=== PATIENT | male | born 1960 | race Caucasian/White ===

== ENCOUNTER 2016-07-20 11:32 | Inpatient (IN) | payer OTHER ==
[~2016-07-20] VITALS: Ht 160 cm; Wt 82.1 kg
[2016-07-20 11:42] VITALS: BP 136/101
[2016-07-20] MEDS ORDERED: ATENOLOL50 M1 PO (11:46)
[2016-07-20] MEDS ORDERED: GLUCOPHAGE500 MG PO (11:46)
[2016-07-20] MEDS ORDERED: TOPCARE OMEPRAZ20 MG PO (11:46)
[2016-07-20] MEDS ORDERED: [UNRECOGNIZED DRUG - REMARK] (11:46)
[2016-07-20] MEDS ORDERED: NORCO 325 MG-51 TAB PO (11:46)
--- NOTE | 2016-07-20 11:52 | NUR ---
pt to bed 6
--- NOTE | 2016-07-20 11:53 | NUR ---
56/M BIB SELF C/O MIDDLE LOWER ABD PAIN X 1 WEEK WITH BLOATING, LAST BM 0600 TODAY, HX HTN DM AND HIV. PT DENIES N/V/D; SKIN IS PINK/WARM/DRY; AAOX4 WITH EVEN AND STEADY GAIT; LUNGS CLEAR BL; HR EVEN AND REGULAR; PT DENIES ANY FEVER, CP, SOB, OR COUGH AT THIS TIME; PATIENT STATES PAIN OF 10/10 AT THIS TIME; VSS; PATIENT POSITIONED FOR COMFORT; HOB ELEVATED; BEDRAILS UP X2; BED DOWN. ER MD MADE AWARE OF PT STATUS.
[2016-07-20] MEDS ORDERED: FAMOTIDINE 20 MG/2 ML VIAL IVP ONE (12:05)
[2016-07-20] MEDS ORDERED: NACL 0.9% 1,000 ML IV SCH (12:05)
[2016-07-20] MEDS ORDERED: ONDANSETRON 4 MG/2 ML VIAL IVP ONE (12:05)
[2016-07-20] MEDS ORDERED: MORPHINE SULFATE 4 MG/ML SYR IVP ONE (12:10)
[2016-07-20] MEDS ORDERED: NACL 0.9% 1,000 ML IV ONE (12:30)
--- NOTE | 2016-07-20 13:51 | NUR ---
PT C/O RASH AT CHEST 3 SPOT;NO ITCHING OR DIFFICULT TO BREATH NOTED AT THIS TIME; ER MD DR MUSTAFA NOTIFIED.
[2016-07-20] MEDS ORDERED: methylPREDNISolone SS 125 MG in WATER STERILE 2 ML IV ONE (14:00)
[2016-07-20] MEDS ORDERED: diphenhydrAMINE 50 MG/ML VIAL IVP ONE (14:00)
[2016-07-20] MEDS ORDERED: ONDANSETRON 4 MG/2 ML VIAL IVP PRN (14:50)
[2016-07-20] MEDS ORDERED: MORPHINE SULFATE 2 MG/ML SYR IVP PRN (14:50)
[2016-07-20] MEDS ORDERED: ACETAMINOPHEN 325 MG TAB PO PRN (14:50)
[2016-07-20] MEDS ORDERED: LORazepam 2 MG/ML VIAL IVP PRN (14:50)
--- NOTE | 2016-07-20 15:25 | NUR ---
CALLED TO REPORT PT [id number] ,RN WILL CALL BACK IN 5 MINS
--- NOTE | 2016-07-20 15:33 | NUR ---
CALLED TO REPORT PT, RN OCTAVIO WILL CALL BACK
--- NOTE | 2016-07-20 15:35 | NUR ---
Dr. Arvizu evaluating patient at bedside.
--- NOTE | 2016-07-20 15:51 | NUR ---
Patient will be admitted to care of DR RAMESH. Admited to MS. Will go to [id number]. Belongings list completed. Report to JEY CUNNINGHAM.
[2016-07-20 16:05] VITALS: BP 112/76
--- NOTE | 2016-07-20 16:05 | NUR ---
PT ADMITTED FROM ER, AWAKE, ALERT AND ORIENTED. AMBULATORY, BREATHING EVEN AND UNLABORED BILATERALLY, NO SIGNS OF ACUTE DISTRESS, SKIN DRY AND INTACT, ABDOMEN SOFT WITH PAIN 5/10 MEDICATED IN ER, BOWEL AND BLADDER CONTINENCE, NO EPISODES OF NAUSEA OR VOMITING, ORIENTED TO HOSPITAL ENVIRONMENT, BED IN LOW POSITION WITH BILATERAL SIDE RAILS UP, CALL LIGHT IN REACH.
[2016-07-20] MEDS: BLOOD GLUCOSE MONITORING 1 DEV DEV FS SCH ×2 (16:24→21:36)
[2016-07-20] MEDS: NACL 0.9% 1,000 ML IV SCH (16:24)
[2016-07-20] MEDS: INSULIN LISPRO SLIDING SCALE 100 UNITS/ML VIAL SUBQ PRN (16:25)
--- NOTE | 2016-07-20 17:00 | NUR ---
SEEN BY DR RAMESH AND SHAVON NEW ADMIT ORDERS RECEIVED, NOTED AND CARRIED OUT.
[2016-07-20] MEDS ORDERED: PNEUMOCOCCAL VACCINE 23 MCG/0.5 ML VIAL IMVAC SCH (17:25)
--- NOTE | 2016-07-20 18:55 | NUR ---
PT. ALERT AND ORIENTED X4, IN NO APPARENT DISTRESS, TRANSFER CARE TO MUSIC THERAPIST NURSE.
--- NOTE | 2016-07-20 19:30 | NUR ---
RECEIVED REPORT FROM DAY RN AT BEDSIDE, PATIENT RESTING IN BED WITH FAMILY AT BEDSIDE, AAOX4 ON ROOM AIR, NO SOB OR SIGN OF DISTRESS. IV TO LAC PATENT AND INTACT WITH IVF INFUSING WELL, SKIN INTACT, DENIES PAIN AT THIS TIME, DISCUSSED PLAN OF CARE WITH PATIENT, PT VERBALIZED UNDERSTANDING, CALL LIGHT WITHIN REACH. WILL CONTINUE TO MONITOR.
[2016-07-20] MEDS: HYDROcodone/APAP 5/325 MG 1 TAB TAB PO PRN (20:10)
--- NOTE | 2016-07-20 21:04 | NUR ---
BS CHECK 419, ABOVE SLIDING SCALE PARAMETERS, CALLED DR SWIFT BOOKSTORE MANAGER FOR DR RAMESH, RECEIVED ORDERS TO CONTINUE PATIENT'S HOME MEDICATION OF METFORMIN 500 MG PO BID TO START TONIGHT. STATED NO EXTRA INSULIN COVERAGE NEEDED AT THIS TIME, WILL FOLLOW UP WITH ORDERS.
[2016-07-20] MEDS: metFORMIN 500 MG TAB PO SCH (22:18)
[2016-07-20] MEDS ORDERED: metFORMIN 500 MG TAB ONE (22:19)
[2016-07-21] VITALS: BP 96/55
--- NOTE | 2016-07-21 00:20 | NUR ---
PATIENT RESTING IN BED, NO SOB OR SIGN OF DISTRESS, VITAL SIGNS STABLE, CALL LIGHT WITHIN REACH. WILL CONTINUE TO MONITOR.
[2016-07-21] MEDS: NACL 0.9% 1,000 ML IV SCH ×4 (01:27→20:49)
--- NOTE | 2016-07-21 03:15 | NUR ---
PATIENT SLEEPING COMFORTABLE, NO SOB OR SIGN OF DISTRESS, CALL LIGHT WITHIN REACH. WILL CONTINUE TO MONITOR.
[2016-07-21] MEDS: HYDROcodone/APAP 5/325 MG 1 TAB TAB PO PRN ×2 (05:59→16:29)
--- NOTE | 2016-07-21 06:00 | NUR ---
PATIENT AWAKE RESTING IN BED, NO SOB OR SIGN OF DISTRESS AT THIS TIME,CALL LIGHT WITHIN REACH. WILL CONTINUE TO MONITOR.
[2016-07-21] MEDS: BLOOD GLUCOSE MONITORING 1 DEV DEV FS SCH ×4 (06:17→21:49)
[2016-07-21] MEDS: INSULIN LISPRO SLIDING SCALE 100 UNITS/ML VIAL SUBQ PRN ×4 (06:18→21:52)
--- NOTE | 2016-07-21 07:43 | NUR ---
ENDORSED PATIENT TO DAY RN AT BEDSIDE, PATIENT IN STABLE CONDITION
[2016-07-21 08:00] VITALS: BP 106/64
--- NOTE | 2016-07-21 08:00 | NUR ---
PATIENT ALERT AND ORIENTED X4, BREATHING EVEN AND UNLABORED BILATERALLY, NO SIGNS OF ACUTE DISTRESS, ABDOMEN SOFT AND ROUND, BOWEL AND BLADDER CONTINENCE, AMBULATES AND ABLE TO PERFORM ADL'S INDEPENDENTLY, SKIN DRY AND INTACT, NO COMPLAINT OF ABDOMINAL PAIN AT THIS TIME, BED IN LOW POSITION WITH BILATERAL HALF SIDE RAILS UP, CALL LIGHT WITHIN REACH.
[2016-07-21] MEDS: ENOXAPARIN 40 MG/0.4 ML SYR SUBQ SCH (08:37)
[2016-07-21] MEDS: metFORMIN 500 MG TAB PO SCH ×2 (08:37→16:10)
--- NOTE | 2016-07-21 09:44 | NUR ---
SPOKE WITH DR. RAMESH, RECEIVED ORDER FOR GI CONSULT WITH Gwendolyn LOZOYA. NOTED AND CARRIED OUT.
--- NOTE | 2016-07-21 10:28 | NUR ---
PAGED Gwendolyn SIDDIQI. TO FOLLOW UP ON GI CONSULT, WILL WAIT FOR RESPONSE.
[2016-07-21 16:00] VITALS: BP 112/80
[2016-07-21] MEDS ORDERED: BACTRIM DS 8001 TAB PO (16:11)
[2016-07-21] MEDS ORDERED: GENVOYA TABLET1 EACH PO (16:11)
[2016-07-21] MEDS ORDERED: PATIENTS OWN TABLET PO SCH (16:20)
--- NOTE | 2016-07-21 16:20 | NUR ---
DR ARMEN Snow MADE AWARE OF CONSULT. VERBALIZED WILL SEE PT. TOMORROW
--- NOTE | 2016-07-21 19:18 | NUR ---
PT. ALERT AND ORIENTED X4, AWAKE AND IN NO APPARENT ACUTE DISTRESS. BREATHING EVEN AND UNLABORED BILATERALLY. RESTING COMFORTABLY. COMPLAINT OF HEADACHE BUT WANTS TO WAIT FOR PAIN MEDICATION. BED IN LOW POSITION, HALF SIDE RAILS UP BILATERALLY, CALL LIGHT WITHIN REACH.
--- NOTE | 2016-07-21 19:18 | NUR ---
PATIENT IS CURRENTLY AWAKE ALERT ORIENTED SPEAKS BURMESE AND KOSOVAN,ABLE TO AMBULATE WELL,IVF INFUSING WELL IV SITE PATENT NO INFILTRATION NOTED.FAMILY CAME TO VISIT THE PATIENT.CALL LIGHT WITHIN REACH WILL CONTINUE TO MONITOR.
--- NOTE | 2016-07-21 19:20 | NUR ---
PATIENT COMPLAINS OF SLIGHT MILD PAIN I OFFERED PAIN MEDICATION BUT PATIENT DOESN'T WANT ANY NORCO OF PAIN MEDICATION.PT STATES,"I THINK THE NORCO IS MAKING DIZZY AND GAVE ME A HEADACHE."PATIENT STATES,"I HAVEN'T REALLY SLEPT EITHER I THINK I NEEDS TO REST." LIGHTS DIMMED AND PATIENT ENCOURAGED TO TRY TO GET SOME SLEEP FOR NOW.
[2016-07-21 20:00] VITALS: BP 116/72
--- NOTE | 2016-07-21 20:00 | NUR ---
Patient's Plan of Care was discussed and reviewed with HEALTH CARE LEGAL ASSISTANT: ROLF
--- NOTE | 2016-07-21 20:40 | NUR ---
PATIENT COMPLAINS OF FEELING NAUSEATED JEY BIGGS INFORMED SHE WILL MEDICATE THE PATIENT WITH ZOFRAN.WILL CONTINUE TO MONITOR.
--- NOTE | 2016-07-21 22:15 | NUR ---
PATIENT WATCHING TV PT STATES,"THE FEELING OF NAUSEA HAS GONE AWAY." NEEDS MET.CALL LIGHT WITHIN REACH.
[2016-07-22] VITALS: BP 125/77
--- NOTE | 2016-07-22 00:55 | NUR ---
PATIENT IS CURRENTLY AWAKE TALKING ON THE PHONE.NEEDS MET.CALL LIGHT WITHIN REACH.
--- NOTE | 2016-07-22 02:15 | NUR ---
PT RESTING IN BED AMBULATES TO THE BATHROOM AND BACK TO BED.IVF INFUSING WELL IV SITE PATENT NO INFILTRATION NOTED.CALL LIGHT WITHIN REACH.
[2016-07-22] MEDS: NACL 0.9% 1,000 ML IV SCH ×2 (04:22→16:54)
--- NOTE | 2016-07-22 04:22 | NUR ---
PATIENT IS CURRENTLY RESTING IN BED DENIES PAIN AND DISCOMFORT.NEEDS MET WILL CONTINUE TO MONITOR. CALL LIGHT WITHIN REACH.
[2016-07-22] MEDS: BLOOD GLUCOSE MONITORING 1 DEV DEV FS SCH ×4 (06:41→21:35)
[2016-07-22] MEDS: INSULIN LISPRO SLIDING SCALE 100 UNITS/ML VIAL SUBQ PRN ×3 (06:42→21:36)
--- NOTE | 2016-07-22 07:34 | NUR ---
PATIENT STABLE REPORT ENDORSED AT BEDSIDE TO JEY GEORGE SHE WILL RESUME CARE OF THE PATIENT,PT STABLE RESTING IN BED.JEY GEORGE WILL RESUME CARE OF THE PATIENT.
--- NOTE | 2016-07-22 07:35 | NUR ---
RECEIVED PT ASLEEP BUT EASILY AROUSABLE, AAOX4 WITH NO S/S OF RESPIRATORY DISTRESS OR DISCOMFORT. WITH IV ACCESS AT LEFT AC 20G INFUSING FLUIDS WELL. SKIN IS INTACT. DISCUSSED PLAN OF CARE, PT VERBALIZED UNDERSTANDING. CALL LIGHT WITHIN REACH, WILL CONTINUE TO MONITOR.
[2016-07-22 08:00] VITALS: BP 111/72
--- NOTE | 2016-07-22 08:09 | NUR ---
PATIENT HAS BEEN SCREENED AND CATEGORIZED MODERATE NUTRITION RISK. PATIENT WILL BE SEEN WITHIN 3-5 DAYS OF ADMISSION. 07/23/16-07/25/[address]
[2016-07-22] MEDS: PATIENTS OWN TABLET PO SCH (08:21)
[2016-07-22] MEDS: metFORMIN 500 MG TAB PO SCH ×2 (08:21→16:53)
[2016-07-22] MEDS: ENOXAPARIN 40 MG/0.4 ML SYR SUBQ SCH (08:24)
--- NOTE | 2016-07-22 08:25 | NUR ---
DUE MEDS GIVEN, PT TOLERATED WELL. ALL NEEDS MET AT THIS TIME, WILL CONTINUE TO MONITOR.
[2016-07-22] MEDS ORDERED: [UNRECOGNIZED DRUG - OTHER] PO SCH (09:00)
[2016-07-22] MEDS ORDERED: SULFAMETH/TRIMETH DS 800/160MG 1 TAB PO SCH (09:00)
--- NOTE | 2016-07-22 10:59 | NUR ---
PT AWAKE LYING ON BED WATCHING TV, ALL NEEDS MET AT THIS TIME. WILL CONTINUE TO MONITOR.
--- NOTE | 2016-07-22 11:25 | NUR ---
DR AYERS AT BEDSIDE. WILL CARRY OUT NEW ORDERS
[2016-07-22] MEDS ORDERED: MAGNESIUM CITRATE 300 ML BTL PO SCH (12:00)
[2016-07-22] MEDS: METOCLOPRAMIDE 10 MG/2 ML INJ VIAL IVP SCH ×2 (12:01→16:56)
[2016-07-22] MEDS: SENNA 8.6 MG TAB PO SCH ×3 (12:01→21:00)
[2016-07-22] MEDS: LACTULOSE 20 GM/30 ML UDC PO SCH ×3 (12:03→21:00)
--- NOTE | 2016-07-22 13:17 | NUR ---
PT AMBULATING AROUND THE HALLWAYS, TOLERATING WELL. NO COMPLAINTS OF PAIN AT THIS TIME. WITH RELATIVE AT BEDSIDE. CALL LIGHT WITHIN REACH, WILL CONTINUE TO MONITOR.
--- NOTE | 2016-07-22 13:30 | NUR ---
PT REFUSED IV FLUIDS, STATED THAT HE NEEDS TO GO TO THE RESTROOM FROM TIME TO TIME DUE TO THE LAXATIVES HE HAS BEEN TAKING. ADVISED PT TO DRINK PLENTY OF WATER. PT VERBALIZED UNDERSTANDING.
--- NOTE | 2016-07-22 14:52 | NUR ---
CM NOTE INITIAL REVIEW FAXED TO [facility] / FAX# [phone], ATTN: September [phone]
[2016-07-22 16:00] VITALS: BP 108/71
--- NOTE | 2016-07-22 16:45 | NUR ---
PT STILL REFUSED IV FLUIDS, STATED THAT HE HAS BEEN DRINKING WATER AND THAT HE DOES NOT WANT TO HAVE AN "ACCIDENT" BECAUSE HE HAS BEEN TAKING LAXATIVES BOWEL PREP FOR COLONOSCOPY TOMORROW. DISCUSSED BENEFITS OF IVF, PT STILL REFUSED. ENCOURAGED TO DRINK PLENTY OF FLUIDS. PT VERBALIZED UNDERSTANDING
--- NOTE | 2016-07-22 18:22 | NUR ---
IVF RECONNECTED, INFORMED PT TO PRESS CALL LIGHT IF HE WANTS TO GO TO RESTROOM. PT VERBALIZED UNDERSTANDING
--- NOTE | 2016-07-22 18:50 | NUR ---
FLEET ENEMA DONE, PT TOLERATED WELL. WILL CONTINUE TO MONITOR.
[2016-07-22] MEDS ORDERED: BOWEL EVACUANT DRINK 4,000 ML PDS PO SCH (19:00)
--- NOTE | 2016-07-22 19:30 | NUR ---
Patient's Plan of Care was discussed and reviewed with REFUSE AND RECYCLING WORKER: RUBA Potter
--- NOTE | 2016-07-22 19:34 | NUR ---
ENDORSED PT TO DANDY YEH IN STABLE CONDITION FOR CONTINUITY OF CARE
--- NOTE | 2016-07-22 19:35 | NUR ---
RECD. RESTING IN BED, AWAKE, A/OX4. RESPIRATION EVEN AND UNLABORED. IV OF NS AT 100 ML/HR INFUSING, LEFT AC G 20. GOLYTELY AT THE BEDSIDE. AMBULATORY TO THE BR. PLAN OF CARE FOR THE SHIFT DISCUSSED. VERBALIZED UNDERSTANDING. STATED THAT HIS BM IS ALREADY CLEAR, INSTRUCTED TO CALL NURSE TO VERIFY IF IT IS ALREADY CLEAR. AGREED. DENIES PAIN 0/10.
[2016-07-22 20:00] VITALS: BP 118/72
--- NOTE | 2016-07-22 21:35 | NUR ---
REFUSED TO TAKE CEPHULAC AND SENOKOT, STATED HE ALREADY DRINK IN THE AFTERNOON, EXPLAINED THAT IT WILL HELP CLEANSED IN PREPARATION FOR COLONOSCOPY, BUT STILL REFUSED.
--- NOTE | 2016-07-22 23:00 | NUR ---
REMINDED NPO PAST MIDNIGHT, VERBALIZED UNDERSTANDING.
--- NOTE | 2016-07-23 | NUR ---
CALLED NURSE TO CHECK HIS BM. NOTED BM ALREADY CLEAR.
[2016-07-23] MEDS: NACL 0.9% 1,000 ML IV SCH ×2 (02:49→12:49)
--- NOTE | 2016-07-23 04:00 | NUR ---
SLEEPING COMFORTABLY IN BED.
[2016-07-23] MEDS: BLOOD GLUCOSE MONITORING 1 DEV DEV FS SCH ×4 (06:47→21:00)
--- NOTE | 2016-07-23 07:20 | NUR ---
CONDITION REMAIN STABLE. ENDORSED TO JEY GEORGE FOR CONTINUITY OF CARE.
--- NOTE | 2016-07-23 07:21 | NUR ---
RECEIVED PT ASLEEP BUT EASILY AROUSABLE, AAOX4, NO S/S OF RESPIRATORY DISTRESS OR DISCOMFORT. WITH IV ACCESS ON LEFT AC 2OG INFUSING FLUIDS WELL. SKIN IS INTACT. DISCUSSED PLAN OF CARE AND PROCEDURE FOR THIS MORNING, PT VERBALIZED UNDERSTANDING. CALL LIGHT WITHIN REACH, WILL CONTINUE TO MONITOR.
[2016-07-23 08:00] VITALS: BP 95/51
[2016-07-23] MEDS: metFORMIN 500 MG TAB PO SCH ×2 (08:00→16:40)
[2016-07-23] MEDS: LACTULOSE 20 GM/30 ML UDC PO SCH (08:22)
[2016-07-23] MEDS: PATIENTS OWN TABLET PO SCH (08:23)
[2016-07-23] MEDS: ENOXAPARIN 40 MG/0.4 ML SYR SUBQ SCH (08:23)
[2016-07-23] MEDS: SENNA 8.6 MG TAB PO SCH (08:23)
[2016-07-23] MEDS: METOCLOPRAMIDE 10 MG/2 ML INJ VIAL IVP SCH (08:37)
--- NOTE | 2016-07-23 08:39 | NUR ---
PO MEDS AND LOVENOX HELD DUE TO COLONOSCOPY
--- NOTE | 2016-07-23 10:14 | NUR ---
PT AMBULATING AROUND THE HALLWAYS, NO COMPLAINTS AT THIS TIME. ABLE TO SHOWER.
--- NOTE | 2016-07-23 11:30 | NUR ---
DR RAMESH AT BEDSIDE
--- NOTE | 2016-07-23 11:57 | NUR ---
HELD INSULIN COVERAGE DUE TO PT IS ON NPO.
[2016-07-23] MEDS ORDERED: fentaNYL 0.05 MG/ML VIAL ONE ×2 (12:16)
[2016-07-23] MEDS ORDERED: diphenhydrAMINE 50 MG/ML VIAL ONE (12:18)
[2016-07-23] MEDS ORDERED: MIDAZOLAM 2 MG/2 ML VIAL ONE ×2 (12:18)
--- NOTE | 2016-07-23 12:30 | NUR ---
PT LEFT UNIT TO OR IN STABLE CONDITION
--- NOTE | 2016-07-23 13:03 | NUR ---
PT BACK TO UNIT FROM OR IN STABLE CONDITION
[2016-07-23] MEDS ORDERED: GLUCAGON 1 MG VIAL ONE (13:32)
[2016-07-23] MEDS ORDERED: fentaNYL 0.05 MG/ML VIAL IVP ONE (13:55)
[2016-07-23] MEDS ORDERED: MIDAZOLAM 2 MG/2 ML VIAL IVP ONE (13:55)
[2016-07-23] MEDS ORDERED: GLUCAGON 1 MG VIAL IVP ONE (13:55)
[2016-07-23] MEDS ORDERED: LEVOFLOXACIN 500 MG/D5W PREMIX 100 ML IV SCH (15:00)
--- NOTE | 2016-07-23 15:26 | NUR ---
FAXED CONCURRENT REVIEW TO [facility] [phone] PHONE SEPTEMBER [phone]
--- NOTE | 2016-07-23 15:28 | NUR ---
PT AWAKE WITH RELATIVES AT BEDSIDE, ALL NEEDS MET AT THIS TIME. WILL CONTINUE TO MONITOR.
[2016-07-23 16:00] VITALS: BP 107/77
[2016-07-23] MEDS: INSULIN LISPRO SLIDING SCALE 100 UNITS/ML VIAL SUBQ PRN (16:43)
--- NOTE | 2016-07-23 17:08 | NUR ---
PT AWAKE WATCHING T V, NO COMPLAINTS AT THIS TIME.
--- NOTE | 2016-07-23 19:14 | NUR ---
ENDORSED PT TO DANDY YEH IN STABLE CONDITION FOR CONTINUITY OF CARE
--- NOTE | 2016-07-23 19:15 | NUR ---
RECD. RESTING IN BED, AWAKE, A/OX4. RESPIRATION EVEN AND UNLABORED. WATCHING TV. IV OF NS AT 50 ML/HR INFUSING, RIGHT AC G 20. PLAN OF CARE FOR THE SHIFT DISCUSSED. VERBALIZED UNDERSTANDING. DENIES PAIN 0/10.
--- NOTE | 2016-07-23 20:00 | NUR ---
Patient's Plan of Care was discussed and reviewed with STRAIGHTENING MACHINE OPERATOR: RUBA EATON
[2016-07-23] MEDS: metroNIDAZOLE 500 MG/NS PREMIX 100 ML IV SCH (20:38)
[2016-07-24] VITALS: BP 116/60
[2016-07-24] MEDS: metroNIDAZOLE 500 MG/NS PREMIX 100 ML IV SCH ×2 (04:59→13:54)
[2016-07-24] MEDS: BLOOD GLUCOSE MONITORING 1 DEV DEV FS SCH ×2 (06:01→12:18)
--- NOTE | 2016-07-24 07:09 | NUR ---
ASSUMED CONTINUITY OF CARE. NO SIGNS AND SYMPTOMS OF ACUTE DISTRESS NOTED. INITIAL ASSESSMENT DONE. KEEP COMFORTABLE ON BED. EXPLAINED DIAGNOSIS, PLAN OF CARE, PAIN MANAGEMENT TEACHING, USE OF CALL LIGHT/BED/TV/BATHROOM. VERBALIZED UNDERSTANDING. CALL LIGHT WITHIN REACH.
[2016-07-24] MEDS: PATIENTS OWN TABLET PO SCH (08:40)
[2016-07-24] MEDS: metFORMIN 500 MG TAB PO SCH (08:40)
[2016-07-24] MEDS: ENOXAPARIN 40 MG/0.4 ML SYR SUBQ SCH (08:41)
[2016-07-24] MEDS ORDERED: LACTULOSE 20 GM/30 ML UDC PO SCH (09:00)
[2016-07-24] MEDS: NACL 0.9% 1,000 ML IV SCH (09:27)
[2016-07-24 12:00] VITALS: BP 110/72
[2016-07-24] MEDS: INSULIN LISPRO SLIDING SCALE 100 UNITS/ML VIAL SUBQ PRN (12:19)
[2016-07-24] MEDS ORDERED: TYLENOL325 M2 PO ×2 (12:59→13:01)
[2016-07-24] MEDS ORDERED: MOTRIN400 MG PO (13:00)
--- NOTE | 2016-07-24 13:30 | NUR ---
EXPLAINED ABOUT MD D/C ORDER, MD FOLLOW-UP, D/C INSTRUCTIONS AND TEACHING, D/C MEDICATION LIST EDUCATION, PAIN MANAGEMENT TEACHING, DISEASE MANAGEMENT TEACHING, DM TEACHING. VERBALIZED UNDERSTANDING.
--- NOTE | 2016-07-24 14:31 | NUR ---
FAXED CONCURRENT REVIEW TO [facility] [phone] PHONE SHER[place] [phone] [place] [phone]
--- NOTE | 2016-07-24 14:50 | NUR ---
D/C VIA WHEELCHAIR ACCOMPANIED BY PT. SISTER -MERLIN. AWAKE, ALERT, AND ORIENTED X4. SPEECH CLEAR. NO C/O PAIN. NO SOB, NOTED. IN STABLE CONDITION. INFORMED CHARGE NURSE FRANKLYN ROLLE
== END 2016-07-24 14:45 | disposition home or self-care (01) | DRG 244 ==
LOC: MED 11:32 → MTU 15:23
PROVIDERS: ADMIT Hospitalist; ATTEND Hospitalist
PROC: 0DBN8ZX Excision of Sigmoid Colon, Via Natural or Artificial Opening Endoscopic, Diagnostic (ICD-10-PCS; principal; 2016-07-23 11:00)
DX: K57.32 Diverticulitis of large intestine without perforation or abscess without bleeding (principal); K56.69 Other intestinal obstruction; K76.0 Fatty (change of) liver, not elsewhere classified; K63.89 Other specified diseases of intestine; I10 Essential (primary) hypertension; K40.90 Unilateral inguinal hernia, without obstruction or gangrene, not specified as recurrent; K57.30 Diverticulosis of large intestine without perforation or abscess without bleeding; Z87.891 Personal history of nicotine dependence; K59.00 Constipation, unspecified; E11.9 Type 2 diabetes mellitus without complications; E78.5 Hyperlipidemia, unspecified; E66.9 Obesity, unspecified; Z68.32 Body mass index [BMI] 32.0-32.9, adult; Z91.19 Patient's noncompliance with other medical treatment and regimen

== ENCOUNTER 2017-01-03 11:29 | Emergency (ER) | payer OTHER ==
[~2017-01-03] VITALS: Ht 157.5 cm; Wt 81.3 kg
[~2017-01-03 11:29] MED LIST: ACET-2619 PO; ACET-2869 PO; ATEN50TA2 PO; ELVI1TAB2 PO; IBUP-1842 PO; METF500T PO; OMEP20TC PO; SULF-59 PO; [UNRECOGNIZED DRUG - REMARK]
[2017-01-03 11:34] VITALS: BP 134/87
[2017-01-03] MEDS ORDERED: POLYETHYLENE GLYCOL 17 GM/PKT PO ONE (13:25)
[2017-01-03] MEDS ORDERED: SENNA 8.6 MG TAB PO ONE (13:25)
[2017-01-03] MEDS ORDERED: DOCUSATE SODIUM 100 MG GELCAP PO ONE (13:25)
--- NOTE | 2017-01-03 13:45 | NUR ---
PATIENT PRESENTS TO ED WITH c/o constipation x 5 days with lower abdominal pain--- used metamucil, prune juice, hx---dm, hiv, htn, chronic constipation rx----hiv med, gabapentin, omeprazole, vistaril, atnolol, paroxetine, enalapril, motrin, norco, metformin; DENIES N/V/D; SKIN IS PINK/WARM/DRY; AAOX4 WITH EVEN AND STEADY GAIT; LUNGS CLEAR BL; HR EVEN AND REGULAR; PT DENIES ANY FEVER, CP, SOB, OR COUGH AT THIS TIME; PATIENT STATES PAIN OF 0/10 AT THIS TIME; VSS; PATIENT POSITIONED FOR COMFORT; HOB ELEVATED; BEDRAILS UP X2; BED DOWN. ER MD MADE AWARE OF PT STATUS.
--- NOTE | 2017-01-03 14:43 | NUR ---
Patient discharged with v/s stable. Written and verbal after care instructions given and explained. Patient alert, oriented and verbalized understanding of instructions. Ambulatory with steady gait. All questions addressed prior to discharge. ID band removed. Patient advised to follow up with PMD. Rx of miralax, senokot, colace given. Patient educated on indication of medication including possible reaction and side effects. Opportunity to ask questions provided and answered.
[2017-01-03 14:46] VITALS: BP 124/91
== END 2017-01-03 14:43 | disposition home or self-care (01) ==
LOC: MED 11:29
DX: K59.00 Constipation, unspecified (principal); I10 Essential (primary) hypertension; K21.9 Gastro-esophageal reflux disease without esophagitis; E11.9 Type 2 diabetes mellitus without complications; F17.210 Nicotine dependence, cigarettes, uncomplicated; Z79.84 Long term (current) use of oral hypoglycemic drugs; Z79.899 Other long term (current) drug therapy
CPT/HCPCS: 74000; 99284

== ENCOUNTER 2017-01-05 08:51 | Inpatient (IN) | payer OTHER ==
[~2017-01-05] VITALS: Ht 160 cm; Wt 78.9 kg
[~2017-01-05 08:51] MED LIST changes: -ACET-2619 PO; -ACET-2869 PO; -ATEN50TA2 PO; +ATENOLOL50 M1 PO; +BACTRIM DS 8001 TAB PO; -ELVI1TAB2 PO; +GENVOYA TABLET1 EACH PO; +GLUCOPHAGE500 MG PO; -IBUP-1842 PO; -METF500T PO; +MOTRIN400 MG PO; +NORCO 325 MG-51 TAB PO; -OMEP20TC PO; -SULF-59 PO; +TOPCARE OMEPRAZ20 MG PO; +TYLENOL325 M2 PO
[2017-01-05 09:01] VITALS: BP 124/77
--- NOTE | 2017-01-05 09:04 | NUR ---
Patient ambulated to bed 05.
--- NOTE | 2017-01-05 09:05 | NUR ---
PT PRESENTS TO ER FOR EVALUATION OF CONSTIPATION X7 DAYS. HX DM.PT STS LOWER ABDOMINAL PAIN AT THIS TIME. DENIES N/V/D; SKIN IS PINK/WARM/DRY; AAOX4 WITH EVEN AND STEADY GAIT; LUNGS CLEAR BL; HR EVEN AND REGULAR; PT DENIES ANY FEVER, CP, SOB, OR COUGH AT THIS TIME; PATIENT STATES PAIN OF 10/10 AT THIS TIME; VSS; PATIENT POSITIONED FOR COMFORT; HOB ELEVATED; BEDRAILS UP X2; BED DOWN. ER MD MADE AWARE OF PT STATUS. Addendum: 01/05/17 at 0915 by [email or web address] HX OF HIV.
--- NOTE | 2017-01-05 09:15 | NUR ---
Dr. Barba evaluating patient at bedside. Addendum: 01/05/17 at 0918 by [email or web address] PT STS HX OF HTN.
--- NOTE | 2017-01-05 09:16 | NUR ---
Patient being evaluated by DR AYALA at bedside.
--- NOTE | 2017-01-05 09:33 | NUR ---
Patient being taken to CT via herber[facility]man.
--- NOTE | 2017-01-05 09:34 | NUR ---
Eloy duarte in ED - 01/05/17 at 0935 by [email or web address] PT TAKEN TO CT VIA ALIVIA,ACCOMPANIED BY AUTOMOTIVE WHOLESALE PARTS ADVISOR.
--- NOTE | 2017-01-05 09:41 | NUR ---
[facility].
--- NOTE | 2017-01-05 11:52 | NUR ---
REPORT TO JEY ALAS.
--- NOTE | 2017-01-05 11:53 | NUR ---
Patient will be admitted to care of GILBERT. Admited to MS. Will go to room 120. Belongings list completed. Report to JEY ALAS.
--- NOTE | 2017-01-05 12:05 | NUR ---
PT BLOOD PRESSURE 120/71, PULSE 52, 94% OXYGEN SATURATION, RESPIRATIONS 18 AND TEMPERATURE 98.3. WILL CONTINUE TO MONITOR.
--- NOTE | 2017-01-05 12:05 | NUR ---
RECEIVED REPORT FROM JEY CAMP. PT AWAKE AND ALERT, NO SIGNS OF ACUTE DISTRESS. BOWEL SOUNDS ACTIVE IN ALL 4 QUADRANTS. AMBULATORY WITH BRP. SKIN INTACT. IV PATENT AND ASYMPTOMATIC. ORIENTED TO HOSPITAL AND TO UNIT, PT VERBALIZES UNDERSTANDING. BED IN LOW POSITION WITH BILATERAL HALF SIDE RAILS UP, CALL LIGHT WITHIN REACH. WILL CONTINUE TO MONITOR.
--- NOTE | 2017-01-05 13:30 | NUR ---
PAGED DR LOPEZ, NO ORDERS FOR PATIENT YET. DR LOPEZ ORDERED DILAUDID AND NORCO FOR PAIN AND CLEAR LIQUID DIET. HE WILL PUT IN MORE ORDERS LATER. NOTED, WILL CARRY OUT.
[2017-01-05] MEDS: HYDROmorphone 1 MG/ML AMP IVP PRN (13:57)
--- NOTE | 2017-01-05 15:30 | NUR ---
DR LOPEZ AT PATIENT BEDSIDE.
[2017-01-05] MEDS ORDERED: SODIUM PHOSPHATE 118 ML ENEM RC PRN (15:35)
[2017-01-05] MEDS ORDERED: ALUMINUM HYD/MAG/SIMETHICONE 30 ML UDC PO PRN (15:35)
[2017-01-05] MEDS ORDERED: MORPHINE SULFATE 2 MG/ML SYR IVP PRN (15:35)
[2017-01-05] MEDS ORDERED: BISACODYL 10 MG SUPP RC PRN (15:35)
[2017-01-05] MEDS ORDERED: HYDROcodone/APAP 5/325 MG 1 TAB TAB PO SCH (15:35)
[2017-01-05] MEDS ORDERED: DOCUSATE SODIUM 250 MG GELCAP PO PRN (15:35)
[2017-01-05] MEDS ORDERED: ACETAMINOPHEN 325 MG TAB PO PRN ×2 (15:35)
[2017-01-05] MEDS ORDERED: ONDANSETRON 4 MG/2 ML VIAL IVP PRN (15:35)
[2017-01-05] MEDS ORDERED: ACETAMINOPHEN 650 MG SUPP RC PRN (15:35)
[2017-01-05] MEDS ORDERED: HYDROcodone/APAP 5/325 MG 1 TAB TAB PO PRN (15:35)
--- NOTE | 2017-01-05 15:57 | NUR ---
RECEIVED NEW ORDERS FROM DR LOPEZ, NOTED, WILL CARRY OUT.
[2017-01-05 16:00] VITALS: BP 125/76
[2017-01-05] MEDS: BLOOD GLUCOSE MONITORING 1 DEV DEV FS SCH ×2 (16:35→20:18)
[2017-01-05] MEDS: HYDROcodone/APAP 10/325 MG 1 TAB TAB PO PRN (16:43)
--- NOTE | 2017-01-05 17:06 | NUR ---
RECEIVED NEW ORDERS FROM DR QUINONES, FOR COLONOSCOPY TOMORROW. NOTED, WILL CARRY OUT.
[2017-01-05] MEDS ORDERED: BOWEL EVACUANT DRINK 4,000 ML PDS PO ONE (17:30)
--- NOTE | 2017-01-05 19:08 | NUR ---
PATIENT IS CURRENTLY AWAKE ALERT ORIENTED SITTING AT THE EDGE OF THE BED SPEAKS MARSHALLESE ONLY.PATIENT IS CURRENTLY DRINKING THE GOLYTELY.PATIENT DENIES PAIN AND DISCOMFORT.PATIENT ABLE TO MAKE NEEDS KNOWN.WILL CONTINUE TO OBSERVE.
--- NOTE | 2017-01-05 19:08 | NUR ---
PT AWAKE AND ALERT, NO SIGNS OF ACUTE DISTRESS. ENDORSED TO SUPERVISOR STEEL DIVISION NURSE FOR CONTINUITY OF CARE.
[2017-01-05 20:00] VITALS: BP 122/83
--- NOTE | 2017-01-05 20:00 | NUR ---
Patient's Plan of Care was discussed and reviewed with GEAR MACHINE OPERATOR GENERAL: DARA WATSON
--- NOTE | 2017-01-05 20:05 | NUR ---
PATIENT HAS DRANK HALF OF THE GOLYTELY AND PATIENT STATES,"I STILL HAVEN'T BEEN ABLE TO GO TO THE BATHROOM I HAVEN'T POOP." PATIENT WAS GIVEN SOME WASH CLOTHS FOR HIM TO WASH UP PER PATIENT'S REQUEST.FAMILY CURRENTLY AT BEDSIDE AND MOTHER ALSO AT BEDSIDE.PATIENT IS AWARE THAT HE HAS CONSULT FOR GI SPECIALIST AND WITH CAROLINE KATE.CALL LIGHT WITHIN REACH WILL CONTINUE TO MONITOR.
[2017-01-05] MEDS: metFORMIN 500 MG TAB PO SCH (21:00)
--- NOTE | 2017-01-05 21:12 | NUR ---
I PAGED EWA CLAY EXCHANGE PATIENT IS VOMITING UNABLE TO DRINK THE GOLYTELY HE KEEPS VOMITING AND STILL HASN'T HAD A BOWEL MOVEMENT YET. PATIENT AMBULATING IN THE HALLWAY.
--- NOTE | 2017-01-05 21:18 | NUR ---
MD MEJIA RETURNED HIS CALL AND HE IS AWARE THAT PATIENT DRANK HALF OF THE GOLYTELY AND PATIENT STILL UNABLE TO HAVE BOWEL MOVEMENT AND HE IS VERY NAUSEATED CANT DRINK THE GOLYTELY.MD MEJIA GAVE NEW ORDERS FOR THE PATIENT.WILL CARRY THE ORDERS OUT AND WILL CONTINUE TO MONITOR FOR EFFECTIVENESS.
[2017-01-05] MEDS ORDERED: BISACODYL 5 MG TABEC PO SCH ×2 (21:45→22:00)
[2017-01-05] MEDS ORDERED: SODIUM PHOSPHATE 118 ML ENEM RC SCH (21:45)
--- NOTE | 2017-01-05 21:58 | NUR ---
PATIENT RECEIVED ZOFRAN FOR NAUSEA AND VOMITING.
--- NOTE | 2017-01-05 22:04 | NUR ---
PATIENT WAS GIVEN A FLEET ENEMA KS ORDERED TIMES ONE AND WILL CONTINUE TO MONITOR FOR EFFECTIVENESS.
--- NOTE | 2017-01-05 22:30 | NUR ---
I PAGED CAROLINE KATE TO MAKE SURE HE IS AWARE THAT HE HAS A CONSULT WITH THIS PATIENT.
--- NOTE | 2017-01-05 22:51 | NUR ---
PATIENT KEPT COMFORTABLE I GAVE PATIENT A WARM BLANKET.
--- NOTE | 2017-01-05 23:05 | NUR ---
CAROLINE KATE CALLED BACK HE WAS INFORMED OF CONSULT ON THIS PATIENT MD AWARE OF CT ABD AND PELVIS RESULTS I READ THE RESULT OVER THE PHONE AND MD ORDERED TO CONTINUE TO KEEP THE PATIENT NPO AND GAVE ORDERS TO INSERT NGTUBE TO HIGH SUCTION. CAROLINE KATE IS AWARE THAT PATIENT HASN'T HAD A BM IN 7 DAYS AND THE PREP GIVEN TONIGHT STILL PATIENT HASN'T POOP.CAROLINE KATE IS ALSO AWARE THAT PATIENT WILL BE HAVING A COLONOSCOPY DONE TOMORROW BY MD MEJIA.
[2017-01-06] VITALS: BP 132/93
[2017-01-06] MEDS ORDERED: SODIUM PHOSPHATE 118 ML ENEM RC ONE (00:04)
--- NOTE | 2017-01-06 00:40 | NUR ---
NO BOWEL MOVEMENT YET WILL CONTINUE TO OBSERVE.
[2017-01-06] MEDS: HYDROmorphone 1 MG/ML AMP IVP PRN ×3 (00:42→21:58)
--- NOTE | 2017-01-06 01:05 | NUR ---
PATIENT AGREED TO HAVE NGT INSERTED ORDERED BY MD VELAZQUEZ FLIGHT OPERATIONS SPECIALIST NURSE CLAIRE HELPED WITH THE NGTUBE INSERTION PATIENT DID WELL AND FOLLOWED INSTRUCTIONS AND NGTUBE FR#14 WAS INSERTED VERY SMOOTHLY PATIENT TOLERATED PROCEDURE WELL AND I CHECKED FOR NGTUBE PLACEMENT BY ASPIRATING AND FLUSHING AIR INTO THE STOMACH WITNESSED BY FLIGHT OPERATIONS SPECIALIST AND NGTUBE IS IN PLACE.SECURED WITH TAPE BY JEY RAY.NGTUBE CONNECTED TO HIGH INTERMITTENT SUCTION BY CAROLINE KATE.WILL CONTINUE TO OBSERVE.
--- NOTE | 2017-01-06 02:21 | NUR ---
PATIENT SLEEPING IN BED NG TUBE IN PLACE AND CONNECTED TO HIGH INTERMITTENT SUCTION.
--- NOTE | 2017-01-06 03:18 | NUR ---
PATIENT WENT TO THE BEDSIDE COMMODE AND HAD SOFT MEDIUM BOWEL MOVEMENT.THEN PATIENT WAS ASSISTED BACK TO BED WILL CONTINUE TO MONITOR.CALL LIGHT WITHIN REACH.
[2017-01-06] MEDS: BLOOD GLUCOSE MONITORING 1 DEV DEV FS SCH ×4 (05:51→21:00)
--- NOTE | 2017-01-06 06:50 | NUR ---
PATIENT SLEEPING AT THIS TIME CONTINUES HAVE NGT TO HIGH INTERMITTENT SUCTION. PATIENT HAD ONLY ONE EPISODE OF BM LAST NIGHT AND I CALLED AND LEFT A MESSAGE WITH David ELLIS I WANT TO INFORM HIM THAT PATIENT IS STILL NOT CLEAR FOR THE PROCEDURE COLONOSCOPY HE WANTS TO DO TODAY.
--- NOTE | 2017-01-06 06:55 | NUR ---
MD MEJIA CALLED BACK AND I INFORMED HIM THAT PATIENT HAD ONLY ONE EPISODE OF BM LAST NIGHT AND JUST NOW THIS MORNING MARCOS WESLEY INFORMED ME THAT PATIENT HAD ANOTHER EPISODE OF LOOSE STOOL.I ALSO INFORMED MD MEJIA THAT PATIENT HAS AN NGTUBE ORDERED BY CAROLINE KATE BECAUSE PATIENT HAS NAUSEOUS AND WAS VOMITING LAST NIGHT.MD GAVE NEW ORDERS WILL FOLLOW UP.
[2017-01-06] MEDS: DEXT 5% / NACL 0.45% 1,000 ML IV SCH ×2 (07:00→17:27)
--- NOTE | 2017-01-06 07:36 | NUR ---
PATIENT IS CURRENTLY RESTING IN BED REPORT ENDORSED TO RN FREDY.
--- NOTE | 2017-01-06 07:37 | NUR ---
REPORT RECEIVED FROM EMAIL PRODUCER, PT CARE ASSUMED AT THIS TIME, PT AWAKE ALERT, RESTING QUIETLY IN NAD, RESP EVEN UNLABORED ON ROOM AIR, NGT TO LOW INTERMIT SUCTION, DRAINAGE GREEN DRAINAGE, PT UP TO BEDSIDE COMMODE, LOOSE STOOL NOTED, ABD SOFT, NON DISTENDED, +BS, PLAN OF CARE DISCUSSED, PT VERBALIZED FULL UNDERSTANDING, WILL CONTINUE TO MONITOR.
[2017-01-06 08:00] VITALS: BP 128/83
[2017-01-06] MEDS: metFORMIN 500 MG TAB PO SCH ×2 (08:00→17:00)
--- NOTE | 2017-01-06 08:55 | NUR ---
TAP WATER EMEMA 1500ML COMPLETED, PT CONY WELL, BED SIDE COMMODE NEAR BY, CALL US WITHIN REACH, WILL CONTINUE TO MONITOR.
[2017-01-06] MEDS: ATENOLOL 50 MG TAB PO SCH (09:00)
[2017-01-06] MEDS: PANTOPRAZOLE 40 MG TABEC PO SCH (09:00)
[2017-01-06] MEDS ORDERED: NON-FORMULARY ITEM (Omeprazole (Omeprazole) 20 MG) PO SCH (09:00)
[2017-01-06] MEDS: SULFAMETH/TRIMETH DS 800/160MG 1 TAB PO SCH (09:00)
--- NOTE | 2017-01-06 10:30 | NUR ---
PATIENT SITTING IN BED. NO ACUTE DISTRESS NOTED. DENIES ANY PAIN AT THIS TIME. CONTINUES TO HAVE BM, LOOSE BROWN STOOLS. LEFT HAND IV INTACT, PATENT, AND RUNNING. NG TUBE INTERMITTENT SUCTION ON WITH YELLOWISH/BROWN DRAINAGE. BEDSIDE COMMODE NEXT AT BEDSIDE. FAMILY MEMBERS AT BEDSIDE. SAFETY MEASURES IN PLACE, CALL LIGHT WITHIN REACH. WILL CONTINUE TO MONITOR.
--- NOTE | 2017-01-06 11:18 | NUR ---
PATIENT HAS BEEN SCREENED AND CATEGORIZED MODERATE NUTRITION RISK. PATIENT WILL BE SEEN WITHIN 3-5 DAYS OF ADMISSION. 01/08/17 - 01/10/[address]
--- NOTE | 2017-01-06 11:20 | NUR ---
SURGERY MD AT BEDSIDE.
[2017-01-06] MEDS ORDERED: MAGNESIUM CITRATE 300 ML BTL PO SCH ×2 (13:06→17:00)
--- NOTE | 2017-01-06 13:15 | NUR ---
DR. CASTILLO AT BEDSIDE. BIOPSY REPORT FROM JULY 2016 OBTAINED FROM MEDICAL RECORD. NO COLONOSCOPY NEEDED PER DR. CASTILLO. ORDERS FOR MAGNESIUM CITRATE AND DULCOLAX RECEIVED FOR BOWEL PREPARATION FOR POSSIBLE SURGERY PER DR. CASTILLO.
[2017-01-06] MEDS ORDERED: BISACODYL 5 MG TABEC PO SCH ×2 (13:30→17:00)
--- NOTE | 2017-01-06 13:35 | NUR ---
MAGNESIUM CITRATE AND DULCOLAX GIVEN. NG TUBE TAKEN OFF SUCTION FOR NOW. PATIENT UP AT THE BEDSIDE COMMODE NOW.
--- NOTE | 2017-01-06 15:00 | NUR ---
PATIENT SITTING AT BED. NO ACUTE DISTRESS NOTED. RESPIRATIONS EVEN, UNLABORED. CONNECTED INTERMITTENT SUCTION VIA NG TUBE. CONTINUES TO HAVE LOOSE BROWN STOOLS. SAFETY MEASURES IN PLACE, CALL LIGHT WITHIN REACH. WILL CONTINUE TO MONITOR
--- NOTE | 2017-01-06 15:05 | NUR ---
CM NOTE INITIAL REVIEW FAXED TO [facility] (FAX# [phone], ATTN: DENISSE #[phone]) AND [facility] (FAX# [phone])
[2017-01-06 16:00] VITALS: BP 122/83
--- NOTE | 2017-01-06 17:00 | NUR ---
PATIENT LYING IN BED COMFORTABLY. NO S/S OF ACUTE DISTRESS. MEDICATIONS DUE GIVEN. DENIES ANY PAIN AT THIS TIME. CONTINUES TO HAVE LOOSE BROWN STOOLS ON BESIDE COMMODE. INTERMITTENT SUCTION VIA NG TUBE ON. SAFETY MEASURES IN PLACE, CALL LIGHT WITHIN REACH. WILL CONTINUE TO MONITOR.
--- NOTE | 2017-01-06 18:43 | NUR ---
DR. MCCALLUM AT BEDSIDE DISCUSSING PLAN OF CARE WITH PATIENT/FAMILY.
[2017-01-06] MEDS ORDERED: NACL 0.9% 500 ML IV ONE (18:50)
--- NOTE | 2017-01-06 18:53 | NUR ---
[address] CAROLINE MCCALLUM STATING THAT PT NEEDS HIGHER LEVEL OF CARE. HE SPOKE WITH DR MAKENNA COURTNEY WHO HAS AGREED TO ACCEPT PT AT [facility]. 1839 SPOKE WITH [place] SMITH CM FOR [facility] WHO PROVIDED AUTH# [id number] FOR TRANSPORT AND AUTH# [id number] FOR [facility]. 1849 CALLED [facility] AND SPOKE WITH [facility] DIRECT PHONE NUMBER [phone] AND FAX [phone] AND SUZY REQUESTS THAT FACESHEET AND AN H&P BE FAXED. DR COURTNEY HAS ALREADY CONTACTED TRANSFER UNIT TO REQUEST BED. INFORMED SUZY WILL HAVE [facility] ASSIGNED NURSE TO FAX REQUESTED DOCUMENTATION AND CM NOTE WITH AUTH NUMBERS. CONTACT PHONE NUMBER FOR [facility] AT [facility] PROVIDED TO SUZY. DR MCCALLUM UPDATED ON PROGRESS OF TRANSFER.
[2017-01-06] MEDS ORDERED: CLINICAL MONITORING MC PRN (19:00)
--- NOTE | 2017-01-06 19:30 | NUR ---
REPORT GIVEN TO MANAGER PORTABLE NURSE DWIGHT HALL IN STABLE CONDITION.
--- NOTE | 2017-01-06 19:31 | NUR ---
REPORT RECEIVED FROM DAY SHIFT, PT CARE ASSUMED AT THIS TIME, PT AWAKE ALERT, RESP EVEN UNLABORED ON ROOM AIR, IV TO L HAND 20 G, PATENT AND INTACT, NGT TO LOW INTERMIT SUCTION, DRAINAGE GREEN DRAINAGE, PT UP TO BEDSIDE COMMODE, ABD SOFT, NON DISTENDED, +BS, PLAN OF CARE DISCUSSED, PT VERBALIZED FULL UNDERSTANDING, WILL CONTINUE TO MONITOR.
--- NOTE | 2017-01-06 19:51 | NUR ---
FAXED ALL THE INFORMATION TO [facility] , ARRANGED TRANSPORT WITH [facility] FOR WILL CALL . NOTIFED DR RAMESH (STEEPLECHASE JOCKEY FOR DR LOPEZ . WAITING FROM [facility] [[email or web address]] FOR AVAILABLE BED. ENDORSE THE CARE TO PHYSICAL THERAPY INSTRUCTOR NURSE.
--- NOTE | 2017-01-06 21:00 | NUR ---
PT RESTING COMFORTABLY IN BED NO S/S OF DISTRESS NOTED. ALL SAFETY PRECAUTIONS MET, CALL LIGHT WITHIN REACH WILL CONTINUE TO MONITOR,
[2017-01-06] MEDS: POTASSIUM CHL 20MEQ/D5-NS 1,000 ML IV SCH (22:03)
--- NOTE | 2017-01-06 22:30 | NUR ---
PT HAD BM, LOOSE LIGHT BROWN STOOL NOTED IN COMMODE,
[2017-01-07] VITALS: BP 101/56
[2017-01-07] MEDS: POTASSIUM CHL 20MEQ/D5-NS 1,000 ML IV SCH ×2 (01:30→09:17)
[2017-01-07] MEDS: BLOOD GLUCOSE MONITORING 1 DEV DEV FS SCH ×4 (06:15→21:08)
--- NOTE | 2017-01-07 07:23 | NUR ---
ENDORSED PLAN OF CARE TO AM NURSE, PT IN STABLE CONDITION. NO S/S OF DISTRESS NOTED. CALL LIGHT IS WITHIN REACH
--- NOTE | 2017-01-07 07:28 | NUR ---
REPORT RECIEVED FROM PRINCIPAL ARCHAEOLOGIST, PT RESTING QUIETLY IN NAD, RESP EVEN UNLABORED SKIN WARM DRY COLOR WNL, PT DENIES PAIN OR DISCOMFORT NOW, PT WITH NGT TO SUCTION, GETTING UP TO COMMODE WITHOUT PROBLEM, IVF INFUSING, WITE CLEAR, PLAN OF CARE DISCUSSED, GINA ANY QUERSTIONS, SAFETY MEASURES IN PLACE, WILL CONTINUE TO MONTOR.
[2017-01-07 08:00] VITALS: BP 118/70
[2017-01-07] MEDS: metFORMIN 500 MG TAB PO SCH ×2 (08:00→17:00)
[2017-01-07] MEDS: ATENOLOL 50 MG TAB PO SCH (08:54)
[2017-01-07] MEDS: KCL 20 MEQ/WATER INJ PREMIX 200 ML IV SCH ×2 (09:15→11:30)
[2017-01-07] MEDS: PANTOPRAZOLE 40 MG TABEC PO SCH (09:16)
[2017-01-07] MEDS: HYDROmorphone 1 MG/ML AMP IVP PRN ×3 (09:16→22:06)
--- NOTE | 2017-01-07 09:16 | NUR ---
PT C/O ABD PAIN, MEDICATED WITH DILAUDID PER PRN ORDER, PT REMAINS ON NGT TO SUCTION, DRAINING GREEN DRAINAGE, ABD SOFT, TENDER TO PALP, CALL US WITHIN REACH, SIDE RAILS UP, WILL CONTINUE TO MONITOR.
[2017-01-07] MEDS ORDERED: DESFLURANE 240 ML BTL INH ONE ×2 (14:05→14:50)
[2017-01-07] MEDS ORDERED: GLYCOPYRROLATE 0.2 MG/ML VIAL IV ONE (14:05)
[2017-01-07] MEDS ORDERED: NEOSTIGMINE 1:1000 10 MG/10 ML VIAL IM ONE (14:05)
--- NOTE | 2017-01-07 14:20 | NUR ---
DR MCCALLUM REQUESTED TO BEDSIDE TO DISCUSS PLAN OF CARE WITH PT AND LATASHA.
[2017-01-07] MEDS ORDERED: PROPOFOL 200 MG/20 ML VIAL IV ONE (14:50)
[2017-01-07] MEDS ORDERED: SUCCINYLCHOLINE CHLORIDE 200 MG/10 ML VIAL IV ONE (14:50)
[2017-01-07] MEDS ORDERED: ONDANSETRON 4 MG/2 ML VIAL IVP ONE (14:50)
[2017-01-07] MEDS ORDERED: ROCURONIUM 50 MG/5 ML VIAL IV ONE (14:50)
[2017-01-07] MEDS ORDERED: DEXAMETHASONE 4 MG/ML VIAL IVP ONE (14:50)
[2017-01-07] MEDS ORDERED: fentaNYL 0.05 MG/ML VIAL ONE (14:57)
--- NOTE | 2017-01-07 16:40 | NUR ---
REPORT RECEIVED FROM JEY DANIEL. AWAITING PT FROM SURGERY.
[2017-01-07 18:00] VITALS: BP 146/101
[2017-01-07] MEDS ORDERED: ONDANSETRON 4 MG/2 ML VIAL IV PRN (18:05)
[2017-01-07] MEDS ORDERED: HYDROcodone/APAP 5/325 MG 1 TAB TAB PO PRN (18:05)
--- NOTE | 2017-01-07 18:30 | NUR ---
PT RECEIVED FROM SURGERY. ASSESSMENT TO FOLLOW.
--- NOTE | 2017-01-07 18:35 | NUR ---
PT PLACED ON CDL FLATBED TRUCK DRIVER. VITALS SIGNS WNL. BP SLIGHTLY ELEVATED (SEE VITAL SIGNS). WILL CONTINUE TO MONITOR. PT APPEARS DROWSY, BUT ABLE TO ANSWER ALL QUESTIONS. BILATERAL PERRLA NOTED. PT C/O 10/10 PAIN, POINTED TO HIS ABDOMINAL INCISION. WILL ADMINISTER PAIN MEDICATION ACCORDINGLY. ON 5 L FACE MASK. TOLERATING WELL. SR ON MONITOR. S/P ABDOMINAL SURGERY. DRESSING NOTED X 2. C/D/I. AWAITING MD FOR FIRST REMOVAL/ASSESSMENT. R EULOGIO DRAIN NOTED. DRAINING BLOOD LIKE DRAINAGE. COLOSTOMY NOTED. NO OUTPUT. BOWEL TENDER TO PALPATION. HERNANDEZ CATHETER IN PLACE. DRAINING CLEAR YELLOW URINE. 18 GAUGE IV NOTED IN LEFT HAND. INTACT AND PATENT. 18 GAUGE IV NOTED IN RIGHT HAND. SALINE LOCKED. SAFETY PRECAUTION IN PLACE. CALL LIGHT WITHIN REACH. BED AT LOWEST SETTING. WILL CONTINUE TO MONITOR.
[2017-01-07] MEDS: NACL 0.9% 1,000 ML IV SCH (18:38)
--- NOTE | 2017-01-07 19:00 | NUR ---
REPORT GIVEN TO JEY TURCIOS.
--- NOTE | 2017-01-07 19:30 | NUR ---
RECEIVED REPORT FROM SARITA GOULD RN PT. FRANK ARANDA FRON OR SKIN DRY AND WARM. ABDOMINAL DRY AND INTACT EULOGIO SUCTION LN PLACE DRAIN SMALL AMOUNT OF RED BLOOD, COLOSTOMY BAG DRAIN SMALL OF BLOOD. NO BM AT THE TIME. LV FLUID ON HAND INFUYSING NS AT 150ML/HR FFLEY CATH DRAINLIGHT AGUEDA URINE
--- NOTE | 2017-01-07 19:45 | NUR ---
SEEN BY DR. MCCALLUM AT BEDSIDE. NO ORDER CHANGED.
[2017-01-07 20:00] VITALS: BP 143/87
[2017-01-07] MEDS: MORPHINE SULFATE 4 MG/ML SYR IV PRN (20:38)
--- NOTE | 2017-01-07 20:38 | NUR ---
C/O PAIN LN HIS ABDOMEN 10/10 MEDICATION GIVEN ORDERED.
[2017-01-07 22:00] VITALS: BP 142/92
--- NOTE | 2017-01-07 22:06 | NUR ---
AWAKE HAVE SEVERE PAIN IN HIS ABDOMEN. PAIN MED GIVEN ORDERED.
[2017-01-08] VITALS (8 sets, daily range): BP systolic 132–152; BP diastolic 84–99
--- NOTE | 2017-01-08 00:36 | NUR ---
AWAKE C/O PAIN / PAIN GAVE ORDER . REPOSITION ORAL CARE GIVEN.
[2017-01-08] MEDS: MORPHINE SULFATE 4 MG/ML SYR IV PRN ×3 (00:38→18:12)
[2017-01-08] MEDS: PIPERACILLIN/TAZOBACTAM 4.5 GM in DEXTROSE 5% 100 ML IV SCH ×4 (00:48→17:39)
[2017-01-08] MEDS: NACL 0.9% 1,000 ML IV SCH ×2 (01:30→08:03)
--- NOTE | 2017-01-08 01:30 | NUR ---
PT SLEEPING VITAL SIGN WITH IN NORMAL LIMIT.
--- NOTE | 2017-01-08 02:20 | NUR ---
PAIN MED GAVE ORDERED
--- NOTE | 2017-01-08 04:25 | NUR ---
PT AWAKE C/O PAIN LN HIS ABDOMEN. HE IS AWAKE AND ALERT WELL ORIENT AFEBRILE . PAIN MED GAVE ORDERED,
[2017-01-08] MEDS: HYDROmorphone 1 MG/ML AMP IVP PRN ×4 (06:35→20:13)
--- NOTE | 2017-01-08 06:35 | NUR ---
AWAKE C/O PAIN TIERNEY GAVE ORDERED.
--- NOTE | 2017-01-08 07:00 | NUR ---
PATRIA QUIETLY REPORT GIVE TO PRADIP KHANNA.
--- NOTE | 2017-01-08 07:25 | NUR ---
RECEIVED REPORT FROM NIGHT RN KAROLINA FOR CONTINUITY OF CARE. PATIENT IN STABLE CONDITION. PATIENT IS AWAKE, ALERT AND ORIENTED X4. LEFT HAND G20 AND RIGHT HAND G18 PERIPHERAL IV PATENT AND INTACT. SKIN WARM TO TOUCH WNL, TOENAILS WNL, NO EDEMA, WITH HAIR GROWTH AND +2 BILATERAL PEDAL PULSES. ON 02 PER FACE MASK AT 5LPM. SR ON MONITOR. DRESSING TO MIDLINE ABDOMEN DRY AND INTACT, WITH EULOGIO DRAIN TO SEROUS-SANGUINOUS DRAINAGE IN SCANT AMOUNT. ABLE TO MAKE HIS NEEDS KNOWN. CALL LIGHT WITHIN REACH. WILL CONTINUE TO MONITOR PATIENT.
[2017-01-08] MEDS: BLOOD GLUCOSE MONITORING 1 DEV DEV FS SCH ×4 (07:52→21:40)
[2017-01-08] MEDS: metFORMIN 500 MG TAB PO SCH ×2 (07:55→17:00)
[2017-01-08] MEDS: ENOXAPARIN 40 MG/0.4 ML SYR SUBQ SCH (08:29)
[2017-01-08] MEDS: PANTOPRAZOLE 40 MG TABEC PO SCH (09:00)
[2017-01-08] MEDS: ATENOLOL 50 MG TAB PO SCH (09:00)
[2017-01-08] MEDS: SULFAMETH/TRIMETH DS 800/160MG 1 TAB PO SCH (09:00)
--- NOTE | 2017-01-08 17:08 | NUR ---
FAXED CONCURRENT REVIEW TO [facility] [phone] PHONE SEPTEMBER [phone]
--- NOTE | 2017-01-08 19:40 | NUR ---
TRANSFERRED PATIENT TO MED-SURG TELE UNIT IN STABLE CONDITION. REPORT GIVEN TO NURSE YEH.
--- NOTE | 2017-01-08 19:41 | NUR ---
RECD. FROM ICU, TRANSFER TO [facility] SURGICAL LEVEL OF CARE. AWAKE, A/OX4, RESPIRATION EVEN AND UNLABORED, ANGUILLAN SPEAKING, NURSE ARACELIS INTERPRETED. IV OF NS AT 100 ML/HR INFUSING, LEFT FOREARM G18. COLOSTOMY BAG IN THE LEFT SIDE OF ABDOMEN EMPTY, WITH MINIMAL AMOUNT OF BLOOD FLUID INSIDE. INCISION IN THE ABDOMEN COVERED WITH DRESSING DRY AND INTACT. PLAN OF CARE FOR THE SHIFT DISCUSSED. VERBALIZED UNDERSTANDING. PAIN IN THE ABDOMEN 04/23, WILL MEDICATE ORDERED. MADE COMFORTABLE IN BED WITH PILLOWS, CALL LIGHT GIVEN. VS STABLE. 02 SAT - 98% ON ROOM AIR.
--- NOTE | 2017-01-08 20:00 | NUR ---
Patient's Plan of Care was discussed and reviewed with DOUGH PANNER: RUBA EATON
[2017-01-08] MEDS: HYDROcodone/APAP 10/325 MG 1 TAB TAB PO PRN (23:06)
[2017-01-09] VITALS: BP 131/84
--- NOTE | 2017-01-09 | NUR ---
DR. MCCALLUM CAME AND CHECKED PATIENT AND EULOGIO DRAINING MODERATE AMOUNT OF SEROSANGUINEOUS FLUID, WILL TAKE OUT TOMORROW. ICE CHIPS FOR TONIGHT AND WILL FOLLOWED BY FULL LIQUID DIET.
[2017-01-09] MEDS: ZOLPIDEM 5 MG TAB PO PRN (00:11)
--- NOTE | 2017-01-09 00:11 | NUR ---
UNABLE TO SLEEP, MEDICATED WITH AMBIEN 5 MG. PO.
[2017-01-09] MEDS: NACL 0.9% 1,000 ML IV SCH ×3 (00:12→20:20)
--- NOTE | 2017-01-09 00:25 | NUR ---
COMPLAINT OF HEARTBURN, INFORMED DR. DANIELLE, WILL ORDER PROTONIX. Addendum: 01/09/17 at 310 by Liseth Vasquez LVN CORRECTION: INFORMED DR. MALAVE Addendum: 01/09/17 at 312 by Liseth Vasquez LVN ERROR: THIS CHARTING IS NOT FOR THIS PATIENT.
[2017-01-09] MEDS: PIPERACILLIN/TAZOBACTAM 4.5 GM in DEXTROSE 5% 100 ML IV SCH ×4 (00:32→17:17)
--- NOTE | 2017-01-09 01:00 | NUR ---
STILL AWAKE, UNABLE TO SLEEP. WILL INFORM MD.
[2017-01-09] MEDS: HYDROmorphone 1 MG/ML AMP IVP PRN ×2 (02:46→20:19)
--- NOTE | 2017-01-09 02:50 | NUR ---
COMPLAINT OF DIZZINESS, VS TAKEN, BP - 109/66, HR - 124. TEMP CHECKED - 98.8, 02 SAT - 96%. Addendum: 01/09/17 at 0314 by Liseth Vasquez LVN ERROR: THIS CHARTING IS NOT FOR THIS PATIENT.
[2017-01-09] MEDS: QUEtiapine FUMARATE 25 MG TAB PO PRN ×2 (03:03→20:18)
--- NOTE | 2017-01-09 03:03 | NUR ---
MEDICATED WITH SEROQUEL ORDERED.
--- NOTE | 2017-01-09 03:50 | NUR ---
SLEEPING COMFORTABLY IN BED.
--- NOTE | 2017-01-09 06:00 | NUR ---
EMPTIED 20 ML SEROSANGUINEOUS FLUID FROM EULOGIO.
[2017-01-09] MEDS: BLOOD GLUCOSE MONITORING 1 DEV DEV FS SCH ×4 (06:49→20:25)
--- NOTE | 2017-01-09 07:15 | NUR ---
CONDITION REMAIN STABLE, ENDORSED TO DANDY BRICE FOR CONTINUITY OF CARE.
[2017-01-09 08:00] VITALS: BP 117/72
--- NOTE | 2017-01-09 08:00 | NUR ---
Patient's Plan of Care was discussed and reviewed with QUALITY CONTROL TECHNICIAN: BABS Stone
[2017-01-09] MEDS: metFORMIN 500 MG TAB PO SCH ×2 (08:20→17:22)
[2017-01-09] MEDS: ACETAMINOPHEN 325 MG TAB PO PRN (08:20)
[2017-01-09] MEDS: PANTOPRAZOLE 40 MG TABEC PO SCH (08:26)
[2017-01-09] MEDS: ATENOLOL 50 MG TAB PO SCH (08:27)
[2017-01-09] MEDS: ENOXAPARIN 40 MG/0.4 ML SYR SUBQ SCH (09:04)
--- NOTE | 2017-01-09 09:30 | NUR ---
TEMP 99.7 (TEMPORAL SCAN). NO ACUTE DISTRESS NOTED. CONTINUE COOLING MEASURE APPLICATION. CALL LIGHT WITHIN REACH. WILL MONITOR.
[2017-01-09] MEDS ORDERED: POTASSIUM CHLORIDE 10 MEQ TABER PO SCH (11:00)
[2017-01-09] MEDS: MORPHINE SULFATE 4 MG/ML SYR IV PRN ×2 (11:36→16:32)
[2017-01-09 12:00] VITALS: BP 115/76
--- NOTE | 2017-01-09 12:00 | NUR ---
VITALS SIGNS STABLE. C/O ABD PAIN 04/23. NO ACUTE DISTRESS NOTED. KEEP COMFORTABLE ON BED.
--- NOTE | 2017-01-09 12:22 | NUR ---
01/09/17 RD INITIAL ASSESSMENT COMPLETED PLEASE REFER TO NUTRITION ASSESSMENT UNDER CARE ACTIVITY FOR ESTIMATED NUTRITIONAL NEEDS. 1. CONTINUE FULL LIQUID DIET, ADVANCE TOLERATED TO 60 G CONSISTENT CARBOHYDRATE DIET 2. RD TO FOLLOW-UP 2-3 DAYS, HIGH RISK KIRSTIE SALINAS RD
--- NOTE | 2017-01-09 13:50 | NUR ---
CM NOTE INITIAL REVIEW FAXED TO [facility] / FAX# [phone], ATTN: SEPTEMBER #[phone]
--- NOTE | 2017-01-09 17:55 | NUR ---
DR. LOPEZ CAME, SEEN PT. AND CHECKED PT. CHART.
--- NOTE | 2017-01-09 19:15 | NUR ---
BEDSIDE REPORT GIVEN TO KASIE ROLLE. IVF INFUSING WELL. IN STABLE CONDITION.
--- NOTE | 2017-01-09 19:20 | NUR ---
RECEIVED REPORT AT PT BEDSIDE FROM DAY SHIFT RN. PT IN STABLE CONDITION,ON BEDREST D/T RECTOSIGMOID COLON RESECTION WITH COLOSTOMY SURGERY ON 01/07. PT IS AAOX4, ON ROOM AIR WITH NO SIGNS OF RESPIRATORY DISTRESS. PT HAS A 18 GAUGE IV ON HIS RIGHT HAND SL, AND AN 18 GAUGE IV TO THE LEFT FOREARM INFUSING NS@100ML/HR. PT HAS A MIDLINE ABDOMINAL INCISION COVERED WITH DRY AND INTACT DRESSING, EULOGIO DRAIN WITH SANGUINEOUS DRAINAGE, AND COLOSTOMY. NO SIGNS OF DISTRESS NOTED. PT DENIES PAIN AT THIS TIME. DISCUSSED PLAN OF CARE WITH PT, PT VERBALIZED UNDERSTANDING. BED IN LOW POSITION, CALL LIGHT WITHIN REACH. WILL CONTINUE TO MONITOR.
--- NOTE | 2017-01-09 20:30 | NUR ---
ADMINISTERED PAIN MEDICATION AND SLEEPING PILL FOR PT C/O PAIN AND SLEEPLESSNESS. PT TOLERATED WELL. BED IN LOW POSITION, CALL LIGHT WITHIN REACH. WILL CONTINUE TO MONITOR.
--- NOTE | 2017-01-09 22:45 | NUR ---
PT SLEEPING. IN STABLE CONDITION, NO SIGNS OF DISTRESS NOTED.
[2017-01-10] VITALS: BP 139/86
--- NOTE | 2017-01-10 00:15 | NUR ---
FINISHED CHANGING DRESSING. WAS CALLED TO PT ROOM ABOUT 30 MIN AGO BECAUSE THERE WAS BLOOD ALL OVER GOWN AND COLOSTOMY BAG WAS LEAKING. TRAINING AND DEVELOPMENT ASSISTANT AND CHARGE NURSE HELPED CHANGE COLOSTOMY BAG, GOWN AND LINEN. MIDLINE INCISION IS WELL APPROXIMATED WITH VERONICA, SKIN DRY NO DRAINAGE FROM INCISION. STOMA IS BRIGHT PINK EXPELLING FOUL SMELLING DARK BROWN STOOL AND BLOOD. PT C/O PAIN AT 8/10. WILL MEDICATE PT ACCORDINGLY. NO SIGNS OF DISTRESS NOTED. BED IN LOW POSITION, CALL LIGHT WITHIN REACH. WILL CONTINUE TO MONITOR.
[2017-01-10] MEDS: HYDROmorphone 1 MG/ML AMP IVP PRN (00:30)
[2017-01-10] MEDS: ZOLPIDEM 5 MG TAB PO PRN ×2 (00:30→20:38)
[2017-01-10] MEDS ORDERED: PIPERACILLIN/TAZOBACTAM 4.5 GM VIAL IV ONE (00:31)
[2017-01-10] MEDS: PIPERACILLIN/TAZOBACTAM 4.5 GM in DEXTROSE 5% 100 ML IV SCH ×4 (00:33→17:16)
--- NOTE | 2017-01-10 01:41 | NUR ---
PT ASLEEP, IN STABLE CONDITION. NO SIGNS OF DISTRESS NOTED. BED IN LOW POSITION, CALL LIGHT WITHIN REACH. WILL CONTINUE TO MONITOR.
--- NOTE | 2017-01-10 03:38 | NUR ---
CAUGHT PT TRYING TO GET OUT OF BED BY HIMSELF. TRIED TO ASSIST PT BUT WHEN IT WAS NOTICEABLE THAT HE COULD NOT STAND ALONE (HIS LEGS WERE UNSTEADY/WOBBLY), ASSISTED PT BACK TO BED. SET A BED ALARM AND EDUCATED PT ON NOT GETTING OUT OF BED, PT VERBALIZED UNDERSTANDING. BED IN LOW POSITION, CALL LIGHT WITHIN REACH. WILL CONTINUE TO MONITOR.
--- NOTE | 2017-01-10 05:06 | NUR ---
PT ASKED FOR PAIN MEDICATION FOR PAIN 11/21, WHEN MEDICATION WAS TAKEN TO PT ROOM PT SAID "NEVERMIND I DON'T THINK I NEED IT ANYMORE MY PAIN WENT AWAY." ASKED PT IF HE WAS SURE HE FELT NO PAIN AT ALL HE SAID "YES." PT IN STABLE CONDITION, NO SIGNS OF DISTRESS NOTED. BED IN LOW POSITION, CALL LIGHT WITHIN REACH. WILL CONTINUE TO MONITOR.
[2017-01-10] MEDS: NACL 0.9% 1,000 ML IV SCH ×2 (05:45→10:06)
[2017-01-10] MEDS: BLOOD GLUCOSE MONITORING 1 DEV DEV FS SCH ×4 (07:11→20:39)
--- NOTE | 2017-01-10 07:30 | NUR ---
RECEIVED PT IN BED. AWAKE. ALERT ORIENTED X4. NO SOB NOTED. COMPLAINS OF PAIN AT THIS TIME. WILL MEDICATE PRN ORDERED. COLOSTOMY BAG INTACT. ABDOMINAL DRESSING IN PLACE, DRY AND INTACT. EULOGIO DRAIN IN PLACE. PT ON BED REST. SAFETY PRECAUTION IN PLACE. CALL LIGHT WITHIN REACH.
--- NOTE | 2017-01-10 07:38 | NUR ---
ENDORSED PT TO DAY SHIFT RN FOR CONTINUITY OF CARE. PT IN STABLE CONDITION.
[2017-01-10 07:57] VITALS: BP 131/82
[2017-01-10] MEDS: SULFAMETH/TRIMETH DS 800/160MG 1 TAB PO SCH (08:05)
[2017-01-10] MEDS: metFORMIN 500 MG TAB PO SCH ×2 (08:05→16:29)
[2017-01-10] MEDS: PANTOPRAZOLE 40 MG TABEC PO SCH (08:06)
[2017-01-10] MEDS: ATENOLOL 50 MG TAB PO SCH (08:06)
[2017-01-10] MEDS: ACETAMINOPHEN 325 MG TAB PO PRN (08:06)
[2017-01-10] MEDS: ENOXAPARIN 40 MG/0.4 ML SYR SUBQ SCH (08:08)
[2017-01-10] MEDS: MORPHINE SULFATE 4 MG/ML SYR IV PRN ×2 (09:17→16:29)
--- NOTE | 2017-01-10 11:36 | NUR ---
WOUND CARE NURSE, SANAM KHANNA, WITH PT. USED [employer] SPOKE WITH DALIA, CHIEF LIBRARIAN EXTENSION DEPARTMENT #[id number], TEACHING ABOUT COLOSTOMY CARE DISCUSSED AND EXPLAINED WITH PT, THROUGH THE SPEEDER TENDER BY SANAM KHANNA. PT VERBALIZED UNDERSTANDING.
--- NOTE | 2017-01-10 11:40 | NUR ---
WOUND CARE EVALUATION REASON FOR EVALUATION: ABDOMEN WOUNDS ASSESSMENT WITH COLOSTOMY CARE TEACHING ABDOMEN WOUNDS ASSESSMENT WITH COLOSTOMY CARE TEACHING GIVEN WITH FACETOR OF BOX TOE BUFFER #[id number], HAND OUT PROVIDES IN FINNISH AND COMORAN VERBAL CONSENT OBTAINED FROM PT. WITH PERMISSION TO USE [facility] OSTOMY KIT FOR DEMONSTRATION AND TEACHING PURPOSE. COMPLETE SKIN ASSESSMENT DONE ON THIS 56 Y/O MALE PATIENT FROM HOME TO [facility], WITH INITIAL DIAGNOSIS OF CONSTIPATION AND NO BOWEL MOVEMENT FOR 7 DAYS. PAST MEDICAL HX INCLUDE DM, GASTROESOPHAGEAL REFLUX, AND HTN. NO PAST SURGICAL HX. ALL ABOVE INFORMATION WAS OBTAINED FROM THE ADMISSION H&P. LABS ARE WBC 5.4, H/H 12.4/37.4, POC 112, ALBUMIN 3.6 PT/INR 11.3/1.1 AND PTT 27.4. CURRENT MEDS INCLUDE QUETIAPINE, PIPERACILLIN, ONDANSETRON, ATENOLOL, METFORMIN AND ENOXAPARIN. PATIENT IS AAOX4. SKIN WARM TO TOUCH WNL, NO EDEMA , BLE HAIR GROWTH AND BILATERAL DORSAL PEDAL PULSES PRESENT. PLAN OF CARE DISCUSSED WITH PRIMARY RN. AND PT. PT. TOLERATE PROCEDURES WELL, VERBALIZE UNDERSTANDING WITH SOME RETURN DEMONSTRATION OF WOUND AND COLOSTOMY CARE. INTEGUMENTARY: SKIN WARM AND DRY, SKIN INTACT EXCEPT SURGICAL WOUNDS MID ABDOMINAL SURGICAL SITE-MULTIPLE VERONICA IN PLACE AND SECURED, NO S/S OF WOUND DEHISCE, MEASURE 26CM IN LENGTH, NO REDNESS, NO ODOR NOTICE ON WOUND SITE RLQ ABDOMINAL- SUCTION IN PROGRESS, SANGUINEOUS DRAINAGE WITH KAYKAY-PALUMBO IN PLACE DRAINAGE ABOUT 150ML LUQ ABDOMINAL -COLOSTOMY STOMA SITE- 2 INCHES IN DIAMETER, FRESH BEEFY RED COLOR STOMA ,SMALL AMOUNT OF SANGUINEOUS DRAINAGE IN COLOSTOMY BAG. NO STOOL OUTPUT NOTICE, PERISTOMA SKIN INTACT WITH COLOSTOMY BAG IN PLACE RECOMMENDATIONS: -CLEANSE MID SURGICAL SITE WITH NS. PAT, DRY AND APPLY ABD DRESSING SECURE WITH TAPE, BID WC AND PRN IF SOILING -ASSESS AND MONITOR JEB-SKIN COLOSTOMY STOMA SITE DURING EACH CHANGE NOTIFY PCP OF ANY ABNORMAL CHANGES -CLEANSE AND RINSE COLOSTOMY BAG BID AND PRN WHEN 1/2 BAG FULL -CHANGE COLOSTOMY BAG Q7 DAYS AND PRN IF LEAKAGE -KEEP SKIN CLEAN AND DRY AT ALL TIMES. -PRESSURE REDISTRIBUTION SURFACE THERAPY. -CONTINUE TO FOLLOW RD RECOMMENDATION -PRIMARY CONTINUE TO PROVIDE EDUCATION FOR COLOSTOMY CARE DURING EACH BAG CHANGE -MAY HAVE HOME HEALTH TO FOLLOW FOR MORE TEACHING WHEN DISCHARGE HOME ONLY IF PT. NEEDS MORE TEACHING RECOMMENDATIONS DISCUSSED WITH PRIMARY RN. CHARGE NURSE ON DUTY NOTIFY OF PROVIDING 5 DAYS COLOSTOMY CARE SUPPLY TO PT. UPON DISCHARGE WILL FOLLOW UP PATIENT Q 7-10 DAYS AND PRN. PLEASE CONTACT WOUND CARE NURSE FOR ANY CONCERNS, QUESTIONS AND CHANGES IN SKIN CONDITION. Addendum: 01/10/17 at 1421 by Mac Torres RN (Grace) -PRIMARY RN CONTINUE TO PROVIDE EDUCATION FOR COLOSTOMY CARE DURING EACH COLOSTOMY BAG CHANGE TILL DISCHARGE
--- NOTE | 2017-01-10 12:02 | NUR ---
FAXED CONCURRENT REVIEW TO [facility] [phone] PHONE SEPTEMBER [phone]
--- NOTE | 2017-01-10 13:17 | NUR ---
PAGED DR. KERRIE WITT REGARDING POTASSIUM LEVEL OF 3.4. AWAITING CALL BACK FROM VENEER TRIMMER DR. FINNEGAN.
[2017-01-10] MEDS ORDERED: ABDOMINAL PAD TP PRN (14:15)
--- NOTE | 2017-01-10 14:57 | NUR ---
SPOKE WITH DENISSE SCHUMACHER FROM [facility]. SHE SAID DME, COLOSTOMY SUPPLIES AND HOME HEALTH GOES THROUGH [facility] I CALLED EVE AND SPOKE WITH MARIO, . HE SAID FOR COLOSTOMY SUPPLIES, USE [facility] PHONE [phone] FAX [phone] . FOR HOME HEALTH CAN USE [facility], PHONE [phone] OR [facility] [phone] OR [facility] [phone]. I TOLD HIM NO DISCHARGE ORDER YET.
[2017-01-10] MEDS ORDERED: POTASSIUM CHLORIDE 10 MEQ TABER PO SCH (15:00)
[2017-01-10] MEDS: HYDROcodone/APAP 10/325 MG 1 TAB TAB PO PRN ×2 (15:10→20:38)
[2017-01-10 16:00] VITALS: BP 124/81
--- NOTE | 2017-01-10 18:37 | NUR ---
DR. MCCALLUM CAME TO SEE PT. EULOGIO DRAIN REMOVED BY DR. MCCALLUM. MINIMAL TO NO ACTIVE BLEEDING NOTED. NO SOB NOTED. DENIES ANY PAIN OR DISCOMFORT AT THIS TIME.
--- NOTE | 2017-01-10 19:04 | NUR ---
PT KEPT CLEAN, DRY AND COMFORTABLE, NEEDS ATTENDED. WILL ENDORSE PT TO NEXT SHIFT. PT ON STABLE CONDITION. FOR CONTINUITY OF CARE.
--- NOTE | 2017-01-10 19:30 | NUR ---
RECEIVED REPORT FROM AM NURSE. PT FAMILY AT BEDSIDE. PT RESTING IN BED, AOX4, ABLE TO VERBALIZE NEEDS. PT C/O ABD PAIN. SEE PAIN ASSESSMENT. WILL MEDICATE WHEN PAIN MED IS DUE. PT DENIES CHEST PAIN, SOB OR S/S OF ACUTE DISTRESS. MIDLINE ABD INCISION NOTED WITH 25 VERONICA, APPROXIMATING WELL, NO REDNESS, NO DRAINAGE NOTED. BANDAID ON RLQ DRESSING NOTED, CLEAN DRY AND INTACT. COLOSTOMY TO LEFT ABD NOTED, LOOSE LIGHT BROWN STOOL NOTED. IV ACCESS TO LEFT FOREARM ASYMPTOMATIC, PATENT AND INTACT. IVF INFUSING WELL. IV ACCESS TO RIGHT HAND ASYMPTOMATIC, PATENT AND INTACT. SALINE LOCKED. DISCUSSED AND REVIEWED PLAN OF CARE WITH PT AND FAMILY. PT VERBALIZED UNDERSTANDING. ALL NEEDS MET. IVF INFUSING WELL. SAFETY MEASURES ENSURED. CALL LIGHT WITHIN REACH. WILL CONTINUE TO MONITOR.
[2017-01-10 20:00] VITALS: BP 120/82
--- NOTE | 2017-01-10 20:40 | NUR ---
PT C/O ABD PAIN. SEE PAIN ASSESSMENT. ADMINISTERED NORCO PO PRN WITH EDUCATION ORDERED. PT C/O INSOMNIA. ADMINISTERED AMBIEN PO PRN ORDERED. ALL NEEDS MET. SAFETY MEASURES ENSURED. CALL LIGHT WITHIN REACH. WILL CONTINUE TO MONITOR.
[2017-01-11] VITALS: BP 139/75
[2017-01-11] MEDS: PIPERACILLIN/TAZOBACTAM 4.5 GM in DEXTROSE 5% 100 ML IV SCH ×3 (00:43→11:42)
[2017-01-11] MEDS: ABDOMINAL PAD TP SCH ×2 (00:44→13:00)
--- NOTE | 2017-01-11 00:45 | NUR ---
TEMP 99.8, COOLING MEASURES ENSURED, WILL ADMINISTER TYLENOL PO PRN PER PT REQUEST. ADMINISTERED DUE MED WITH EDUCATION. PT VERBALIZED UNDERSTANDING, TOLERATED MED WELL. PT C/O ABD PAIN. SEE PAIN ASSESSMENT. ADMINISTERED NORCO PO PRN ORDERED. WOUND CARE PERFORMED ORDERED. DRESSING TO MIDLINE ABD CHANGED, NO REDNESS, NO DRAINAGE, NO ODOR NOTED. BANDAID TO RLQ CHANGED, MINIMAL DRAINAGE NOTED. COLOSTOMY EMPTIED, 50 ML LOOSE LIGHT BROWN STOOL NOTED. IVPB INFUSING WELL. ALL NEEDS MET. SAFETY MEASURES ENSURED. CALL LIGHT WITHIN REACH. WILL CONTINUE TO MONITOR.
[2017-01-11] MEDS: HYDROcodone/APAP 10/325 MG 1 TAB TAB PO PRN (01:14)
[2017-01-11] MEDS: ACETAMINOPHEN 325 MG TAB PO PRN (01:42)
[2017-01-11] MEDS: NACL 0.9% 1,000 ML IV SCH ×2 (01:45→11:45)
--- NOTE | 2017-01-11 04:01 | NUR ---
PT SLEEPING COMFORTABLY, NO S/S OF ACUTE DISTRESS. ALL NEEDS MET. IVF INFUSING WELL. SAFETY MEASURES ENSURED. CALL LIGHT WITHIN REACH. WILL CONTINUE TO MONITOR.
[2017-01-11] MEDS: BLOOD GLUCOSE MONITORING 1 DEV DEV FS SCH ×2 (05:49→11:36)
--- NOTE | 2017-01-11 05:50 | NUR ---
ADMINISTERED DUE MED WITH EDUCATION. IVPB INFUSING WELL. ALL NEEDS MET. SAFETY MEASURES ENSURED. CALL LIGHT WITHIN REACH. WILL CONTINUE TO MONITOR.
--- NOTE | 2017-01-11 07:15 | NUR ---
ENDORSED PLAN OF CARE TO AM NURSE. CONDITION STABLE.
--- NOTE | 2017-01-11 07:16 | NUR ---
RECEIVED REPORT, ASSUMED CARE. PT AWAKE AND VERBALLY RESPONSIVE. RESPIRATION EVEN AND UNLABORED,NO SOB, NO S/S OF RESPIRATORY DISTRESS. DENIES PAIN AT THIS TIME. IVF NS INFUSING WELL AT 100ML/HR. LT FOREARM IV ACCESS GAUGE 18 WITH NO S/S OF INFILTRATION. SL TO RT FOREARM. WILL CONTINUE TO MONITOR.
[2017-01-11 08:00] VITALS: BP 108/18
--- NOTE | 2017-01-11 08:53 | NUR ---
CALL RECEIVED FROM FABIO PEREZ FROM [facility] INQUIRING ABOUT PATIENT TRANSFER TO THEIR FACILITY. SPOKE WITH DR. CHOI, PER , PT WILL BE DISCHARGED HOME TODAY AND FROM HOME PT WILL GO TO [facility]. FABIO MADE AWARE AND VERBALIZED UNDERSTANDING. Addendum: 01/11/17 at 0855 by Yeimy Jackman RN ERROR WRONG PATIENT
[2017-01-11] MEDS: PANTOPRAZOLE 40 MG TABEC PO SCH (09:20)
[2017-01-11] MEDS: metFORMIN 500 MG TAB PO SCH (09:20)
--- NOTE | 2017-01-11 09:20 | NUR ---
ADMINISTERED AM MEDS ORDERED. NO ADVERSE REACTION. WILL CONTINUE TO MONITOR.
[2017-01-11] MEDS: ATENOLOL 50 MG TAB PO SCH (09:21)
[2017-01-11] MEDS: ENOXAPARIN 40 MG/0.4 ML SYR SUBQ SCH (09:27)
[2017-01-11] MEDS: HYDROmorphone 1 MG/ML AMP IVP PRN ×2 (09:31→13:22)
--- NOTE | 2017-01-11 10:27 | NUR ---
DR. FINNEGAN CLEARED PT FOR DISCHARGED TO HOME. PT AWARE AND VERBALIZED UNDERSTANDING.
[2017-01-11] MEDS ORDERED: POTASSIUM CHLORIDE 10 MEQ TABER PO SCH (11:30)
--- NOTE | 2017-01-11 15:10 | NUR ---
PT DISCHARGED TO HOME TODAY WITH HOME HEALTH ([facility]). PT WAS PICKED UP SISTER (ABNER). PT DENIES PAIN OR DISCOMFORT. ABDOMINAL SURGICAL INCISION CLEANSE WITH NS AND APPLY ABDOMINAL DRESSING. NO ACTIVE BLEEDING OR S/S OF INFECTION AT THIS TIME. 25 VERONICA INTACT. DISCHARGE INSTRUCTIONS AND EDUCATION PROVIDED. INSTRUCTED TO CALL MD FOR APPT, PT VERBALIZED UNDERSTANDING. IVF STOPPED AND DISCONTINUED. IV REMOVED, CATHETER TIP INTACT. BLEEDING CONTROLLED. EDUCATION ON COLOSTOMY CARE PROVIDED TO PT AND SISTER, BOTH VERBALIZED UNDERSTANDING. MINIMAL LIQUID STOOL NOTED. ALL BELONGINGS SIGNED AND GIVEN TO PT. ESCORTED BY STAFF TO THE LOBBY. PT IN STABLE CONDITION.
--- NOTE | 2017-01-13 09:44 | NUR ---
RECEIVED A CALL FROM LARRY FROM [facility]. REFAXED HER THE DISCHARGE SUMMARY AND THE ORDER TO HER AT [phone].
[2017-01-14] MEDS ORDERED: CLARITIN10 MG PO (21:10)
== END 2017-01-11 15:10 | disposition home health service (06) | DRG 221 ==
LOC: MED 08:51 → MTU 11:31 → MIC 01-07 18:15 → MTU 01-08 19:00
PROVIDERS: ADMIT Internal Medicine Pulmonary Disease; ATTEND Internal Medicine Pulmonary Disease
PROC: 0D9670Z Drainage of Stomach with Drainage Device, Via Natural or Artificial Opening (ICD-10-PCS; 2017-01-06)
PROC: 3E1H88Z Irrigation of Lower GI using Irrigating Substance, Via Natural or Artificial Opening Endoscopic (ICD-10-PCS; 2017-01-07)
PROC: 0DBP0ZZ Excision of Rectum, Open Approach (ICD-10-PCS; 2017-01-07)
PROC: 0DTN0ZZ Resection of Sigmoid Colon, Open Approach (ICD-10-PCS; principal; 2017-01-07 13:10)
PROC: 0D1M0Z4 Bypass Descending Colon to Cutaneous, Open Approach (ICD-10-PCS; 2017-01-07 13:10)
DX: C19 Malignant neoplasm of rectosigmoid junction (principal); B20 Human immunodeficiency virus [HIV] disease; K56.69 Other intestinal obstruction; K57.32 Diverticulitis of large intestine without perforation or abscess without bleeding; I10 Essential (primary) hypertension; K21.9 Gastro-esophageal reflux disease without esophagitis; K61.1 Rectal abscess; K59.39 Other megacolon; K59.00 Constipation, unspecified; F17.210 Nicotine dependence, cigarettes, uncomplicated; E11.9 Type 2 diabetes mellitus without complications; Z79.899 Other long term (current) drug therapy; Z85.038 Personal history of other malignant neoplasm of large intestine; Z79.84 Long term (current) use of oral hypoglycemic drugs

== ENCOUNTER 2017-01-14 16:24 | Inpatient (IN) | payer OTHER ==
[~2017-01-14] VITALS: Ht 160 cm; Wt 80.7 kg
[~2017-01-14 16:24] MED LIST changes: +ACET-2619 PO; +ACET-2869 PO; +ATEN50TA2 PO; -ATENOLOL50 M1 PO; -BACTRIM DS 8001 TAB PO; +ELVI1TAB2 PO; -GENVOYA TABLET1 EACH PO; -GLUCOPHAGE500 MG PO; +IBUP-1842 PO; +METF500T PO; -MOTRIN400 MG PO; -NORCO 325 MG-51 TAB PO; +OMEP20TC PO; +SULF-59 PO; -TOPCARE OMEPRAZ20 MG PO; -TYLENOL325 M2 PO
[2017-01-14 16:37] VITALS: BP 126/80
--- NOTE | 2017-01-14 16:58 | NUR ---
PATIENT TO BED 8
--- NOTE | 2017-01-14 17:05 | NUR ---
PT PRESENTS TO ER W/C/O ABDOMINAL PAIN AND CONSTIPATION S/P SURGERY. PT STATES HIS SURGICAL SITE IS VERY RED . DENIES N/V;SKIN IS PINK/WARM/DRY; AAOX4 WITH EVEN AND STEADY GAIT; LUNGS CLEAR BL; HR EVEN AND REGULAR; PT DENIES ANY FEVER, CP, SOB, OR COUGH AT THIS TIME; PATIENT STATES PAIN OF 8/10 AT THIS TIME;PATIENT POSITIONED FOR COMFORT; HOB ELEVATED; BEDRAILS UP X2; BED DOWN. ALL MONITORS IN PLACED;ER MD MADE AWARE OF PT STATUS.
[2017-01-14] MEDS ORDERED: fentaNYL 0.05 MG/ML VIAL IVP ONE (17:55)
[2017-01-14] MEDS ORDERED: ONDANSETRON 4 MG/2 ML VIAL IVP ONE (17:55)
[2017-01-14 18:27] LABS: BASOPHILS % (AUTO) 0.5 % (0.0-2.0); EOSINOPHILS % (AUTO) 0.9 % (0.0-4.0); HEMATOCRIT 41.5 % (36-52); HEMOGLOBIN 13.4 g/dL (12.0-18.0); LYMPHOCYTES # (AUTO) 0.7 K/uL (2.0-11.5); LYMPHOCYTES % (AUTO) 13.2 % (20.5-51.1); MEAN CORPUSCULAR HEMOGLOBIN 28 pg (27-31); MEAN CORPUSCULAR HGB CONC 32 g/dL (33-37); MEAN CORPUSCULAR VOLUME 87 fL (80-94); MONOCYTES # (AUTO) 0.5 K/uL (0.8-1.0); MONOCYTES % (AUTO) 9.7 % (1.7-9.3); NEUTROPHILS # (AUTO) 3.7 K/uL (1.8-7.7); NEUTROPHILS % (AUTO) 75.7 % (42.2-75.2); PLATELET COUNT (AUTO) 201 K/uL (140-450); RED BLOOD CELL COUNT(AUTO) 4.75 MIL/uL (4.20-6.10); RED CELL DISTRIBUTION WIDTH 12.8 % (11.6-13.7); WHITE BLOOD COUNT (AUTO) 4.9 K/uL (4.8-10.8)
[2017-01-14 18:42] LABS: CARBON DIOXIDE 29.8 mmol/L (21-32); CREATININE 0.9 mg/dL (0.7-1.3); POTASSIUM 3.8 mmol/L (3.5-5.1)
[2017-01-14 18:45] LABS: PROTHROMBIN TIME 11.3 secs (10.8-13.4)
[2017-01-14 18:48] LABS: ALBUMIN 3.4 g/dL (3.4-5.0)
--- NOTE | 2017-01-14 19:13 | NUR ---
Pt report given to JEY HINTON. Transfer of care at this time.
--- NOTE | 2017-01-14 19:14 | NUR ---
Pt found lying supine resting comfortably. VSS. Family at bedside. All needs addressed.
[2017-01-14 19:43] LABS: APPEARANCE,URINE CLEAR (CLEAR); BILIRUBIN,URINE NEGATIVE (NEGATIVE); BLOOD, URINE NEGATIVE (NEGATIVE); COLOR,URINE YELLOW (YELLOW); LEUKOCYTE ESTERASE ,URINE NEGATIVE (NEGATIVE); NITRITE, URINE NEGATIVE (NEGATIVE); UGLUCOSE NEGATIVE (NEGATIVE)
--- NOTE | 2017-01-14 20:04 | NUR ---
Dr. Steinberg evaluating patient at bedside.
--- NOTE | 2017-01-14 20:06 | NUR ---
Eloy duarte in ED - 01/14/17 at 2007 by MANUELITO Ultrasound at bedside.
--- NOTE | 2017-01-14 20:09 | NUR ---
Dr. Steinberg at bedside for staple removal.
--- NOTE | 2017-01-14 20:11 | NUR ---
Dr. Steinberg removed some solange from incision site. 4x4 packed into incision by Dr. Steinberg. Pt tolerated well. VSS. No distress noted.
--- NOTE | 2017-01-14 20:46 | NUR ---
Ultrasound at bedside.
[2017-01-14] MEDS ORDERED: LORA10TA19 PO (21:10)
[2017-01-14] MEDS ORDERED: ONDANSETRON 4 MG/2 ML VIAL IVP PRN (21:20)
[2017-01-14] MEDS ORDERED: INSULIN LISPRO SLIDING SCALE 100 UNITS/ML VIAL SUBQ PRN (21:20)
--- NOTE | 2017-01-14 21:48 | NUR ---
Patient will be admitted to care of Dr. Barrera. Admited to M/S. Will go to room 123-B. Belongings list completed. Report to Park KHANNA.
[2017-01-14] MEDS: DEXT 5% /NACL 0.9% 1,000 ML IV SCH (22:09)
--- NOTE | 2017-01-14 22:20 | NUR ---
ADMITTED PATIENT TO THE MED-SURG UNIT, PATIENT AWAKE ALERT ORIENTED X4, SPEAKS ADEQUATE PARAGUAYAN. RESPIRATION EVEN AND UNLABORED, NO S/S OF ACUTE DISTRESS NOTED, FLUSHED IV WITH 10ML, PATENT AND INTACT. ABDOMINAL DRESSING AND COLOSTOMY BAG, CLEAN AND INTACT, PLAN OF CARE DISCUSSED, VERBALIZED UNDERSTANDING. CALL LIGHT WITHIN REACH, SAFETY MEASURE ENSURED, WILL CONTINUE TO MONITOR.
[2017-01-14] MEDS: MORPHINE SULFATE 4 MG/ML SYR IVP PRN (22:39)
--- NOTE | 2017-01-14 22:40 | NUR ---
PATIENT STATED ABDOMINAL SURGICAL SITE PAIN 12/22. BP 110/68, HR 73. PAIN MEDICATION ADMINISTERED ACCORDING TO THE PAIN LEVEL SCALE. PATIENT TOLERATED WELL. WILL CONTINUE TO MONITOR.
[2017-01-14 23:00] VITALS: BP 110/68
--- NOTE | 2017-01-15 00:08 | NUR ---
VITAL SIGNS STABLE, NO S/S OF ACUTE DISTRESS NOTED, RESPIRATION EVEN AND UNLABORED. WILL CONTINUE TO MONITOR.
[2017-01-15] MEDS: MORPHINE SULFATE 4 MG/ML SYR IVP PRN (03:23)
--- NOTE | 2017-01-15 03:23 | NUR ---
PATIENT STATED ABDOMINAL SURGICAL SITE PAIN 9/10, PAIN MEDICATION GIVEN ORDERED. WILL CONTINUE TO MONITOR.
[2017-01-15] MEDS ORDERED: NACL 0.9% IRR 250 ML BOTTLE IR PRN (04:25)
[2017-01-15] MEDS ORDERED: COMPOSITE DRESSING TP PRN ×2 (04:25)
--- NOTE | 2017-01-15 05:05 | NUR ---
PATIENT IS SLEEPING IN BED, NO S/S OF ACUTE DISTRESS NOTED, RESPIRATION EVEN AND UNLABORED, WILL CONTINUE TO MONITOR.
[2017-01-15 05:51] LABS: BASOPHILS % (AUTO) 0.4 % (0.0-2.0); EOSINOPHILS % (AUTO) 0.7 % (0.0-4.0); HEMOGLOBIN 12.6 g/dL (12.0-18.0); LYMPHOCYTES # (AUTO) 0.8 K/uL (2.0-11.5); LYMPHOCYTES % (AUTO) 15.2 % (20.5-51.1); MEAN CORPUSCULAR HEMOGLOBIN 29 pg (27-31); MEAN CORPUSCULAR HGB CONC 33 g/dL (33-37); MEAN CORPUSCULAR VOLUME 87 fL (80-94); MONOCYTES # (AUTO) 0.6 K/uL (0.8-1.0); MONOCYTES % (AUTO) 11.1 % (1.7-9.3); NEUTROPHILS # (AUTO) 3.8 K/uL (1.8-7.7); NEUTROPHILS % (AUTO) 72.6 % (42.2-75.2); PLATELET COUNT (AUTO) 174 K/uL (140-450); RED BLOOD CELL COUNT(AUTO) 4.36 MIL/uL (4.20-6.10); WHITE BLOOD COUNT (AUTO) 5.2 K/uL (4.8-10.8)
[2017-01-15 06:15] LABS: ALBUMIN 3.1 g/dL (3.4-5.0); ANION GAP 12.6 (8-16); CARBON DIOXIDE 27.3 mmol/L (21-32); CREATININE 0.9 mg/dL (0.7-1.3); POTASSIUM 3.9 mmol/L (3.5-5.1); TOTAL BILIRUBIN 0.9 mg/dL (0.0-1.0)
[2017-01-15] MEDS: BLOOD GLUCOSE MONITORING 1 DEV DEV FS SCH ×4 (06:50→21:13)
[2017-01-15] MEDS: DEXT 5% /NACL 0.9% 1,000 ML IV SCH ×2 (07:08→16:28)
--- NOTE | 2017-01-15 07:18 | NUR ---
ENDORSED PLAN OF CARE TO DAY RN. PATIENT IS IN STABLE CONDITION, NO S/S OF ACUTE DISTRESS AND RESPIRATION EVEN AND UNLABORED.
--- NOTE | 2017-01-15 07:19 | NUR ---
RECEIVED BEDSIDE REPORT FROM CALCINE FURNACE LOADER RN. PT AWAKE AND ALERT, NO SIGNS OF ACUTE DISTRESS. BOWEL SOUNDS ACTIVE IN ALL 4 QUADRANTS. COLOSTOMY BAG IN PLACE. SACRAL WOUND AND ABDOMINAL INCISION COVERED WITH CLEAN DRY DRESSING. IV PATENT AND ASYMPTOMATIC. AMBULATORY WITH BRP. PT ON ROOM AIR. PT DENIES PAIN AT THIS TIME. RE-ORIENTED TO HOSPITAL AND TO UNIT, PT VERBALIZES UNDERSTANDING. BED IN LOW POSITION WITH BILATERAL HALF SIDE RAILS UP, CALL LIGHT WITHIN REACH. WILL CONTINUE TO MONITOR.
[2017-01-15 08:00] VITALS: BP 106/76
[2017-01-15] MEDS: PANTOPRAZOLE 40 MG TABEC PO SCH (08:01)
--- NOTE | 2017-01-15 09:22 | NUR ---
PATIENT HAS BEEN SCREENED AND CATEGORIZED HIGH NUTRITION RISK. PATIENT WILL BE SEEN WITHIN 1-2 DAYS OF ADMISSION. 01/15/17-01/16/[address]
--- NOTE | 2017-01-15 10:46 | NUR ---
DR CRAWFORD AT PATIENT BEDSIDE. NO NEW ORDERS AT THIS TIME. WILL CONTINUE TO MONITOR.
--- NOTE | 2017-01-15 10:52 | NUR ---
PATIENT TAKEN TO NUCLEAR MEDICINE FOR HIDA SCAN BY MARLO.
--- NOTE | 2017-01-15 11:55 | NUR ---
01/15/17 RD INITIAL ASSESSMENT COMPLETED PLEASE REFER TO NUTRITION ASSESSMENT UNDER CARE ACTIVITY FOR ESTIMATED NUTRITIONAL NEEDS. 1. WHEN MEDICALLY FEASIBLE, INITIATE PO DIET TO START ON CLEAR LIQUID DIET AND ADVANCE TOLERATED TO 75G CONSISTENT CARBOHYDRATE DIET 2. ADD VITAMIN C 250 MG/DAY (FOR WOUND HEALING SUPPORT) 3. RD TO FOLLOW-UP 2-3 DAYS, HIGH RISK KIRSTIE SALINAS, KAY
[2017-01-15] MEDS: MORPHINE SULFATE 2 MG/ML SYR IVP PRN ×3 (12:07→21:09)
--- NOTE | 2017-01-15 12:38 | NUR ---
PATIENT BACK FROM NUCLEAR MEDICINE, NO SIGNS OF ACUTE DISTRESS. RE-CONNECTED TO IVF, WILL CONTINUE TO MONITOR.
[2017-01-15] MEDS: NACL 0.9% IRR 250 ML BOTTLE IR SCH (13:18)
--- NOTE | 2017-01-15 13:56 | NUR ---
CM NOTE INITIAL REVIEW FAXED TO [facility] / FAX# [phone]
--- NOTE | 2017-01-15 14:24 | NUR ---
PATIENT FAMILY AT BEDSIDE. BED IN LOW POSITION WITH BILATERAL HALF SIDE RAILS UP, CALL LIGHT WITHIN REACH. WILL CONTINUE TO MONITOR.
[2017-01-15 16:00] VITALS: BP 111/72
[2017-01-15] MEDS ORDERED: Z-GUARD PASTE TP PRN (16:25)
--- NOTE | 2017-01-15 16:25 | NUR ---
PAGE OH REGARDING STOMA CONDITION
--- NOTE | 2017-01-15 17:15 | NUR ---
DURING SKIN ASSESSMENT , PT. REFUSED TO HAVE LOWER ABDOMINAL DRESSING REMOVE. PT. SAID IT WAS CHANGED THIS MORNING, DRESSING IN-PLACE DRY AND CLEAN, NO ODOR THIS TIME ,WILL TRY AGAIN LATER.
--- NOTE | 2017-01-15 17:15 | NUR ---
DR. MCCALLUM DID NOT CALL BACK, SPOKE TO PRIMARY RN AND CONTINUE TO FOLLOW UP WITH DR. MCCALLUM REPORTING OF STOMA CONDITION
--- NOTE | 2017-01-15 17:15 | NUR ---
WOUND CARE EVALUATION REASON FOR EVALUATION: SACRAL COCCYX REDNESS COMPLETE SKIN ASSESSMENT DONE ON THIS 56 Y/O MALE PATIENT FROM HOME TO [facility], WITH INITIAL DIAGNOSIS OF ABDOMEN PAIN, CONSTIPATION AND NO BOWEL MOVEMENT FOR 3 DAYS. PAST MEDICAL HX INCLUDE DM, GASTROESOPHAGEAL REFLUX, AND HTN. PAST SURGICAL HX 01/09/2017 BOWEL RESECTION WITH COLOSTOMY. ALL ABOVE INFORMATION WAS OBTAINED FROM THE ADMISSION H&P. LABS ARE WBC 5.2, H/H 12.6/38, POC 107, ALBUMIN 3.1 PT/INR 11.3/1.1 AND PTT 30. CURRENT MEDS INCLUDE PANTOPRAZOLE, ATENOLOL, INSULIN LISPRO, AND MORPHINE SULFATE . PATIENT IS AAOX4. SKIN WARM TO TOUCH WNL, NO EDEMA , BLE HAIR GROWTH AND BILATERAL DORSAL PEDAL PULSES PRESENT. PLAN OF CARE DISCUSSED WITH PRIMARY RN. , PT. AND MOTHER AT BEDSIDE INTEGUMENTARY: SACROCOCCYX - MOIST ASSOCIATE DERMATITIS, SKIN INTACT. LUQ ABDOMINAL -COLOSTOMY STOMA SITE- 2 INCHES IN DIAMETER, DARK BROWN COLOR STOMA ,NO STOOL OUT PUT SINCE FRIDAY PER PT. RECOMMENDATIONS: -SURGEON TO RE-ASSESS COLOSTOMY STOMA SITE FOR POSSIBLE OBSTRUCTION, BLOCKAGE FROM RECURRENT DISEASE PROCESS -CLEANSE MID SURGICAL SITE WITH NS. APPLY MOIST TO DRY DRESSING AND COVER WITH ABDOMINAL DRESSING SECURE WITH TAPE, BID WC AND PRN IF SOILING -ASSESS AND MONITOR JEB-SKIN COLOSTOMY STOMA SITE DURING EACH CHANGE NOTIFY PCP OF ANY ABNORMAL CHANGES -CLEANSE AND RINSE COLOSTOMY BAG BID AND PRN WHEN 1/2 BAG FULL -CHANGE COLOSTOMY BAG Q7 DAYS AND PRN IF LEAKAGE -KEEP SKIN CLEAN AND DRY AT ALL TIMES. -PRESSURE REDISTRIBUTION SURFACE THERAPY. -CONTINUE TO FOLLOW RD RECOMMENDATION RECOMMENDATIONS DISCUSSED WITH PRIMARY RN. WILL FOLLOW UP PATIENT Q 7-10 DAYS AND PRN. PLEASE CONTACT WOUND CARE NURSE FOR ANY CONCERNS, QUESTIONS AND CHANGES IN SKIN CONDITION. Addendum: 01/16/17 at 1100 by Mac Torres RN (Grace) ABDOMEN SURGICAL WOUND: UPPER PORTION SURGICAL INCISION INTACT WITH [address], LOWER PORTION SURGICAL INCISION INTACT WITH [address] MID ABD.PORTION OPEN WOUND, VERONICA WERE REMOVED AT ER, WOUND MEASURES 7X3X2 CM, MUSCLE AND ADIPOSE TISSUE PRESENT, WOUND BED IS CLEAN, MODERATE AMOUNT OF SANGUINEOUS DRAINAGE, NO ODOR AFTER WOUND IS CLEANSED, WOUND CULTURE OBTAINED BY PRIMARY NURSE. PT. IS MEDICATED FOR PAIN. RECOMMENDATION: STOP MOIST TO DRY DRESSING CHANGE, START CLEANSE MID ABDOMEN SURGICAL OPEN WOUND WITH NS. APPLY HYDROGEL WITH ADAPTIC DRESSING AND COVER WITH ABD PAD, SECURE WITH TAPE QD AND PRN IF SOLING. LUQ COLOSTOMY: 5X4 CM X 0.5 HIGH, OPENING AT 5 O'CLOCK, JEB STOMA WOUND DRY, SKIN INTACT, DARK BROWN SOFT TISSUE AROUND 2 O'CLOCK TO 4 O'CLOCK,REST OF STOMA IS MAYRA PINK. NOTICE VERY SMALL AMOUNT OF STOOL INSIDE COLOSTOMY BAG.
--- NOTE | 2017-01-15 19:10 | NUR ---
PT AWAKE AND ALERT, NO SIGNS OF ACUTE DISTRESS. ENDORSED TO FREIGHT BROKER NURSE FOR CONTINUITY OF CARE.
--- NOTE | 2017-01-15 19:11 | NUR ---
RECEIVED HANDOFF REPORT FROM AM RN. PATIENT AWAKE AND ALERT IN BED WITH FAMILY AT BEDSIDE. PATIENT DENIES PAIN. IV SITE PATENT AND INTACT. DRESSING DRY AND INTACT. COLOSTOMY PATENT AND INTACT. NO SIGNS OR SYMPTOMS OF ACUTE DISTRESS NOTED. CALL LIGHT WITHIN REACH. WILL CONTINUE TO MONITOR.
[2017-01-15] MEDS ORDERED: PANTOPRAZOLE 40 MG TABEC PO SCH (21:00)
[2017-01-15] MEDS ORDERED: [UNRECOGNIZED DRUG - OTHER] PO SCH (21:00)
[2017-01-15] MEDS: ATENOLOL 50 MG TAB PO SCH (21:08)
[2017-01-15] MEDS: LORATADINE 10 MG TAB PO SCH (21:08)
--- NOTE | 2017-01-15 21:10 | NUR ---
PM MEDS GIVEN WITH EDUCATION. PATIENT STATES PAIN, MEDICATED ORDERED. NO SIGNS OR SYMPTOMS OF ACUTE DISTRESS NOTED. CALL LIGHT WITHIN REACH. WILL CONTINUE TO MONITOR.
[2017-01-15] MEDS: GENVOYA PO SCH (21:13)
[2017-01-16] VITALS: BP 114/75
[2017-01-16] MEDS: Z-GUARD PASTE TP SCH ×2 (00:31→13:38)
[2017-01-16] MEDS: NACL 0.9% IRR 250 ML BOTTLE IR SCH ×2 (00:31→13:44)
--- NOTE | 2017-01-16 00:35 | NUR ---
PATIENT AWAKE IN BED. PATIENT DENIES PAIN. SACRAL DRESSING CHANGED. ABDOMINAL DRESSING CHANGED. NO SIGNS OR SYMPTOMS OF ACUTE DISTRESS NOTED. CALL LIGHT WITHIN REACH. WILL CONTINUE TO MONITOR.
[2017-01-16] MEDS: MORPHINE SULFATE 2 MG/ML SYR IVP PRN ×6 (01:31→23:27)
[2017-01-16] MEDS: DEXT 5% /NACL 0.9% 1,000 ML IV SCH ×3 (03:20→23:20)
--- NOTE | 2017-01-16 04:41 | NUR ---
PATIENT RESTING IN BED. PATIENT DENIES PAIN. NO SIGNS OR SYMPTOMS OF ACUTE DISTRESS NOTED. CALL LIGHT WITHIN REACH. WILL CONTINUE TO MONITOR.
[2017-01-16] MEDS: BLOOD GLUCOSE MONITORING 1 DEV DEV FS SCH ×4 (06:37→21:03)
[2017-01-16] MEDS: PANTOPRAZOLE 40 MG TABEC PO SCH (06:37)
--- NOTE | 2017-01-16 07:38 | NUR ---
ENDORSED PLAN OF CARE TO AM RN. PATIENT IN STABLE CONDITION. PATIENT DENIES PAIN. NO SIGNS OR SYMPTOMS OF ACUTE DISTRESS NOTED. SAFETY MEASURES ENSURED. CALL LIGHT WITHIN REACH.
--- NOTE | 2017-01-16 07:39 | NUR ---
RECEIVED REPORT FROM WOOL PRESSER NURSE AT BEDSIDE. PT IS A&OX4. PT HAS IV ON R AC 20 G RUNNING D5NS@100. PT HAS ABD WOUND WITH DSG INTACT. PT HAS COLOSTOMY BAG, NO STOOL IN THERE AT THIS TIME. PT HAS A HEALED WOUND ON THE SACRAL AREA. NO COMPLAINTS AT THIS TIME. CALL LIGHT WITHIN REACH. WILL CONTINUE TO MONITOR.
[2017-01-16 08:00] VITALS: BP 91/58
--- NOTE | 2017-01-16 09:30 | NUR ---
RN WALKED WITH PT. PT TOLERATED WELL.
--- NOTE | 2017-01-16 09:45 | NUR ---
PLACE A CALL TO DR. MCCALLUM OFFICE TO REPORT STOMA CONDITION,MESSAGE LEFT TO OFFICE NURSE, WILL NOTIFY HIM.
--- NOTE | 2017-01-16 10:05 | NUR ---
RECEIVED CALL FROM LAB REGARDING GRAM+COCCI IN CLUSTER IN BLOOD CULTURE. PAGED DR. CRAWFORD.
[2017-01-16] MEDS ORDERED: SKINTEGRITY HYDROGEL TP PRN (10:35)
--- NOTE | 2017-01-16 10:39 | NUR ---
CM NOTE SPOKE W/ LOPEZ FROM [facility]. PATIENT TO CONTINUE SERVICES W/ [facility] UPON DISCHARGE.
--- NOTE | 2017-01-16 11:00 | NUR ---
PAGED DR. CRAWFORD AGAIN.
--- NOTE | 2017-01-16 13:00 | NUR ---
PT RESTING COMFORTABLY IN BED. CALL LIGHT WITHIN REACH. WILL CONTINUE TO MONITOR.
--- NOTE | 2017-01-16 14:25 | NUR ---
CM NOTE INITIAL REVIEW FAXED TO [facility] (FAX# [phone], ATTN: SEPTEMBER [phone]) AND [facility] (FAX# [phone], ATTN: MARIO [phone])
--- NOTE | 2017-01-16 14:27 | NUR ---
CM NOTE FWW ORDER FAXED TO [facility] / FAX# [phone], ATTN: TIMOTHY #[phone]
--- NOTE | 2017-01-16 15:30 | NUR ---
PT IS RESTING COMFORTABLY IN BED. NO DISTRESS NOTED. CALL LIGHT WITHIN REACH. WILL CONTINUE TO MONITOR.
--- NOTE | 2017-01-16 15:32 | NUR ---
TSERING NOTE PER TIMOTHY FROM [facility], NOT CONTRACTED W/ [facility]. SPOKE W/ TSERING MARTIN FOR [facility]. CONTRACTED DME IS WITH [employer]. SPOKE W/ TIMOTHY FROM [employer] ([phone]). MADE AWARE OF FWW ORDER. FAXED FS, H&P & ORDER TO [phone]. FWW TO BE DELIVERED WITHIN 2-3 HOURS ON THE DAY OF DISCHARGE.
[2017-01-16 16:00] VITALS: BP 105/67
--- NOTE | 2017-01-16 17:55 | NUR ---
WALKED WITH FAMILY WITH A FRONT WHEEL WALKER. PT TOLERATED WELL.
--- NOTE | 2017-01-16 19:36 | NUR ---
ENDORSED CARE OF PT TO MONEY LAUNDERING INVESTIGATOR NURSE AT BEDSIDE. PT IN STABLE CONDITION.
--- NOTE | 2017-01-16 19:37 | NUR ---
RECEIVED PT FROM KAROLINA KHANNA PT IS SERBIAN SPEAKER AAOX4 ambulatory ABD INCISION, AND COLOSTOMY WITH SMALL AMOUNT OF STOOL INITIAL ASSESSMENT DONE
[2017-01-16 20:00] VITALS: BP 120/76
[2017-01-16] MEDS: ATENOLOL 50 MG TAB PO SCH (20:50)
[2017-01-16] MEDS: LORATADINE 10 MG TAB PO SCH (20:51)
[2017-01-16] MEDS: GENVOYA PO SCH (20:51)
--- NOTE | 2017-01-16 21:30 | NUR ---
BLOOD SUGAR TEST 161 COVERAGE WITH 2 UNITS HUMALOG SUB Q ORDER
[2017-01-17] VITALS: BP 106/68
--- NOTE | 2017-01-17 | NUR ---
AFTER PAIN MEDIC GIVEN PT SLEEPS WELL NOT DISTRESS NOTED
[2017-01-17] MEDS: NACL 0.9% IRR 250 ML BOTTLE IR SCH ×2 (01:54→13:36)
[2017-01-17] MEDS: Z-GUARD PASTE TP SCH ×2 (01:54→13:36)
[2017-01-17] MEDS: MORPHINE SULFATE 2 MG/ML SYR IVP PRN ×3 (03:49→14:37)
[2017-01-17 03:50] VITALS: BP 113/70
[2017-01-17] MEDS: DEXT 5% /NACL 0.9% 1,000 ML IV SCH (04:16)
--- NOTE | 2017-01-17 04:34 | NUR ---
AFTER PAIN ;MEDIC GIVEN PT REMAIN STABLE WITH NOT PAIN, SPONGE BATH LIVEN, LINEN CHANGED
[2017-01-17 06:02] LABS: BASOPHILS % (AUTO) 0.5 % (0.0-2.0); EOSINOPHILS # (AUTO) 0.1 K/uL (0-0.4); EOSINOPHILS % (AUTO) 1.7 % (0.0-4.0); HEMATOCRIT 36.9 % (36-52); LYMPHOCYTES # (AUTO) 0.8 K/uL (2.0-11.5); LYMPHOCYTES % (AUTO) 16.8 % (20.5-51.1); MEAN CORPUSCULAR HEMOGLOBIN 28 pg (27-31); MEAN CORPUSCULAR HGB CONC 33 g/dL (33-37); MEAN CORPUSCULAR VOLUME 88 fL (80-94); MONOCYTES # (AUTO) 0.6 K/uL (0.8-1.0); MONOCYTES % (AUTO) 13.3 % (1.7-9.3); NEUTROPHILS # (AUTO) 3.1 K/uL (1.8-7.7); NEUTROPHILS % (AUTO) 67.7 % (42.2-75.2); PLATELET COUNT (AUTO) 205 K/uL (140-450); RED BLOOD CELL COUNT(AUTO) 4.21 MIL/uL (4.20-6.10); RED CELL DISTRIBUTION WIDTH 12.8 % (11.6-13.7); WHITE BLOOD COUNT (AUTO) 4.6 K/uL (4.8-10.8)
[2017-01-17] MEDS: BLOOD GLUCOSE MONITORING 1 DEV DEV FS SCH ×3 (06:25→16:45)
[2017-01-17] MEDS: PANTOPRAZOLE 40 MG TABEC PO SCH (06:27)
--- NOTE | 2017-01-17 06:30 | NUR ---
BLOOD SUGAR 135 NOT COVERAGE
[2017-01-17 06:52] LABS: ANION GAP 10.8 (8-16); CARBON DIOXIDE 29.4 mmol/L (21-32); CREATININE 0.9 mg/dL (0.7-1.3); POTASSIUM 4.2 mmol/L (3.5-5.1)
--- NOTE | 2017-01-17 07:30 | NUR ---
RECEIVED BEDSIDE REPORT FROM NIGHT NURSE, PT STABLE, ALERT AWAKE ORIENTED X4, COLOSTOMY BAG IN PLACE, ABD DRESSING IN PLACE, SEROUS SANGUINOUS DRAINAGE NOTED, WILL CHANGE. NO SIGNS AND SYMPTOM OF DISTRESS, CALL LIGHT WITHIN REACH, WILL CONTINUE TO MONITOR.
[2017-01-17 08:00] VITALS: BP 101/63
--- NOTE | 2017-01-17 10:20 | NUR ---
ABDOMINAL WOUND DRESSING CHANGED. DR MCCALLUM PRESENT IN THE ROOM. OLD PACKING REMOVED. MINIMAL SEROSANGUINEOUS DRAINAGE NOTED. WOUND CLEANSED WITH NS . HYDROGEL APPLIED WITH ADAPTIC DRESSING. WOUND PACKED WITH GAUZE PER DR MCCALLUM'S ORDER. WOUND COVERED WITH ABD PAD. PATIENT TOLERATED WELL
--- NOTE | 2017-01-17 11:45 | NUR ---
PT RESTING, NO DISTRESS NOTED, CALL LIGHT WITHIN REACHED, WILL CONTINUE TO MONITOR.
--- NOTE | 2017-01-17 12:04 | NUR ---
FAXED CONCURRENT REVIEW TO [facility] [phone] PHONE SEPTEMBER [phone] SPOKE WITH MERE FROM [employer]. THE WALKER WAS DELIVERED TO THE PATIENT'S HOUSE YESTERDAY. I CALLED LARRY FROM [facility] AND INFORMED HER THAT THE PATIENT WILL PROBABLY BE GOING HOME TODAY AND WILL NEED TO RESUME WOUND CARE. I FAXED HER THE H&P AND ORDER TO [phone]. Addendum: 01/17/17 at 1653 by Andie Catherine CM LARRY FROM [facility] CALLED AND SAID THEY CAN START TOMORROW.
[2017-01-17] MEDS ORDERED: SKINTEGRITY HYDROGEL TP SCH (13:00)
--- NOTE | 2017-01-17 14:10 | NUR ---
PT AMBULATES AROUND UNIT, NO DISTRESS NOTED, PT TOLERATED WELL
[2017-01-17] MEDS ORDERED: HYDROcodone/APAP 5/325 MG 1 TAB TAB PO PRN ×2 (15:45)
[2017-01-17 16:00] VITALS: BP 108/79
--- NOTE | 2017-01-17 16:58 | NUR ---
PT RESTING, NO DISTRESS NOTED, CALL LIGHT WITHIN REACH, WILL CONTINUE TO MONITOR
--- NOTE | 2017-01-17 18:32 | NUR ---
DISCHARGE INSTRUCTION GIVEN AND EXPLAINED, MEDICATION LIST GIVEN, OSTOMY AND SURGICAL INCISION CARE GIVEN, HOME MEDICATION WITH PT, BELONGING WITH PT, IV D/C CATHETER INTACT, DRESSING CLEAN DRY AND INTACT, ID BAND TAKEN OFF, FAMILY WITH PT.
== END 2017-01-17 18:37 | disposition home or self-care (01) | DRG 247 ==
LOC: MED 16:24 → MTU 21:20
PROVIDERS: ADMIT Internal Medicine Pulmonary Disease; ATTEND Internal Medicine Pulmonary Disease
DX: K56.7 Ileus, unspecified (principal); B20 Human immunodeficiency virus [HIV] disease; R10.11 Right upper quadrant pain; G89.18 Other acute postprocedural pain; E11.9 Type 2 diabetes mellitus without complications; K82.8 Other specified diseases of gallbladder; K80.20 Calculus of gallbladder without cholecystitis without obstruction; K21.9 Gastro-esophageal reflux disease without esophagitis; F17.210 Nicotine dependence, cigarettes, uncomplicated; Z93.3 Colostomy status; Z79.899 Other long term (current) drug therapy; K59.00 Constipation, unspecified; L76.34 Postprocedural seroma of skin and subcutaneous tissue following other procedure; Y83.8 Other surgical procedures as the cause of abnormal reaction of the patient, or of later complication, without mention of misadventure at the time of the procedure; Y92.89 Other specified places as the place of occurrence of the external cause
CPT/HCPCS: 36415; 76705; 78445; 80048; 80053; 81003; 82948; 83605; 85025; 85610; 85730; 87040; 87081; 93005; 96374; 96375; 99285; A6248; A9510; J1815; J2270; J2405; J3010; J7030; J7042; Q0092

== ENCOUNTER 2017-02-06 16:40 | Inpatient (IN) | payer OTHER ==
[~2017-02-06] VITALS: Ht 160 cm; Wt 68.0 kg
[~2017-02-06 16:40] MED LIST changes: +LORA10TA19 PO
[2017-02-06 16:57] VITALS: BP 114/84
--- NOTE | 2017-02-06 17:00 | NUR ---
Patient ambulated to bed 11.
--- NOTE | 2017-02-06 17:13 | NUR ---
Dr. Montalvo evaluaitng patient at bedside.
--- NOTE | 2017-02-06 17:13 | NUR ---
56 M BIB BROTHER; PT REFERRED TO ER PER DR. CAROLINE MCCALLUM FOR EVALUATION OF ABDOMINAL PAIN S/P COLOSTOMY PLACEMENT 01/07/17 W/MALORDOROUS DRAINAGE PRESENT AT SURGICAL SITE; COLOSTOMY INTACT AND DRAINAGE BOWEL; WOUND WAC IN PLACE; ANTERIOR TO WOUND VAC, DRESSING TO UMBILICAL AREA WITH PACKING...YELLOW DISCHARGE AND ERTYEMA NOTED; DENIES N/V/D; SKIN IS PINK/WARM/DRY; AOX4 WITH EVEN AND STEADY GAIT; RR ARE EVEN AND UNLABORED; PT DENIES ANY FEVER, CP, SOB, OR COUGH AT THIS TIME; PATIENT STATES "SHARP" NON RADIATING 8/10 PAIN TO GENERALIZED ABD AT THIS TIME; VSS; PATIENT POSITIONED FOR COMFORT; HOB ELEVATED; BED DOWN. ER MD MADE AWARE OF PT STATUS. WILL CONTINUE TO MONITOR.
[2017-02-06] MEDS ORDERED: NACL 0.9% 1,000 ML IV SCH (17:26)
[2017-02-06] MEDS ORDERED: ONDANSETRON 4 MG/2 ML VIAL IVP ONE (17:30)
[2017-02-06] MEDS ORDERED: HYDROmorphone PFS 2 MG/ML SYR IVP ONE (17:30)
[2017-02-06 17:59] LABS: BASOPHILS # (AUTO) 0.1 K/uL (0.00-0.22); BASOPHILS % (AUTO) 3.4 % (0.0-2.0); EOSINOPHILS # (AUTO) 0.1 K/uL (0-0.4); EOSINOPHILS % (AUTO) 1.7 % (0.0-4.0); HEMATOCRIT 38.1 % (36-52); HEMOGLOBIN 12.6 g/dL (12.0-18.0); LYMPHOCYTES # (AUTO) 1.2 K/uL (2.0-11.5); LYMPHOCYTES % (AUTO) 30.1 % (20.5-51.1); MEAN CORPUSCULAR HEMOGLOBIN 28 pg (27-31); MEAN CORPUSCULAR HGB CONC 33 g/dL (33-37); MEAN CORPUSCULAR VOLUME 86 fL (80-94); MONOCYTES # (AUTO) 0.3 K/uL (0.8-1.0); MONOCYTES % (AUTO) 7.2 % (1.7-9.3); NEUTROPHILS # (AUTO) 2.2 K/uL (1.8-7.7); NEUTROPHILS % (AUTO) 57.6 % (42.2-75.2); PLATELET COUNT (AUTO) 186 K/uL (140-450); RED BLOOD CELL COUNT(AUTO) 4.44 MIL/uL (4.20-6.10); RED CELL DISTRIBUTION WIDTH 14.3 % (11.6-13.7); WHITE BLOOD COUNT (AUTO) 3.9 K/uL (4.8-10.8)
[2017-02-06 18:09] LABS: ANION GAP 7.5 (8-16); CARBON DIOXIDE 30.9 mmol/L (21-32); POTASSIUM 3.4 mmol/L (3.5-5.1)
[2017-02-06 18:16] LABS: ALBUMIN 3.7 g/dL (3.4-5.0); TOTAL BILIRUBIN 0.6 mg/dL (0.0-1.0)
--- NOTE | 2017-02-06 19:12 | NUR ---
Pt report given to Libra KHANNA. Transfer of care at this time.
[2017-02-06] MEDS ORDERED: PIPERACILLIN/TAZOBACTAM 4.5 GM in DEXTROSE 5% 100 ML IV ONE (19:15)
[2017-02-06] MEDS ORDERED: LORazepam 2 MG/ML VIAL IVP PRN (19:25)
[2017-02-06] MEDS ORDERED: diphenhydrAMINE 50 MG/ML VIAL IVP ONE (19:25)
[2017-02-06] MEDS ORDERED: HYDROcodone/APAP 5/325 MG 1 TAB TAB PO PRN (19:25)
[2017-02-06] MEDS ORDERED: ONDANSETRON 4 MG/2 ML VIAL IVP PRN (19:25)
[2017-02-06] MEDS ORDERED: PIPERACILLIN/TAZOBACTAM 2.25 GM VIAL IV ONE (19:35)
[2017-02-06 19:38] LABS: APPEARANCE,URINE CLEAR (CLEAR); BILIRUBIN,URINE NEGATIVE (NEGATIVE); BLOOD, URINE NEGATIVE (NEGATIVE); COLOR,URINE YELLOW (YELLOW); LEUKOCYTE ESTERASE ,URINE NEGATIVE (NEGATIVE); NITRITE, URINE NEGATIVE (NEGATIVE); UGLUCOSE NEGATIVE (NEGATIVE)
--- NOTE | 2017-02-06 20:00 | NUR ---
Patient noted to have existing wounds upon arrival to ER. Photos taken of wound and placed in chart. Wound covered with dressing. Physician informed.
--- NOTE | 2017-02-06 20:14 | NUR ---
Patient will be admitted to care of DR BARNES. Admited to [facility] . Will go to room 106-B. Belongings list completed. Report to RADHIKA KHANNA.
--- NOTE | 2017-02-06 20:30 | NUR ---
WOUND VAC REMOVED FROM UMBILICUS PRIOR TO MOVING TO MED/SURG. WET TO DRY DRESSING APPLIED. WOUND CULTURE OBTAINED.
--- NOTE | 2017-02-06 20:40 | NUR ---
ADMITTED THIS 56 YEAR OLD MALE FROM ER PER [facility] WITH CC OF ABDOMINAL PAIN, AMBULATED TO BED WITH STEADY GAIT, ASSESSMENT DONE, VITAL SIGNS STABLE, DENIES ANY PAIN, ABDOMINAL INCISION X2, UPPER INCISION WITH PACKING, LOWER INCISION ON WOUND VAC BEFORE, SITE CLEANSED WITH NORMAL SALINE AND COVERED WITH COMPOSITE DRESSING, ORIENTED TO ROOM AND CALL LIGHT, PLAN OF CARE DISCUSSED WITH FAMILY MEMBERS AT BEDSIDE, SAFETY MEASURES IN PLACE, CALL LIGHT WITHIN REACH.
[2017-02-06 21:00] VITALS: BP 109/72
[2017-02-06] MEDS: PIPERACILLIN/TAZOBACTAM 3.375 GM in DEXTROSE 5% 50 ML IV SCH (21:00)
[2017-02-06] MEDS: NACL 0.9% 1,000 ML IV SCH (21:15)
--- NOTE | 2017-02-06 21:30 | NUR ---
SANDWICH PROVIDED, CONSUMED 100%, ALL NEEDS ATTENDED.
[2017-02-06] MEDS ORDERED: INFLUENZA VIRUS VACCINE QUAD 0.5 ML SYR IMVAC PRN (21:55)
[2017-02-06] MEDS: ACETAMINOPHEN 325 MG TAB PO PRN (22:38)
--- NOTE | 2017-02-07 | NUR ---
PT SLEEPING, EASILY AROUSABLE, VITAL SIGNS STABLE, DENIES ANY PAIN, IVF INFUSING WELL, CONTINUE TO MONITOR CLOSELY.
[2017-02-07 00:08] VITALS: BP 102/66
[2017-02-07] MEDS: PIPERACILLIN/TAZOBACTAM 3.375 GM in DEXTROSE 5% 50 ML IV SCH (04:15)
[2017-02-07] MEDS ORDERED: PIPERACILLIN/TAZOBACTAM 3.375 GM VIAL IV ONE (04:17)
--- NOTE | 2017-02-07 04:30 | NUR ---
DUE ZOSYN IVPB ADMINISTERED, MONITORED FOR REACTION, DENIES ANY PAIN, ABDOMINAL DRESSING DRY AND INTACT, COLOSTOMY WITH SMALL SOFT BROWNISH STOOL NOTED, MONITORED CLOSELY.
[2017-02-07] MEDS: NACL 0.9% 1,000 ML IV SCH ×2 (05:24→08:19)
[2017-02-07 05:48] LABS: BASOPHILS % (AUTO) 0.6 % (0.0-2.0); EOSINOPHILS # (AUTO) 0.1 K/uL (0-0.4); EOSINOPHILS % (AUTO) 1.6 % (0.0-4.0); HEMATOCRIT 33.8 % (36-52); HEMOGLOBIN 11.3 g/dL (12.0-18.0); LYMPHOCYTES # (AUTO) 0.9 K/uL (2.0-11.5); LYMPHOCYTES % (AUTO) 23.1 % (20.5-51.1); MEAN CORPUSCULAR HEMOGLOBIN 29 pg (27-31); MEAN CORPUSCULAR HGB CONC 34 g/dL (33-37); MEAN CORPUSCULAR VOLUME 86 fL (80-94); MONOCYTES # (AUTO) 0.4 K/uL (0.8-1.0); MONOCYTES % (AUTO) 10.2 % (1.7-9.3); NEUTROPHILS # (AUTO) 2.3 K/uL (1.8-7.7); NEUTROPHILS % (AUTO) 64.5 % (42.2-75.2); PLATELET COUNT (AUTO) 151 K/uL (140-450); RED BLOOD CELL COUNT(AUTO) 3.94 MIL/uL (4.20-6.10); RED CELL DISTRIBUTION WIDTH 13.9 % (11.6-13.7); WHITE BLOOD COUNT (AUTO) 3.7 K/uL (4.8-10.8)
[2017-02-07 06:15] LABS: ALBUMIN 3.1 g/dL (3.4-5.0); ANION GAP 8.3 (8-16); CARBON DIOXIDE 29.1 mmol/L (21-32); CREATININE 0.9 mg/dL (0.7-1.3); MAGNESIUM 1.4 mg/dL (1.8-2.4); POTASSIUM 3.4 mmol/L (3.5-5.1); TOTAL BILIRUBIN 0.5 mg/dL (0.0-1.0)
--- NOTE | 2017-02-07 07:20 | NUR ---
PT ASLEEP, NO SIGNS OF DISTRESS, REPORT GIVEN TO JEY HUERTA FOR CONTINUITY OF CARE.
--- NOTE | 2017-02-07 07:22 | NUR ---
RECEIVED PT IN BED. ASLEEP. AROUSABLE TO VOICE. ALERT ORIENTEDX4. NO SOB NOTED. DENIES ANY PAIN OR DISCOMFORT AT THIS TIME. COLOSTOMY BAG IN PLACE, AND INTACT. ABDOMINAL DRESSING DRY AND INTACT. AWAITING WOUND EVAL. PT AMBULATORY. SAFETY PRECAUTION IN PLACE. CALL LIGHT WITHIN REACH.
[2017-02-07 07:56] VITALS: BP 96/57
[2017-02-07] MEDS: ENOXAPARIN 40 MG/0.4 ML SYR SUBQ SCH (08:23)
[2017-02-07] MEDS ORDERED: DEXTROSE 50% 50 ML SYR IVP PRN (08:35)
[2017-02-07] MEDS ORDERED: LORazepam 2 MG/ML VIAL IVP PRN (08:35)
[2017-02-07] MEDS ORDERED: INSULIN LISPRO SLIDING SCALE 100 UNITS/ML VIAL SUBQ PRN (08:35)
--- NOTE | 2017-02-07 08:44 | NUR ---
DR. FINNEGAN CAME TO SEE PT. MADE AWARE OF POTASSIUM LEVEL 3.4. AND MAGNESIUM LEVEL 1.4. WITH ORDERED MADE AND CARRIED OUT.
[2017-02-07] MEDS ORDERED: MAG SULF 2000 MG/WATER PREMIX 100 ML IV SCH (09:00)
[2017-02-07] MEDS ORDERED: POTASSIUM CHLORIDE 10 MEQ TABER PO SCH (09:00)
--- NOTE | 2017-02-07 09:02 | NUR ---
ACCORDING TO PT. HE TAKES GENVOYA IN AM AND NOT HS. DR. FINNEGAN MADE AWARE WITH ORDERS MADE AND CARRIED OUT TORB.
--- NOTE | 2017-02-07 09:09 | NUR ---
PATIENT HAS BEEN SCREENED AND CATEGORIZED HIGH NUTRITION RISK. PATIENT WILL BE SEEN WITHIN 1-2 DAYS OF ADMISSION. 02/07/17-02/08/[address]
--- NOTE | 2017-02-07 09:11 | NUR ---
PT HOME MED JENNIFER SENT TO PHARMACY GIVEN TO
--- NOTE | 2017-02-07 10:18 | NUR ---
02/07/17 RD INITIAL ASSESSMENT COMPLETED PLEASE REFER TO NUTRITION ASSESSMENT UNDER CARE ACTIVITY FOR ESTIMATED NUTRITIONAL NEEDS. 1. CONTINUE 60G CONSISTENT CARBOHYDRATE DIET 2. ADD VITAMIN C 250 MG/DAY (FOR WOUND HEALING) 3. RD TO FOLLOW-UP 3-5 DAYS, MODERATE RISK KIRSTIE SALINAS, KAY
--- NOTE | 2017-02-07 10:18 | NUR ---
CALLED WOUND CARE NURSE ASNAM AT EXT [phone], LEFT MESSAGE FOR FOLLOW UP REGARDING WOUND CONSULT. AWAITING CALL BACK.
[2017-02-07] MEDS: GENVOYA PO SCH (10:31)
[2017-02-07 10:37] VITALS: BP 100/58
[2017-02-07] MEDS: MORPHINE SULFATE 2 MG/ML SYR IVP PRN ×3 (10:37→21:04)
--- NOTE | 2017-02-07 11:01 | NUR ---
ORDER RECEIVED AND CARRIED OUT TORB, PER [facility]NS RECOMMENDATION FOR VIT C 250 MG QD, FOR WOUND HEALING.
[2017-02-07 11:48] VITALS: BP 110/63
[2017-02-07] MEDS: BLOOD GLUCOSE MONITORING 1 DEV DEV FS SCH ×3 (11:58→20:51)
--- NOTE | 2017-02-07 12:27 | NUR ---
WOUND CARE NURSE CAME TO SEE PT.
--- NOTE | 2017-02-07 12:50 | NUR ---
WOUND CARE EVALUATION REASON FOR EVALUATION: MULTIPLE WOUNDS COMPLETE SKIN ASSESSMENT DONE ON THIS 56 Y/O MALE PATIENT FROM HOME TO [facility], WITH INITIAL DIAGNOSIS OF INFECTION TO ABDOMINAL WOUND. PAST MEDICAL HX INCLUDE DM, GASTROESOPHAGEAL REFLUX, AND HTN. PAST SURGICAL HX 01/09/2017 BOWEL RESECTION WITH COLOSTOMY. ALL ABOVE INFORMATION WAS OBTAINED FROM THE ADMISSION H&P. LABS ARE WBC 3.7, H/H 11.2/33.8, GLUCOSE 107, ALBUMIN 3.1. CURRENT MEDS INCLUDE PANTOPRAZOLE, ATENOLOL, INSULIN LISPRO, AND MORPHINE SULFATE . PATIENT IS AAOX4. SKIN WARM TO TOUCH WNL, NO EDEMA , BLE HAIR GROWTH AND BILATERAL DORSAL PEDAL PULSES PRESENT. PLAN OF CARE DISCUSSED WITH PRIMARY RN. AND PT. INTEGUMENTARY: UPPER MID ABDOMINAL S/P SURGICAL WOUND 1.5X2X0.5 WITH UNDERMINING 1.5CM AROUND 8 O'CLOCK, WOUND BED 100% GRANULATING TISSUE, NO DRAINAGE, NO ODOR NOTICE , PERIWOUND PINK, WOUND EDGE SKIN INTACT LOWER MID ABDOMINAL S/P SURGICAL WOUND 6X4X3 CM WITH UNDERMINING AT 1 O'CLOCK MEASURE 2CM, SMALL AMOUNT PURULENT DRAINAGE, NO ODOR, WOUND BED 50% GRANULATING TISSUE , 50% SLOUGH TISSUE, PERIWOUND PINK, WOUND EDGE SKIN INTACT LUQ ABDOMINAL -COLOSTOMY STOMA SITE- 2 INCHES IN DIAMETER, DARK BROWN COLOR STOMA , MODERATE AMOUNT STOOL OUTPUT IN BAG, JEB STOMA WOUND INTACT. RECOMMENDATIONS: -SURGICAL CONSULT FOR POSSIBLE DEBRIDEMENT LOWER ABDOMINAL WOUND -CLEANSE UPPER MID ABD. WOUND SITE WITH NS. APPLY HYDROGEL WITH ADAPTIC DRESSING AND COVER WITH ABDOMINAL PAD SECURE WITH TAPE, QD AND PRN IF SOILING CLEANSE LOWER MID ABD. WOUND SITE WITH NS. APPLY THERAHONEY WITH ADAPTIC DRESSING AND COVER WITH ABDOMINAL PAD SECURE WITH TAPE, QD AND PRN IF SOILING -ASSESS AND MONITOR JEB-SKIN COLOSTOMY STOMA SITE DURING EACH CHANGE NOTIFY PCP OF ANY ABNORMAL CHANGES -CLEANSE AND RINSE COLOSTOMY BAG BID AND PRN WHEN 1/2 BAG FULL -CHANGE COLOSTOMY BAG Q5-7 DAYS AND PRN IF LEAKAGE -KEEP SKIN CLEAN AND DRY AT ALL TIMES. -PRESSURE REDISTRIBUTION SURFACE THERAPY. -TURN AND REPOSITION Q2H RECOMMENDATIONS DISCUSSED WITH PRIMARY RN. WILL FOLLOW UP PATIENT Q 7-10 DAYS AND PRN. PLEASE CONTACT WOUND CARE NURSE FOR ANY CONCERNS, QUESTIONS AND CHANGES IN SKIN CONDITION.
--- NOTE | 2017-02-07 13:01 | NUR ---
CM NOTE PER CM SEPTEMBER OF [facility], REVIEWS SHOULD BE SENT TO [facility] AND FOR ANY HOME HEALTH NEEDS TO CONTACT [facility]# [phone]. INITIAL REVIEW FAXED TO [facility] [phone] SEPTEMBER [phone]
[2017-02-07] MEDS: PIPER/TAZO 3.375GM/D5W PREMIX 50 ML IV SCH ×2 (14:02→21:02)
[2017-02-07] MEDS ORDERED: SKINTEGRITY HYDROGEL TP PRN (15:05)
[2017-02-07] MEDS ORDERED: THERAHONEY GEL 42.5 GM TP PRN (15:05)
[2017-02-07] MEDS ORDERED: ABDOMINAL PAD TP PRN (15:05)
[2017-02-07 16:00] VITALS: BP 101/63
--- NOTE | 2017-02-07 19:24 | NUR ---
PAGED DR. MCCALLUM TO FOLLOW UP WITH CONSULT. AWAITING CALL BACK.
--- NOTE | 2017-02-07 19:41 | NUR ---
PT KEPT CLEAN, DRY AND COMFORTABLE. NEEDS ATTENDED. ENDORSED TO NEXT SHIFT, PT ON STABLE CONDITION. FOR CONTINUITY OF CARE. COLOSTOMY BAG CHANGED.
--- NOTE | 2017-02-07 19:42 | NUR ---
RECEIVED REPORT FROM DAY SHIFT RN, PT IS A/OX4 ON ROOM AIR, CITIZEN OF [place] SPEAKING WITH LITTLE JAPANESE. NON-INTACT SKIN, INCISION FROM SURGERY TO ABDOMEN WITH CLEAN AND DRY DRESSING IN PLACE. COLOSTOMY BAG IN PLACE HOLDING SOFT BROWN STOOL. 20G IV TO RIGHT AC, INFUSING NS@100ML/HR. PT IS AMBULATORY WITH STEADY GAIT. SAFETY PRECAUTIONS IN PLACE. UPDATED BOARD. DISCUSSED PLAN OF CARE WITH PT IN CITIZEN OF [place], PT VERBALIZED UNDERSTANDING. RELATIVE AT BEDSIDE. VITAL SIGNS WITHIN NORMAL LIMITS. PT IN STABLE CONDITION, NO SIGNS OF DISTRESS NOTED. BED IN LOW POSITION, CALL LIGHT WITHIN REACH. WILL CONTINUE TO MONITOR.
[2017-02-07] MEDS ORDERED: PANTOPRAZOLE 40 MG TABEC PO SCH (21:00)
[2017-02-07] MEDS ORDERED: [UNRECOGNIZED DRUG - OTHER] PO SCH (21:00)
[2017-02-07] MEDS ORDERED: NON-FORMULARY ITEM (Omeprazole (Omeprazole) 20 MG) PO SCH (21:00)
[2017-02-07] MEDS ORDERED: LORATADINE 10 MG TAB PO SCH (21:00)
--- NOTE | 2017-02-07 21:10 | NUR ---
ADMINISTERED SCHEDULED MEDICATIONS ALONG WITH MORPHINE FOR PT C/O PAIN. PT TOLERATED WELL. PT IN STABLE CONDITION, NO SIGNS OF DISTRESS NOTED. BED IN LOW POSITION, CALL LIGHT WITHIN REACH. WILL CONTINUE TO MONITOR.
[2017-02-08] VITALS: BP 99/56
[2017-02-08] MEDS: MORPHINE SULFATE 2 MG/ML SYR IVP PRN ×2 (01:16→06:12)
[2017-02-08] MEDS: NACL 0.9% 1,000 ML IV SCH ×2 (01:38→11:24)
[2017-02-08] MEDS: PIPER/TAZO 3.375GM/D5W PREMIX 50 ML IV SCH ×2 (04:39→12:29)
[2017-02-08] MEDS: BLOOD GLUCOSE MONITORING 1 DEV DEV FS SCH ×2 (06:31→12:30)
--- NOTE | 2017-02-08 07:00 | NUR ---
ENDORSED PT TO DAY SHIFT RN. PT IN STABLE CONDITION.
--- NOTE | 2017-02-08 07:01 | NUR ---
RECEIVED REPORT FROM MINER ASSISTANT NURSE. PATIENT IS SITTING IN BED WITH BREAKFAST TRAY IN FRONT. PATIENT IN STABLE CONDITION, NO DISTRESS NOTED. RESPIRATIONS EVEN, UNLABORED, ON ROOM AIR. HAS ABDOMINAL PAIN THAT IS WITHIN TOLERABLE AT THIS TIME, WORSENS WHEN PATIENT AMBULATES. IV SITE INTACT, PATENT, AND INFUSING. COLOSTOMY BAG IS INTACT, WITHOUT ANY LEAKAGE. RIGHT ABD WOUND DRESSING IS DRY AND INTACT. NO OTHER SKIN LESIONS/WOUNDS NOTED ON BODY. AAOX4. PLAN OF CARE REVIEWED WITH PATIENT. PATIENT VERBALIZED UNDERSTANDING. SAFETY MEASURES IN PLACE, CALL LIGHT WITHIN REACH. WILL CONTINUE TO MONITOR.
[2017-02-08 07:05] LABS: EOSINOPHILS # (AUTO) 0.1 K/uL (0-0.4); EOSINOPHILS % (AUTO) 1.6 % (0.0-4.0); HEMATOCRIT 36.5 % (36-52); HEMOGLOBIN 12.1 g/dL (12.0-18.0); LYMPHOCYTES % (AUTO) 28.7 % (20.5-51.1); MEAN CORPUSCULAR HEMOGLOBIN 29 pg (27-31); MEAN CORPUSCULAR HGB CONC 33 g/dL (33-37); MEAN CORPUSCULAR VOLUME 87 fL (80-94); MONOCYTES # (AUTO) 0.3 K/uL (0.8-1.0); MONOCYTES % (AUTO) 10.1 % (1.7-9.3); NEUTROPHILS # (AUTO) 1.9 K/uL (1.8-7.7); NEUTROPHILS % (AUTO) 58.6 % (42.2-75.2); PLATELET COUNT (AUTO) 152 K/uL (140-450); RED CELL DISTRIBUTION WIDTH 14.2 % (11.6-13.7); WHITE BLOOD COUNT (AUTO) 3.3 K/uL (4.8-10.8)
[2017-02-08 07:44] LABS: ALBUMIN 3.3 g/dL (3.4-5.0); CREATININE 0.9 mg/dL (0.7-1.3); TOTAL BILIRUBIN 0.9 mg/dL (0.0-1.0)
[2017-02-08 08:00] VITALS: BP 104/74
[2017-02-08] MEDS ORDERED: SKINTEGRITY HYDROGEL TP SCH (09:00)
[2017-02-08] MEDS ORDERED: ABDOMINAL PAD TP SCH (09:00)
[2017-02-08] MEDS ORDERED: ASCORBIC ACID 500 MG TAB PO SCH (09:00)
--- NOTE | 2017-02-08 09:15 | NUR ---
DR. FINNEGAN AT BEDSIDE REVIEWING PLAN OF CARE WITH PATIENT. POSSIBLE D/C TO HOME WITH HOME HEALTH TODAY. WILL CONTINUE TO MONITOR.
[2017-02-08] MEDS: GENVOYA PO SCH (09:28)
[2017-02-08] MEDS: ACETAMINOPHEN 325 MG TAB PO PRN (09:30)
[2017-02-08] MEDS: ENOXAPARIN 40 MG/0.4 ML SYR SUBQ SCH (09:32)
[2017-02-08] MEDS ORDERED: HYDROcodone/APAP 5/325 MG 1 TAB TAB PO PRN (09:35)
[2017-02-08] MEDS ORDERED: CLIN300C2 PO (09:39)
[2017-02-08] MEDS ORDERED: SULF-58 PO (09:39)
--- NOTE | 2017-02-08 11:00 | NUR ---
PATIENT SITTING IN BED WATCHING TV. NO DISTRESS NOTED. CONDITION UNCHANGED. DENIES ANY PAIN. MEDICATIONS DUE GIVEN. SAFETY MEASURES IN PLACE, CALL LIGHT WITHIN REACH. WILL CONTINUE TO MONITOR.
[2017-02-08] MEDS ORDERED: COLL30OI TP ×2 (12:55→13:48)
[2017-02-08] MEDS ORDERED: THERAHONEY GEL 42.5 GM TP SCH (13:00)
--- NOTE | 2017-02-08 13:57 | NUR ---
NOTIFIED [facility] THAT PATIENT IS DISCHARGE AND NEW ORDER TO CONTINUE WOUND VAC AND TO USE SANTYL FOR LOWER ABDOMEN WAITING FOR THE [facility] FROM [facility].
--- NOTE | 2017-02-08 15:45 | NUR ---
PATIENT SITTING IN BED WITH BROTHER AT BEDSIDE. NO DISTRESS NOTED. RESPIRATIONS EVEN, UNLABORED, ON ROOM AIR. ABD WOUND DRESSINGS INTACT AND DRY. PATIENT TO BE DISCHARGED HOME VIA PRIVATE VEHICLE. DISCHARGE INSTRUCTIONS PROVIDED TO PATIENT, NEW MEDICATION INSTRUCTIONS, FOLLOW-UP INSTRUCTIONS, AND HOME HEALTH FOLLOW-UP INFORMATION. ANSWERED ALL QUESTIONS FROM PATIENT/BROTHER. PATIENT VERBALIZED UNDERSTANDING. IV REMOVED WITH MINIMAL BLOOD AND LUMEN COMPLETELY INTACT. ID BANDS REMOVED. WOUND PHOTOGRAPHS TAKEN AT DISCHARGE. PATIENT ABLE TO AMBULATE TO STEADY GAIT. REQUESTS WHEELCHAIR UPON DISCHARGE. ALL BELONGINGS WITH PATIENT IN A BAG. ESCORTED PATIENT DOWN TO LOBBY VIA WHEELCHAIR. PATIENT BEING DISCHARGED HOME VIA PRIVATE VEHICLE WITH BROTHER. PATIENT IN STABLE CONDITION UPON DISCHARGE.
== END 2017-02-08 16:00 | disposition home health service (06) | DRG 813 ==
LOC: MED 16:40 → MTU 19:30
PROVIDERS: ADMIT Hospitalist; ATTEND Hospitalist
DX: T81.30XA Disruption of wound, unspecified, initial encounter (principal); L03.311 Cellulitis of abdominal wall; I10 Essential (primary) hypertension; E11.9 Type 2 diabetes mellitus without complications; F17.210 Nicotine dependence, cigarettes, uncomplicated; K21.9 Gastro-esophageal reflux disease without esophagitis; Y83.8 Other surgical procedures as the cause of abnormal reaction of the patient, or of later complication, without mention of misadventure at the time of the procedure; Z90.49 Acquired absence of other specified parts of digestive tract; Y92.89 Other specified places as the place of occurrence of the external cause; Z93.3 Colostomy status; Z98.890 Other specified postprocedural states; Z79.84 Long term (current) use of oral hypoglycemic drugs
CPT/HCPCS: 36415; 80053; 81003; 82150; 82948; 83690; 83735; 85025; 85651; 86140; 87040; 87070; 87075; 87077; 87081; 87186; 87205; 96361; 96365; 96375; 99285; A6248; J1170; J1200; J1650; J1815; J2270; J2405; J2543; J3475; J7030; J7060

== ENCOUNTER 2017-05-22 12:22 | Emergency (ER) | payer OTHER ==
[~2017-05-22] VITALS: Ht 157.5 cm; Wt 75.7 kg
[~2017-05-22 12:22] MED LIST changes: -ACET-2619 PO; +CLIN300C2 PO; +COLL30OI TP; -IBUP-1842 PO; +SULF-58 PO; -SULF-59 PO; -[UNRECOGNIZED DRUG - REMARK]
[2017-05-22 12:28] VITALS: BP 117/89
--- NOTE | 2017-05-22 12:32 | NUR ---
PT TAKEN TO CHAIR A
--- NOTE | 2017-05-22 12:40 | NUR ---
57M BIB SELF C/O NAUSEA/VOMITING/DIRRHEA X 4 DAYS; ABDOMEN SOFT, NON-TENDER, ACTIVE BOWEL SOUNDS X 4 QUADRANTS; PT C/O 2 EPISODES OF VOMITING WITH 3 EPISODES OF DIARRHEA TODAY; PT NOTED WITH COLOSTOMY BAG PLACED 12/2016; PT C/O MID-LOWER ABDOMINAL PAIN, PRESSURE, NON-RADIATING, 11/21 X 4 DAYS; PT AA&OX4, BL LUNG SOUNDS CLEAR, RR EVEN/UNLABORED, PT POSITIONED FOR COMFORT IN OF; ER MD MADE AWARE OF STATUS. WILL CONTINUE TO MONITOR.
--- NOTE | 2017-05-22 13:51 | NUR ---
PT TAKEN TO CT VIA W/C ACCOMPANIED BY COMMERCIAL REPORTER.
[2017-05-22 13:58] LABS: HEMOGLOBIN 17.2 g/dL (12.0-18.0); MEAN CORPUSCULAR HEMOGLOBIN 28 pg (27-31)
[2017-05-22] MEDS: ONDANSETRON 4 MG/2 ML VIAL IVP ONE (14:05)
[2017-05-22] MEDS: NACL 0.9% 1,000 ML IV SCH (14:05)
--- NOTE | 2017-05-22 14:05 | NUR ---
PT BACK FROM CT.
--- NOTE | 2017-05-22 14:08 | NUR ---
PT MOVED TO BED 1.
[2017-05-22 14:09] LABS: BASOPHILS # (AUTO) 0.2 K/uL (0.00-0.22); BASOPHILS % (AUTO) 2.8 % (0.0-2.0); EOSINOPHILS % (AUTO) 0.7 % (0.0-4.0); HEMATOCRIT 52.6 % (36-52); LYMPHOCYTES # (AUTO) 1.3 K/uL (2.0-11.5); LYMPHOCYTES % (AUTO) 18.9 % (20.5-51.1); MEAN CORPUSCULAR HGB CONC 33 g/dL (33-37); MEAN CORPUSCULAR VOLUME 86 fL (80-94); MONOCYTES # (AUTO) 0.7 K/uL (0.8-1.0); MONOCYTES % (AUTO) 10.2 % (1.7-9.3); NEUTROPHILS # (AUTO) 4.6 K/uL (1.8-7.7); NEUTROPHILS % (AUTO) 67.4 % (42.2-75.2); PLATELET COUNT (AUTO) 136 K/uL (140-450); RED CELL DISTRIBUTION WIDTH 12.8 % (11.6-13.7); WHITE BLOOD COUNT (AUTO) 6.8 K/uL (4.8-10.8)
[2017-05-22 14:19] LABS: ALBUMIN 4.4 g/dL (3.4-5.0); ANION GAP 17.4 (8-16); CARBON DIOXIDE 23.9 mmol/L (21-32); CREATININE 1.3 mg/dL (0.7-1.3); POTASSIUM 3.3 mmol/L (3.5-5.1); TOTAL BILIRUBIN 1.3 mg/dL (0.0-1.0)
[2017-05-22 14:34] LABS: BILIRUBIN,URINE 1+ (NEGATIVE); BLOOD, URINE NEGATIVE (NEGATIVE); COLOR,URINE YELLOW (YELLOW); LEUKOCYTE ESTERASE ,URINE NEGATIVE (NEGATIVE); NITRITE, URINE NEGATIVE (NEGATIVE); UGLUCOSE NEGATIVE (NEGATIVE)
[2017-05-22 14:35] LABS: APPEARANCE,URINE HAZY (CLEAR)
[2017-05-22 14:51] LABS: RBC,URINE 0-5 (RARE) /HPF (0-5); WBC,URINE 0-5 (RARE) /HPF (0-5)
--- NOTE | 2017-05-22 15:17 | NUR ---
IV removed, catheter intact and site benign. Applied folded 4x4 gauze and tape to stop bleeding.
--- NOTE | 2017-05-22 15:30 | NUR ---
PT MOVED TO CHAIR A.
[2017-05-22 15:40] VITALS: BP 113/71
--- NOTE | 2017-05-22 15:40 | NUR ---
Patient discharged with v/s stable. Written and verbal after care instructions given and explained. Patient alert, oriented and verbalized understanding of instructions. Ambulatory with steady gait. All questions addressed prior to discharge. ID band removed. Patient advised to follow up with PMD. Rx of BENTYL & MADHU ODT given. Patient educated on indication of medication including possible reaction and side effects. Opportunity to ask questions provided and answered.
== END 2017-05-22 15:40 | disposition home or self-care (01) ==
LOC: MED 12:22
DX: R10.84 Generalized abdominal pain (principal); R19.7 Diarrhea, unspecified; R11.10 Vomiting, unspecified; E11.9 Type 2 diabetes mellitus without complications; K21.9 Gastro-esophageal reflux disease without esophagitis; I10 Essential (primary) hypertension
CPT/HCPCS: 36415; 74176; 80053; 81001; 83690; 85025; 96361; 96374; 99285; J2405; J7030

== ENCOUNTER 2018-01-14 17:58 | Emergency (ER) | payer OTHER ==
[~2018-01-14] VITALS: Ht 157.5 cm; Wt 73.5 kg
[2018-01-14 18:08] VITALS: BP 106/81
--- NOTE | 2018-01-14 18:22 | NUR ---
PATIENT AMB. TO BED#10 WITH FAMILY
--- NOTE | 2018-01-14 18:30 | NUR ---
PT BIB WITH C/O SOB S/P ABDOMINAL SURGERY AT [facility] ABOUT 2 WKS AGO. PATIENT STATES PAIN OF 8/10 AT THIS TIME; VSS; PATIENT POSITIONED FOR COMFORT; HOB ELEVATED; BEDRAILS UP X2; BED DOWN. ER MD MADE AWARE OF PT STATUS.
--- NOTE | 2018-01-14 19:06 | NUR ---
REPORT RECIEVED FROM JEY GARCÍA. ASSUMED CARE OF PT.
--- NOTE | 2018-01-14 19:06 | NUR ---
REPORT GIVEN TO JEY EVANS.
[2018-01-14] MEDS ORDERED: NACL 0.9% 1,000 ML IV ONE (19:25)
[2018-01-14 19:58] LABS: BASOPHILS % (AUTO) 0.3 % (0.0-2.0); EOSINOPHILS # (AUTO) 0.1 K/uL (0-0.4); HEMOGLOBIN 12.8 g/dL (12.0-18.0); LYMPHOCYTES # (AUTO) 1.4 K/uL (2.0-11.5); LYMPHOCYTES % (AUTO) 42.2 % (20.5-51.1); MEAN CORPUSCULAR HEMOGLOBIN 28 pg (27-31); MEAN CORPUSCULAR HGB CONC 34 g/dL (33-37); MEAN CORPUSCULAR VOLUME 84.4 fL (80-94); MONOCYTES # (AUTO) 0.3 K/uL (0.8-1.0); MONOCYTES % (AUTO) 9.2 % (1.7-9.3); NEUTROPHILS # (AUTO) 1.6 K/uL (1.8-7.7); NEUTROPHILS % (AUTO) 46.3 % (42.2-75.2); PLATELET COUNT (AUTO) 211 K/uL (140-450); RED BLOOD CELL COUNT(AUTO) 4.49 MIL/uL (4.20-6.10); WHITE BLOOD COUNT (AUTO) 3.4 K/uL (4.8-10.8)
[2018-01-14 20:11] LABS: ANION GAP 11.7 (8-16); CARBON DIOXIDE 24.8 mmol/L (21-32); POTASSIUM 3.5 mmol/L (3.5-5.1)
[2018-01-14 20:13] LABS: PROTHROMBIN TIME 10.9 secs (10.8-13.4)
[2018-01-14 20:16] LABS: ALBUMIN 3.6 g/dL (3.4-5.0); TOTAL BILIRUBIN 0.7 mg/dL (0.0-1.0)
--- NOTE | 2018-01-14 20:49 | NUR ---
PT TO CT VIA [facility] AT THIS TIME.
--- NOTE | 2018-01-14 21:04 | NUR ---
PT RETUNRED FROM CT
--- NOTE | 2018-01-14 22:57 | NUR ---
PT RESTING TIN BED WITH FAMILY MEMBER AT BEDSIDE. GIVEN JUICE AND CRACKERS PER REQUEST. NO NEW COMPLAINTS OR CONCERNS AT THIS TIME. WILL CONTINUE TO MONITOR.
[2018-01-14 23:14] VITALS: BP 117/79
--- NOTE | 2018-01-14 23:14 | NUR ---
Patient discharged with v/s stable. Written and verbal after care instructions given and explained. Patient verbalized understanding. Ambulatory with steady gait. All questions addressed prior to discharge. Advised to follow up with PMD.
== END 2018-01-14 23:14 | disposition home or self-care (01) ==
LOC: MED 17:58
DX: R06.02 Shortness of breath (principal); R10.84 Generalized abdominal pain; E11.9 Type 2 diabetes mellitus without complications; K21.9 Gastro-esophageal reflux disease without esophagitis; I10 Essential (primary) hypertension; Z79.899 Other long term (current) drug therapy
CPT/HCPCS: 36415; 71045; 71275; 80053; 82948; 85025; 85610; 85730; 99285; J7030; Q9967

== ENCOUNTER 2019-10-23 16:28 | Inpatient (IN) | payer OTHER, SELFPAY ==
[~2019-10-23] VITALS: Ht 160 cm; Wt 82.6 kg
[~2019-10-23 16:28] MED LIST changes: -ACET-2869 PO; +HYDR-5122 PO; -OMEP20TC PO; +[UNRECOGNIZED DRUG - CODE] PO
[2019-10-23 16:40] VITALS: BP 127/87
--- NOTE | 2019-10-23 16:49 | NUR ---
PT AMBULATED TO ER BED 09
--- NOTE | 2019-10-23 16:50 | NUR ---
PT BIB FAMILY MEMBER FOR SOB, DRY COUGH, SORE THROAT, DIZZINESS, AND SUBJECTIVE FEVER FOR 5 DAYS. PT PRESENTS TO THE ER WITH SEVERE DIAPHORESIS, SOB, HYPOXIA, 96% O2 SAT ON 3L OXYGEN, BUT IS AFEBRILE UPON ASSESSMENT. PT DENIES ANY FEVER, CP, SOB, OR COUGH AT THIS TIME; PATIENT STATES PAIN OF 7/10 AT THIS TIME; VSS; PATIENT POSITIONED FOR COMFORT; HOB ELEVATED; BEDRAILS UP X2; BED DOWN. ER MD MADE AWARE OF PT STATUS. PT IS IN THE ISO ROOM.
--- NOTE | 2019-10-23 17:25 | NUR ---
XRAY IS AT BEDSIDE.
[2019-10-23 17:28] LABS: BASOPHILS % (AUTO) 0.3 % (0.0-2.0); EOSINOPHILS % (AUTO) 0.1 % (0.0-4.0); HEMATOCRIT 47.2 % (36-52); HEMOGLOBIN 15.8 g/dL (12.0-18.0); LYMPHOCYTES # (AUTO) 0.2 K/uL (2.0-11.5); LYMPHOCYTES % (AUTO) 2.3 % (20.5-51.1); MEAN CORPUSCULAR HEMOGLOBIN 30 pg (27-31); MEAN CORPUSCULAR HGB CONC 33 g/dL (33-37); MEAN CORPUSCULAR VOLUME 88.4 fL (80-94); MONOCYTES # (AUTO) 0.2 K/uL (0.8-1.0); MONOCYTES % (AUTO) 2.9 % (1.7-9.3); NEUTROPHILS # (AUTO) 7.7 K/uL (1.8-7.7); NEUTROPHILS % (AUTO) 94.4 % (42.2-75.2); PLATELET COUNT (AUTO) 113 K/uL (140-450); RED BLOOD CELL COUNT(AUTO) 5.34 MIL/uL (4.20-6.10); RED CELL DISTRIBUTION WIDTH 14.5 % (11.6-13.7); WHITE BLOOD COUNT (AUTO) 8.1 K/uL (4.8-10.8)
[2019-10-23 17:40] LABS: ANION GAP 18.5 (8-16); CARBON DIOXIDE 21.8 mmol/L (21-32); CREATININE 1.6 mg/dL (0.6-1.3); POTASSIUM 5.3 mmol/L (3.5-5.1)
[2019-10-23 17:45] LABS: LACTATE DEHYDROGENASE 461 U/L (85-227)
[2019-10-23] MEDS ORDERED: AZITHROMYCIN 500 MG in DEXTROSE 5% 250 ML IV ONE (17:45)
[2019-10-23 17:46] LABS: ALBUMIN 2.8 g/dL (3.4-5.0); TOTAL BILIRUBIN 0.8 mg/dL (0.0-1.0)
[2019-10-23] MEDS ORDERED: AZITHROMYCIN 500 MG INJ VIAL IV ONE (17:49)
[2019-10-23] MEDS ORDERED: cefTRIAXone 1,000 MG VIAL ONE (17:50)
[2019-10-23 17:56] LABS: PROTHROMBIN TIME 11.7 secs (10.8-13.4)
[2019-10-23] MEDS ORDERED: NACL 0.9% 2,500 ML IV ONE (18:00)
[2019-10-23] MEDS ORDERED: NACL 0.9% 1,000 ML IV SCH (18:14)
[2019-10-23] MEDS ORDERED: ONDANSETRON 4 MG/2 ML VIAL IVP PRN (18:15)
--- NOTE | 2019-10-23 18:49 | NUR ---
PATIENT'S SISTER MERLIN CROWELL# [phone] IF YOU CANNOT GET [facility] OF [facility].
--- NOTE | 2019-10-23 18:50 | NUR ---
PT AMBULATED TO RESTROOM WITH STEADY GAIT
[2019-10-23 19:04] LABS: FREE T4 (FREE THYROXINE) 1.31 ng/dL (0.76-1.46); THYROID STIMULATING HORMONE 0.43 uIU/mL (0.34-3.74)
[2019-10-23] MEDS ORDERED: DEXTROSE 50% 50 ML SYR IVP PRN (19:20)
[2019-10-23 19:22] LABS: RSV NEGATIVE (NEGATIVE)
[2019-10-23 19:25] LABS: BARBITURATE, URINE NEGATIVE ng/ml (NEG <=200); BENZODIAZEPINE, URINE NEGATIVE ng/mL (NEG <=200); CANNABINOID, URINE NEGATIVE ng/mL (NEG <=50); COCAINE, URINE NEGATIVE ng/mL (NEG <=300); OPIATE, URINE POSITIVE ng/mL (NEG <=2000); PHENCYCLIDINE SCREEN,URINE NEGATIVE ng/mL (NEG <=25)
[2019-10-23 19:38] LABS: APPEARANCE,URINE CLOUDY (CLEAR); COLOR,URINE ORANGE (YELLOW)
[2019-10-23 19:39] LABS: BLOOD, URINE 2+ (NEGATIVE); UGLUCOSE TRACE (NEGATIVE)
[2019-10-23 19:40] LABS: BILIRUBIN,URINE 2+ (NEGATIVE); LEUKOCYTE ESTERASE ,URINE NEGATIVE (NEGATIVE); NITRITE, URINE NEGATIVE (NEGATIVE)
[2019-10-23 19:47] LABS: WBC,URINE 0-5 /HPF (0-5)
[2019-10-23 19:48] LABS: RBC,URINE 0-5 /HPF (0-5)
--- NOTE | 2019-10-23 19:48 | NUR ---
DR. ROJAS IS EVALUATING PT AT BEDSIDE.
[2019-10-23 19:49] LABS: FINE GRANULAR CASTS,URINE 0-10 /LPF (None Seen); HYALINE CASTS, URINE 0-10 /LPF (None Seen)
[2019-10-23 19:50] LABS: URINE AMORPHOUS URATE 1+ /HPF (None Seen)
[2019-10-23] MEDS ORDERED: BENZONATATE 100 MG CAPLF PO PRN (20:05)
[2019-10-23] MEDS ORDERED: DEXAMETHASONE 10 MG/ML VIAL IVP SCH (20:05)
--- NOTE | 2019-10-23 20:07 | NUR ---
DIABETIC DIET SANWICH AND WATER PROVIDED TO PT AT BEDSIDE.
[2019-10-23] MEDS: DOCUSATE SODIUM 100 MG GELCAP PO SCH (21:00)
--- NOTE | 2019-10-23 21:35 | NUR ---
CALLED DR. ROJAS W/O ANSWER, WITH CALL LATER REGARDING PT'S LACTIC ACID 3.2.
--- NOTE | 2019-10-23 21:43 | NUR ---
PT IS RESTING IN THE BED WITH EYES CLOSED. PT IS ON MONITOR WILL CONTINUE MONITORING PT'S VITAL SIGNS.
--- NOTE | 2019-10-23 22:15 | NUR ---
NOTIFIED DR ROJAS PT'S LACTIC ACID IS 3.2.
[2019-10-23] MEDS ORDERED: ATEN50TA8 PO (22:32)
[2019-10-23] MEDS ORDERED: METF850T PO (22:32)
[2019-10-23] MEDS ORDERED: ELVI1TAB2 PO (22:40)
[2019-10-23] MEDS ORDERED: LORA10TA19 PO (22:40)
--- NOTE | 2019-10-23 22:57 | NUR ---
PT SUDDENLY HAS DRY COUGH AND SOB. O2 SAT DROPS DOWN TO 84%. PUT PT ON 15L NON-REBREATER MASK, HIS O2 SAT INCREASES TO 91%. DR. ROJAS NOTIFIED. WILL PUT PT ON BIB-PAP PER DR. ROJAS'S ORDER.
--- NOTE | 2019-10-23 22:58 | NUR ---
RT CALLED FOR BIB-PAP.
--- NOTE | 2019-10-24 | NUR ---
DR. ROJAS IS EVALUATING PT AT BEDSIDE.
--- NOTE | 2019-10-24 00:26 | NUR ---
I AM NOT ABLE TO PULL OUT ALL OF THE MEDICATIONS THAT DR. ROJAS ORDERED AT THIS TIME DUE TO THAT PHARMACY NEEDS TO VERIFY ALL OF THE MEDICATIONS TO BE SHOWED ON ER'S eMAR. DR. ROJAS NOTIFIED. CUPOLA REPAIRER DEMETRIS NOTIFIED.
--- NOTE | 2019-10-24 00:28 | NUR ---
EMT AND INTEGRITY ASSESSOR CALLED FOR ASKING THE [facility]'S PHONE NUMBER AND PASSCODE. PHONE NUMBER [phone] RECEIVED FROM DEMETRIS. PASSCODE [phone] IS NOT VALID AT THIS TIME. [facility] CALLED AGAIN AND I AM TOLD THEY WILL CALL BACK FOR THE PASSCODE.
--- NOTE | 2019-10-24 00:32 | NUR ---
Pt report given to JEY Randolph. Transfer of care at this time.
[2019-10-24] MEDS: guaiFENesin 600 MG TABER PO SCH ×3 (01:54→21:33)
[2019-10-24] MEDS: OSELTAMIVIR PHOSPHATE 75 MG CAP PO SCH ×3 (01:54→21:10)
[2019-10-24] MEDS: BLOOD GLUCOSE MONITORING 1 DEV DEV FS SCH ×4 (03:14→21:00)
--- NOTE | 2019-10-24 03:36 | NUR ---
GAVE 4 UNITS OF HUMALOG PER SLIDING SCALE. BS OF 243.
--- NOTE | 2019-10-24 04:04 | NUR ---
PT RESTING IN BED. BEDSIDE MONITOR IN PLACE. NO NEW CONCERNS AT THIS TIME. BED IN LOWEST POSITION, SIDE RAIL UP X1. WILL CONTINUE TO MONITOR.
--- NOTE | 2019-10-24 06:38 | NUR ---
PT RESTING IN BED, ATTACHED TO BEDSIDE MONITOR AND O2. NO NEW CONCERNS. BED IN LWOEST POSITION, SIDE RAIL UP X1. WILL CONTINUE TO MONITOR.
--- NOTE | 2019-10-24 07:09 | NUR ---
RN CALLED FOR PT TO BE ON BIPAP PT SAT 90-93% RN CALLED A FEW TIMES AND PULSE OX WAS RE-ADJUSTED AND PT SAT >90% DR MOLINA AND ED WERE ASKED DO THEY WANT BIPAP ON PT IF PT IS SAT >90% AND BOTH DRS STATED LONG PT IS NOT WORKING AND SPO2 > 90/92% AT TIMES PT WOULD COUGH AND PT SAT WOULD DROP BUT WOULD INCREASE >90% 0326 91-92% HR 83-85 f 20 0200 93-95% HR 79 f 16 PT DENIES ANY SOB WHEN I CAME TO [facility]
[2019-10-24 07:25] LABS: BASOPHILS % (AUTO) 0.4 % (0.0-2.0); HEMATOCRIT 43.2 % (36-52); HEMOGLOBIN 14.4 g/dL (12.0-18.0); LYMPHOCYTES # (AUTO) 0.2 K/uL (2.0-11.5); LYMPHOCYTES % (AUTO) 2.9 % (20.5-51.1); MEAN CORPUSCULAR HEMOGLOBIN 30 pg (27-31); MEAN CORPUSCULAR HGB CONC 33 g/dL (33-37); MEAN CORPUSCULAR VOLUME 88.6 fL (80-94); MONOCYTES # (AUTO) 0.4 K/uL (0.8-1.0); MONOCYTES % (AUTO) 4.4 % (1.7-9.3); NEUTROPHILS # (AUTO) 7.7 K/uL (1.8-7.7); NEUTROPHILS % (AUTO) 92.3 % (42.2-75.2); PLATELET COUNT (AUTO) 128 K/uL (140-450); RED BLOOD CELL COUNT(AUTO) 4.88 MIL/uL (4.20-6.10); RED CELL DISTRIBUTION WIDTH 14.4 % (11.6-13.7); WHITE BLOOD COUNT (AUTO) 8.3 K/uL (4.8-10.8)
--- NOTE | 2019-10-24 07:40 | NUR ---
PT'S IV WAS NOT INFUSING DUE TO PT BENDING OF THE ARM--REQUESTED TO HAVE IV REMOVED AND START ANOTHER---SITTING UPRIGHT ON CHAIR NEXT TO [facility]--- C/O SOB BUT ABLE TO HOLD A CONVERSTION WITH ME---CONTINUES TO WAIT FOR INPATIENT BED
[2019-10-24 07:46] LABS: CHOL/HDL RATIO 9.6 (1-4.5)
[2019-10-24 07:48] LABS: ALBUMIN 2.5 g/dL (3.4-5.0); ANION GAP 16.2 (8-16); CARBON DIOXIDE 19.4 mmol/L (21-32); CREATININE 1.3 mg/dL (0.6-1.3); MAGNESIUM 2.2 mg/dL (1.8-2.4); PHOSPHORUS 2.9 mg/dL (2.5-4.9); POTASSIUM 4.6 mmol/L (3.5-5.1); TOTAL BILIRUBIN 0.5 mg/dL (0.0-1.0)
[2019-10-24] MEDS: metFORMIN 850 MG TAB PO SCH ×2 (08:00→16:44)
--- NOTE | 2019-10-24 08:41 | NUR ---
PATIENT HAS BEEN SCREENED AND CATEGORIZED MODERATE NUTRITION RISK. PATIENT WILL BE SEEN WITHIN 3-5 DAYS OF ADMISSION. 10/26/2019-10/28/[address]
[2019-10-24] MEDS: DOCUSATE SODIUM 100 MG GELCAP PO SCH ×2 (08:50→21:00)
[2019-10-24] MEDS: ZINC SULF 220 MG CAP PO SCH (08:53)
[2019-10-24] MEDS: ASCORBIC ACID 500 MG TAB PO SCH (08:53)
[2019-10-24] MEDS: AZITHROMYCIN 250 MG TAB PO SCH (08:54)
[2019-10-24] MEDS ORDERED: ENOXAPARIN 80 MG/0.8 ML SYR SUBQ SCH (09:00)
[2019-10-24] MEDS: atenoloL 50 MG TAB PO SCH (09:00)
[2019-10-24] MEDS: VITAMIN D 400 IU TAB PO SCH (09:16)
--- NOTE | 2019-10-24 09:43 | NUR ---
OKAYED PT TO TAKE HIS GENOVIA FROM HOME---
[2019-10-24] MEDS: ALBUTEROL HFA MDI 90 MCG/ACTUATION 8 GM INH SCH ×3 (09:50→18:00)
--- NOTE | 2019-10-24 10:39 | NUR ---
ONLINE ADVERTISING MANAGER NOTE: Patient's Orientation Person Situation Place Time Information Provided By ABNER HILARIO Comments SW WAS UNABLE TO MEET PATIENT AT BEDSIDE DUE TO MEDICAL CONDITION. Plastic Boat Buffer, Realtionship and Phone Number ABNER HILARIO SISTER [phone] Healthcare Power of Visiting Professor No Does Patient Have a POLST No Identifying Problems No Social Work Triggers Is A Social Work Consult Needed No Mandate Report Filed No Explanation Of Identifying Problems PATIENT IS A 59-YEAR-OLD MALE ADMITTED FOR PNEUMONIA AND COVID R/O. PATIENT HAS PMHX OF HYPERTENSION, DIABETES, AND HIV. Admitted From Home Pre-Admission Level Of Functioning Status Independent/Ambulatory Prior Resources/Services Used In Last 12 Months No Prior Resources Used Prior DME No Prior DME Used Living Situation Apartment Lives With Family Patient Had Caregiver Yes Name and Contact Number Of Designated Caregiver MERLIN CROWELL - [phone] Home Support CG/Fam Able To Meet Need Financial Issues No Known Financial Issue Referral To The Financial Counselor Needed No Factors/Needs No D/C Needs Identified Pt/Rep Participated In Discharge Plan Yes Patient/Family Agress With Discharge Plan Yes Discharge Plan Comments TENTATIVE DISCHARGE PLAN IS FOR PATIENT TO RETURN HOME. DC Plan Status Initiated
[2019-10-24] MEDS ORDERED: POTASSIUM CHLORIDE 10 MEQ TABER PO PRN (10:45)
[2019-10-24] MEDS ORDERED: ZOLPIDEM 10 MG TAB PO PRN (10:45)
[2019-10-24] MEDS ORDERED: ACETAMINOPHEN 325 MG TAB PO PRN (10:45)
[2019-10-24] MEDS ORDERED: LORazepam 2 MG/ML VIAL IVP PRN (10:45)
[2019-10-24] MEDS: INSULIN LISPRO SLIDING SCALE 100 UNITS/ML VIAL SUBQ PRN ×2 (12:51→21:21)
--- NOTE | 2019-10-24 13:20 | NUR ---
SITTING UPRIGHT IN [facility] ---PT ON HIS CELLPHONE HOLDING CONVERSATION WITH FAMILY. CONTINUES TO WAIT FOR AVAILABLE ROOM FOR INPATIENT ADMIT
[2019-10-24] MEDS ORDERED: cefTRIAXone 1,000 MG VIAL ONE (17:56)
--- NOTE | 2019-10-24 18:43 | NUR ---
pt reports loose stools after eating lunch---x 2 episode thus far.
--- NOTE | 2019-10-24 19:15 | NUR ---
RECIEVED REPORT FROM JEY MARES. TRANSFER OF CARE AT THIS TIME.
--- NOTE | 2019-10-24 19:21 | NUR ---
SPOKE TO ADMITING RESIDENT ABOUT LACTIC ACID. EXT- [phone]
--- NOTE | 2019-10-24 20:00 | NUR ---
PT PROVIDED WITH SANDWHICH, PILLOW, AND BLANKET. ALL NEEDS MET. EQUAL CHEST RISE AND FALL. INDIRECT SALES EXEC IN PLACE. SAFETY MEASURES IN PLACE.
[2019-10-24] MEDS: LORATADINE 10 MG TAB PO SCH (21:09)
--- NOTE | 2019-10-24 21:50 | NUR ---
RECEIVED REPORT FROM AM SHIFT. PT SEEN AND ASSESSED. PT ON NRB MASK WITH SPO2 OF 92%. RALES BS ON AUSCULTATION. PT IS IN NO APPARENT RESPIRATORY TX AT THIS TIME. MDI TX GIVEN ORDERED AND PT TOLERATED WELL WITH NO ADVERSE REACTION. WILL CONTINUE TO MONITOR PT.
[2019-10-24] MEDS: NACL 0.9% 1,000 ML IV SCH (22:41)
--- NOTE | 2019-10-24 22:45 | NUR ---
ADMITTING RESIDENT MADE AWARE OF DESAT. PT SATTING ON 15 NRB AND SATTING AT 74%. DOC DOC SAID TO GET BIPAP READY. ERMD MADE AWARE.
--- NOTE | 2019-10-24 22:45 | NUR ---
PT COUGHING VIOLENTLY AND O2 SAT DROPPING TO 75% DURING COUGH. PRN FOR COUGH IMPLEMENTED.
--- NOTE | 2019-10-24 23:00 | NUR ---
PT O2 SAT IS IMPROVING AFTER BIPAP ADMINISTRATION. ERMD SAID TO PREPARE FOR INTUBATION IN CASE OF STATUS CHANGE.
--- NOTE | 2019-10-24 23:05 | NUR ---
ADMITTING RESIDENT MADE AWARE OF ERMD PLAN TO POTENTIALLY INTUBATE PT.
[2019-10-24 23:20] VITALS: BP 129/83
--- NOTE | 2019-10-24 23:20 | NUR ---
CALLED TO BEDSIDE FOR DESATURATION. PT ON NRB MASK AT 15L WITH SPO2 IN 70s AND INCREASE WOB. MDI TX GIVEN. BiPAP INITIATED. SPO2 IMPROVED TO 94%. ABG COLLECTED AND RESULTS WERE GIVEN TO DR. ARAYA. NO CHANGES AT THIS TIME. WILL CONTINUE TO MONITOR PT.
[2019-10-24] MEDS ORDERED: PROPOFOL 1000 MG/100 ML PREMIX 100 ML IV ONE (23:29)
[2019-10-25] VITALS (60 sets, daily range): BP systolic 88–167; BP diastolic 2–110
[2019-10-25] MEDS: ALBUTEROL HFA MDI 90 MCG/ACTUATION 8 GM INH SCH (00:03)
--- NOTE | 2019-10-25 00:30 | NUR ---
PT O2 STATUS IS STAYING AT 96% ON BIPAP MACHINE. WILL CONTINUE TO MONITOR.
[2019-10-25] MEDS ORDERED: INTUBATION KIT MC ONE (01:02)
--- NOTE | 2019-10-25 01:59 | NUR ---
PT CONTINUES TO HAVE STABLE O2 SAT ON BIPAP, 96%. WILL CONTINUE TO CLOSELY MONITOR.
--- NOTE | 2019-10-25 02:30 | NUR ---
PT WOKE UP AND TOOK OF BIPAP MACHINE. PT DESAT TO 77%. ADMITTING RESIDENT MADE AWARE. RT CALLED.
--- NOTE | 2019-10-25 02:45 | NUR ---
RT, CHARGE NURSE, ADMITTING PHYSICIAN AND ERMD AT BEDSIDE EXPLAINING TO PT WHY HE NEEDS TO KEEP BIPAP ON. PT CONTINUES TO TAKE OFF BIPAP.
--- NOTE | 2019-10-25 03:00 | NUR ---
PUT BIPAP BACK ON PT AFTER HE TOOK IT OFF. PT CONFUSED AND RAMBLING. PLAXCED BIPAP BACK ON PT.
--- NOTE | 2019-10-25 03:30 | NUR ---
PUT BIPAP BACK ON PT AFTER HE TOOK IT OFF. PT CONFUSED AND RAMBLING. PLACED BIPAP BACK ON PT.
[2019-10-25] MEDS ORDERED: diphenhydrAMINE 50 MG/ML VIAL IVP SCH (03:40)
--- NOTE | 2019-10-25 03:43 | NUR ---
PUT BIPAP BACK ON PT AFTER HE TOOK IT OFF. PT CONFUSED AND RAMBLING. PLAXCED BIPAP BACK ON PT.
[2019-10-25] MEDS ORDERED: diphenhydrAMINE 50 MG/ML VIAL ONE (03:46)
[2019-10-25] MEDS ORDERED: LORazepam 2 MG/ML VIAL ONE (04:10)
[2019-10-25] MEDS ORDERED: LORazepam 2 MG/ML VIAL IM/IVP SCH ×2 (04:10→06:25)
[2019-10-25] MEDS ORDERED: LORazepam 2 MG/ML VIAL IVP PRN (06:10)
--- NOTE | 2019-10-25 06:15 | NUR ---
PT CONTINUED TO TAKE OFF BIPAP MASK. ADMITTING DOC MADE AWARE. DOC SAID HE WILL PUT IN ORDER FOR MORE ATIVAN.
[2019-10-25 06:28] LABS: BASOPHILS % (AUTO) 0.1 % (0.0-2.0); EOSINOPHILS % (AUTO) 0.1 % (0.0-4.0); HEMATOCRIT 39.6 % (36-52); HEMOGLOBIN 13.2 g/dL (12.0-18.0); LYMPHOCYTES # (AUTO) 0.2 K/uL (2.0-11.5); LYMPHOCYTES % (AUTO) 2.8 % (20.5-51.1); MEAN CORPUSCULAR HEMOGLOBIN 29 pg (27-31); MEAN CORPUSCULAR HGB CONC 33 g/dL (33-37); MONOCYTES # (AUTO) 0.4 K/uL (0.8-1.0); MONOCYTES % (AUTO) 5.3 % (1.7-9.3); NEUTROPHILS # (AUTO) 6.7 K/uL (1.8-7.7); NEUTROPHILS % (AUTO) 91.7 % (42.2-75.2); PLATELET COUNT (AUTO) 136 K/uL (140-450); RED CELL DISTRIBUTION WIDTH 14.9 % (11.6-13.7); WHITE BLOOD COUNT (AUTO) 7.4 K/uL (4.8-10.8)
--- NOTE | 2019-10-25 06:30 | NUR ---
Eloy duarte in EDM - 10/25/19 at 0708 by MEDBEULAH PT CONTINUED TO TAKE OFF BIPAP MASK. ADMITTING SIXTO MADE AWARE. DOC SAID HE WILL PUT IN ORDER FOR MORE ATIVAN.
[2019-10-25] MEDS ORDERED: LORazepam 2 MG/ML VIAL IVP SCH ×2 (06:45→08:30)
[2019-10-25 06:49] LABS: ANION GAP 15.1 (8-16); CREATININE 1.1 mg/dL (0.6-1.3); POTASSIUM 5.1 mmol/L (3.5-5.1)
--- NOTE | 2019-10-25 07:15 | NUR ---
REPORT GIVEN TO JEY ALBRIGHT. TRANSFER OF CARE AT THIS TIME.
--- NOTE | 2019-10-25 07:27 | NUR ---
REPORT RECEIVED FROM JEY VELASCO AND [facility]
[2019-10-25] MEDS: LORazepam 2 MG/ML VIAL IM/IVP PRN (08:03)
[2019-10-25] MEDS: ATORVASTATIN 20 MG TAB PO SCH (08:15)
[2019-10-25] MEDS: BLOOD GLUCOSE MONITORING 1 DEV DEV FS SCH ×4 (08:25→21:19)
[2019-10-25] MEDS: INSULIN LISPRO SLIDING SCALE 100 UNITS/ML VIAL SUBQ PRN ×2 (08:27→14:14)
--- NOTE | 2019-10-25 08:41 | NUR ---
PT UPGRADED TO ICU ADMISSION. PT CONTINUES TO PULL AT BIPAP. AM MEDS WERE NOT GIVEN D/T PT BEING TOO CONFUSED TO SWALLOW MEDS.
[2019-10-25] MEDS: metFORMIN 850 MG TAB PO SCH (08:53)
[2019-10-25] MEDS: NACL 0.9% 1,000 ML IV SCH (08:56)
[2019-10-25] MEDS: DOCUSATE SODIUM 100 MG GELCAP PO SCH (09:00)
--- NOTE | 2019-10-25 09:27 | NUR ---
Patient will be admitted to care of DR FERRO. Admited to ICU. Will go to room 7. Belongings list completed. Report to JEY TURCIOS.
--- NOTE | 2019-10-25 10:00 | NUR ---
RECEIVED PT FROM ED NURSE. PT DROWSY, CONFUSED @ TIMES, ALERT X1 NAME; FREQUENT REORIENTATION NEEDED. ST 110-120S, PALPABLE PULSES, NO EDEMA NOTED @ THIS TIME. LUNGS DIMINISHED, NON PRODUCTIVE COUGH NOTED. ABD SOFT NON DISTENDED. LAST BM YESTERDAY. PT VOIDING IN URINAL @ TIMES/ INCONTINENT. SKIN INTACT. HOB > GREATER ONEIL 30 DEGREES. BIPAP @ 100%. WILL CONTINUE TO OBSERVE.
--- NOTE | 2019-10-25 10:23 | NUR ---
PT TRYING TO GET UP OUT OF BED, BIPAP DISCONNECTED, CONFUSED; PT SAYING, "I WANT TO GO TO MY ROOM." PT DESATURATING DOWN TO 60-70%, RECONNECTED BIPAP SPO2 NOW 92%. REORIENTED AND REPOSITIONED PT. DR. CHOI MADE AWARE, NO NEW ORDERS @ THIS TIME. CALLED RT AND DISCUSSED PLAN OF CARE. WILL CONTINUE TO MONITOR
[2019-10-25] MEDS: MORPHINE SULFATE 2 MG/ML SYR IVP PRN (11:05)
--- NOTE | 2019-10-25 11:18 | NUR ---
1118: DR DAWKINS @BEDSIDE; NORMA Stone RN ADMIN 5 ETOMIDATE 100 ROCURUNIUM GIVEN IVP. PT SEDATED; PARALYZED. 1119: GLIDESCOPE USED; ET TUBE 7.5 MM ADVANCED TO 24 CM @ TEETH, COLOR CHANGE ETCO2. RT PATRICIA @ BEDSIDE BAGGING. 1120: VENT SETTINGS AC 450 16 5 100. WILL CONTINUE TO OBSERVE. +
--- NOTE | 2019-10-25 11:19 | NUR ---
PT INTUBATED BY ER PHYSICIAN 7.5 @24 TEETH/GUM. PT TO BE PLACED ON VENT. ETT PLACEMENT CONFIRMED WITH CO2 COLOR CHANGE AND BILATERAL BREATH SOUNDS. CXR TO BE COMPLETED.
--- NOTE | 2019-10-25 11:29 | NUR ---
PT PLACED ON VENT. SETTINGS PER A/C VC 14, VT 500, PEEP 10 AND 100%. OBTAIN ABG IN TWO HOURS. NURSE MADE AWARE. VENT IS PLUGGED INTO RED OUTLET WITH ALARMS ON AND FUNCTIONING. ETT IS SECURE WITH ANCHOR FAST. WILL CONTINUE TO MONITOR.
--- NOTE | 2019-10-25 11:50 | NUR ---
ETT PULLED BACK 3CM TO 21CM TEETH/GUM.
[2019-10-25] MEDS ORDERED: DILTIAZEM 25 MG/5 ML VIAL IVP SCH (12:29)
[2019-10-25] MEDS ORDERED: fentaNYL citrate 1 MG in NACL 0.9% 80 ML IV PRN (12:50)
--- NOTE | 2019-10-25 12:52 | NUR ---
DISCHARGE PLANNING: THIS IS A 59 Y/O MALE PATIENT FROM HOME, WHO CAME IN DUE TO COUGH AND SOB. PAST MEDICAL HISTORY INCLUDE HTN, DIABETES, HIV. INITIAL DIAGNOSIS OF PNA, POSSIBLE COVID. COVID POSITIVE. INF A POSITIVE. CURRENT LABS INCLUDE WBC 7.4, H/H 13.2/39.6, NA/K 136/5.1, BUN/CREA 27/1.1, LACTIC ACID 3.8, CRP 21.3, FIBRINOGEN 698. ON ROCEPHIN, AZITHROMYCIN, TAMIFLU, DECADRON. ON BIPAP, O2 SAT 92%. CARDIO, ID AND PULMO CONSULTS IN PLACE. DC PLAN PENDING ON PATIENT'S RESPONSE TO TREATMENT. Addendum: 10/26/19 at 1551 by Diane Cruz STILL ORALLY INTUBATED TO VENT, FIO2 80%, O2 SAT 99%. SEDATED WITH FENTANYL AND VERSED. ON REMDESIVIR, ROCEPHIN, DECADRON, TAMIFLU AND AZITHROMYCIN. URINE CS FINAL NO GROWTH. BLOOD CS NO GROWTH AFTER 48 HOURS. CARDIO, ID AND PULMO CONSULTS IN PLACE. Addendum: 10/27/19 at 1608 by Diane B. Berdijo CM ORALLY INTUBATED TO VENT FIO2 50%, O2 SAT 94%. ON REMDESIVIR, ROCEPHIN AND DECADRON. CARDIO, PULMO AND ID CONSULTS IN PLACE. Addendum: 11/01/19 at 1637 by Digna Canada CM RECEIVED ORDER FOR SNF PLACEMENT. [facility] WAS RECOMMENDED HOWEVER [facility] IS NOT ACCEPTING PATIENTS AT THIS TIME. FAXED PATIENTS CLINICALS TO [facility] AND [facility] WILL FOLLOW UP. Addendum: 11/01/19 at 1646 by Digna Canada CM DISCUSSED WITH FAMILY YANELIS LEVINE [phone] ABOUT DISCHARGE TO SNF. THEY ARE AGREEABLE TO THE PATIENT GOING. SHE STATED THAT PATIENT LIVES WITH HIS GRANDMOTHER WHO IS 80 YEARS OLD SO THEY WOULD FEEL MORE COMFORTABLE WITH HIM GOING TO A SNF UNTIL HE IS BETTER. I ALSO DISCUSSED PATIENTS RIGHTS OF MEDICARE. Addendum: 11/01/19 at 1644 by Digna Canada CM PATIENT IS ABLE TO MAKE HIS OWN MEDICAL DECISIONS WILL FOLLOW UP WITH PATIENT. FAMILY MEMBER PROVIDED PATIENTS CELL PHONE NUMBER [phone] Addendum: 11/01/19 at 1702 by Digna Canada CM USED DORMITORY MAID [id number] TO CONTACT PATIENT TO DISCUSS SNF PLACEMENT. HE WAS AGREEABLE TO GOING. Addendum: 11/01/19 at 1703 by Digna Canada CM FOLLOWED UP WITH JEANETTE COLUNGA [facility]. SHE HAS AVAILABLE BEDS AND IS REVIEWING THE PATIENTS CLINICALS. Addendum: 11/01/19 at 1711 by Digna Canada CM JEANETTE GRULLON PHONE NUMBER [facility] [phone] Addendum: 11/01/19 at 1716 by Digna Canada CM PER JEANETTE SHE RAN THE PATIENTS INSURANCE. PATIENT HAS DAY. SHE STATED SHE IS ABLE TO ACCEPT THE PATIENT IF SHE RECEIVES LETTER OF AGREEMENT. WILL FOLLOW UP IN THE MORNING. Addendum: 11/01/19 at 1720 by Digna Canada CM NOTIFIED RN THAT PATIENT WILL NOT BE DISCHARGING TONIGHT TO SNF Addendum: 11/02/19 at 1454 by Lucretia Flores CM DC PLANNING PATIENT HAS NEW DAY INSURANCE FAXED TO INSURANCE AND ELENA MENDEZ Addendum: 11/02/19 at 1609 by Digna Canada CM CALLED BACK AND STATED THAT THE PATIENTS [facility] ARE THE ONES DELEGATED TO PROVIDE AUTH. TSERING DÍAZ [phone] EXT [phone]. CALLED BRE AND LEFT A VOICEMAIL. Addendum: 11/03/19 at 1139 by Lucretia Flores CM DC PLANNING: CALLED [facility] [phone] EXT [phone] SPOKE WITH BRE CAGLE STATED WILL REVIEW THE CASE AND WILL DISCUSS WITH AND WILL CALL BACK . I NOTIFIED HERBERT THAT PT WAS HERE SINCE THE 22 OF OCTOBER AND TO GET AUTH FROM THE 11 PER BRE THEY WILL REVIEW THE CASE AFTER DC AND WILL LET US KNOW. CM TO FOLLOW Addendum: 11/05/19 at 1116 by Lucretia Flores CM DC PLANNING: RECEIVED A CALL FROM PT'S NIECE ANNA [phone] AND PT'S SISTER MERLIN RODRIGUEZ [phone] REQUESTING PT'S CONDITION, UPDATED PT'S CLINICALS AND CHOICE OF SNF HOWEVER PT IS STILL 15L NON-REBREATHER TO DISCHARGE PATIENT THE O2 NEEDS TO BE BETWEEN 6 -10LITERS. CM TO FOLLOW Addendum: 11/13/19 at 1010 by Lucretia Flores CM DC PLANNING: COVID TEST NEGATIVE ON THE 11/08 AND PENDING FOR THE 2ND ONE , STILL ON 15L NON-REBREATHER MASK , ID AND PULMO FOLLOWING WEAN OFFO2 TOLERATED. CONTINUE HOME MEDS. PER [facility] UNABLE TO TAKE PT WITH THE HIGH FLOW O2. DC PLAN ONCE O2 BELOW 10 [facility] VS SNF. CM TO FOLLOW Addendum: 11/16/19 at 1619 by Lucretia Flores CM DC PLANNING PT REMAIN ON NON-REBREATHER MASK CURRENTLY 15L ,CONTINUE BREATHING TREATMENT MONITOR CLINICALLY CONTINUE HIV MEDICATIONS. COVID TEST NEGATIVE ON 11/08 AND 11/11 . CM TO FOLLOW Addendum: 11/18/19 at 1142 by Digna Canada CM FAXED PATIENTS CLINICALS TO [facility] AND [facility] SAAVEDRA FROM [facility] FOLLOWED UP STATING THAT THEY CAN NOT ACCEPT THIS PATIENT. Addendum: 11/18/19 at 1153 by Digna Canada CM FA[facility]ED CLINICALS [facility] Addendum: 11/18/19 at 1209 by Lucretia Flores CM DC PLANNING: CALLED INSURANCE [facility] [phone] SPOKE WITH BRE CAGLE NOTIFIED HER PT HAS ORDER TO GO TO SNF FOR PHYSICAL THERAPY. PER BRE REQUESTED THE ORDER TO BE FAXED TO [phone] AND FO FOLLOW UP WITH OLIVER CAGLE EXT [phone]. I ASKED THE AUTHORIZATION FOR INPT STAY BRE PROVIDED TH TRACKING IN PATIENT # [id number] TSERING TO FOLLOW . Addendum: 11/18/19 at 1326 by Lucretia Flores CM DC PLANNING: RECEIVED A CONTRACTED FACILITY FROM [facility] FAXED TO [facility] AND [facility] FAX [phone], [facility] [phone], [facility] [phone] [facility] [phone], [facility] [phone] AND [facility] [phone] CM TO FOLLOW CALLED [facility] SPOKE WITH TSERING BASURTO INFORM HER THAT PT LIVES IN [place] AND THE LIST SHE PROVIDED WAS ALL IN [facility] AND [facility] OR [facility] WILL ACCEPT PT WITH [facility], PER SHERINE WE HAVE TO REQUEST ALL THE SNFS' AND SHE WILL CONSIDER TO DO THE [facility]. CM TO FOLLOW Addendum: 11/18/19 at 1554 by Lucretia Flores CM DC PLANNING: PER PRIMARY RN GERARD PT DE SAT TO 88% INCREASE THE OXYGEN TO 9L DR ANDRADE AWARE AND HELD THE DC TO SNF. RECEIVED A CALL FROM [facility] [phone] SPOKE WITH DANICA IF PATIENT IS ON 5L WILL ACCEPT PATIENT CAN GO TO ROOM 272A. JESUS FROM [facility] [phone] CALLED BACK AND STATED WILL ACCEPT PATIENT WHEN STABLE FOR DISCHARGE. PT IS NOT STABLE AT THIS TIME. CM TO FOLLOW Addendum: 11/23/19 at 1623 by Digna Canada CM FAXED CLINICALS TO [facility]. Addendum: 11/23/19 at 1646 by Lucretia Flores CM DC PLANNING: RECEIVED A CALL FROM TSERING SPOKE WITH HERBERT MACIAS PATIENT'S CLINICALS AND DISCUSSED DC PLAN TO GO HOME WITH THE HIGH FLOW O2 15L PER DIAON TO CONTACT THE CONTRACTED [employer] WHICH ARE SUPER CARE AND APRIA. CALLED [facility] SPOKE WITH DARVIN [phone] PER DARVIN LONG THERE IS ORDER AND DOCUMENTATION THEIR RESPIRATORY CARE WILL FOLLOW UP WITH HIGH FLOW O2 SUPPLEMENT ,BUT SHE NEEDS TO DISCUSSED WITH HER TEAM AND INSURANCE. NOTIFIED DR BARCENAS AND WILL DISCUSSED IT WITH DR YOUNG. CM TO FOLLOW Addendum: 11/25/19 at 0924 by Lucretia Flores CM DC PLANNING: DISCUSSED THE HOME O2 ORDER 15L WITH DR YOUNG ARTIST'S MANAGER, MD LESLIE IS UNABLE TO DELIVER 15L PER NASAL CANULA AND WILL RUN OUT THE O2 QUICKLY. DR YOUNG DISCUSSED WITH CAROLINE RT TO PUT PATIENT ON OXYMIZER ,WALK AROUND AND WILL EVALUATE PATIENT AGAIN. I DISCUSSED WITH DARVIN AT [facility] STATED GOT THE APPROVAL FOR THEIR RT TO GO OUT AND CHECK THE PATIENT TO MONITOR THE O2 FLOW RATE NEEDED. WILL NOTIFY DR YOUNG THE [facility] PLAN. CM TO FOLLOW Addendum: 11/25/19 at 1457 by Lucretia Flores CM DC PLANNING RT PLACED HIM WITH OXYMIZER 7L O2 SAT 93% WILL MONITOR HIS O2 SAT [facility] WILL SEND THEIR RT TO EVALUATE THE HIGH FLOW OXYGEN CM TO FOLLOW. Addendum: 11/25/19 at 1638 by Lucretia Flores CM DC PLANNING: RECEIVED A CALL FROM [facility] SPOKE WITH CHARITY STATED THEIR RT WILL COM BETWEEN 5-8PM TO EVALUATE PATIENT FOR THE HIGH FLOW OXYGEN. CM TO FOLLOW . Addendum: 11/26/19 at 1053 by Digna Canada CM FOLLOWED UP WITH RADHA FROM [facility] [phone] SHE STATED THAT SHE NEEDS AUTH FOR UP 6-9 VISITS BEFORE ACCEPTING PATIENT Addendum: 11/26/19 at 1116 by Digna Canada CM SPOKE TO BRE CAGLE [facility] [phone] [phone]. HE IS GOING TO FAX US OVER AUTH FOR HOME HEALTH. Addendum: 11/26/19 at 1214 by Lucretia Flores CM DC PLANNING: CALLED [facility] SPOKE WITH MANDO STATED NEEDS NEW PRESCRIPTION FOR OXYMIZER , FAXED THE NEW ORDER PROVIDE THE TRACKING AUTH # [id number] ONCE EVERYTING IS CLEAR WILL CALL ME WITH THE ETA TIME . SPOKE WITH THE PATIENT AND FAMILY MEMBER KEE NOTIFIED THEM THE O2 DELIVERY . CM TO FOLLOW Addendum: 11/26/19 at 1225 by Digna Canada CM FOLLOWED UP WITH BRE AT [facility] TO NOTIFY THAT WE HAVE NOT RECEIVED HIS FAX FOR AUTH. HE PROVIDED ME WITH VERBAL AUTH AND WILL ALSO BE E-MAILING ME AUTH BECAUSE THERE FAX MACHINE IS NOT WORKING. AUTH # FOR [employer] [facility] [id number]. CONTACTED RADHA AT [facility] [employer] [facility], LEFT A VOICEMAIL STATING I HAVE AN AUTH NUMBER FOR HER AND TO CALL ME BACK. WILL FOLLOW UP Addendum: 11/26/19 at 1506 by Lucretia Flores CM DC PLANNING: RECEIVED A CALL FROM [facility] SPOKE WITH CHARITY THOMASON TIME WILL BE 4 - 8PM CALLED PT'S SISTER MERLIN TO EXPECT THE CALL FROM [employer]. 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 NOTIFIED LUANA KHANNA Addendum: 11/26/19 at 1527 by Digna Canada CM RECEIVED A CALL BACK FROM RADHA AT [facility] [phone] THEY RECEIVED AUTH FROM [facility] AND WILL BE ACCEPTING PATIENT Addendum: 11/26/19 at 1623 by Digna Canada CM SPOKE TO RADHA FROM [facility] [phone]. SHE STATED THAT AN RN WILL BE OUT BY FRIDAY TO ASSIST PATIENT.
[2019-10-25] MEDS ORDERED: DILTIAZEM 30 MG TAB PO SCH ×2 (13:00→21:00)
[2019-10-25] MEDS: ENOXAPARIN 80 MG/0.8 ML SYR SUBQ SCH (13:00)
[2019-10-25] MEDS ORDERED: CRUSHER, PILL MC ONE (13:21)
[2019-10-25] MEDS: VITAMIN D 400 IU TAB PO SCH (13:58)
[2019-10-25] MEDS: OSELTAMIVIR PHOSPHATE 75 MG CAP PO SCH ×2 (13:59→21:12)
[2019-10-25] MEDS: atenoloL 50 MG TAB PO SCH (13:59)
[2019-10-25] MEDS: guaiFENesin 600 MG TABER PO SCH ×2 (13:59→21:12)
[2019-10-25] MEDS: ZINC SULF 220 MG CAP PO SCH (14:00)
[2019-10-25] MEDS: ASCORBIC ACID 500 MG TAB PO SCH (14:00)
[2019-10-25] MEDS: AZITHROMYCIN 250 MG TAB PO SCH (14:00)
[2019-10-25] MEDS: fentaNYL citrate - 50mL vial 2.5 MG in NACL 0.9% 200 ML IV PRN (14:04)
[2019-10-25] MEDS ORDERED: PROPOFOL 1000 MG/100 ML PREMIX 100 ML IV PRN (14:10)
--- NOTE | 2019-10-25 14:54 | NUR ---
ABG RESULTS GIVEN TO NO CHANGES TO VENT AT THIS TIME. PHYSICIAN STATES TO WEAN FIO2 TOLERATED AND KEEP SPO2 >90%.
--- NOTE | 2019-10-25 15:15 | NUR ---
1505: PHONE CALL TO SISTERABNER, , CONSENT OBTAINED FOR PICC LINE. VERIFIED WITH CHARGE NURSE. 1515: CALLED PICC LINE NURSE [phone], AWAITING ETA FROM [employer] SYMBOL STAMPER NURSE.
[2019-10-25] MEDS ORDERED: METOPROLOL 5 MG/5 ML VIAL IV PRN (15:55)
--- NOTE | 2019-10-25 16:00 | NUR ---
PT SEDATED AT THIS TIME NOT IN ANY DISTRESS. PT TOLERATING VENT SETTINGS WELL. WILL CONTINUE TO MONITOR.
[2019-10-25] MEDS ORDERED: DIGOXIN 0.25 MG/ML AMP IV SCH (16:06)
--- NOTE | 2019-10-25 16:20 | NUR ---
PICC LINE NURSE; MARBIN @ BEDSIDE. DR MIRANDA @ NURSING STATION PT CONDITION UPDATED.
[2019-10-25] MEDS: MIDAZOLAM MDV 50 MG in NACL 0.9% 40 ML IV PRN ×2 (16:26→21:16)
--- NOTE | 2019-10-25 17:30 | NUR ---
RADIOLOGY @ BEDSIDE; CXR DONE. PICC LINE NURSE; STATED LINE GOOD TO USE; NICK CAPUTO PICC.
--- NOTE | 2019-10-25 18:30 | NUR ---
PT REPOSITIONED; DR ANDERSON @ BEDSIDE
--- NOTE | 2019-10-25 19:30 | NUR ---
REPORT GIVEN TO NIGHT NURSE FOR CONTINUITY OF CARE.
--- NOTE | 2019-10-25 19:35 | NUR ---
RECEIVED REPORT FROM ODBULIA KHANNA PT DRY WEIGHT 80 KG SEDATED RASS -3, RECEIVING VERSED 2 MG/HR, FENTANYL 1 MCG/KG/HR, ETT TO VENT AC/VC FIO2 90% VT 500 RR 16 PEEP 10, ETT SIZE 7.5 21 @ TEETH, PT HAS ИРИНА PICC, LUNG SOUNDS DIMINISHED, HERNANDEZ CATHETER IN PLACE, DRAINING CLEAR YELLOW URINE, EYES PERRL 3 MM, SKIN INTACT, OGT PATENT NPO EXCEPT MEDS, SAFETY PROTOCOLS IN PLACE WILL CONTINUE TO MONITOR PT
[2019-10-25] MEDS ORDERED: ENOXAPARIN 80 MG/0.8 ML SYR SUBQ SCH (21:00)
[2019-10-25] MEDS ORDERED: LOVENOX 1MG/KG Q12H SUBQ SCH (21:00)
[2019-10-25] MEDS: LORATADINE 10 MG TAB PO SCH (21:12)
--- NOTE | 2019-10-25 23:45 | NUR ---
PT HR BELOW SIXTY DIGOXIN HELD PER MD
[2019-10-26] VITALS (101 sets, daily range): BP systolic 82–158; BP diastolic 52–98
[2019-10-26] MEDS ORDERED: remdesivir COMMUNICATION ORDER 1 EA MISC MC PRN (00:05)
[2019-10-26] MEDS ORDERED: DIGOXIN 0.25 MG/ML AMP IV SCH (00:10)
[2019-10-26] MEDS: ENOXAPARIN 80 MG/0.8 ML SYR SUBQ SCH ×2 (01:44→13:00)
--- NOTE | 2019-10-26 04:23 | NUR ---
TUBE FEEDING STARTED 10ML/HR FWF 100ML Q4H, NO RESIDUALS AT THIS TIME, TUBE FEEDING AUSCULTATED FOR PLACEMENT, NO SIGNS OF DISTRESS WILL CONTINUE TO MONITOR PT
[2019-10-26 05:51] LABS: BASOPHILS % (AUTO) 0.1 % (0.0-2.0); HEMATOCRIT 38.7 % (36-52); HEMOGLOBIN 12.8 g/dL (12.0-18.0); LYMPHOCYTES # (AUTO) 0.2 K/uL (2.0-11.5); LYMPHOCYTES % (AUTO) 2.7 % (20.5-51.1); MEAN CORPUSCULAR HEMOGLOBIN 30 pg (27-31); MEAN CORPUSCULAR HGB CONC 33 g/dL (33-37); MONOCYTES # (AUTO) 0.2 K/uL (0.8-1.0); MONOCYTES % (AUTO) 3.9 % (1.7-9.3); NEUTROPHILS # (AUTO) 5.5 K/uL (1.8-7.7); NEUTROPHILS % (AUTO) 93.3 % (42.2-75.2); PLATELET COUNT (AUTO) 132 K/uL (140-450); RED BLOOD CELL COUNT(AUTO) 4.35 MIL/uL (4.20-6.10); RED CELL DISTRIBUTION WIDTH 14.6 % (11.6-13.7); WHITE BLOOD COUNT (AUTO) 5.9 K/uL (4.8-10.8)
[2019-10-26 06:55] LABS: ANION GAP 15.9 (8-16); CARBON DIOXIDE 21.3 mmol/L (21-32); CREATININE 0.9 mg/dL (0.6-1.3); POTASSIUM 5.2 mmol/L (3.5-5.1)
[2019-10-26 07:05] LABS: ALBUMIN 2.2 g/dL (3.4-5.0); BILIRUBIN,DIRECT 0.1 mg/dL (0.0-0.3); TOTAL BILIRUBIN 0.4 mg/dL (0.0-1.0)
--- NOTE | 2019-10-26 07:15 | NUR ---
RECEIVED REPORT FROM NIGHT NURSE NO ACUTE DISTRESS NOTED
[2019-10-26] MEDS: ALBUTEROL HFA MDI 90 MCG/ACTUATION 8 GM INH SCH ×2 (07:18→13:07)
--- NOTE | 2019-10-26 07:18 | NUR ---
rec'd pt on carescape vent settings ac 14 vt 500 peep 10 fio2 80% alarms on and alarms audible and bvm at hob and vent is plugged into red outlet, b\s are clear bilaterally, sxn pt small amt of clear secretions pt is orally intubated with 7.5 ett secured at 21 cm pt is resting
--- NOTE | 2019-10-26 07:28 | NUR ---
PT ENDORSED TO DAYSHIFT RN FOR CONTINUED CARE
[2019-10-26] MEDS: INSULIN LISPRO SLIDING SCALE 100 UNITS/ML VIAL SUBQ PRN ×4 (07:30→21:17)
[2019-10-26] MEDS: BLOOD GLUCOSE MONITORING 1 DEV DEV FS SCH ×4 (07:41→21:16)
[2019-10-26 07:45] LABS: MAGNESIUM 2.3 mg/dL (1.8-2.4); PHOSPHORUS 3.8 mg/dL (2.5-4.9)
--- NOTE | 2019-10-26 07:45 | NUR ---
PT SEDATED RASS -3, DRY WEIGHT 80 KG, RESTRAINTS IN PLACE. GEN WEAKNESS ETT TO VENT @ 80% FIO2, TOLERATING VENT SETTINGS, WHITE THIN SECRETIONS NOTED, DIMINISHED BREATH SOUNDS. OGT IN PLACE, JEVITY FEEDINGS RUNNING @ THIS TIME, >10 ML RESIDUALS. HERNANDEZ CATH IN PLACE, CLEAR YELLOW URINE NOTED. SKIN INTACT. PICC LINE TO R UPPER ARM IN PLACE, FLUSHED PATENT. PERIPHERAL IVS TO L FA X2 AND R FA X 1 SL. BED LOCKED IN LOWEST POSITION. HOB> 30 DEGREES. PT ON FENTANYL DRIP @ 80 MCG/HR AND VERSED DRIP @3 MG/HR.; DRY WEIGHT : 80 KG.
[2019-10-26] MEDS ORDERED: CLINICAL MONITORING MC PRN (08:05)
[2019-10-26] MEDS: NACL 0.9% 1,000 ML IV SCH (08:15)
--- NOTE | 2019-10-26 08:40 | NUR ---
VAP ORAL CARE DONE; PT REPOSITIONED, FLACC 0 WILL CONTINUE TO OBSERVE.
[2019-10-26] MEDS: atenoloL 50 MG TAB PO SCH (09:00)
[2019-10-26] MEDS: AZITHROMYCIN 250 MG TAB PO SCH (09:42)
[2019-10-26] MEDS: ASCORBIC ACID 500 MG TAB PO SCH (09:42)
[2019-10-26] MEDS: ATORVASTATIN 20 MG TAB PO SCH (09:42)
[2019-10-26] MEDS: ZINC SULF 220 MG CAP PO SCH (09:42)
[2019-10-26] MEDS: DOCUSATE 100 MG/10 ML UDC NG SCH ×2 (09:43→21:13)
[2019-10-26] MEDS: VITAMIN D 400 IU TAB PO SCH (09:58)
[2019-10-26] MEDS: OSELTAMIVIR PHOSPHATE 75 MG CAP PO SCH ×2 (09:58→21:15)
[2019-10-26] MEDS: GENVOYA PO SCH (09:58)
[2019-10-26] MEDS: guaiFENesin 600 MG TABER PO SCH ×2 (09:58→21:00)
--- NOTE | 2019-10-26 10:05 | NUR ---
PT AWAKE, FOLLOWING COMMANDS @ THIS TIME, WILL CONTINUE TO OBSERVE.
--- NOTE | 2019-10-26 10:58 | NUR ---
10/26/19 RD INITIAL ASSESSMENT COMPLETED PLEASE REFER TO NUTRITION ASSESSMENT UNDER CARE ACTIVITY FOR ESTIMATED NUTRITIONAL NEEDS. RD RECOMMENDATIONS: 1. RECOMMEND CHANGE TF TO GLUCERNA 1.2 GOAL RATE 65MLS/HR. START TF @15MLS/HR AND ADVANCE TOLERATED BY 10MLS/HR Q8HRS. AT GOAL RATE, TF MEETS 100% ESTIMATED ENERGY & PROTEIN NEEDS. 2. F/U 2-3 DAYS; HIGH RISK ERNA CARLSON MBA, RD
--- NOTE | 2019-10-26 12:30 | NUR ---
DR. MIRANDA @ BEDSIDE, UPDATED PT CONDITION. NO ACUTE DISTRESS. FLACC 0
[2019-10-26] MEDS ORDERED: remdesivir 200 mg in NACL 0.9% 100 ML IV SCH (14:00)
[2019-10-26] MEDS: MIDAZOLAM MDV 50 MG in NACL 0.9% 40 ML IV PRN (14:56)
[2019-10-26] MEDS: fentaNYL citrate - 50mL vial 2.5 MG in NACL 0.9% 200 ML IV PRN (14:58)
--- NOTE | 2019-10-26 15:00 | NUR ---
PT FIGHTING VENTILATOR SEDATION INCREASED, WILL CONTINUE TO OBSERVE. SEE FLOW CHART FOR DETAILS.
--- NOTE | 2019-10-26 16:00 | NUR ---
DR MIRANDA MADE AWARE OF LOW BP AND LOW HR, LEVOPHED DRIP ORDERED WILL CONTINUE TO OBSERVE.
[2019-10-26] MEDS ORDERED: NOREPINEPHRINE 16 MG in DEXTROSE 5% 250 ML IV PRN (16:05)
--- NOTE | 2019-10-26 17:00 | NUR ---
DR BANDA @ BEDSIDE, UPDATED REGARDING LOW BP AND HR 50S, NO NEW ORDERS WILL CONTINUE TO OBSERVE.
--- NOTE | 2019-10-26 18:30 | NUR ---
PT AT [facility] SEDATION DECREASED; WILL CONTINUE TO OBSERVE
--- NOTE | 2019-10-26 18:45 | NUR ---
PT @ [facility] AT THIS TIME, WILL CONTINUE TO OBSERVE.
--- NOTE | 2019-10-26 19:25 | NUR ---
REPORT GIVEN TO DISTRIBUTOR OF DIRECTORIES FOR CONTINUITY OF CARE.
--- NOTE | 2019-10-26 19:30 | NUR ---
RECEIVED PT FROM OBDULIA RN, PT SEDATED RASS -3 DRY WEIGHT 80 KG, PT ON VERSED 3MG/HR, FENTANLY 0.5 MCG/KG/HR, LEVOPHED 4 MCG/MIN, PT ETT TO VENT FIO2 80% VT 500 RR 14 PEEP 10, OGT TO FEEDING GLUCERNA, LUNG SOUNDS DIMINISHED, BOWEL SOUNDS ACTIVE, PT HAS HERNANDEZ CATHETER IN PLACE DRAINING CLEAR YELLOW URINE, EYES PERRL 3MM PULSES PALPABLE UPPER AND LOWER EXTREMITIES, SAFETY PROTOCOLS IN PLACE WILL CONTINUE TO MONITOR THE PT
[2019-10-26] MEDS: LORATADINE 10 MG TAB PO SCH (21:13)
--- NOTE | 2019-10-26 21:15 | NUR ---
PT HR DECREASED TO [address] ANDERSON AWARE, RECEIVED ORDERS TO DECREASE SEDATION UNTIL HR INCREASES WILL CONTINUE TO MONITOR PT
[2019-10-27] VITALS (35 sets, daily range): BP systolic 99–156; BP diastolic 55–91
--- NOTE | 2019-10-27 00:15 | NUR ---
VAP ORAL CARE PROVIDED, PT REPOSITIONED IN BED, NO SIGNS OF DISTRESS WILL CONTINUE TO MONITOR PT
[2019-10-27] MEDS: ENOXAPARIN 80 MG/0.8 ML SYR SUBQ SCH ×2 (01:40→13:51)
--- NOTE | 2019-10-27 03:00 | NUR ---
PT STABLE NO SIGNS OF DISTRESS OBSERVED AT THIS TIME WILL CONTINUE TO MONITOR PT
--- NOTE | 2019-10-27 06:00 | NUR ---
HERNANDEZ EMPTIED PT REPOSITIONED IN BED, NO SIGNS OF DISTRESS AT THIS TIME WILL CONTINUE TO MONITOR PT
[2019-10-27 06:29] LABS: BASOPHILS % (AUTO) 0.5 % (0.0-2.0); HEMATOCRIT 41.3 % (36-52); HEMOGLOBIN 13.5 g/dL (12.0-18.0); LYMPHOCYTES # (AUTO) 0.1 K/uL (2.0-11.5); LYMPHOCYTES % (AUTO) 2.4 % (20.5-51.1); MEAN CORPUSCULAR HEMOGLOBIN 29 pg (27-31); MEAN CORPUSCULAR HGB CONC 33 g/dL (33-37); MEAN CORPUSCULAR VOLUME 88.8 fL (80-94); MONOCYTES # (AUTO) 0.3 K/uL (0.8-1.0); MONOCYTES % (AUTO) 5.3 % (1.7-9.3); NEUTROPHILS # (AUTO) 5.3 K/uL (1.8-7.7); NEUTROPHILS % (AUTO) 91.8 % (42.2-75.2); PLATELET COUNT (AUTO) 147 K/uL (140-450); RED BLOOD CELL COUNT(AUTO) 4.64 MIL/uL (4.20-6.10); RED CELL DISTRIBUTION WIDTH 14.1 % (11.6-13.7); WHITE BLOOD COUNT (AUTO) 5.8 K/uL (4.8-10.8)
[2019-10-27 06:52] LABS: ANION GAP 12.7 (8-16); CARBON DIOXIDE 24.3 mmol/L (21-32); CREATININE 1.1 mg/dL (0.6-1.3)
[2019-10-27 07:11] LABS: ALBUMIN 2.3 g/dL (3.4-5.0); BILIRUBIN,DIRECT 0.1 mg/dL (0.0-0.3); TOTAL BILIRUBIN 0.4 mg/dL (0.0-1.0)
--- NOTE | 2019-10-27 07:21 | NUR ---
ENDORSED PT TO DAYSHIFT RN FOR CONTINUED CARE
--- NOTE | 2019-10-27 07:23 | NUR ---
RECEIVED REPORT FROM INFORMATION TECHNOLOGY INTERN NURSE ASTRID FOR CONTINUITY OF CARE. PT IS AWAKE AND RESTING ON BED, ABLE TO USE HAND GESTURE TO SAY YES OR NO BY DOING THUMB UP AND DOWN. RESPIRATION EVEN AND UNLABORED ON ETT TO VENT, AC/VC FIO2 70%, TIDAL VOLUME 500, PEEP 10. DENIED PAIN BY USING HAND GESTURE THUMB DOWN. NO SIGNS OF ACUTE DISTRESS NOTED. IV ON LFA POSTERIOR 18G, LFA 20G, RFA 20G AND ИРИНА PICC LINE, INFUSING NS AT 10 ML/HR. OG-TUBE IN PLACE, RUNNING GLUCERNA 1.2 AT 40 ML/HR WITH WATER FLUSH 100 ML/Q4H. SKIN CLEAN AND DRY. HERNANDEZ IN PLACE, DRAINING YELLOW URINE WITH GRAVITY. SOFT WRIST RESTRAINTS ON BILATERALLY, NO SIGNS OF INJURY AND CAPILLARY REFILLED < 3 SECONDS. SAFETY MEASURES IN PLACE. HOB ELEVATED, BED IN LOW POSITION, AND BED LOCKED.
[2019-10-27] MEDS: BLOOD GLUCOSE MONITORING 1 DEV DEV FS SCH ×4 (07:59→21:08)
[2019-10-27] MEDS: INSULIN LISPRO SLIDING SCALE 100 UNITS/ML VIAL SUBQ PRN ×4 (08:01→21:07)
[2019-10-27] MEDS: NACL 0.9% 1,000 ML IV SCH (08:02)
--- NOTE | 2019-10-27 08:02 | NUR ---
CHECKED 0730 BLOOD GLUCOSE AND RECEIVED 304, UNABLE TO SCAN DUE TO SCANNER MALFUNCTION, RENAE DU, ADMINISTERED 8 UNITS HUMALOG AND CHANGED A NEW BAG OF IVF, CONTINUED INFUSING AT 10 ML/HR PER MD ORDER. PT AWAKE AND RESTING ON BED. ABLE TO USE HAND GESTURE TO MAKE NEEDS KNOWN. NO SIGNS OF DISTRESS NOTED. SAFETY MEASURES IN PLACE. HOB ELEVATED 30 DEGREE, BED IN LOWEST POSITION AND BED LOCKED.
[2019-10-27] MEDS: ALBUTEROL HFA MDI 90 MCG/ACTUATION 8 GM INH SCH ×2 (08:40→12:58)
--- NOTE | 2019-10-27 08:40 | NUR ---
PT REMAINS ON DOCUMENTED SETTINGS, ETT IS SECURED AND PATENT, NO DISTRESS NOTED AT THIS TIME. TX WAS NOT GIVEN DUE TO C SECTION. VENT PLUGGED INTO RED OUTLET, ALARMS ON AND FUNCTIONING, AMBU BAG AT BEDSIDE. WILL CONTINUE TO MONITOR.
[2019-10-27] MEDS: guaiFENesin 600 MG TABER PO SCH ×2 (09:00→21:07)
--- NOTE | 2019-10-27 09:02 | NUR ---
DR BAILEY IS ASSESSING PATIENT AT BEDSIDE.
[2019-10-27] MEDS: PANTOPRAZOLE 40 MG INJ VIAL IVP SCH (09:23)
[2019-10-27] MEDS: ZINC SULF 220 MG CAP PO SCH (09:24)
[2019-10-27] MEDS: ASCORBIC ACID 500 MG TAB PO SCH (09:24)
[2019-10-27] MEDS: ATORVASTATIN 20 MG TAB PO SCH (09:24)
[2019-10-27] MEDS: DOCUSATE 100 MG/10 ML UDC NG SCH ×2 (09:24→21:08)
[2019-10-27] MEDS: OSELTAMIVIR PHOSPHATE 75 MG CAP PO SCH ×2 (09:25→21:07)
[2019-10-27] MEDS: VITAMIN D 400 IU TAB PO SCH (09:25)
[2019-10-27] MEDS: GENVOYA PO SCH (09:26)
--- NOTE | 2019-10-27 09:37 | NUR ---
CHECKED OG TUBE RESIDUAL AND RECEIVED < 10 ML. ADMINISTERED SCHEDULED MEDS PER MD ORDER VIA OG-TUBE, UNABLE TO ADMINISTER MUCINEX DUE TO OUT OF STOCK AND PHARMACY IS AWAITING FOR DELIVERY, MEDS EDUCATION PROVIDED AND PATIENT NODDED HIS HEAD, FLUSH BEFORE AND AFTER MEDS. PROVIDED ORAL HYGIENE, HERNANDEZ CARE, AND CHG BATH. RELEASED SOFT WRIST RESTRAINTS AND PERFORMED 15 MINS RANGE OF MOTIONS. REPOSITIONED PT AND OFFLOADED PRESSURE WITH PILLOWS. PT TOLERATED WELL. PT IS RESTING ON BED AT THIS TIME, DENIED OF ANY DISCOMFORT. ELECTROPHYSIOLOGY TECH IN PLACE. SAFETY MEASURES IN PLACE.
--- NOTE | 2019-10-27 11:22 | NUR ---
DR ELDRIDGE IS ASSESSING PATIENT AT BEDSIDE.
--- NOTE | 2019-10-27 11:39 | NUR ---
CHECKED BLOOD GLUCOSE AND RECEIVED 295, ADMINISTERED 6 UNITS OF HUMALOG, MED EDUCATION PROVIDED AND PATIENT NODDED HIS HEAD. PATIENT IS RESTING ON BED AT THIS TIME.DENIED PAIN, SOB AND ANY DISCOMFORT. NO SIGNS OF ACUTE DISTRESS NOTED. OSTRICH FARMER IN PLACE.
--- NOTE | 2019-10-27 12:22 | NUR ---
Pending Echocardiogram, pt is positive COVID-19
--- NOTE | 2019-10-27 12:40 | NUR ---
WITH ASSIST FROM ANOTHER RN, REPOSITION PATIENT AND CHANGED ALL DIRTY. OFFLOADED PRESSURE WITH PILLOWS. PT TOLERATED WELL. NO SIGNS OF DISTRESS NOTED. INSTRUCTIONAL WRITER IN PLACE.
--- NOTE | 2019-10-27 13:52 | NUR ---
ADMINISTERED ENOXAPARIN VIA SUBQ, MED EDUCATION PROVIDED AND PATIENT NODDED HIS HEAD. PT IS RESTING ON BED AT THIS TIME. NO SIGNS OF DISTRESS NOTED. SAFETY MEASURES IN PLACE.
[2019-10-27] MEDS: remdesivir 100 mg in NACL 0.9% 100 ML IV SCH (15:08)
--- NOTE | 2019-10-27 15:09 | NUR ---
ADMINISTERED SCHEDULED MED REMDESIVIR PER MD ORDER.
--- NOTE | 2019-10-27 17:05 | NUR ---
PT REMAINS ON DOCUMENTED SETTINGS, ETT IS SECURED AND PATENT, NO DISTRESS NOTED AT THIS TIME. VENT PLUGGED INTO RED OUTLET, ALARMS ON AND FUNCTIONING.
--- NOTE | 2019-10-27 17:10 | NUR ---
WITH ASSIST FROM ANOTHER RN, PROVIDED HYGIENE CARE, AND ORAL CARE. PT GOT AGITATED AND STARTED BITING TUBE AND PUSHING TO SIT UP. ASSISTED PATIENT TO SIT STRAIGHT AND SUCTION PATIENT 2X, PT REMAINS AGITATED AND ATTEMPTED TO REMOVE ETT TUBE, GETTING SINUS TACHYCARDIAC ON MONITOR, EDUCATED PT NOT TO REMOVED TUBE AND WITH ASSIST FROM INVESTIGATIVE RESEARCH SPECIALIST, ADMINISTERED MORPHINE AND ATIVAN TO CALM PATIENT. PT WAS CALM AFTER MEDS. CHECKED RESTRAINTS, INTACT AND SECURED. POSITIONED PATIENT COMFORTABLE AND OFFLOADED PRESSURE FROM BACK, ARMS AND LEGS WITH PILLOWS. NO SIGNS OF ACUTE DISTRESS NOTED. SECOND COOK AND BAKER IN PLACE. SAFETY MEASURES IN PLACE.
[2019-10-27] MEDS: MORPHINE SULFATE 2 MG/ML SYR IVP PRN ×2 (17:20→21:53)
[2019-10-27] MEDS: LORazepam 2 MG/ML VIAL IM/IVP PRN (17:22)
--- NOTE | 2019-10-27 17:42 | NUR ---
CHECKED BLOOD GLUCOSE AND RECEIVED 335. ADMINISTERED 8 UNITS OF HUMALOG. PT IS CLAM AND RESTING ON BED AT THIS TIME. NO SIGNS OF ACUTE DISTRESS NOTED. CARDIAC IN PLACE. SAFETY MEASURES IN PLACE. HOB ELEVATED, RESTRAINTS ON SOFT WRIST BILATERALLY,INTACT, SECURED, NO SIGNS OF INJURY, AND BED IN LOW POSITION.
--- NOTE | 2019-10-27 18:21 | NUR ---
STARTED A NEW BOTTLE OF FEEDING GLUCERNA AND CONTINUE RUNNING AT50 ML/HR AND WATER FLUSH 100 ML Q4H. CHANGED ALL TUBINGS.
--- NOTE | 2019-10-27 18:53 | NUR ---
ADMINISTERED ROCEPHIN VIA IVPB, PATIENT IS RESTING COMFORTABLY ON BED AT THIS TIME. NO SIGNS OF DISTRESS NOTED. SPO2 AT 95% ON AC/VC FIO2 50%. SOFTWARE PACKAGER IN PLACE. SAFETY MEASURES IN PLACE. HOB ELEVATED 30 DEGREE, BED IN LOW POSITION AND BED LOCKED.
--- NOTE | 2019-10-27 19:18 | NUR ---
ENDORSED PATIENT TO STAFF REGISTERED NURSE NURSE BERNARDINO FOR CONTINUITY OF CARE. PT IS IN STABLE CONDITION. RETAIL KEY HOLDER IN PLACE.
--- NOTE | 2019-10-27 19:20 | NUR ---
PT HAS EYES CLOSED; SEDATION ON HOLD @ THIS TIME. AROUSABLE, RESTRAINTS IN PLACE. SR 70-80S, NO EDEMA NOTED, S1 S2 NOTED. ETT TO VENT @ 50% R14 PEEP 8. MINIMAL SECRETIONS NOTED, WHITE THIN. ABD SOFT NON DISTENDED, OGT IN PLACE, GLUCERNA RUNNING, MINIMAL RESIDUALS NOTED. + PLACEMENT. HERNANDEZ CATH IN PLACE, CLEAR YELLOW URINE NOTED. SKIN INTACT, PICC LINE TO R UPPER ARM NOTED, WITH PIV TO R WRIST AND X2 L FA. BED LOCKED IN LOWEST POSITION. WILL CONTINUE TO OBSERVE
[2019-10-27] MEDS: LORATADINE 10 MG TAB PO SCH (21:08)
--- NOTE | 2019-10-27 21:55 | NUR ---
PT OPENING EYES, PEAK PRESSURES ELEVATED ON VENTILATOR, HR 120S, WILL MEDICATE WITH PRN MORPHINE WILL CONTINUE TO OBSERVE
--- NOTE | 2019-10-27 22:30 | NUR ---
PT HAS EYES CLOSED; FLACC 0. NO ACUTE DISTRESS NOTED. WILL CONTINUE TO OBSERVE.
[2019-10-28] VITALS (16 sets, daily range): BP systolic 101–145; BP diastolic 61–93
--- NOTE | 2019-10-28 00:38 | NUR ---
VAP ORAL CARE DONE; TURNED AND REPOSITIONED. FLACC 0.
[2019-10-28] MEDS: ENOXAPARIN 80 MG/0.8 ML SYR SUBQ SCH ×3 (01:00→20:23)
--- NOTE | 2019-10-28 04:32 | NUR ---
PT TURNED AND REPOSITIONED; LINEN CHANGED, BATH GIVEN, NO ACUTE DISTRESS NOTED. PT FOLLOWING COMMANDS/DIRECTIONS. RT @ BEDSIDE, CHANGING ANCHOR. WILL CONTINUE TO OBSERVE.
[2019-10-28] MEDS: BLOOD GLUCOSE MONITORING 1 DEV DEV FS SCH ×4 (06:44→20:33)
[2019-10-28] MEDS: INSULIN LISPRO SLIDING SCALE 100 UNITS/ML VIAL SUBQ PRN ×3 (06:45→20:34)
--- NOTE | 2019-10-28 06:45 | NUR ---
ATIVAN GIVEN; PT FIGHTING VENTILATOR WILL CONTINUE TO OBSERVE. 0655: PT HAS EYES CLOSED, RELAXED IN BED. FLACC 0
[2019-10-28] MEDS: LORazepam 2 MG/ML VIAL IM/IVP PRN ×3 (06:46→22:34)
[2019-10-28 06:55] LABS: BASOPHILS % (AUTO) 0.2 % (0.0-2.0); HEMATOCRIT 42.2 % (36-52); LYMPHOCYTES # (AUTO) 0.2 K/uL (2.0-11.5); MEAN CORPUSCULAR HEMOGLOBIN 29 pg (27-31); MEAN CORPUSCULAR HGB CONC 33 g/dL (33-37); MEAN CORPUSCULAR VOLUME 88.7 fL (80-94); MONOCYTES # (AUTO) 0.2 K/uL (0.8-1.0); MONOCYTES % (AUTO) 4.8 % (1.7-9.3); NEUTROPHILS # (AUTO) 3.9 K/uL (1.8-7.7); PLATELET COUNT (AUTO) 136 K/uL (140-450); RED BLOOD CELL COUNT(AUTO) 4.76 MIL/uL (4.20-6.10); RED CELL DISTRIBUTION WIDTH 14.2 % (11.6-13.7); WHITE BLOOD COUNT (AUTO) 4.3 K/uL (4.8-10.8)
[2019-10-28 07:17] LABS: ALBUMIN 2.4 g/dL (3.4-5.0); BILIRUBIN,DIRECT 0.1 mg/dL (0.0-0.3); TOTAL BILIRUBIN 0.3 mg/dL (0.0-1.0)
--- NOTE | 2019-10-28 07:20 | NUR ---
RECEIVED REPORT FROM ANDROID FRAMEWORK DEVELOPER NURSE BERNARDINO FOR CONTINUITY OF CARE. PT IS RESTING ON BED WITH BOTH EYES CLOSED, FLACC 0. RESPIRATION EVEN AND UNLABORED ON ETT TO VENT, AC/VC FIO2 50%, TIDAL VOLUME 500, PEEP 8. NO SIGNS OF ACUTE DISTRESS NOTED. IV ON LFA POSTERIOR 18G, LFA 20G, RFA 20G AND ИРИНА PICC LINE, INFUSING NS AT 10 ML/HR. OG-TUBE IN PLACE, RUNNING GLUCERNA 1.2 AT 50 ML/HR WITH WATER FLUSH 100 ML/Q4H. SKIN CLEAN AND DRY. HERNANDEZ IN PLACE, DRAINING YELLOW URINE WITH GRAVITY. SOFT WRIST RESTRAINTS ON BILATERALLY, NO SIGNS OF INJURY AND CAPILLARY REFILLED < [address] MANAGER IN PLACE. SAFETY MEASURES IN PLACE. HOB ELEVATED, BED IN LOW POSITION, AND BED LOCKED.
[2019-10-28 08:31] LABS: ANION GAP 15.5 (8-16); CARBON DIOXIDE 25.2 mmol/L (21-32); POTASSIUM 4.7 mmol/L (3.5-5.1)
[2019-10-28] MEDS: DOCUSATE 100 MG/10 ML UDC NG SCH ×2 (10:08→20:22)
[2019-10-28] MEDS: PANTOPRAZOLE 40 MG INJ VIAL IVP SCH (10:08)
[2019-10-28] MEDS: ZINC SULF 220 MG CAP PO SCH (10:09)
[2019-10-28] MEDS: VITAMIN D 400 IU TAB PO SCH (10:09)
[2019-10-28] MEDS: ASCORBIC ACID 500 MG TAB PO SCH (10:09)
[2019-10-28] MEDS: ATORVASTATIN 20 MG TAB PO SCH (10:10)
[2019-10-28] MEDS: guaiFENesin 600 MG TABER PO SCH ×2 (10:10→20:23)
[2019-10-28] MEDS: NACL 0.9% 1,000 ML IV SCH (10:11)
[2019-10-28] MEDS: GENVOYA PO SCH (10:11)
[2019-10-28] MEDS: OSELTAMIVIR PHOSPHATE 75 MG CAP PO SCH (10:13)
--- NOTE | 2019-10-28 10:20 | NUR ---
CHECKED OG-TUBE RESIDUAL AND RECEIVED < 10 ML. ADMINISTERED SCHEDULED MEDS PER MD ORDER, MEDS EDUCATION PROVIDED AND PATIENT NODDED HIS HEAD. PROVIDED HYGIENE CARE, ORAL CARE AND HERNANDEZ CARE, PT TOLERATED WELL. REPOSITIONED AND OFFLOADED PRESSURE WITH PILLOWS. RELEASED SOFT WRIST RESTRAINTS AND PERFORM RANGE OF MOTION. PT IS RESTING ON BED. SAFETY MEASURES IN PLACE. HOB ELEVATED, BED IN LOW POSITION AND BED LOCKED.
[2019-10-28] MEDS: MORPHINE SULFATE 2 MG/ML SYR IVP PRN ×2 (10:41→17:45)
--- NOTE | 2019-10-28 10:50 | NUR ---
PATIENT USED HAND GESTURE AND WRITING STATED THAT HE FEELS PAIN, DISCOMFORT AND ANXIOUS, BP 160/89 PULSE 53, MEDICATED WITH PRN MORPHINE AND ATIVAN, PT IS RESTING COMFORTABLY ON BED AT THIS TIME. ASSESSED RESTRAINTS, INTACT AND SECURED. PILLOWS PLACED UNDER ARMS AND LEGS. SAFETY MEASURES IN PLACE. BED ELEVATED 30 DEGREE, BED IN LOW POSITION AND BED LOCKED.
--- NOTE | 2019-10-28 11:50 | NUR ---
SPOTTED PATIENT SCOOP HIMSELF UP BY PUSHING BOTH SAIL RAILS, VENT WENT OFF. ATTENDED TO PATIENT AND O2 IS DESATURATING, ETT LOOSEN. RAPID RESPONSE ACTIVATED. DR BAILEY, ER DR CAIN, RT ARE BY BEDSIDE. DR BAILEY ORDERED TO EXTUBATED PATIENT AND REMOVED OG-TUBE, HOLD FEEDING AT THIS TIME. PLACED PATIENT ON 15 LMP VIS NON-REBREATHER, PATIENT IS BREATHING ON HIS OWN, SPO2 AT 92%. RELEASED BOTH SOFT RESTRAINTS, NO SIGNS OF INJURY. INSTRUCTED PT TO KEEP NON-REBREATHER ON THE WHOLE TIME TO HELP HIM BREATH, PATIENT VERBALIZED UNDERSTANDING AND SAID "I WANT TO REST NOW." POSITIONED PATIENT COMFORTABLY. PT IS RESTING ON BED AT THIS TIME. NO SIGNS OF ACUTE DISTRESS NOTED. MANAGER OF EMPLOYEE RELATIONS IN PLACE. SAFETY MEASURES IN PLACE. BED IN LOW POSITION, CALL LIGHT WITHIN REACH, AND BED LOCKED.
--- NOTE | 2019-10-28 13:07 | NUR ---
CHECKED BLOOD GLUCOSE AND RECEIVED 274, ADMINISTERED 6 UNITS OF HUMALOG AND SCHEDULED LOVENOX VIA SUB, MEDS EDUCATION PROVIDED AND PT SAID OK. PT IS RESTING ON BED AT THIS TIME COMFORTABLY AND SPO2 AT 94% ON 15 LPM VIA NON-REBREATHER. INVESTIGATIVE RESEARCH SPECIALIST IN PLACE. SAFETY MEASURES IN PLACE.
--- NOTE | 2019-10-28 13:25 | NUR ---
PT TOOK OFF THE NON-REBREATHER AND DESATURATING TO 45%. ATTENDED TO PATIENT AND INSTRUCTED PT TO KEEP NON-REBREATHER ON AT ALL TIME. PATIENT SAID, " I NEED TO POO." ASSISTED PT TO USE THE BEDPAN. SPO2 WENT BACK ON 93% WITH NONREBREATHER. SAFETY MEASURES IN PLACE. INSTRUCTED PATIENT TO CALL ONCE HE FINISHES, PATIENT SAID OK.
--- NOTE | 2019-10-28 13:45 | NUR ---
FOUND PATIENT TOOK OFF NONREBREATHER, AND PATIENT ATTEMPTED TO REMOVED THE HERNANDEZ. ATTENDED TO PATIENT AND EDUCATED PATIENT NOT TO REMOVED THE NONREBREATHER AND IT HELPS HIM BREATH BETTER, ALSO EDUCATED PATIENT NOT TO REMOVE THE HERNANDEZ, ASSESSED HERNANDEZ, INTACT AND IN PLACE, PATIEND SAID OK. TOOK OUT BEDPAN AND REPOSITIONED PATIENT COMFORTABLY. PT IS RESTING ON BED NOW. SAFETY MEASURES IN PLACE. NO SIGNS OF DISTRESS NOTED. DIESEL TRACTOR OPERATOR IN PLACE.
[2019-10-28] MEDS: remdesivir 100 mg in NACL 0.9% 100 ML IV SCH (15:04)
--- NOTE | 2019-10-28 15:05 | NUR ---
ADMINISTERED REMDESIVIR PER MD ORDER, PT IS SLEEPING ON BED AND SPO2 AT 90% ON 15 LPM VIA NONREBREATHER. NO SIGNS OF DISTRESS NOTED. TELETYPE MECHANIC IN PLACE. SAFETY MEASURES IN PLACE. BED IN LOW POSITION AND CALL LIGHT WITHIN REACH.
--- NOTE | 2019-10-28 15:29 | NUR ---
RECEIVED A CALL FROM PATIENT'S NEPHEW LAURA. PER LAURA, HE IS RETURNING DR MCKINNEY'S CALL AND HE IS 34 YEARS OLD AND WILL BE ABLE TO GIVE CONSENT FOR HIS UNCLE. EXPLAINED TO LAURA, DR BAILEY WILL CALL HIM BACK. PROVIDED DR BAILEY WITH LAURA'S CALL BACK NUMBER.
--- NOTE | 2019-10-28 16:40 | NUR ---
OBTAINED TELEPHONE CONSENT FROM PATIENT'S NEPHEW LAURA FOR PLASMA TRANSFUSION. LAURA WAS AWARE AND AGREED TO TREATMENT. OBTAINED CONSENT AND VERIFIED WITH ANOTHER RN.
--- NOTE | 2019-10-28 16:50 | NUR ---
CHECKED BLOOD GLUCOSE AND RECEIVED 169, NO COVERAGE ADMINISTER DUE TO PATIENT IS NOT EATING. PROVIDED HYGIENE CARE AND CHANGED DIRTY. POSITIONED PATIENT COMFORTABLY. INSTRUCTED PT TO KEEP MASK ON AT ALL TIME AND PATIENT SAID OK. SAFETY MEASURES IN PLACE.
--- NOTE | 2019-10-28 17:46 | NUR ---
ATTENDED TO PATIENT AND PATIENT COMPLAINED HE HAS 6/10 PAIN ON HIS THROAT, MEDICATED WITH PRN MORPHINE, MED EDUCATION PROVIDED AND PATIENT VERBALIZED UNDERSTANDING. PT IS RESTING ON BED. SAFETY MEASURES IN PLACE.
[2019-10-28] MEDS: ALBUTEROL HFA MDI 90 MCG/ACTUATION 8 GM INH SCH (18:00)
--- NOTE | 2019-10-28 18:19 | NUR ---
SPO2 DESATURATING TO 83%. ATTENDED TO PATIENT AND READJUSTED OXIMETER AND SIT UP PATIENT TO 90 DEGREE, SPO2 CHANGED TO 91%. INSTRUCTED PT TO KEEP NONREBREATHER MASK ON AT ALL TIME, AND PATIENT SAID YES. PATIENT IS RESTING ON BED AT THIS TIME. NO SIGNS OF DISTRESS NOTED. BARBERING INSTRUCTOR IN PLACE. SAFETY MEASURES IN PLACE.
--- NOTE | 2019-10-28 19:07 | NUR ---
ADMINISTERED ROCEPHIN PER MD ORDER. DR CRUZ IS BY WINDOW-SIDE. UPDATED MD WITH PT'S CURRENT CONDITION.
--- NOTE | 2019-10-28 19:29 | NUR ---
ENDORSED PATIENT AT WINDOW SIDE TO MANAGEMENT SPECIALIST NURSE FOR CONTINUITY OF CARE. PT IS IN STABLE CONDITION.
--- NOTE | 2019-10-28 20:00 | NUR ---
REPORT RECEIVED FROM DAY SHIFT RN. PT IS ALERT AND ORIENTED. ABLE TO VOICE HIS NEEDS TO STAFF. RESPIRATION EVEN AND UNLABORED. SKIN WARM, DRY AND INTACT. PT HAS PERIPHERAL ACCESSES ON THE LEFT FOREARM 18G AND 20G, RIGHT FOREARM 20 G. RIGHT UPPER ARM PICC LINE. ASYMPTOMATIC, PATENT AND INTACT. ON 15L NON REBREATHER MASK. BED IN LOWEST POSITION, SIDE RAILS UP, ALL SAFETY MEASURES OBSERVED. DROPLET PRECAUTION MAINTAINED.
--- NOTE | 2019-10-28 20:15 | NUR ---
DR. MOLINA STATED PT IS NPO EXCEPT MEDS. MEDICATION TAKEN WHOLE WITHOUT DIFFICULTY. NO COUGHING OBSERVED AFTER A SIP OF WATER. WILL CONTINUE TO MONITOR.
[2019-10-28] MEDS: LORATADINE 10 MG TAB PO SCH (20:23)
[2019-10-28] MEDS: DEXT 5% /NACL 0.9% 1,000 ML IV SCH (20:29)
--- NOTE | 2019-10-28 20:30 | NUR ---
PT BS: [id number]. CALLED MD AND ORDERED TO GIVE 2 UNITS HUMALOG. MD CHANGED IV FLUID TO D5NS @ 100ML/HR. WILL CONTINUE TO MONITOR PT.
--- NOTE | 2019-10-28 22:00 | NUR ---
PT IS AWAKE. ABLE TO REPOSITION SELF IN BED. PT SATTING ON HIGH 80'S TO LOW 90'S. PT INSTRUCTED TO LEAVE THE NON REBREATHER MASK ON AT ALL TIMES.
[2019-10-29] VITALS (12 sets, daily range): BP systolic 93–133; BP diastolic 55–93
--- NOTE | 2019-10-29 | NUR ---
PT DESATTING ON THE LOW 80'S. INSTRUCTED TO PUT THE MASK ON AT ALL TIMES. ABLE TO REPOSITION SELF IN BED. WILL CONTINUE TO MONITOR.
--- NOTE | 2019-10-29 04:40 | NUR ---
MORNING ROUTINE PROVIDED. TURNED AND REPOSITION PT WITH MINIMAL ASSIST. HERNANDEZ CARE, JEB CARE PROVIDED. WILL CONTINUE TO MONITOR.
[2019-10-29 05:57] LABS: BASOPHILS # (AUTO) 0.1 K/uL (0.00-0.22); EOSINOPHILS % (AUTO) 0.1 % (0.0-4.0); HEMATOCRIT 47.6 % (36-52); HEMOGLOBIN 15.6 g/dL (12.0-18.0); LYMPHOCYTES # (AUTO) 0.3 K/uL (2.0-11.5); MEAN CORPUSCULAR HEMOGLOBIN 29 pg (27-31); MEAN CORPUSCULAR HGB CONC 33 g/dL (33-37); MEAN CORPUSCULAR VOLUME 88.5 fL (80-94); MONOCYTES # (AUTO) 0.2 K/uL (0.8-1.0); MONOCYTES % (AUTO) 3.6 % (1.7-9.3); NEUTROPHILS # (AUTO) 5.6 K/uL (1.8-7.7); NEUTROPHILS % (AUTO) 90.3 % (42.2-75.2); PLATELET COUNT (AUTO) 142 K/uL (140-450); RED BLOOD CELL COUNT(AUTO) 5.37 MIL/uL (4.20-6.10); RED CELL DISTRIBUTION WIDTH 13.7 % (11.6-13.7); WHITE BLOOD COUNT (AUTO) 6.2 K/uL (4.8-10.8)
[2019-10-29 06:17] LABS: LD1 FRACTION 17 % (17-32); LD2 FRACTION 36 % (25-40); LD3 FRACTION 27 % (17-27); LD4 FRACTION 11 % (5-13); LD5 FRACTION 9 % (4-20)
--- NOTE | 2019-10-29 06:30 | NUR ---
LATEST BS: [id number]. HUMALOG GIVEN ORDERED. WILL CONTINUE TO MONITOR.
[2019-10-29 06:43] LABS: ANION GAP 19.4 (8-16); CARBON DIOXIDE 24.8 mmol/L (21-32); CREATININE 1.2 mg/dL (0.6-1.3); POTASSIUM 4.2 mmol/L (3.5-5.1)
[2019-10-29 06:47] LABS: ALBUMIN 2.8 g/dL (3.4-5.0); BILIRUBIN,DIRECT 0.2 mg/dL (0.0-0.3); TOTAL BILIRUBIN 0.7 mg/dL (0.0-1.0)
[2019-10-29] MEDS: BLOOD GLUCOSE MONITORING 1 DEV DEV FS SCH ×4 (06:51→20:33)
[2019-10-29] MEDS: INSULIN LISPRO SLIDING SCALE 100 UNITS/ML VIAL SUBQ PRN ×3 (06:52→20:34)
[2019-10-29] MEDS: DEXT 5% /NACL 0.9% 1,000 ML IV SCH ×2 (06:54→18:02)
[2019-10-29 07:21] LABS: FERRITIN 914 ng/mL (30 - 400); LACTATE DEHYDROGENASE 475 IU/L (0-214)
--- NOTE | 2019-10-29 07:30 | NUR ---
ENDORSED PT TO DAY SHIFT RN FOR CONTINUITY OF CARE.
--- NOTE | 2019-10-29 07:30 | NUR ---
RECEIVED PT ON BED.INITIAL ASSESSMENT DONE ON PT.ON NRM 15 LITERS .PT IS USING ACCESSORY MUSCLES FOR BREATHING,TACHYPNEIC.RT MADE AWARE.dR BAILEY AWARE.nO CO PAIN.ST ON THE MONITOR.d5.9 NS AT 100 ML/H.HERNANDEZ TO GRAVITY.WILL MONITOR.
[2019-10-29] MEDS: guaiFENesin 600 MG TABER PO SCH ×2 (08:21→20:35)
[2019-10-29] MEDS: PANTOPRAZOLE 40 MG INJ VIAL IVP SCH (08:21)
[2019-10-29] MEDS: VITAMIN D 400 IU TAB PO SCH (08:21)
[2019-10-29] MEDS: ASCORBIC ACID 500 MG TAB PO SCH (08:22)
[2019-10-29] MEDS: GENVOYA PO SCH (08:23)
[2019-10-29] MEDS: ZINC SULF 220 MG CAP PO SCH (08:23)
[2019-10-29] MEDS: ATORVASTATIN 20 MG TAB PO SCH (08:23)
[2019-10-29] MEDS: DOCUSATE 100 MG/10 ML UDC NG SCH ×2 (08:25→20:35)
--- NOTE | 2019-10-29 09:41 | NUR ---
10/29/19 RD FOLLOW UP COMPLETED PLEASE REFER TO NUTRITION ASSESSMENT UNDER CARE ACTIVITY FOR ESTIMATED NUTRITIONAL NEEDS. 1. IF PT CONTINUES TO BE NPO X 3 DAYS, RECOMMEND CONTINUE TF GLUCERNA 1.2 GOAL RATE 65MLS/HR. START TF @15MLS/HR AND ADVANCE TOLERATED BY 10MLS/HR Q8HRS. AT GOAL RATE, TF MEETS 100% ESTIMATED ENERGY & PROTEIN NEEDS. 2. IF/WHEN MEDICALLY APPROPRIATE AND PT ABLE TO TOLERATE ORAL INTAKE, RECOMMEND CCHO 60 GM DIET 3. RECOMMEND SWALLOW EVAL BY SPEECH THERAPY FOR APPROPRIATE TEXTURE 4. RD TO FOLLOW-UP IN 2-3 DAYS PATIENT IS HIGH RISK. ELICIA CENTENO, KAY
--- NOTE | 2019-10-29 10:30 | NUR ---
DR BAILEY MADE AWARE PT SATURATION GOES DOWN TO [address] Bailey TALKED TO rt AND GAVE A VERBAL ORDER CAN USE bipapWHEN NEEDED.dR BAILEY NOTIFIED NEED TO SIGN BLOOD CONSENT
--- NOTE | 2019-10-29 11:30 | NUR ---
PER DR Prado TALKED TO NEPHEW AND CAN GIVE PLASMA
[2019-10-29] MEDS: ENOXAPARIN 80 MG/0.8 ML SYR SUBQ SCH (12:39)
[2019-10-29] MEDS: remdesivir 100 mg in NACL 0.9% 100 ML IV SCH (14:06)
--- NOTE | 2019-10-29 17:00 | NUR ---
ASKED DR FONTANA SIGN BLOOD CONSENT.
[2019-10-29] MEDS ORDERED: INSULIN LISPRO 100 UNITS/ML VIAL SUBQ SCH (17:01)
--- NOTE | 2019-10-29 17:31 | NUR ---
ST CLARIFICATION NOTE Pt HAS FUNCTIONAL SWALLOW, BUT IS OVERALL IMPACTED BY RESPIRATORY STATUS. Pt CURRENTLY REQUIRES NRB AT ALL TIMES IN ORDER TO MAINTAIN O2 SATURATION >88%. Pt WAS ABLE TO ASSIST WITH TAKING NRB OFF AND ON B/T BOLUS TRIALS. Pt WAS ABLE TO TOLERATE ICE CHIPS, PUREE, MSC, AND THIN LIQUIDS BY CUP AND STRAW W/O OVERT S/S OF ASPIRATION OR PENETRATION NOTED. MASTICATION PATTERN WITH MSC WAS ADEQUATE, AND Pt WAS ABLE TO CLEAR MSC BOLUS INDEPENDENTLY WITH MULTIPLE SWALLOWS. AP TRANSFER AND SWALLOW RESPONSES WERE TIMELY WITH FULL LARYNGEAL ELEVATION AND EXCURSION. RECOMMEND: 1. MSC FOOD AND THIN LIQUIDS, CUP OR STRAW OKAY. 2. NRB AT ALL TIMES B/T BOLUS PRESENTATIONS. Pt IS ABLE TO ASSIST WITH TAKING NRB OFF/ON. 3. WHEN FEASIBLE, AND DETERMINED BY MD, O2 VIA NASAL CANULA WOULD BE BENEFICIAL TO NOT INTERRUPT O2 DELIVERY DURING PO. 4. ASPIRATION PRECAUTIONS, ORAL CARE, AND FEEDING ASSISTANCE. 5. ST FOR SWALLOW TX FOR ONGOING DIET ANALYSIS, SAFE SWALLOW STRATEGIES, AND Pt/CG EDUCATION. ETHEL BENAVIDES MS, CCC-CIGARETTE TESTER
--- NOTE | 2019-10-29 18:59 | NUR ---
SPOKE TO SALINA,PHARMACIST TO SEND TRISTAN.
--- NOTE | 2019-10-29 19:20 | NUR ---
DR BAILEY MADE AWARE THAT HE NEEDS TO SIGN BLOOD CONSENT.I UNIT OF PLASMA READY
--- NOTE | 2019-10-29 19:30 | NUR ---
REPORT GIVEN TO Jey FOR CONTINUITY OF CARE
--- NOTE | 2019-10-29 20:00 | NUR ---
REPORT RECEIVED FROM DAY SHIFT RN. PT IS ALERT AND ORIENTED. ABLE TO VOICE HIS NEEDS TO STAFF. RESPIRATION EVEN AND UNLABORED. ON 15L NON REBREATHER MASK. SATTING AT HIGH 80'S TO LOW 90'S. SKIN WARM, DRY AND INTACT. PT HAS PERIPHERAL ACCESSES ON THE LEFT FOREARM 20G AND RIGHT UPPER ARM PICC LINE. ASYMPTOMATIC, PATENT AND INTACT. PT IN SOFT DIET AND THIN LIQUIDS WITH STRAW. BED IN LOWEST POSITION, SIDE RAILS UP, ALL SAFETY MEASURES OBSERVED. DROPLET PRECAUTION MAINTAINED. WILL CONTINUE TO MONITOR PT.
[2019-10-29] MEDS: LORATADINE 10 MG TAB PO SCH (20:35)
[2019-10-29] MEDS: LORazepam 2 MG/ML VIAL IM/IVP PRN (20:46)
--- NOTE | 2019-10-29 23:00 | NUR ---
CONVALESCENT PLASMA HUNG AT THIS TIME. WILL MONITOR PT FOR SIGNS OF REACTION.
--- NOTE | 2019-10-29 23:30 | NUR ---
NO REACTION OBSERVED THUS FAR. WILL CONTINUE TO MONITOR PT.
[2019-10-30] VITALS (11 sets, daily range): BP systolic 98–143; BP diastolic 66–87
--- NOTE | 2019-10-30 00:01 | NUR ---
PLASMA COMPLETED AT THIS TIME. NO REACTION OBSERVED. WILL CONTINUE TO MONITOR.
[2019-10-30] MEDS: ENOXAPARIN 80 MG/0.8 ML SYR SUBQ SCH ×2 (01:22→13:00)
--- NOTE | 2019-10-30 04:00 | NUR ---
PT RESTING IN BED WITH EYES CLOSED. NO CONCERNS AND COMPLAINTS MADE. WILL CONTINUE TO MONITOR PT.
--- NOTE | 2019-10-30 05:30 | NUR ---
MORNING ROUTINE PROVIDED. NO DISTRESS OBSERVED. WILL CONTINUE TO MONITOR PT.
[2019-10-30 06:27] LABS: ALBUMIN 2.5 g/dL (3.4-5.0); BILIRUBIN,DIRECT 0.3 mg/dL (0.0-0.3); TOTAL BILIRUBIN 0.7 mg/dL (0.0-1.0)
[2019-10-30] MEDS: BLOOD GLUCOSE MONITORING 1 DEV DEV FS SCH ×4 (06:29→20:10)
[2019-10-30] MEDS: INSULIN LISPRO SLIDING SCALE 100 UNITS/ML VIAL SUBQ PRN ×4 (06:29→20:27)
--- NOTE | 2019-10-30 07:30 | NUR ---
RECEIVED REPORT FROM NIGHT NURSE FOR CONTINUITY OF CARE.
--- NOTE | 2019-10-30 07:30 | NUR ---
ENDORSED PT TO DAY SHIFT RN FOR CONTINUITY OF CARE.
--- NOTE | 2019-10-30 07:45 | NUR ---
PT HAS EYES CLOSED; AROUSABLE, AOX4, FOLLOWING COMMANDS, ABLE TO MOVE EXTREMITIES. PT ON NRB @ 15L, PRODUCTIVE COUGH WITH THIN WHITE SECRETIONS NOTED. SR ON MONITOR 80-90S @ THIS TIME, NO EDEMA NOTED. PALPABLE PERIPHERAL PULSES. PT TOLERATING PO INTAKE, ABLE TO SWALLOW PILLS, ON MECH SOFT DIET, + FLATUS, HERNANDEZ CATH IN PLACE, CLEAR YELLOW URINE NOTED. SKIN INTACT, PICC LINE TO R UPPER ARM NOTED, PERIPHERAL IV TO L AC SL @ THIS TIME. BED LOCKED IN LOWEST POSITION, HOB>30 DEGREES. WILL CONTINUE TO OBSERVE.
[2019-10-30] MEDS: PANTOPRAZOLE 40 MG INJ VIAL IVP SCH (09:00)
[2019-10-30] MEDS: VITAMIN D 400 IU TAB PO SCH (09:01)
[2019-10-30] MEDS: ASCORBIC ACID 500 MG TAB PO SCH (09:01)
[2019-10-30] MEDS: ZINC SULF 220 MG CAP PO SCH (09:01)
[2019-10-30] MEDS: ATORVASTATIN 20 MG TAB PO SCH (09:01)
[2019-10-30] MEDS: guaiFENesin 600 MG TABER PO SCH ×2 (09:01→20:06)
[2019-10-30] MEDS: DOCUSATE 100 MG/10 ML UDC NG SCH ×2 (09:01→21:00)
[2019-10-30] MEDS: GENVOYA PO SCH (09:04)
--- NOTE | 2019-10-30 09:30 | NUR ---
PT SAT UP IN BED, ATE 100% BREAKFAST, DENIES SOB/CP @ THIS TIME. TOLERATING NRB @15L 90-92% SPO2 WILL CONTINUE TO OBSERVE.
--- NOTE | 2019-10-30 11:00 | NUR ---
PT ABLE TO BATHE HIMSELF; GOWN CHANGED, LINEN CHANGED; REPOSITIONED PT NO ACUTE DISTRESS. WILL CONTINUE TO OBSERVE.
--- NOTE | 2019-10-30 13:30 | NUR ---
LUNCH GIVEN, ATE 100%, NO C/O RESP DISTRESS NOTED. WILL CONTINUE TO OBSERVE
[2019-10-30] MEDS ORDERED: remdesivir 100 mg in NACL 0.9% 100 ML IV SCH (15:30)
[2019-10-30] MEDS: remdesivir 100 mg in NACL 0.9% 100 ML IV SCH (16:07)
--- NOTE | 2019-10-30 17:00 | NUR ---
PT HAS EYES CLOSED; AROUSABLE; DINNER TRAY GIVEN TO PT, BS CHECKED 367 10 UNITS HUMALOG GIVEN. NO S/S OF DISTRESS NOTED. WILL CONTINUE TO OBSERVE.
[2019-10-30] MEDS: ALBUTEROL HFA MDI 90 MCG/ACTUATION 8 GM INH SCH (18:00)
--- NOTE | 2019-10-30 18:15 | NUR ---
PAGED DR BAILEY REGARDING ICU BED STATUS AND POSSIBILITY OF DOWN GRADING TO TELE. STATED TO KEEP IN ICU OVER NIGHT DUE TO NRB @ 15 L. CHARGE NURSE MADE AWARE. WILL CONTINUE TO OBSERVE.
--- NOTE | 2019-10-30 19:35 | NUR ---
REPORT GIVEN TO CURED MEAT PACKING SUPERVISOR FOR CONTINUITY OF CARE.
--- NOTE | 2019-10-30 20:00 | NUR ---
[facility] PT AWAKE AND ALERT. MAKES NEEDS KNOWN, FOLLOWS COMMANDS. [place] SPEAKING. ON NONREBREATHER MASK, 15L. SATURATIONS 94%. LUNG SOUNDS ARE DIMINISHED ALL THROUGHOUT. NO SIGNS OF SHORTNESS OF BREATH, NO STRIDOR. BREATHING IS EVEN AND UNLABORED. S1S2, SR ON MONITOR. SKIN WARM DRY AND INTACT, AFEBRILE. 3MM PERRLA, BRISK. ABDOMEN SOFT AND NONTENDER. BOWEL SOUNDS ACTIVE. HERNANDEZ CATHETER IN PLACE, CLEAR YELLOW URINE NOTED. PT ABLE TO MOVE ALL EXTREMITIES, SOME MILD WEAKNESS NOTED. ИРИНА PICC IN PLACE, FLUSHED AND PATENT, TKO NS. LEFT FA 20G, FLUSHED AND PATENT, SALINE LOCKED. PT DENIES PAIN. ORIENTED TO TREATMENT PLAN AND CALL LIGHT. VALUABLES WITHIN REACH. BED LOCKED AND IN LOWEST POSITION. WILL CONTINUE TO MONITOR.
[2019-10-30] MEDS: DOCUSATE SODIUM 100 MG GELCAP PO PRN (20:06)
[2019-10-30] MEDS: LORATADINE 10 MG TAB PO SCH (20:07)
--- NOTE | 2019-10-30 20:19 | NUR ---
SPOKE WITH DR BAILEY, OBTAINED ORDER TO TRANFER PATIENT TO TELEMETRY.
--- NOTE | 2019-10-30 21:25 | NUR ---
EDUCATED PT ON SCHEDULED MEDICATION INDICATIONS. VERBALIZED UNDERSTANDING. PT ABLE TO BRIEFLY REMOVE NONREBREATHER MASK AND TAKE PO MEDS WITHOUT COMPLICATIONS. BLOOD SUGAR 343, COVERED PER SLIDING SCALE. ALL NEEDS MET AT THIS TIME.
[2019-10-30] MEDS: LORazepam 2 MG/ML VIAL IM/IVP PRN (23:29)
[2019-10-31] VITALS: BP 128/74
[2019-10-31] MEDS: ENOXAPARIN 80 MG/0.8 ML SYR SUBQ SCH ×2 (00:17→12:25)
--- NOTE | 2019-10-31 00:28 | NUR ---
PT RESTING WELL NOW. EYES CLOSED. FLACC 0. BREATHING IS EVEN AND UNLABORED. SATURATIONS 95%. SAFETY MEASURES IN PLACE. CALL LIGHT WITHIN REACH.
--- NOTE | 2019-10-31 02:30 | NUR ---
ASSISTED PATIENT WITH REPOSITIONING. SOME WEAKNESS NOTED. SKIN INTACT. PT DENIES PAIN. ORIENTED PATIENT TO BE DOWNGRADED TO TELE FLOOR, REMOVED ALL BELONGINGS FROM CABINET AND PLACED IN PATIENTS HANDS. CELL PHONE IN HAND. PT COUNTED MONEY IN FRONT OF NURSE. MEDICATIONS FROM HOME PLACED IN BAG. BED LOCKED AND IN LOWEST POSITION, SIDERAILS UP, CALL LIGHT WITHIN REACH.
[2019-10-31 04:00] VITALS: BP 106/67
--- NOTE | 2019-10-31 05:00 | NUR ---
ENDORSED PT TO TELE NURSE FOR CONTINUITY OF CARE. PT AWAKE AND ALERT. NONREBREATHER AT 15L, SATURATIONS 93%. NO DISTRESSED NOTED. HERNANDEZ CATHETER REMAINS IN PLACE. EMPTIED 600 ML CLEAR YELLOW URINE. ИРИНА PICC LINE FLUSHED AND SALINE LOCKED. PATENT. LEFT FA 22G, FLUSHED AND PATENT, SALINE LOCKED. ALL BELONGINGS TAKEN WITH PATIENT, BELONGINGS IN PATIENTS HAND. ALL NEEDS MET AT THIS TIME. PT ORIENTED TO NEW NURSE AND UNIT.
--- NOTE | 2019-10-31 05:05 | NUR ---
RECEIVED PT 59M, A TRANSFER FROM ICU. TELEMETRY PT. AWAKE,ALERT AND ORIENTED X3-4. WITH NO SOB NOTED. O2 SAT 94% ON 15L NON REBREATHER MASK. WITH OCCASIONAL COUGH. SKIN INTACT. WITH RIGHT UPPER ARM PICC LINE AND HL ON LT FAg22. HERNANDEZ CATHETER DRAINING WELL TO A CLEAR YELLOW URINE. POSITIONED FOR COMFORT. FREQ ROUNDS NEEDED. BED ON LOW POSITION. SIDE RAILS UP X2 AND CALL LIGHT PLACED WITHIN EASY REACH. WILL CONTINUE TO MONITOR.
--- NOTE | 2019-10-31 05:45 | NUR ---
PT PUT ON BEDPAN. BUT NO BM NOTED. PT KEEP ON REMOVING THE NON REBREATHER MASK. INSTRUCTED PT TO KEEP IT ON . O2 SAT BET 91-94%. WILL CONTINUE TO MONITOR.
[2019-10-31] MEDS: BLOOD GLUCOSE MONITORING 1 DEV DEV FS SCH ×4 (06:00→21:00)
[2019-10-31] MEDS: INSULIN LISPRO SLIDING SCALE 100 UNITS/ML VIAL SUBQ PRN ×4 (06:05→23:32)
--- NOTE | 2019-10-31 06:05 | NUR ---
PT BLOOD SUGAR 237. ADMINISTERED 4 UNITS HUMALOG PER MD ORDER. WILL CONTINUE TO MONITOR.
[2019-10-31] MEDS: ALBUTEROL HFA MDI 90 MCG/ACTUATION 8 GM INH SCH (07:16)
--- NOTE | 2019-10-31 07:18 | NUR ---
ENDORSED PT IN STABLE CONDITION TO AM NURSE.
--- NOTE | 2019-10-31 07:20 | NUR ---
RECEIVED PATIENT FROM QUALITY COMPLIANCE CONSULTANT NURSE FOR CONTINUITY OF CARE. PATIENT IS ASLEEP. RESPIRATIONS EVEN AND UNLABORED. ON 15L NRB MASK, SATTING 92%. NO SIGNS OF RESPIRATORY DISTRESS. VISIBLE CHEST RISE AND FALL NOTED. ON TELE MONITORING. ON A MECHANICAL SOFT DIET. SKIN WARM, DRY, AND INTACT. R UA PICC SALINE LOCK. L FA G22 SALINE LOCK. BEDREST. DROPLET PRECAUTION FOR COVID-19. INCONTINENT. SAFETY MEASURES IN PLACE. BED IN LOW POSITION. CALL LIGHT IS WITHIN REACH. WILL CONTINUE TO MONITOR.
--- NOTE | 2019-10-31 07:39 | NUR ---
TRANSFERRED CARE TO JEY BRADSHAW.
--- NOTE | 2019-10-31 07:40 | NUR ---
RECEIVED REPORT FROM INDUSTRIAL SAFETY AND HEALTH TECHNICIAN NURSE. PT AWAKE AND ALERT. MAKES NEEDS KNOWN, FOLLOWS COMMANDS. ARGENTINE SPEAKING. ON NONREBREATHER MASK, 15L. SATURATIONS 92%. LNO SIGNS OF SHORTNESS OF BREATH, NO STRIDOR. BREATHING IS EVEN AND UNLABORED. SR ON MONITOR. SKIN WARM DRY AND INTACT, AFEBRILE. 3FOLEY CATHETER IN PLACE, CLEAR YELLOW URINE NOTED. PT ABLE TO MOVE ALL EXTREMITIES, SOME MILD WEAKNESS NOTED. ИРИНА PICC IN PLACE, FLUSHED AND PATENT, WITH GOOD BLOOD RETURN, DRESSING DRY AND INTACT. LEFT FA 20G, FLUSHED AND PATENT, SALINE LOCKED. PT DENIES PAIN. ORIENTED TO TREATMENT PLAN AND CALL LIGHT. DROPLET AND SAFETY PRECAUTIONS IN PLACE, VALUABLES WITHIN REACH. BED LOCKED AND IN LOWEST POSITION. CALL LIGHT WITHIN REACH. WILL CONTINUE TO MONITOR.
[2019-10-31 08:00] VITALS: BP 118/68
--- NOTE | 2019-10-31 08:10 | NUR ---
PATIENT AMBULATED TO BATHROOM WITH 1 PERSON ASSIST. PATIENT HAD BM AND VOIDED. PATIENT NOW BACK IN BED. NO COMPLAINTS AT THIS TIME. CALL LIGHT WITHIN REACH, WILL CONTINUE TO MONITOR PATIENT.
[2019-10-31] MEDS: DOCUSATE 100 MG/10 ML UDC NG SCH ×2 (09:00→21:00)
[2019-10-31] MEDS: ASCORBIC ACID 500 MG TAB PO SCH (10:10)
[2019-10-31] MEDS: guaiFENesin 600 MG TABER PO SCH ×2 (10:10→21:00)
[2019-10-31] MEDS: ZINC SULF 220 MG CAP PO SCH (10:10)
[2019-10-31] MEDS: VITAMIN D 400 IU TAB PO SCH (10:10)
[2019-10-31] MEDS: GENVOYA PO SCH (10:10)
[2019-10-31] MEDS: ATORVASTATIN 20 MG TAB PO SCH (10:10)
[2019-10-31] MEDS: PANTOPRAZOLE 40 MG INJ VIAL IVP SCH (10:10)
--- NOTE | 2019-10-31 10:10 | NUR ---
INFORM DR. BAILEY ABOUT PATIENT'S HERNANDEZ AND REQUEST TO REMOVED. ORDER IN, HERNANDEZ REMOVED. 700ML OF YELLOW URINE PRESENT IN CATHETER BAG. PATIENT TOLERATED IT WELL. PATIENT AWARE TO USE URINAL. WILL CONTINUE TO MONITOR PATIENT.
[2019-10-31 11:04] LABS: ALBUMIN 2.6 g/dL (3.4-5.0); BILIRUBIN,DIRECT 0.2 mg/dL (0.0-0.3); TOTAL BILIRUBIN 0.5 mg/dL (0.0-1.0)
[2019-10-31 12:00] VITALS: BP 116/57
--- NOTE | 2019-10-31 13:33 | NUR ---
CALLED PATIENT'S NEPHEW ROSALIA [phone]. INFORMED HIM OF PATIENT' STATUS AND CONDITION, ALSO TRANSFERRED PHONE CALL TO PATIENT'S ROOM SO PATIENT CAN SPEAK TO HIM HIMSELF. PT HAS NO COMPLAINTS AT THIS TIME. 15L NRB O2 SATURATION 88%. PT HAS NO COMPLAINTS OF PAIN AT THIS TIME. SAFETY AND DROPLET PRECAUTIONS IN PLACE, CALL LIGHT WITHIN REACH, WILL CONTINUE TO MONITOR PATIENT.
[2019-10-31] MEDS: LORazepam 2 MG/ML VIAL IM/IVP PRN ×2 (13:55→23:04)
--- NOTE | 2019-10-31 13:57 | NUR ---
PRN ATIVAN GIVEN TO PATIENT REQUESTED FOR ANXIETY. PATIENT TOLERATED IT. NO COMPLAINTS AT THIS TIME. WILL CONTINUE TO MONITOR PATIENT.
[2019-10-31 16:00] VITALS: BP 119/83
--- NOTE | 2019-10-31 18:17 | NUR ---
ORDERED MEDICATION GIVEN TO PATIENT. PATIENT TOLERATED IT WELL. NO COMPLAINTS AT THIS TIME. O2 88% ON 15L NRB, PATIENT AWARE HE NEEDS BEDREST AND TO BREATHE DEEPLY AND SLOWLY. IF ANXIOUS, CAN CALL RN FOR PRN MEDICATION. PATIENT VERBALIZED UNDERSTANDING. WILL CONTINUE TO MONITOR PATIENT.
--- NOTE | 2019-10-31 19:25 | NUR ---
REPORT GIVEN TO ENTRY EXAMINER NURSE. PATIENT IN STABLE CONDITION.
--- NOTE | 2019-10-31 19:30 | NUR ---
RECEIVED REPORT FROM LEEANN RN DAYSHIFT NURSE AT BEDSIDE FOR CONTINUITY OF CARE, PT IN STABLE CONDITION.
[2019-10-31 20:00] VITALS: BP 134/82
--- NOTE | 2019-10-31 20:00 | NUR ---
PT IN BED WAS ASSISTED WITH BED MCMILLAN IN BED. HE IS AOX3 AND NAURUAN SPEAKING. V/S FOLLOWS: T 99.4 P 94 R 22 B/8P 134/82 02 85% WITH NON REBREATHER. RT WAS CONSULTED REGARDING PT STATING AT 83-87%. N/C ADDED AT 5 LITER TO INCREASE 02 TO 90-91%. ALL REQUESTS ATTENDED BY STAFF AND CALL US IN PLACE, ALL DROPLET AND FALLS PRECAUTIONS IN PLACE.
[2019-10-31] MEDS: LORATADINE 10 MG TAB PO SCH (21:00)
[2019-10-31] MEDS: guaiFENesin DM 200/20 MG-10 ML 10 ML UDC PO PRN (22:02)
--- NOTE | 2019-10-31 23:15 | NUR ---
PT C/O ANXIETY AND WAS GIVEN IVP /PRN ATIVAN PER ORDER. PT REMINDED AGAIN TO KEEP 02 MASK ANDS NASAL CANNULA ON HIS FACE. PT ALSO GIVEN IVP ATIVAN FOR ANXIETY. V/S FOLLOWS: T 98.8 P 69 R 22 B/P 104/77 02 90% WITH N/C AND REBREATHER MASK AT 15LITERS. PT DENIES ANY PAIN .
[2019-11-01] VITALS: BP 104/77
[2019-11-01] MEDS: ENOXAPARIN 80 MG/0.8 ML SYR SUBQ SCH ×2 (00:14→12:07)
[2019-11-01 04:00] VITALS: BP 100/90
--- NOTE | 2019-11-01 04:00 | NUR ---
PT IN BED WITH MASK AND N/C INTACT AND PT STATING 90-91%. V/S FOLLOWS: T 97.1 P 60 R 22 B/P 100/90 . ALL DROPLET PRECAUTIONS IN PLACE. PT DENIES PAIN ALL REQUESTS ATTENDED BY STAFF .
[2019-11-01] MEDS: PANTOPRAZOLE 40 MG INJ VIAL IVP SCH (06:00)
--- NOTE | 2019-11-01 06:00 | NUR ---
PT FINGERSTICK IS 271, HE WAS GIVEN 6 UNITS OF COVERAGE.
[2019-11-01] MEDS: BLOOD GLUCOSE MONITORING 1 DEV DEV FS SCH ×4 (06:45→20:13)
[2019-11-01] MEDS: INSULIN LISPRO SLIDING SCALE 100 UNITS/ML VIAL SUBQ PRN ×4 (06:48→20:16)
--- NOTE | 2019-11-01 07:25 | NUR ---
Received report from nurse Susi. Pt resting in bed, awake, respirations nonlabored in O2 @ 15L/min via NRB with 2L/min via n/c. HPB @ 45. Right upper arm PICC intact & asymptomatic.
[2019-11-01 07:43] LABS: CREATININE 1.1 mg/dL (0.6-1.3)
[2019-11-01 07:48] LABS: HEMATOCRIT 45.6 % (36-52); HEMOGLOBIN 15.1 g/dL (12.0-18.0); LYMPHOCYTES # (AUTO) 0.3 K/uL (2.0-11.5); LYMPHOCYTES % (AUTO) 4.2 % (20.5-51.1); MEAN CORPUSCULAR HEMOGLOBIN 29 pg (27-31); MEAN CORPUSCULAR HGB CONC 33 g/dL (33-37); MEAN CORPUSCULAR VOLUME 87.4 fL (80-94); MONOCYTES # (AUTO) 0.3 K/uL (0.8-1.0); MONOCYTES % (AUTO) 4.7 % (1.7-9.3); NEUTROPHILS # (AUTO) 5.6 K/uL (1.8-7.7); NEUTROPHILS % (AUTO) 91.1 % (42.2-75.2); PLATELET COUNT (AUTO) 150 K/uL (140-450); RED BLOOD CELL COUNT(AUTO) 5.22 MIL/uL (4.20-6.10); RED CELL DISTRIBUTION WIDTH 13.9 % (11.6-13.7); WHITE BLOOD COUNT (AUTO) 6.2 K/uL (4.8-10.8)
[2019-11-01 08:00] VITALS: BP 105/74
[2019-11-01] MEDS ORDERED: metFORMIN 500 MG TAB PO SCH (08:17)
[2019-11-01] MEDS: DOCUSATE 100 MG/10 ML UDC NG SCH ×2 (09:25→20:14)
[2019-11-01] MEDS: VITAMIN D 400 IU TAB PO SCH (09:25)
[2019-11-01] MEDS: ZINC SULF 220 MG CAP PO SCH (09:25)
[2019-11-01] MEDS: ASCORBIC ACID 500 MG TAB PO SCH (09:25)
[2019-11-01] MEDS: ATORVASTATIN 20 MG TAB PO SCH (09:26)
[2019-11-01] MEDS: guaiFENesin 600 MG TABER PO SCH ×2 (09:27→19:51)
[2019-11-01] MEDS: GENVOYA PO SCH (09:28)
--- NOTE | 2019-11-01 10:45 | NUR ---
Pt observed to be tachypneic, NRB and n/c were removed. Reapplied 15LPM via NRB + 5Lpm via n/c. Patient respirations remained tachypneic @ 22R/min but even & nonlabored. Pt denies and feeling of SOB. Instructed patient not to remove O2 supp d/t desaturation. Patient verbalized understanding and agree to keep NRB and n/c in place at all times. Call light and bedside phone placed within reach.
--- NOTE | 2019-11-01 11:00 | NUR ---
Right upper arm PICC dressing changed using sterile technique. Injection caps changed for 2 ports. Good blood return present to both ports; flushed with 10ml NS each. Surrounding skin clear and intact.
[2019-11-01 12:00] VITALS: BP 110/68
--- NOTE | 2019-11-01 12:30 | NUR ---
Patient c/o 07/22 headache. Acetaminophen administered. Provided dim and quiet environment. Instructed patient on relaxation techniques (deep breathing ex, closing eyes, meditation).
[2019-11-01] MEDS: ACETAMINOPHEN 325 MG TAB PO PRN (12:34)
[2019-11-01 16:00] VITALS: BP 116/75
--- NOTE | 2019-11-01 16:39 | NUR ---
11/01/19 RD FOLLOW UP COMPLETED. PLEASE REFER TO NUTRITION ASSESSMENT UNDER CARE ACTIVITY FOR ESTIMATED NUTRITIONAL NEEDS. CONTINUE CURRENT DIET, ADD CCHO DIET RESTRICTIONS PO INTAKE IMPROVES RD TO FOLLOW-UP IN 2-3 DAYS PATIENT IS HIGH RISK. DEBORAH FAIRCHILD, RD
[2019-11-01] MEDS: metFORMIN 500 MG TAB PO SCH (18:09)
--- NOTE | 2019-11-01 19:00 | NUR ---
RECEIVED PT FROM DAYS SHIFT NURSE PT INDONESIAN SPEAKER [id number] ON BED REST ON NON REBREATHING MASK 15 LTS O2 SAT 9;0% PICC LINE ON RT UA INFUSING WELL TKO INITIAL ASSESSMENT DONE
[2019-11-01] MEDS: DOCUSATE SODIUM 100 MG GELCAP PO PRN (19:49)
[2019-11-01] MEDS: LORATADINE 10 MG TAB PO SCH (19:50)
[2019-11-01 20:00] VITALS: BP 103/63
[2019-11-01] MEDS: INSULIN LANTUS 100 UNITS/ML 10 ML VIAL SUBQ SCH (20:18)
--- NOTE | 2019-11-01 21:00 | NUR ---
BLOOD SUGAR TEST 293 COVERAGE WITH 6 UNIST HUMALOG SUBQ FOLLOW PROTOCOL AND SNACK IS PROVIDEDPT ON TELEMETRY SR, AND VOIDING WELL
--- NOTE | 2019-11-01 21:30 | NUR ---
RESPIRATORY THERAPY IS HERE AND SEE THE PT
[2019-11-02] VITALS: BP 109/69
--- NOTE | 2019-11-02 | NUR ---
PT REMAIN STABLE NOT SOB NOTED ON TELEMETRY SR 02 SAT 92% PT ;O;N NON REBREATHING MASK 15 LTS
[2019-11-02] MEDS: ENOXAPARIN 80 MG/0.8 ML SYR SUBQ SCH ×2 (00:38→12:24)
--- NOTE | 2019-11-02 02:00 | NUR ---
PT AWAKE DENIES ANY PAIN REMAIN MORE STABLE ON ON REBREATHING MASK AT 15 LTS ON TELMETRY SR
[2019-11-02 04:00] VITALS: BP 104/67
--- NOTE | 2019-11-02 04:00 | NUR ---
PT HAS BEEN MO;NITORING CLOSE NOT SOB NOTED SPONGE ATH GIVEN LINEN CHANGED ON TELMETRY SR
[2019-11-02] MEDS: BLOOD GLUCOSE MONITORING 1 DEV DEV FS SCH ×4 (05:40→22:00)
[2019-11-02] MEDS: INSULIN LISPRO SLIDING SCALE 100 UNITS/ML VIAL SUBQ PRN ×4 (06:03→22:08)
--- NOTE | 2019-11-02 06:20 | NUR ---
BLOOD SUGAR TEST 283 COVERAGE WITH 6 UNITS SUB Q ON ABD FOLLOW PROTOCOL , PT ON TELE SR
--- NOTE | 2019-11-02 06:23 | NUR ---
PT WILL BE ENDORSED TO DAY SHIFT NURSE FOR CONTINUING OF CARE
--- NOTE | 2019-11-02 07:15 | NUR ---
RECEIVED REPORT FROM URBAN GARDENING SPECIALIST NURSE FOR CONTINUITY OF CARE. PT ASLEEP AND IN BED, ABLE TO MAKES NEEDS KNOWN, FOLLOWS COMMANDS. FRENCH SPEAKING. ON NONREBREATHER MASK, 15L AND 2LPM NC. SAO2 AT 90%. NO SIGNS OF SOB. BREATHING IS EVEN AND UNLABORED. SR ON MONITOR. SKIN WARM DRY AND INTACT, AFEBRILE. PT ABLE TO MOVE ALL EXTREMITIES, SOME MILD WEAKNESS NOTED. ИРИНА PICC IN PLACE, FLUSHED AND PATENT, WITH GOOD BLOOD RETURN, DRESSING DRY AND INTACT. PT DENIES PAIN. ORIENTED TO TREATMENT PLAN AND CALL LIGHT. DROPLET AND SAFETY PRECAUTIONS IN PLACE, VALUABLES WITHIN REACH. BED LOCKED AND IN LOWEST POSITION. CALL LIGHT WITHIN REACH. WILL CONTINUE TO MONITOR.
[2019-11-02 07:35] LABS: BASOPHILS % (AUTO) 0.1 % (0.0-2.0); HEMATOCRIT 45.9 % (36-52); HEMOGLOBIN 15.4 g/dL (12.0-18.0); LYMPHOCYTES # (AUTO) 0.2 K/uL (2.0-11.5); LYMPHOCYTES % (AUTO) 3.9 % (20.5-51.1); MEAN CORPUSCULAR HEMOGLOBIN 29 pg (27-31); MEAN CORPUSCULAR HGB CONC 34 g/dL (33-37); MEAN CORPUSCULAR VOLUME 87.3 fL (80-94); MONOCYTES # (AUTO) 0.3 K/uL (0.8-1.0); MONOCYTES % (AUTO) 4.9 % (1.7-9.3); NEUTROPHILS # (AUTO) 5.2 K/uL (1.8-7.7); NEUTROPHILS % (AUTO) 91.1 % (42.2-75.2); PLATELET COUNT (AUTO) 153 K/uL (140-450); RED BLOOD CELL COUNT(AUTO) 5.26 MIL/uL (4.20-6.10); RED CELL DISTRIBUTION WIDTH 14.2 % (11.6-13.7); WHITE BLOOD COUNT (AUTO) 5.7 K/uL (4.8-10.8)
[2019-11-02 07:44] LABS: ANION GAP 10.7 (8-16); CARBON DIOXIDE 29.9 mmol/L (21-32); CREATININE 1.3 mg/dL (0.6-1.3); POTASSIUM 5.6 mmol/L (3.5-5.1)
[2019-11-02 08:00] VITALS: BP 118/82
[2019-11-02] MEDS: ASCORBIC ACID 500 MG TAB PO SCH (08:06)
[2019-11-02] MEDS: VITAMIN D 400 IU TAB PO SCH (08:06)
[2019-11-02] MEDS: DOCUSATE 100 MG/10 ML UDC NG SCH ×2 (08:06→20:49)
[2019-11-02] MEDS: ZINC SULF 220 MG CAP PO SCH (08:06)
[2019-11-02] MEDS: ATORVASTATIN 20 MG TAB PO SCH (08:07)
[2019-11-02] MEDS: guaiFENesin 600 MG TABER PO SCH ×2 (08:07→20:49)
[2019-11-02] MEDS: metFORMIN 500 MG TAB PO SCH ×2 (08:07→17:14)
[2019-11-02] MEDS: GENVOYA PO SCH (08:12)
[2019-11-02] MEDS: PANTOPRAZOLE 40 MG INJ VIAL IVP SCH (08:12)
--- NOTE | 2019-11-02 08:12 | NUR ---
MORNING MEDICATIONS GIVEN. PATIENT VERBALIZES NO PAIN AND NO SIGNS OF DISTRESS NOTED. PATIENT HAD A BM ON A BEDPAN. BM IS FORMED. WILL CONTINUE TO MONITOR.
--- NOTE | 2019-11-02 11:40 | NUR ---
PATIENT'S FAMILY CALLED COMPLAINING OF MISSING SECONDS INSPECTOR FROM ER. WILL INFORM CHARGE NURSE. WILL CONTINUE TO MONITOR.
[2019-11-02 12:00] VITALS: BP 115/84
--- NOTE | 2019-11-02 12:16 | NUR ---
10 UNITS OF INSULIN GIVEN FOR BLOOD GLUCOSE OF 361. NO SIGNS OF DISTRESS NOTED. V/S TAKEN AND IS WNL. WILL CONTINUE TO MONITOR.
[2019-11-02 16:00] VITALS: BP 117/96
[2019-11-02] MEDS: LORazepam 2 MG/ML VIAL IM/IVP PRN (17:14)
--- NOTE | 2019-11-02 17:14 | NUR ---
ATIVAN GIVEN FOR INCREASED AGITATION. NO SIGNS OF DISTRESS NOTED. WILL CONTINUE TO MONITOR.
--- NOTE | 2019-11-02 17:15 | NUR ---
PATIENT CONTINUES TO DESATURATE WITH 2LPM O2 NC AND 15LPM O2 NON-REBREATHER MASK, SAO2 AT 81%. O2 INCREASED TO 5LPM NC WITH SAO2 AT 94%. WILL CONTINUE TO MONITOR.
--- NOTE | 2019-11-02 17:20 | NUR ---
6 UNITS OF INSULIN GIVEN FOR BLOOD GLUCOSE OF 280. NO SIGNS OF DISTRESS NOTED. PATIENT'S FAMILY PRESENT OUTSIDE PATIENT'S WINDOW. V/S TAKEN AND IS WNL. BIODIESEL PRODUCT MANAGER FROM PATIENT'S FAMILY IS GIVEN TO PATIENT. PATIENT VERBALIZES NO PAIN. WILL CONTINUE TO MONITOR.
[2019-11-02] MEDS ORDERED: SODIUM ZIRCONIUM CYCLOSILICATE 10 GM POWD.PACK PO SCH (18:31)
--- NOTE | 2019-11-02 18:49 | NUR ---
ST VISIT NOTE Pt CONTINUES TO TOLERATE MSC/THIN DIET W/O OVERT S/S OF ASPIRATION OR PENETRATION NOTED. Pt's O2 REQUIREMENTS CONTINUE TO BE HIGH. RECOMMEND ST TO CONTINUE FOLLOWING Pt FOR SWALLOW TX FOR ONGOING DIET ANALYSIS, SAFE SWALLOW STRATEGIES, AND Pt/CG EDUCATION. ETHEL BENAVIDES MS, CCC-RESIDENTIAL SALES EXECUTIVE
--- NOTE | 2019-11-02 19:25 | NUR ---
RECEIVED PT AAOX4 , NID - O2 SAT WNL .ON NRM AT 15LPM AND 5LPM/NC - ON O2 SAT MONITORING - O2 SAT WNL . IVF INFUSING WELL . SAFETY MEASURES IN PLACE , ON TELE MONITOR. PLAN OF CARE DISCUSSED AND VERBALIZE UNDERSTANDING . WILL CONT. TO MONITOR . DENIES ANY PAIN AT THIS TIME.
--- NOTE | 2019-11-02 19:25 | NUR ---
ENDORSED TO POSTULANT NURSE FOR CONTINUITY OF CARE.
[2019-11-02 20:00] VITALS: BP 118/70
[2019-11-02] MEDS: LORATADINE 10 MG TAB PO SCH (20:49)
[2019-11-02] MEDS: INSULIN LANTUS 100 UNITS/ML 10 ML VIAL SUBQ SCH (22:00)
--- NOTE | 2019-11-02 22:00 | NUR ---
MADE ROUNDS , NO COMPLAIN MADE , O2 SAT WNL . WILL CONT. TO MONITOR
[2019-11-03] VITALS: BP 117/71
--- NOTE | 2019-11-03 | NUR ---
MADE ROUNDS , NO S/SX OF ACUTE DISTRESS NOTED AT THIS TIME , O2 SAT WNL . WILL CONT. TO MONITOR
--- NOTE | 2019-11-03 02:00 | NUR ---
SLEEPING - OS2 SAT WNL . WILL CONT. TO MONITOR . CALL LIGHT WITHIN REACH
[2019-11-03] MEDS: ENOXAPARIN 80 MG/0.8 ML SYR SUBQ SCH ×2 (03:11→15:00)
[2019-11-03 04:00] VITALS: BP 115/70
--- NOTE | 2019-11-03 04:00 | NUR ---
MADE ROUNDS , NO S/SX OF ACUTE DISTRESS NOTED - O2 SAT WNL . WILL CONT. TO MONITOR
--- NOTE | 2019-11-03 06:00 | NUR ---
RESTING ON BED , ON TELE MONITOR , NO COMPLAIN MAD , O2 SAT WNL . WILL CONT. TO MONITOR.
[2019-11-03] MEDS: BLOOD GLUCOSE MONITORING 1 DEV DEV FS SCH ×4 (06:17→20:49)
[2019-11-03] MEDS: INSULIN LISPRO SLIDING SCALE 100 UNITS/ML VIAL SUBQ PRN ×4 (06:49→22:06)
--- NOTE | 2019-11-03 07:26 | NUR ---
RECEIVED REPORT FROM DEVELOPMENT SPEC NURSE. PT IN BED. AOX3, NO C/O PAIN, NO SOB, RESPIRATIONS ARE EVEN AND UNLABORED. ON O2 15L VIA NONREBREATHER AND 5L VIA NC. SKIN IS INTACT. WITH ИРИНА PICC LINE. SAFETY PRECAUTIONS IN PLACE. ISOLATION PRECAUTION OBSERVED. CALL LIGHT WITHIN REACH. WILL CONTINUE TO MONITOR
--- NOTE | 2019-11-03 07:26 | NUR ---
ENDORSED TO AM SHIFT - PT - STABLE
[2019-11-03 07:36] LABS: ANION GAP 12.2 (8-16); CARBON DIOXIDE 27.2 mmol/L (21-32); POTASSIUM 4.4 mmol/L (3.5-5.1)
[2019-11-03 08:00] VITALS: BP 110/63
[2019-11-03] MEDS: metFORMIN 500 MG TAB PO SCH ×2 (08:00→16:42)
[2019-11-03 08:07] LABS: BASOPHILS % (AUTO) 0.3 % (0.0-2.0); EOSINOPHILS % (AUTO) 0.1 % (0.0-4.0); HEMATOCRIT 47.8 % (36-52); HEMOGLOBIN 15.9 g/dL (12.0-18.0); LYMPHOCYTES # (AUTO) 0.2 K/uL (2.0-11.5); LYMPHOCYTES % (AUTO) 3.1 % (20.5-51.1); MEAN CORPUSCULAR HEMOGLOBIN 29 pg (27-31); MEAN CORPUSCULAR HGB CONC 33 g/dL (33-37); MEAN CORPUSCULAR VOLUME 87.6 fL (80-94); MONOCYTES # (AUTO) 0.4 K/uL (0.8-1.0); MONOCYTES % (AUTO) 5.4 % (1.7-9.3); NEUTROPHILS # (AUTO) 6.8 K/uL (1.8-7.7); NEUTROPHILS % (AUTO) 91.1 % (42.2-75.2); PLATELET COUNT (AUTO) 146 K/uL (140-450); RED BLOOD CELL COUNT(AUTO) 5.46 MIL/uL (4.20-6.10); RED CELL DISTRIBUTION WIDTH 14.1 % (11.6-13.7); WHITE BLOOD COUNT (AUTO) 7.5 K/uL (4.8-10.8)
--- NOTE | 2019-11-03 09:02 | NUR ---
PT REMAINS ON NRB 15L. SPO2 READING 96% HR 75. NO DISTRESS AT THIS TIME, WILL CONTINUE TO MONITOR.
--- NOTE | 2019-11-03 09:15 | NUR ---
DUE MORNING MEDS GIVEN. TOLERATED PO MEDS WELL. O2 TITRATED DOWN TO JUST 15L VIA NRM. O2SAT 94%
[2019-11-03] MEDS: PANTOPRAZOLE 40 MG INJ VIAL IVP SCH (09:29)
[2019-11-03] MEDS: GENVOYA PO SCH (09:29)
[2019-11-03] MEDS: guaiFENesin 600 MG TABER PO SCH ×2 (09:29→20:52)
[2019-11-03] MEDS: DOCUSATE 100 MG/10 ML UDC NG SCH ×2 (09:29→20:53)
[2019-11-03] MEDS: VITAMIN D 400 IU TAB PO SCH (09:29)
[2019-11-03] MEDS: ATORVASTATIN 20 MG TAB PO SCH (09:29)
[2019-11-03] MEDS: ZINC SULF 220 MG CAP PO SCH (09:29)
[2019-11-03] MEDS: ASCORBIC ACID 500 MG TAB PO SCH (09:29)
[2019-11-03] MEDS: ACETAMINOPHEN 325 MG TAB PO PRN (09:30)
--- NOTE | 2019-11-03 11:45 | NUR ---
BLOOD SUGAR 250. COVERAGE GIVEN
[2019-11-03 12:00] VITALS: BP 108/56
--- NOTE | 2019-11-03 13:00 | NUR ---
WITH EPISODE OF DESATURATION AFTER GOING TO THE BATHROOM. O2SAT WAS AT 74%. PT ON 15L NRM. RT NOTIFIED. PLACED BACK ON ADDITIONAL 5L O2 VIA NC. ASSISTED PT BACK TO BED. DEEP BREATHING INSTRUCTED. O2SAT WENT BACK UP TO 91%. ATIVAN ALSO GIVEN FOR ANXIETY ORDERED
[2019-11-03] MEDS: LORazepam 2 MG/ML VIAL IM/IVP PRN ×2 (13:01→20:51)
--- NOTE | 2019-11-03 14:14 | NUR ---
PT AWAKE IN BED. APPEARS CALM. O2SAT 91%. NO C/O PAIN, NO SOB
[2019-11-03 16:00] VITALS: BP 127/45
[2019-11-03] MEDS: MORPHINE SULFATE 2 MG/ML SYR IVP PRN (16:27)
--- NOTE | 2019-11-03 16:30 | NUR ---
WITH C/O BACK AND CHEST PAIN 11/21. MORPHINE GIVEN ORDERED. WILL REASSESS IN 1 HOUR
[2019-11-03] MEDS ORDERED: POTASSIUM CHLORIDE 10 MEQ TABER PO PRN (17:25)
[2019-11-03] MEDS ORDERED: MAG SULF 2000 MG/WATER PREMIX 50 ML IV PRN (17:25)
--- NOTE | 2019-11-03 19:09 | NUR ---
PT AWAKE IN BED. NO C/O PAIN ON 15L NRM AND 5L NC. O2SAT 91%. WILL ENDORSE TO NEXT SHIFT FOR CONTINUITY OF CARE
--- NOTE | 2019-11-03 19:10 | NUR ---
RECEIVED PT FROM DAY RN. PT ON TELE MONITOR. PT IS AOX4 ON 15L NRB AND 5L N/C, SATURATION 91%. NO S/S RESPIRATORY DISTRESS. NO C/O AT THIS TIME. IV SITE ON RIGHT UPPER ARM PICC LINE SALINE LOCK. SKIN INTACT. DROPLET PRECAUTION IN PLACE. BED ON LOW POSITION, SIDE RAILS UP X2, CALL LIGHT WITHIN REACH. WILL CONTINUE TO MONITOR
[2019-11-03 20:00] VITALS: BP 118/76
[2019-11-03] MEDS: LORATADINE 10 MG TAB PO SCH (20:53)
--- NOTE | 2019-11-03 20:55 | NUR ---
ADMINISTERED ATIVAN FOR INCREASED AGITATION. NO S/S OF DISTRESS NOTED. WILL CONTINUE TO MONITOR.
--- NOTE | 2019-11-03 20:55 | NUR ---
ADMINISTERED SCHEDULED MEDICATIONS. MEDICATION EDUCATION GIVEN. PT VERBALIZED UNDERSTANDING. WILL CONTINUE TO MONITOR.
[2019-11-03] MEDS: INSULIN LANTUS 100 UNITS/ML 10 ML VIAL SUBQ SCH (22:04)
--- NOTE | 2019-11-03 22:10 | NUR ---
PT GIVEN 4 UNITS INSULIN FOR BLOOD GLUCOSE 213. WILL CONTINUE TO MONITOR.
--- NOTE | 2019-11-03 22:44 | NUR ---
PT SLEEPING COMFORTABLY W/ NRB SPO2 93% NO DISTRESS NOTED AT THIS TIME
[2019-11-04 00:05] VITALS: BP 112/87
--- NOTE | 2019-11-04 00:45 | NUR ---
PT ASLEEP IN BED. O2 SAT 90%. NO DISTRESS NOTED. CALL LIGHT WITHIN REACH. WILL CONTINUE TO MONITOR.
--- NOTE | 2019-11-04 02:30 | NUR ---
MADE ROUNDS. PT IS ASLEEP. O2 SAT 92%. NO DISTRESS NOTED.
[2019-11-04] MEDS: ENOXAPARIN 80 MG/0.8 ML SYR SUBQ SCH ×2 (03:56→15:43)
[2019-11-04 04:05] VITALS: BP 120/88
[2019-11-04] MEDS: BLOOD GLUCOSE MONITORING 1 DEV DEV FS SCH ×4 (06:26→21:41)
[2019-11-04] MEDS: INSULIN LISPRO SLIDING SCALE 100 UNITS/ML VIAL SUBQ PRN ×4 (06:27→21:42)
--- NOTE | 2019-11-04 06:36 | NUR ---
ADMINISTERED 4 UNITS INSULIN FOR PT BLOOD GLUCOSE 201. WILL CONTINUE TO MONITOR.
--- NOTE | 2019-11-04 07:09 | NUR ---
ENDORSED PT IN STABLE CONDITION TO DAY RN FOR CONTINUITY OF CARE.
--- NOTE | 2019-11-04 07:10 | NUR ---
RECEIVED REPORT FROM INTERNATIONAL SALES REPRESENTATIVE NURSE. PATIENT IS CURRENTLY AWAKE IN BED WITH NO SIGNS OF DISTRESS. RESPIRATIONS ARE EVEN AND UNLABORED ON 15L NONREBREATHER AND 4L NASAL CANNULA WITH NO DIFFICULTIES BREATHING. SKIN IS INTACT WITH IV PATENT ASYMPTOMATIC AND INFUSING PER ORDERS. PATIENT IS ASKING TO BE PLACED ON IVF, SAFETY MEASURES IN PLACE AND WILL CONTINUE TO MONITOR PLAN OF CARE.
[2019-11-04 07:57] LABS: CARBON DIOXIDE 26.1 mmol/L (21-32); CREATININE 1.1 mg/dL (0.6-1.3); POTASSIUM 4.1 mmol/L (3.5-5.1)
[2019-11-04 08:00] VITALS: BP 118/83
[2019-11-04 08:02] LABS: MAGNESIUM 1.9 mg/dL (1.8-2.4); PHOSPHORUS 2.4 mg/dL (2.5-4.9)
[2019-11-04 08:05] LABS: BASOPHILS # (AUTO) 0.1 K/uL (0.00-0.22); BASOPHILS % (AUTO) 0.7 % (0.0-2.0); EOSINOPHILS % (AUTO) 0.2 % (0.0-4.0); HEMATOCRIT 49.7 % (36-52); HEMOGLOBIN 16.6 g/dL (12.0-18.0); LYMPHOCYTES # (AUTO) 0.4 K/uL (2.0-11.5); LYMPHOCYTES % (AUTO) 4.8 % (20.5-51.1); MEAN CORPUSCULAR HEMOGLOBIN 29 pg (27-31); MEAN CORPUSCULAR HGB CONC 34 g/dL (33-37); MEAN CORPUSCULAR VOLUME 87.6 fL (80-94); MONOCYTES # (AUTO) 0.2 K/uL (0.8-1.0); MONOCYTES % (AUTO) 2.7 % (1.7-9.3); NEUTROPHILS # (AUTO) 8.1 K/uL (1.8-7.7); NEUTROPHILS % (AUTO) 91.6 % (42.2-75.2); PLATELET COUNT (AUTO) 146 K/uL (140-450); RED BLOOD CELL COUNT(AUTO) 5.67 MIL/uL (4.20-6.10); RED CELL DISTRIBUTION WIDTH 14.3 % (11.6-13.7); WHITE BLOOD COUNT (AUTO) 8.9 K/uL (4.8-10.8)
[2019-11-04] MEDS: ASCORBIC ACID 500 MG TAB PO SCH (08:46)
[2019-11-04] MEDS: ZINC SULF 220 MG CAP PO SCH (08:47)
[2019-11-04] MEDS: metFORMIN 500 MG TAB PO SCH ×2 (08:47→17:08)
[2019-11-04] MEDS: VITAMIN D 400 IU TAB PO SCH (08:47)
[2019-11-04] MEDS: guaiFENesin 600 MG TABER PO SCH ×2 (08:48→21:20)
[2019-11-04] MEDS: DOCUSATE 100 MG/10 ML UDC NG SCH ×2 (08:48→21:19)
[2019-11-04] MEDS: ATORVASTATIN 20 MG TAB PO SCH (08:48)
[2019-11-04] MEDS: GENVOYA PO SCH (08:48)
[2019-11-04] MEDS: PANTOPRAZOLE 40 MG INJ VIAL IVP SCH (08:48)
--- NOTE | 2019-11-04 09:05 | NUR ---
ADMINISTERED MEDICATIONS PER ORDER AND TOLERATED WELL. PATIENT STATES THAT HE WANTS HIS ATIVAN TO RELAX HIM AND WOULD ALSO LIKE RESPIRATORY THERAPIST TO COME SEE. WILL NOTIFY RT. SAFETY MEASURES IN PLACE AND WILL CONTINUE TO MONITOR.
[2019-11-04] MEDS: LORazepam 2 MG/ML VIAL IM/IVP PRN (09:32)
--- NOTE | 2019-11-04 10:11 | NUR ---
PATIENTS DAUGHTER CALLED ASKING FOR A STATUS UPDATE REGARDING PLANS FOR COVID TREATMENT. PATIENT IS CURRENTLY LAYING IN BED WITH NO SIGNS OF DISTRESS AT THIS TIME. SAFETY MEASURES IN PLACE AND WILL CONTINUE TO MONITOR.
[2019-11-04] MEDS: ALBUTEROL HFA MDI 90 MCG/ACTUATION 8 GM INH SCH (11:20)
--- NOTE | 2019-11-04 11:23 | NUR ---
PATIENTS DAUGHTER CALLED ASKING IF PATIENT PHONE CAN BE BROUGHT TO THE LOBBY IN ORDER TO BE CHARGED. PATIENT IS CURRENTLY SLEEPING WITH NO SIGNS OF DISTRESS.
[2019-11-04 12:00] VITALS: BP 111/78
--- NOTE | 2019-11-04 12:37 | NUR ---
PATIENTS BLOOD GLUCOSE IS CURRENTLY 215 THEREFORE 4 UNITS OF INSULIN HAVE BEEN ADMINISTERED. PATIENT REQUESTED TO HAVE A BANANA FOR LUNCH AND MASHED POTATOES. SAFETY MEASURES IN PLACE AND WILL CONTINUE TO MONITOR.
--- NOTE | 2019-11-04 14:08 | NUR ---
PATIENT CALLED AND STATED THAT HE HAS TO USE THE RESTROOM. WILL ASSIST PATIENT INTO USING THE BED MCMILLAN. SAFETY MEASURES IN PLACE AND WILL CONTINUE TO MONITOR PLAN OF CARE.
--- NOTE | 2019-11-04 15:27 | NUR ---
11/04/19 RD FOLLOW UP COMPLETED PLEASE REFER TO NUTRITION ASSESSMENT UNDER CARE ACTIVITY FOR ESTIMATED NUTRITIONAL NEEDS. 1. CONTINUE MECHANICAL SOFT CCHO 60GM DIET 2. RECOMMENDED GLUCERNA TID 3. RD TO FOLLOW-UP IN 3-5 DAYS, MODERATE RISK LUCI MINAYA, RD
[2019-11-04 16:00] VITALS: BP 109/76
--- NOTE | 2019-11-04 16:20 | NUR ---
PATIENTS BLOOD SUGAR IS CURRENTLY 162 THEREFORE 2UNITS OF INSULIN HAVE BEEN ADMINISTERED ALONG WITH OTHER MEDICATIONS AND TOLERATED WELL. SAFETY MEASURES IN PLACE AND WILL CONTINUE TO MONITOR.
--- NOTE | 2019-11-04 17:10 | NUR ---
PATIENT CALLED AND ASKED FOR A BEDSIDE URINAL. PATIENT IS IN NO SIGNS OF DISTRESS. SAFETY MEASURES IN PLACE ADN WILL CONTINUE TO MONITOR PLAN OF CARE.
--- NOTE | 2019-11-04 18:57 | NUR ---
PATIENT IS CURRENTLY SITTING UP IN BED WITH NO SIGNS OF DISTRESS. DINNER IS AT BEDSIDE. WILL ENDORSE TO PROCEDURES RN NURSE FOR CONTINUITY OF CARE.
--- NOTE | 2019-11-04 19:10 | NUR ---
RECEIVED REPORT FROM AM SHIFT. PT SEEN AND ASSESSED. PT ON NRB MASK @ 15L WITH SPO2 OF 95%. PT IN NO APPARENT RESPIRATORY DISTRESS AT THIS TIME. PRN TX NOT INDICATED AT THIS MOMENT. WILL CONTINUE TO MONITOR PT.
--- NOTE | 2019-11-04 19:15 | NUR ---
RECEIVED BEDSIDE REPORT FROM DAY SHIFT NURSE. PATIENT IS AWAKE, ALERT, AND COOPERATIVE. RESPIRATION EVEN UNLABORED ON 15L NON-REBREATHER MASK SATING AT 93-94%. SKIN IS WARM AND DRY. RIGHT UPPER ARM IV PATENT AND INTACT. ALL SAFETY MEASURES IN PLACE. BED IS AT LOW POSITION. CALL LIGHT WITHIN REACH. WILL CONTINUE TO MONITOR.
[2019-11-04 20:00] VITALS: BP 98/74
--- NOTE | 2019-11-04 20:17 | NUR ---
ENDORSED PATIENT TO ÁLVARO FOR CONTINUITY OF CARE. PATIENT IN STABLE CONDITION
--- NOTE | 2019-11-04 20:18 | NUR ---
RECEIVED BEDSIDE REPORT FROM [facility] SHIFT NURSE. PATIENT IS AWAKE, ALERT, AND COOPERATIVE. PT IS URUGUAYAN SPEAKING ONLY. AAOX4. RESPIRATION EVEN UNLABORED ON 10L NON-REBREATHER MASK SATING AT 93-94%. SKIN IS WARM AND DRY. RIGHT UPPER ARM IV PATENT AND INTACT IVF PER ORDERS. ON DROPLET PRECAUTION FOR + COVID. ALL SAFETY MEASURES IN PLACE. BED IS AT LOW POSITION. CALL LIGHT WITHIN REACH. WILL CONTINUE TO MONITOR.
[2019-11-04] MEDS: LORATADINE 10 MG TAB PO SCH (21:19)
[2019-11-04] MEDS: INSULIN LANTUS 100 UNITS/ML 10 ML VIAL SUBQ SCH (21:41)
--- NOTE | 2019-11-04 21:41 | NUR ---
VSS. ISABELL MEDICATION GIVEN TO PT PER ORDERS. MED EDUCATION GIVEN. ASSISTED PT WITH BEDPAN. CALL LIGHT IS WITHIN REACH. WILL CONTINUE TO MONITOR.
[2019-11-05] VITALS: BP 104/74
--- NOTE | 2019-11-05 | NUR ---
VITAL SIGNS ARE WITHIN NORMAL LIMITS. ALL SAFETY MEASURES ARE IN PLACE. CALL LIGHT IS WITHIN REACH.
--- NOTE | 2019-11-05 02:00 | NUR ---
MADE ROUNDS. PT OFF NRB MASK SAT 70% RR 18. EDUCATED ON NEED AND REASON FOR NRB PT VERBALIZED UNDERSTANDING. PT BACK ON NRB AT 10L SAT WELL 96% RR 20. SAFETY MEASURES ARE IN PLACE. CALL LIGHT IS WITHIN REACH. WILL CONTINUE TO MONITOR.
[2019-11-05] MEDS: ENOXAPARIN 80 MG/0.8 ML SYR SUBQ SCH ×2 (03:46→14:08)
[2019-11-05 04:00] VITALS: BP 114/80
[2019-11-05] MEDS: ACETAMINOPHEN 325 MG TAB PO PRN (04:02)
--- NOTE | 2019-11-05 04:02 | NUR ---
VITAL SIGNS ARE WITHIN NORMAL LIMITS. ADMINISTERED PRN TYLENOL FOR CHEST PAIN /. CALL LIGHT IS WITHIN REACH. WILL CONTINUE TO MONITOR.
[2019-11-05] MEDS: BLOOD GLUCOSE MONITORING 1 DEV DEV FS SCH ×4 (06:32→20:46)
--- NOTE | 2019-11-05 06:32 | NUR ---
BG 147 NO COVERAGE NEEDED. CALL LIGHT IS WITHIN REACH. WILL CONTINUE TO MONITOR.
--- NOTE | 2019-11-05 07:10 | NUR ---
RECEIVED REPORT FROM BUSINESS INTELLIGENCE REPORTING ANALYST NURSE. PATIENT IS CURRENTLY ASLEEP IN BED WITH NO SIGNS OF DISTRESS. RESPIRATIONS ARE EVEN AND UNLABORED ON 15L NONREBREATHER WITH NO DIFFICULTIES BREATHING. SKIN IS INTACT WITH IV PATENT ASYMPTOMATIC AND INFUSING PER ORDERS. PATIENT IS ASKING TO BE PLACED ON IVF, SAFETY MEASURES IN PLACE AND WILL CONTINUE TO MONITOR PLAN OF CARE.
--- NOTE | 2019-11-05 07:21 | NUR ---
GAVE BEDSIDE REPORT TO DAY RN. PT ENDORSED IN STABLE CONDITION.
[2019-11-05 08:00] VITALS: BP 107/75
[2019-11-05 08:05] LABS: BASOPHILS % (AUTO) 0.1 % (0.0-2.0); EOSINOPHILS % (AUTO) 0.6 % (0.0-4.0); HEMATOCRIT 46.3 % (36-52); HEMOGLOBIN 15.5 g/dL (12.0-18.0); LYMPHOCYTES # (AUTO) 0.5 K/uL (2.0-11.5); LYMPHOCYTES % (AUTO) 7.5 % (20.5-51.1); MEAN CORPUSCULAR HEMOGLOBIN 29 pg (27-31); MEAN CORPUSCULAR HGB CONC 33 g/dL (33-37); MEAN CORPUSCULAR VOLUME 87.9 fL (80-94); MONOCYTES # (AUTO) 0.1 K/uL (0.8-1.0); NEUTROPHILS # (AUTO) 6.4 K/uL (1.8-7.7); NEUTROPHILS % (AUTO) 89.8 % (42.2-75.2); PLATELET COUNT (AUTO) 115 K/uL (140-450); RED BLOOD CELL COUNT(AUTO) 5.27 MIL/uL (4.20-6.10); RED CELL DISTRIBUTION WIDTH 14.3 % (11.6-13.7); WHITE BLOOD COUNT (AUTO) 7.1 K/uL (4.8-10.8)
[2019-11-05] MEDS: DOCUSATE 100 MG/10 ML UDC NG SCH ×2 (08:22→20:45)
[2019-11-05] MEDS: ATORVASTATIN 20 MG TAB PO SCH (08:22)
[2019-11-05] MEDS: PANTOPRAZOLE 40 MG INJ VIAL IVP SCH (08:22)
[2019-11-05] MEDS: metFORMIN 500 MG TAB PO SCH ×2 (08:23→16:04)
[2019-11-05] MEDS: ZINC SULF 220 MG CAP PO SCH (08:23)
[2019-11-05] MEDS: VITAMIN D 400 IU TAB PO SCH (08:23)
[2019-11-05] MEDS: GENVOYA PO SCH (08:23)
[2019-11-05] MEDS: guaiFENesin 600 MG TABER PO SCH ×2 (08:23→20:46)
[2019-11-05 08:25] LABS: CREATININE 0.9 mg/dL (0.6-1.3)
[2019-11-05] MEDS: ASCORBIC ACID 500 MG TAB PO SCH (08:29)
--- NOTE | 2019-11-05 08:35 | NUR ---
MEDICATIONS ADMINISTERED PER ORDER AND TOLERATED WELL. PATIENT IS CURRENTLY SITTING UP IN AWAKE WITH NO SIGNS OF DISTRESS AT THIS TIME. PATIENT IS REQUESTING TEA AND A BAG FOR TRASH. SAFETY MEASURES IN PLACE AND WILL CONTINUE TO MONITOR.
[2019-11-05 09:14] LABS: PHOSPHORUS 3.2 mg/dL (2.5-4.9)
--- NOTE | 2019-11-05 10:10 | NUR ---
PHYSICAL THERAPY CAME TO SEE PATIENT. PATIENT IS CURRENTLY AWAKE IN BED WITH NO SIGNS OF DISTRESS AT THIS TIME. WILL FOLLOW UP WITH PHYSICAL THERAPY ON HOW WELL PATIENT TOLERATED.
[2019-11-05] MEDS: MORPHINE SULFATE 2 MG/ML SYR IVP PRN (10:50)
--- NOTE | 2019-11-05 10:52 | NUR ---
ADMINISTERED PAIN MEDICATION FOR CHEST PAIN 10/21. PATIENT ALSO REQUESTED HOT DECAF TEA. SAFETY MEASURES IN PLACE AND WILL CONTINUE TO MONITOR.
[2019-11-05 12:00] VITALS: BP 126/86
--- NOTE | 2019-11-05 12:40 | NUR ---
BLOOD GLUCOSE IS CURRENTLY 121 THEREFORE NO INSULIN COVERAGE IS NEEDED ATV THIS TIME. PATIENT IS CURRENTLY SITTING UP IN BED WITH NO SIGNS OF DISTRESS SAFETY MEASURES IN PLACE AND WILL CONTINUE TO MONITOR.
--- NOTE | 2019-11-05 14:10 | NUR ---
ADMINISTERED MEDICATIONS PER ORDER AND TOLERATED WELL. PATIENT IS CURRENTLY SITTING UP IN BED WITH NO SIGNS OF DISTRESS AT THIS TIME. SAFETY MEASURES IN PLACE AND WILL CONTINUE TO MONITOR.
[2019-11-05 16:00] VITALS: BP 124/79
[2019-11-05] MEDS: INSULIN LISPRO SLIDING SCALE 100 UNITS/ML VIAL SUBQ PRN (16:09)
--- NOTE | 2019-11-05 16:15 | NUR ---
ADMINISTERED MEDICATIONS PER ORDER AND TOLERATED WELL. BLOOD GLUCOSE IS 156 THEREFORE 2 UNITS OF INSULIN HAVE BEEN ADMINISTERED. PATIENT ASKED FOR NEW NON REBREATHER MASK. SAFETY MEASURES IN PLACE AND WILL CONTINUE TO MONITOR.
--- NOTE | 2019-11-05 18:43 | NUR ---
PATIENT IS CURRENTLY ASLEEP IN BED WITH NO SIGNS OF DISTRESS AT THIS TIME. DINNER IS AT BEDSIDE. SAFETY MEASURES IN PLACE AND WILL ENDORSE TO RETAIL ACCOUNT MANAGER NURSE FOR CONTINUITY OF CARE. Addendum: 11/05/19 at 1846 by Le Henry RN WRONG PATIENT.
--- NOTE | 2019-11-05 18:47 | NUR ---
PATIENT IS CURRENTLY SITTING UP IN BED WITH DINNER AT BEDSIDE. PATIENT IS CURRENTLY TALKING ON THE PHONE WITH NO SIGNS OF DISTRESS. SAFETY MEASURES IN PLACE AND WILL CONTINUE TO MONITOR PLAN OF CARE, WILL ENDORSE TO INSPECTOR SCALES NURSE FOR CONTINUITY OF CARE.
--- NOTE | 2019-11-05 19:30 | NUR ---
RECEIVED BEDSIDE REPORT FROM DAY SHIFT NURSE. PATIENT IS AWAKE, ALERT, AND COOPERATIVE. PT IS BULGARIAN SPEAKING ONLY. AAOX4. RESPIRATION EVEN UNLABORED ON 15L NON-REBREATHER MASK SATING AT 93-94%. SKIN IS WARM AND DRY. RIGHT UPPER ARM IV PATENT AND INTACT IVF PER ORDERS. ON DROPLET PRECAUTION FOR + COVID. ALL SAFETY MEASURES IN PLACE. BED IS AT LOW POSITION. POC DISCUSSED WITH PT. CALL LIGHT WITHIN REACH. WILL CONTINUE TO MONITOR.
[2019-11-05 20:00] VITALS: BP 109/81
--- NOTE | 2019-11-05 20:45 | NUR ---
VSS. ISABELL MEDICATIONS GIVEN PER ORDERS. BG 140 NO HUMALOG NEEDED. LANTUS GIVEN PER ORDERS. MED EDUCATION GIVEN PT VERBALIZED UNDERSTANDING. ASSISTED PT WITH BEDPAN. CLEANED AND REPOSITION FOR COMFORT. CALL LIGHT IS WITHIN REACH. WILL CONTINUE TO MONITOR.
[2019-11-05] MEDS: LORATADINE 10 MG TAB PO SCH (20:46)
[2019-11-05] MEDS: INSULIN LANTUS 100 UNITS/ML 10 ML VIAL SUBQ SCH (20:47)
[2019-11-05] MEDS: LORazepam 2 MG/ML VIAL IM/IVP PRN (21:29)
--- NOTE | 2019-11-05 21:29 | NUR ---
VSS. ADMINISTERED PRN ATIVAN FOR ANXIETY. PT ON NRB MASK 15L SAT WELL 94% RR 22. ALL NEEDS MET. SAFETY MEASURES ARE IN PLACE. CALL LIGHT IS WITHIN REACH. WILL CONTINUE TO MONITOR.
[2019-11-05] MEDS: guaiFENesin DM 200/20 MG-10 ML 10 ML UDC PO PRN (22:04)
--- NOTE | 2019-11-05 22:45 | NUR ---
PT IS RESTING COMFORTABLY IN BED WITH EYES CLOSED. CHEST RISE AND FALL NOTED. SAT WELL 96% ON NRB MASK 15L. CALL LIGHT IS WITHIN REACH.
[2019-11-06] VITALS: BP 106/75
--- NOTE | 2019-11-06 | NUR ---
VITAL SIGNS ARE WITHIN NORMAL LIMITS. ALL NEEDS MET. CALL LIGHT IS WITHIN REACH. WILL CONTINUE TO MONITOR.
--- NOTE | 2019-11-06 02:02 | NUR ---
MADE ROUNDS. PT IS SLEEPING COMFORTABLY IN BED WITH EYES CLOSED. CHEST RISE AND FALL NOTED. SAFETY MEASURES ARE IN PLACE. WILL CONTINUE TO ROUND FREQUENTLY.
[2019-11-06] MEDS: ENOXAPARIN 80 MG/0.8 ML SYR SUBQ SCH ×2 (03:50→15:29)
--- NOTE | 2019-11-06 03:50 | NUR ---
ADMINISTERED ISABELL LOVENOX PER ORDERS. VSS. PT DENIES ANY PAIN. ALL SAFETY MEASURES ARE IN PLACE. CALL LIGHT IS WITHIN REACH. WILL CONTINUE TO MONITOR.
[2019-11-06 04:00] VITALS: BP 106/73
[2019-11-06] MEDS: BLOOD GLUCOSE MONITORING 1 DEV DEV FS SCH ×4 (06:29→20:37)
--- NOTE | 2019-11-06 06:55 | NUR ---
DR BAIG IN TO SEE PATIENT INFORMED ABOUT PT PINK TINGED SPUTUM. NEW ORDER TO SENT SPUTUM CX TO LAB.
--- NOTE | 2019-11-06 07:05 | NUR ---
GAVE BEDSIDE REPORT TO DAY RN. PT ENDORSED IN STABLE CONDITION.
[2019-11-06] MEDS: metFORMIN 500 MG TAB PO SCH ×2 (08:00→17:33)
[2019-11-06 09:03] LABS: ANION GAP 12.3 (8-16); CARBON DIOXIDE 26.6 mmol/L (21-32); CREATININE 0.7 mg/dL (0.6-1.3); POTASSIUM 3.9 mmol/L (3.5-5.1)
[2019-11-06 09:30] LABS: BASOPHILS % (AUTO) 0.4 % (0.0-2.0); EOSINOPHILS % (AUTO) 0.6 % (0.0-4.0); HEMATOCRIT 42.9 % (36-52); HEMOGLOBIN 14.5 g/dL (12.0-18.0); LYMPHOCYTES # (AUTO) 0.3 K/uL (2.0-11.5); LYMPHOCYTES % (AUTO) 4.6 % (20.5-51.1); MEAN CORPUSCULAR HEMOGLOBIN 29 pg (27-31); MEAN CORPUSCULAR HGB CONC 34 g/dL (33-37); MEAN CORPUSCULAR VOLUME 86.7 fL (80-94); MONOCYTES # (AUTO) 0.2 K/uL (0.8-1.0); MONOCYTES % (AUTO) 2.6 % (1.7-9.3); NEUTROPHILS # (AUTO) 6.2 K/uL (1.8-7.7); NEUTROPHILS % (AUTO) 91.8 % (42.2-75.2); PLATELET COUNT (AUTO) 106 K/uL (140-450); RED BLOOD CELL COUNT(AUTO) 4.95 MIL/uL (4.20-6.10); RED CELL DISTRIBUTION WIDTH 14.2 % (11.6-13.7); WHITE BLOOD COUNT (AUTO) 6.8 K/uL (4.8-10.8)
[2019-11-06] MEDS: guaiFENesin 600 MG TABER PO SCH ×2 (09:47→20:37)
[2019-11-06] MEDS: PANTOPRAZOLE 40 MG INJ VIAL IVP SCH (09:47)
[2019-11-06] MEDS: DOCUSATE 100 MG/10 ML UDC NG SCH ×2 (09:47→20:37)
[2019-11-06] MEDS: VITAMIN D 400 IU TAB PO SCH (09:47)
[2019-11-06] MEDS: ATORVASTATIN 20 MG TAB PO SCH (09:47)
[2019-11-06] MEDS: GENVOYA PO SCH (09:48)
[2019-11-06] MEDS: ZINC SULF 220 MG CAP PO SCH (09:48)
[2019-11-06] MEDS: ASCORBIC ACID 500 MG TAB PO SCH (09:48)
--- NOTE | 2019-11-06 09:49 | NUR ---
RECEIVED SITTING IN BED, PATIENT ALERT, ABLE TO MAKE NEEDS KNOWN, ON NON REBREATHER MASK, O2 SAT 96, IV AT 15ML HR VIA PICLLINE ON RIGHT ARM,
[2019-11-06 10:03] VITALS: BP 121/83
--- NOTE | 2019-11-06 11:21 | NUR ---
patient sitting, alert, awake, no c/o pain, made aware dallin richardson called him.
[2019-11-06 11:54] VITALS: BP 125/84
--- NOTE | 2019-11-06 11:57 | NUR ---
PATIENT EYES CLOSE RESTING, O2 SAT 90 ON NON REBREATHER MASK, WILL CHECK PT FREQUENTLY, PATIENT ABLE TO USE INCENTIVE SPIROMETER FOR FEW SECONDS, ASSISTED PT ALSO WITH ORAL HYGIENE.
[2019-11-06] MEDS: INSULIN LISPRO SLIDING SCALE 100 UNITS/ML VIAL SUBQ PRN ×3 (12:56→20:28)
--- NOTE | 2019-11-06 12:58 | NUR ---
PATIENT EATING AT THIS TIME, O2 SAT 87, WITH NON REBREATHER MASK
--- NOTE | 2019-11-06 14:44 | NUR ---
PATIENT RESTING IN BED, O2 SAT 93% WITH 15L NON REBREATHER. PATIENT NOT IN ACUTE DISTRESS, TACHYCARDIA, HR 122. CALL LIGHT IN REACH, WILL CONTINUE TO MONITOR.
[2019-11-06] MEDS: ALBUTEROL HFA MDI 90 MCG/ACTUATION 8 GM INH PRN (15:18)
[2019-11-06] MEDS: ACETAMINOPHEN 325 MG TAB PO PRN (15:29)
--- NOTE | 2019-11-06 15:40 | NUR ---
PAIN MED TYLENOL WAS GIVEN FOR MILD HEADACHE. PATIENT VERBALIZED" I WANT TO RELAX'". EDUCATION GIVEN. PATIENT TOLERATED WELL. WILL CONTINUE TO MONITOR.
[2019-11-06 16:00] VITALS: BP 110/67
--- NOTE | 2019-11-06 17:49 | NUR ---
PATIENT HAS LOOSE STOOL , PATIENT WITH COLACE , WILL ENDORSED TO INCOMING NURSE TO HOLD AND TO OBSERVE PT, PATIENT ALERT, AWAKE , ORIENTED, NO DISTRESS NOTED, O2 SAT 94, HE SAID HE FEEL BETTER.
[2019-11-06] MEDS: ALBUTEROL HFA MDI 90 MCG/ACTUATION 8 GM INH SCH (18:00)
--- NOTE | 2019-11-06 19:27 | NUR ---
ENDORSED PATIENT TO PHYSICIAN PRACTICE CONSULTANT NURSE FOR CONTINUITY OF CARE
--- NOTE | 2019-11-06 19:30 | NUR ---
RECEIVED REPORT FORM RN DAYSHIFT NURSE AT BEDSIDE FOR CONTINUITY OF CARE, PT IN STABLE CONDITION.
[2019-11-06 20:00] VITALS: BP 99/69
--- NOTE | 2019-11-06 20:25 | NUR ---
PT SEEN AND ASSESSED. PT ON NRB MASK @ 15L WITH SPO2 OF 90%. PT IN NO APPARENT RESPIRATORY DISTRESS AT THIS TIME. MDI TX GIVEN AND PT TOLERATED WELL WITH NO ADVERSE REACTION. WILL CONTINUE TO MONITOR PT.
[2019-11-06] MEDS: INSULIN LANTUS 100 UNITS/ML 10 ML VIAL SUBQ SCH (20:28)
[2019-11-06] MEDS: LORATADINE 10 MG TAB PO SCH (20:37)
[2019-11-06] MEDS ORDERED: LOPERAMIDE 2 MG CAP PO PRN (21:00)
--- NOTE | 2019-11-06 21:00 | NUR ---
PT SITTING UP IN BED WITH BED MCMILLAN UNDERNEATH HIM, PT HAD A VERY LOOSE SOUPY BM NOTED. PT CLEANED TURNED AND REPOSITIONED IN BED. V/S FOLLOWS: T 97.6 P 114 R 20 B/P 110/56 02 93% WITH 15 LITERS NON REBREATHER. UPPER PICC LINE INTACT AND ASYMPTOMATIC RUNNING NORMAL SALINE FOLLOWS: T 97.5 P 112 R 18 B/P 101/66 02 IS 93% WITH 15 LITERS NON REBREATHER. PT GIVEN ORDERED AND SCHEDULED MEDS. EDUCATION REGARDING MEDICATION PROVIDED AT BEDSIDE, PT ACKNOWLEDGED UNDERSTANDING. ALL REQUESTS ATTENDED.
--- NOTE | 2019-11-06 22:15 | NUR ---
PT HAD ANOTHER LOOSE STOOL AND IS REQUESTING FOR MEDICATION FOR LOOSE BOWELS. PT WAS GIVEN IMMODIUM ORDERED TO SLOW DOWN/STOP HAVING SEVERAL BOWEL MOVEMENTS. WILL MONITOR FOR EFFECT.
[2019-11-06] MEDS: LORazepam 2 MG/ML VIAL IM/IVP PRN (22:17)
[2019-11-07] VITALS: BP 110/56
--- NOTE | 2019-11-07 | NUR ---
PT WAS RESTING IN BED. PT WAS GIVEN ATIVAN AND IMMODIUM TO STAY CALM AND NOT HAVE MANY BOWEL MOVEMENTS. EDUCATION REGARDING MEDICATION EDUCATION PROVIDED AT BEDSIDE.
--- NOTE | 2019-11-07 02:00 | NUR ---
PT NOTED TAKING MASK OFF AND DEFATTING, MASK PLACED MORE SECURELY ON PT FACE. 02 STATS WENT UP. PT HAD INCONTINENT EPISODE X1. PT TURNED, CHANGED AND REPOSITIONED IN BED.
[2019-11-07] MEDS: ENOXAPARIN 80 MG/0.8 ML SYR SUBQ SCH ×2 (03:00→14:18)
--- NOTE | 2019-11-07 04:00 | NUR ---
PT IS IN BED AWAKE WITH NO C/O OF PAIN OR DISTRESS. HE WAS TURNED, CHANGED AND REPOSITIONED IN BED.ALL DROPLET AND FALLS PRECAUTIONS IN PLACE.
--- NOTE | 2019-11-07 06:00 | NUR ---
PT FINGERSTICK IS 85 NO HUMALOG COVERAGE NEEDED. BLOOD DRAW FROM PICC LINE . ALL REQUESTED NEEDS ATTENDED BY STAFF.
[2019-11-07] MEDS: BLOOD GLUCOSE MONITORING 1 DEV DEV FS SCH ×4 (06:51→21:37)
[2019-11-07 07:03] VITALS: BP 108/74
--- NOTE | 2019-11-07 07:38 | NUR ---
RECEIVED BEDSIDE REPORT FROM WATCH ELECTRICIAN NURSE. PATIENT IS AWAKE, ALERT, AND COOPERATIVE. RESPIRATION EVEN UNLABORED ON 15L NON-REBREATHER MASK SATING AT 95%. SKIN IS WARM AND DRY. RIGHT UPPER ARM IV PATENT AND INTACT. ALL SAFETY MEASURES IN PLACE. BED IS AT LOW POSITION. CALL LIGHT WITHIN REACH. WILL CONTINUE TO MONITOR. [facility] [place]
[2019-11-07] MEDS: PANTOPRAZOLE 40 MG INJ VIAL IVP SCH (08:14)
[2019-11-07] MEDS: metFORMIN 500 MG TAB PO SCH ×2 (08:14→16:40)
[2019-11-07] MEDS: VITAMIN D 400 IU TAB PO SCH (08:15)
[2019-11-07] MEDS: ATORVASTATIN 20 MG TAB PO SCH (08:16)
[2019-11-07] MEDS: ASCORBIC ACID 500 MG TAB PO SCH (08:16)
[2019-11-07] MEDS: guaiFENesin 600 MG TABER PO SCH ×2 (08:16→21:37)
[2019-11-07] MEDS: ZINC SULF 220 MG CAP PO SCH (08:17)
[2019-11-07] MEDS: DOCUSATE 100 MG/10 ML UDC NG SCH ×2 (08:20→21:00)
[2019-11-07] MEDS: GENVOYA PO SCH (08:21)
[2019-11-07 08:45] LABS: BASOPHILS # (AUTO) 0.1 K/uL (0.00-0.22); BASOPHILS % (AUTO) 1.2 % (0.0-2.0); EOSINOPHILS % (AUTO) 0.6 % (0.0-4.0); HEMATOCRIT 41.2 % (36-52); HEMOGLOBIN 13.9 g/dL (12.0-18.0); LYMPHOCYTES # (AUTO) 0.2 K/uL (2.0-11.5); MEAN CORPUSCULAR HEMOGLOBIN 29 pg (27-31); MEAN CORPUSCULAR HGB CONC 34 g/dL (33-37); MEAN CORPUSCULAR VOLUME 86.4 fL (80-94); MONOCYTES # (AUTO) 0.2 K/uL (0.8-1.0); NEUTROPHILS # (AUTO) 5.7 K/uL (1.8-7.7); NEUTROPHILS % (AUTO) 91.2 % (42.2-75.2); PLATELET COUNT (AUTO) 108 K/uL (140-450); RED BLOOD CELL COUNT(AUTO) 4.77 MIL/uL (4.20-6.10); RED CELL DISTRIBUTION WIDTH 14.2 % (11.6-13.7); WHITE BLOOD COUNT (AUTO) 6.2 K/uL (4.8-10.8)
[2019-11-07 09:09] LABS: ALBUMIN 2.1 g/dL (3.4-5.0); ANION GAP 12.8 (8-16); CARBON DIOXIDE 24.4 mmol/L (21-32); CREATININE 0.6 mg/dL (0.6-1.3); MAGNESIUM 1.7 mg/dL (1.8-2.4); PHOSPHORUS 2.6 mg/dL (2.5-4.9); POTASSIUM 3.2 mmol/L (3.5-5.1); TOTAL BILIRUBIN 0.6 mg/dL (0.0-1.0)
--- NOTE | 2019-11-07 09:12 | NUR ---
ADMINISTERED MORNING MEDS. COLACE NOT GIVEN, PT EXPERIENCING DIARRHEA. PT TOLERATED WELL. NO ACUTE DISTRESS NOTED. [facility] [place]
[2019-11-07] MEDS: MAG SULF 2000 MG/WATER PREMIX 50 ML IV PRN (09:34)
--- NOTE | 2019-11-07 09:34 | NUR ---
GIVEN 40 MEQ K-DUR FOR K LEVEL OF 3.2. HUNG MAG-RIDER FOR MAGNESIUM LEVEL OF 1.6. GIVEN MEDICATION EDUCATION. PATIENT VERBALIZED UNDERSTANDING. ON 15L O2 NRB MASK. O2SAT 91%, HR 111. BED IN LOW POSITION. CALL LIGHT IS WITHIN REACH. WILL CONTINUE TO MONITOR.
--- NOTE | 2019-11-07 10:20 | NUR ---
ASSISTED EPILEPSY PHYSICIAN TO CLEAN AND REPOSITION PATIENT. VOMITED BRIGHT RED BLOOD. WILL NOTIFY DR. FERRO. 90% ON 15L NRB MASK. Addendum: 11/07/19 at 1030 by Princess Mariam Agosto RN DR. BAIG MADE AWARE. RECEIVED ORDER TO HOLD LOVENOX AND DR. THORNTON CONSULT. WILL CARRY OUT ORDERS
--- NOTE | 2019-11-07 11:31 | NUR ---
BLOOD SUGAR CHECKED: 121. NO INSULIN COVERAGE NEEDED. VSS. DENIES PAIN. DENIES SOB. ON 15L NRB MASK, O2SAT 94%, HR 113.
--- NOTE | 2019-11-07 11:52 | NUR ---
PT GIVEN HOT TEA PER PT REQUEST. PT STABLE, NO ACUTE DISTRESS NOTED. [facility] [place]
[2019-11-07 12:00] VITALS: BP 111/79
[2019-11-07] MEDS: ALBUTEROL HFA MDI 90 MCG/ACTUATION 8 GM INH SCH ×2 (12:00→18:00)
--- NOTE | 2019-11-07 12:03 | NUR ---
DR. AYERS MADE ROUNDS. DISCUSSED PATIENT BLOOD RED VOMITUS EARLY THIS SHIFT. PLAN: HOLD LOVENOX AND CONTINUE TO MONITOR PATIENT.
--- NOTE | 2019-11-07 12:32 | NUR ---
PER DR. AYERS, START THE POTASSIUM CHLORIDE LIQUID TOMORROW SINCE K-DUR 40 MEQ TABLETS WERE GIVEN THIS SHIFT.
--- NOTE | 2019-11-07 13:09 | NUR ---
XRAY AT BEDSIDE. PATIENT IS NO APPARENT DISTRESS. ON 15L NRB MASK, O2SAT 91%. MAG-RIDER INFUSION COMPLETED, TKO TO NS 10 ML/HR
[2019-11-07] MEDS ORDERED: POTASSIUM CHLORIDE 20% 40 MEQ/15 ML UDC PO SCH (14:00)
--- NOTE | 2019-11-07 14:13 | NUR ---
PT EXPERIENCED EPISODE OF URINARY INCONTINENCE. PERICARE PROVIDED. NO ACUTE DISTRESS NOTED. SKIN INTACT. [facility] – [place]
--- NOTE | 2019-11-07 14:18 | NUR ---
HELD LOVEDAINX SUBQ. PLATELET 93 AND PATIENT HAD AN EPISODE OF HEMATEMESIS. DR. BAIG AND DR. AYERS ORDERED TO HOLD THIS MED. Addendum: 11/07/19 at 1421 by Princess Mariam Agosto RN CORRECTION: PLATELET 108
--- NOTE | 2019-11-07 15:01 | NUR ---
PT IN BED AWAKE. NO C/O PAIN. NO ACUTE DISTRESS NOTED. [facility] – [place]
[2019-11-07] MEDS: ALBUTEROL HFA MDI 90 MCG/ACTUATION 8 GM INH PRN (15:14)
[2019-11-07] MEDS ORDERED: HYDROcodone/APAP 5/325 MG 1 TAB TAB PO PRN (15:20)
[2019-11-07] MEDS ORDERED: MORPHINE SULFATE 2 MG/ML SYR IVP PRN (15:20)
--- NOTE | 2019-11-07 15:58 | NUR ---
RECEIVED ONE TIME DOSE ORDER FOR MUCINEX. WILL CARRY OUT ORDER
[2019-11-07] MEDS ORDERED: guaiFENesin 600 MG TABER PO SCH (16:10)
--- NOTE | 2019-11-07 16:17 | NUR ---
INFORMED FNS THAT PATIENT WANTS HOT TEA ON HIS TRAY FROM NOW ON.
--- NOTE | 2019-11-07 16:30 | NUR ---
CHANGED OF ORDER FOR COUGH. PER [place] PHARMACIST, MUCINEX IS EVERY 12 HOURS AND PATIENT RECEIVED A DOSE TODAY SHIFT, CAN'T GIVE ANOTHER DOSE NOW. INFORMED DR. BAIG AND SHE ORDERED ASHVIN TSERLING. WILL CARRY OUT ORDER.
[2019-11-07] MEDS: BENZONATATE 100 MG CAPLF PO PRN (16:40)
[2019-11-07] MEDS: METOCLOPRAMIDE 10 MG TAB PO SCH (16:40)
[2019-11-07 16:53] VITALS: BP 107/70
--- NOTE | 2019-11-07 16:56 | NUR ---
GIVEN SCHEDULED MEDICATIONS. PT COUGHING UP SCANT AMOUNT OF BLOOD TINGED SPUTUM. VS STABLE. SAO2: 95%. WILL CONTINUE TO MONITOR. [facility] – [place]
--- NOTE | 2019-11-07 17:24 | NUR ---
BLOOD GLUCOSE 158. WILL ADMINISTER INSULIN COVERAGE. [facility] [place]
[2019-11-07] MEDS: INSULIN LISPRO SLIDING SCALE 100 UNITS/ML VIAL SUBQ PRN ×2 (17:31→21:41)
--- NOTE | 2019-11-07 17:46 | NUR ---
GIVEN 2 UNITS HUMALOG FOR GLU 158. DINNER TRAY AT BEDSIDE.
--- NOTE | 2019-11-07 19:19 | NUR ---
RECEIVED PT AAOX4 , NID - O2 SAT WNL , W/ 15LPM/ NRM . ON TELE MONITOR , C/O BODY ACHES - WILL MEDICATE , REQUESTING SLEEPING PILL - WILL REFER TO DOCTOR . IV SITE INTACT AND PATENT . SAFETY MEASURES IN PLACE . CALL LIGHT/ URINALS WITHIN REACH . PLAN OF CARE DISCUSSED AND VERBALIZED UNDERSTANDING . PER AM NURSE HOLD HEPARIN DUE TO PT HAD VOMITED OF BLOOD , BP WNL , GHAD EPISODE OF DIARRHEA - FOR STOOL EXAM - FOR C DIFF . WILL CONT. TO MONITOR.
--- NOTE | 2019-11-07 19:19 | NUR ---
ENDORSED PATIENT TO THE ENGINEERING TEACHER NURSE FOR CONTINUITY OF CARE. 15L O2 VIA NRB MASK, O2SAT 93%, HR 111. PATIENT IS IN STABLE CONDITION.
[2019-11-07 20:00] VITALS: BP 130/85
--- NOTE | 2019-11-07 21:35 | NUR ---
PER RADIOLOGIST - PT FOR US ABD. AVTAR - NPO POST MN - WILL INFORM PT.
[2019-11-07] MEDS: LORATADINE 10 MG TAB PO SCH (21:37)
[2019-11-07] MEDS: INSULIN LANTUS 100 UNITS/ML 10 ML VIAL SUBQ SCH (21:37)
[2019-11-08] VITALS: BP 110/60
--- NOTE | 2019-11-08 | NUR ---
MADE ROUNDS , NO S/SX OF ACUTE DISTRESS NOTED AT THIS TIME . 02 SAT 93%.
--- NOTE | 2019-11-08 02:00 | NUR ---
SLEEPING - O2 SAT WNL . WILL CONT. TO MONITOR.
[2019-11-08] MEDS: ENOXAPARIN 80 MG/0.8 ML SYR SUBQ SCH ×2 (03:00→15:00)
[2019-11-08 04:00] VITALS: BP 100/70
--- NOTE | 2019-11-08 04:00 | NUR ---
MADE ROUNDS , NO S/SX DISTRESS NOTED AT THIS TIME - O2 SAT WNL .
[2019-11-08] MEDS: METOCLOPRAMIDE 10 MG TAB PO SCH ×3 (06:00→17:23)
[2019-11-08] MEDS: ALBUTEROL HFA MDI 90 MCG/ACTUATION 8 GM INH SCH ×4 (06:00→20:30)
[2019-11-08] MEDS: BLOOD GLUCOSE MONITORING 1 DEV DEV FS SCH ×4 (06:00→21:56)
--- NOTE | 2019-11-08 06:00 | NUR ---
NO COMPLAIN MADE , O2 SAT WNL .
[2019-11-08 07:25] LABS: BASOPHILS % (AUTO) 0.5 % (0.0-2.0); EOSINOPHILS % (AUTO) 0.7 % (0.0-4.0); HEMATOCRIT 44.2 % (36-52); LYMPHOCYTES # (AUTO) 0.2 K/uL (2.0-11.5); LYMPHOCYTES % (AUTO) 3.4 % (20.5-51.1); MEAN CORPUSCULAR HEMOGLOBIN 29 pg (27-31); MEAN CORPUSCULAR HGB CONC 34 g/dL (33-37); MEAN CORPUSCULAR VOLUME 86.6 fL (80-94); MONOCYTES # (AUTO) 0.2 K/uL (0.8-1.0); MONOCYTES % (AUTO) 4.6 % (1.7-9.3); NEUTROPHILS # (AUTO) 4.6 K/uL (1.8-7.7); NEUTROPHILS % (AUTO) 90.8 % (42.2-75.2); PLATELET COUNT (AUTO) 121 K/uL (140-450); RED CELL DISTRIBUTION WIDTH 14.6 % (11.6-13.7); WHITE BLOOD COUNT (AUTO) 5.1 K/uL (4.8-10.8)
--- NOTE | 2019-11-08 07:26 | NUR ---
ENDORSED TO AM SHIFT - PT - STABLE . STILL FOR STOOL C DIFF .
--- NOTE | 2019-11-08 07:27 | NUR ---
RECEIVED REPORT FROM BRONZE PLATER NURSE FOR CONTINUITY OF CARE. PATIENT IN STABLE CONDITION. RESPIRATIONS EVEN AND UNLABORED, O2 15L VIA NONREBREATHER. IV ACCESS INTACT AND PATENT. SAFETY MEASURES IN PLACE. BED IN LOW POSITION. BED ALARM ON. WILL CONTINUE TO MONITOR.
[2019-11-08 08:00] VITALS: BP 123/64
[2019-11-08 09:09] LABS: ANION GAP 11.2 (8-16); CARBON DIOXIDE 27.2 mmol/L (21-32); CREATININE 0.8 mg/dL (0.6-1.3); POTASSIUM 4.4 mmol/L (3.5-5.1)
[2019-11-08 09:10] LABS: TOTAL BILIRUBIN 0.8 mg/dL (0.0-1.0)
[2019-11-08 09:11] LABS: ALBUMIN 2.3 g/dL (3.4-5.0); PHOSPHORUS 2.6 mg/dL (2.5-4.9)
[2019-11-08] MEDS: ATORVASTATIN 20 MG TAB PO SCH (09:13)
[2019-11-08] MEDS: VITAMIN D 400 IU TAB PO SCH (09:13)
[2019-11-08] MEDS: guaiFENesin 600 MG TABER PO SCH ×2 (09:13→21:35)
[2019-11-08] MEDS: ZINC SULF 220 MG CAP PO SCH (09:13)
[2019-11-08] MEDS: DOCUSATE 100 MG/10 ML UDC NG SCH ×2 (09:13→21:56)
--- NOTE | 2019-11-08 09:13 | NUR ---
GAVE ORDERED DUE MEDICATIONS AT THIS TIME. PATIENT TOLERATED WELL. BED IN LOW POSITION. CALL LIGHT WITHIN REACH. BED ALARM ON. WILL CONTINUE TO MONITOR.
[2019-11-08] MEDS: PANTOPRAZOLE 40 MG INJ VIAL IVP SCH (09:14)
[2019-11-08] MEDS: ASCORBIC ACID 500 MG TAB PO SCH (09:14)
[2019-11-08] MEDS: POTASSIUM CHLORIDE 20% 40 MEQ/15 ML UDC PO SCH (09:15)
[2019-11-08] MEDS: GENVOYA PO SCH (09:15)
[2019-11-08] MEDS: metFORMIN 500 MG TAB PO SCH ×2 (09:19→17:23)
--- NOTE | 2019-11-08 11:09 | NUR ---
PATIENT CALLED NURSE TO INFORM OF BLOODY NOSE. CALLED RT TO GET HUMIDIFIER PLACED WITH PATIENT O2. BLOODY NOSE RESOLVED.
[2019-11-08 12:00] VITALS: BP 109/69
--- NOTE | 2019-11-08 13:02 | NUR ---
PATIENT FINISHING UP LUNCH AT THIS TIME. BED IN LOW POSITION. CALL LIGHT WITHIN REACH. BED ALARM ON. WILL CONTINUE TO MONITOR.
--- NOTE | 2019-11-08 15:00 | NUR ---
LOVENOX HELD DUE TO NOSE BLEED AND VOMITING BLOOD PRIOR SHIFT.
[2019-11-08 16:00] VITALS: BP 114/72
--- NOTE | 2019-11-08 17:00 | NUR ---
LAB CALLED ORDER PLACED FOR HIV CONFIRMATION IS A SPECIAL TUBE AND WILL BE AVAILABLE WITH AM LABS.
--- NOTE | 2019-11-08 17:35 | NUR ---
PATIENT SISTER (MERLIN) CALLED TO HAVE PATIENT MOVED CLOSER TO RESTROOM. INFORMED SISTER PATIENT VERBALIZED UNABLE TO STAND AT THIS TIME. PHYSICAL THERAPY HAD WORKED WITH PATIENT TODAY AND SHOWED STRENGTHENING EXERCISES TO DO WHILE IN BED.
--- NOTE | 2019-11-08 19:15 | NUR ---
GAVE REPORT TO LABOR CUSTODIAN NURSE FOR CONTINUITY OF CARE. PATIENT IN STABLE CONDITION.
--- NOTE | 2019-11-08 19:15 | NUR ---
RECEIVED PT AAOX4 , NID - O2 SAT WNL , ON TELE MONITOR - ST , PICC LINE INTACT AND PATENT , DENIES ANY PAIN , C/O CONSTIPATION AND INSOMIA - WILL MEDICATE . SAFETY MEASURES IN PLACE - CALL LIGHT WITHIN REACH . PLAN OF CARE DISCUSSED AND VERBALIZE UNDERSTANDING . WILL CONT. TO MONITOR.
[2019-11-08 20:00] VITALS: BP 115/65
--- NOTE | 2019-11-08 20:56 | NUR ---
2030 mdi given via aerochamber. 2 puffs albuterol. patient on 100% fio2 via nonrebreather mask at 15 l . sat 90 to 93%
[2019-11-08] MEDS: ZOLPIDEM 5 MG TAB PO PRN (21:35)
[2019-11-08] MEDS: LORATADINE 10 MG TAB PO SCH (21:35)
[2019-11-08] MEDS: INSULIN LANTUS 100 UNITS/ML 10 ML VIAL SUBQ SCH (21:56)
[2019-11-08] MEDS: INSULIN LISPRO SLIDING SCALE 100 UNITS/ML VIAL SUBQ PRN (21:57)
--- NOTE | 2019-11-08 22:00 | NUR ---
PT'S SISTER CALL - HIS SISTER ASKING WHY THE PT WANTS HER BROTHER TO WALK AND MOVE . SHE SAID SHE WANTS TO KNOW FROM THE PT WHAT ARE THIER PLAN OF CARE FOR HER BROTHER . SHE LEFT THE TEL . NUMBER , SHE WANTS TO TALK THE PT WHEN THE PT DO ROUND AVTAR .- WILL ENDORSE TO AM SHIFT .
[2019-11-09] VITALS: BP 118/60
--- NOTE | 2019-11-09 | NUR ---
MADE ROUNDS , NO S/SX OF ACUTE DISTRESS NOTED - O2 SAT WNL .
--- NOTE | 2019-11-09 02:00 | NUR ---
SLEEPING - O2 SAT WNL .
[2019-11-09] MEDS: ENOXAPARIN 80 MG/0.8 ML SYR SUBQ SCH ×2 (03:00→15:18)
[2019-11-09 04:00] VITALS: BP 115/60
--- NOTE | 2019-11-09 04:00 | NUR ---
MADE ROUNDS , NO S/SX OF ACUTE DISTRESS NOTED . O2 SAT WNL .
--- NOTE | 2019-11-09 06:00 | NUR ---
MADE ROUNDS , O2 SAT WNL . RESTING ON BED COMFORTABLY .
[2019-11-09] MEDS: METOCLOPRAMIDE 10 MG TAB PO SCH ×3 (06:17→16:17)
[2019-11-09] MEDS: BLOOD GLUCOSE MONITORING 1 DEV DEV FS SCH ×4 (06:17→21:28)
[2019-11-09] MEDS: INSULIN LISPRO SLIDING SCALE 100 UNITS/ML VIAL SUBQ PRN (06:17)
--- NOTE | 2019-11-09 07:05 | NUR ---
HIT THE CALL LIGHT - VISIT THE PT . - C/O HEADACHE - O2 SAT WNL , AFEBRILE - WILL ENDORSE TO AM SHIFT .
[2019-11-09] MEDS: ALBUTEROL HFA MDI 90 MCG/ACTUATION 8 GM INH SCH ×3 (07:19→13:11)
--- NOTE | 2019-11-09 07:19 | NUR ---
NO MDI TX GIVEN DUE TO COVID-19 PROTOCOL TX ARE PRN
--- NOTE | 2019-11-09 07:22 | NUR ---
ENDORSE TO AM SHIFT - I TOLD HER PT ASKING FOR TYLENOL FOR ESCOTO . REPEAT SWAB FOR NDIAYE SENT TO LAB .
--- NOTE | 2019-11-09 07:28 | NUR ---
RECEIVED REPORT FROM NIGHTSHIFT NURSE. PT RESTING IN BED. ABLE TO MAKE NEEDS KNOWN. RESPIRATIONS EVEN AND UNLABORED WITH NO SOB OR RESPIRATORY DISTRESS. SKIN WARM AND DRY TO TOUCH. PICC LINE CLEAN, DRY, AND INTACT. SAFETY MEASURES IN PLACE. WILL CONTINUE TO MONITOR
[2019-11-09 07:53] LABS: ALBUMIN 2.3 g/dL (3.4-5.0); ANION GAP 11.4 (8-16); CREATININE 0.8 mg/dL (0.6-1.3); MAGNESIUM 1.9 mg/dL (1.8-2.4); PHOSPHORUS 3.3 mg/dL (2.5-4.9); POTASSIUM 4.4 mmol/L (3.5-5.1); TOTAL BILIRUBIN 0.9 mg/dL (0.0-1.0)
[2019-11-09 08:00] VITALS: BP 109/78
[2019-11-09] MEDS: metFORMIN 500 MG TAB PO SCH ×2 (08:00→16:16)
[2019-11-09] MEDS: PANTOPRAZOLE 40 MG INJ VIAL IVP SCH (09:05)
[2019-11-09] MEDS: GENVOYA PO SCH (09:06)
[2019-11-09] MEDS: ATORVASTATIN 20 MG TAB PO SCH (09:07)
[2019-11-09] MEDS: ZINC SULF 220 MG CAP PO SCH (09:07)
[2019-11-09] MEDS: POTASSIUM CHLORIDE 20% 40 MEQ/15 ML UDC PO SCH (09:07)
[2019-11-09] MEDS: DOCUSATE 100 MG/10 ML UDC NG SCH ×2 (09:08→21:09)
[2019-11-09] MEDS: VITAMIN D 400 IU TAB PO SCH (09:08)
[2019-11-09] MEDS: guaiFENesin 600 MG TABER PO SCH ×2 (09:08→21:10)
[2019-11-09] MEDS: ACETAMINOPHEN 325 MG TAB PO PRN ×2 (09:09→18:35)
[2019-11-09] MEDS: ASCORBIC ACID 500 MG TAB PO SCH (09:09)
--- NOTE | 2019-11-09 09:30 | NUR ---
ADMINISTERED SCHED MED PRESCRIBED PER MD ORDER. PT TOLERATED WELL. MEDICATION EDUCATION PERFORMED. PT VERBALIZED UNDERSTANDING. SAFETY MEASURES IN PLACE. WILL CONTINUE TO MONITOR
--- NOTE | 2019-11-09 11:30 | NUR ---
PT BLOOD SUGAR IS 149. NO INSULIN NEEDED AT THIS TIME. SAFETY MEASURES IN PLACE. WILL CONTINUE TO MONITOR
[2019-11-09 12:00] VITALS: BP 120/78
--- NOTE | 2019-11-09 12:30 | NUR ---
WHILE IN PATIENT'S ROOM, PT CALLED DAUGHTER EBONY LOPEZ [phone] WHILE BEDSIDE NURSE WAS IN ROOM FOR AN UPDATE. WHEN SPEAKING WITH OTHER PATIENT'S FAMILY MERLIN CARLA [phone], SHE SAID NOT TO GIVE ANY PATIENT INFORMATION UNLESS THE PATIENT CALLS THE DAUGHTER EBONY. SAFETY MEASURES IN PLACE. WILL CONTINUE TO MONITOR
--- NOTE | 2019-11-09 14:24 | NUR ---
PATIENT CALLED AND WANTED SOME WATER. GAVE PATIENT WATER PITCHER. SAFETY MEASURES IN PLACE. WILL CONTINUE TO MONITOR
[2019-11-09] MEDS: LORazepam 2 MG/ML VIAL IVP PRN (15:17)
--- NOTE | 2019-11-09 15:17 | NUR ---
PT COMPLAINED OF HAVING ANXIETY DUE TO BEING COVID POSITIVE. PRN ATIVAN ADMINISTERED PRESCRIBED PER MD ORDER. PT TOLERATED WELL. MEDICATION EDUCATION PERFORMED. PT VERBALIZED UNDERSTANDING. SAFETY MEASURES IN PLACE. WILL CONTINUE TO MONITOR
--- NOTE | 2019-11-09 15:54 | NUR ---
11/09/19 RD FOLLOW UP COMPLETED PLEASE REFER TO NUTRITION ASSESSMENT UNDER CARE ACTIVITY FOR ESTIMATED NUTRITIONAL NEEDS. 1. RECOMMEND MECHANICAL SOFT CCHO 60GM DIET 2. RECOMMENDED GLUCERNA TID 3. RD TO FOLLOW-UP IN 3-5 DAYS, MODERATE RISK LUCI MINAYA, RD
[2019-11-09 16:00] VITALS: BP 113/69
--- NOTE | 2019-11-09 16:04 | NUR ---
PRACTICE WEANING PATIENT FROM OXYGEN. WEANED FROM 15L TO 10L, PATIENT HAD DESATURATION FROM 85-88%. INCREASED BACK TO 15L. SAFETY MEASURES IN PLACE. WILL CONTINUE TO MONITOR
--- NOTE | 2019-11-09 16:30 | NUR ---
PT BLOOD SUGAR IS 149. NO INSULIN NEEDED AT THIS TIME. SAFETY MEASURES IN PLACE. WILL CONTINUE TO MONITOR
--- NOTE | 2019-11-09 17:15 | NUR ---
HOURLY ROUNDING. PT RESTING IN BED. ABLE TO MAKE NEEDS KNOWN. RESPIRATIONS EVEN AND UNLABORED WITH NO SOB OR RESPIRATORY DISTRESS. SAFETY MEASURES IN PLACE. WILL CONTINUE TO MONITOR
--- NOTE | 2019-11-09 18:28 | NUR ---
PT COMPLAINED OF COUGHING AND HEADACHE. PT HEART RATE BETWEEN 124-126. PRN METOPROLOL GIVEN PRESCRIBED PER MD ORDER. PT TOLERATED WELL. SAFETY MEASURES IN PLACE. WILL CONTINUE TO MONITOR
[2019-11-09] MEDS: BENZONATATE 100 MG CAPLF PO PRN (18:35)
--- NOTE | 2019-11-09 19:24 | NUR ---
ENDORSED TO NIGHTSHIFT FOR CONTINUITY OF CARE. PT IS STABLE
--- NOTE | 2019-11-09 19:26 | NUR ---
RECEIVED PT IN STABLE CONDITION FROM AM NURSE. TELE MONITOR. AWAKE,ALERT AND ORIENTED X3. ON O2 15L NRM. HAS RIGHT UPPER ARM PICC LINE IV AT TKO. FREQ CHECK NEEDED. BED ON LOW POSITION. SIDE RAILS UP X2. CALL LIGHT PLACED WITHIN EASY REACH. INSTRUCTED PT TO CALL FOR,ASSISTANCE. ON DROPLET PRECAUTION DUE TO COVID +. SECOND TEST STILL PENDING. WILL CONTINUE TO MONITOR.
[2019-11-09 20:00] VITALS: BP 103/64
--- NOTE | 2019-11-09 20:49 | NUR ---
RECEIVED REPORT FROM AM SHIFT. PT SEEN AND ASSESSED. PT ON NRB MASK @ 15L WITH SPO2 OF 94%. RALES BREATH SOUNDS ON AUSCULTATION. PT IN NO APPARENT RESPIRATORY DISTRESS AT THIS TIME. PRN TX NOT INDICATED AT THIS MOMENT. WILL CONTINUE TO MONITOR PT.
[2019-11-09] MEDS: LORATADINE 10 MG TAB PO SCH (21:09)
[2019-11-09] MEDS: ZOLPIDEM 5 MG TAB PO PRN (21:14)
--- NOTE | 2019-11-09 21:28 | NUR ---
BLOOD SUGAR WAS CHECKED RESULT 140. NO INSULIN COVERAGE NEEDED. ONLY LANTUS SQ SCHEDULED GIVEN. PROVIDED WITH SOME APPLE JUICE. WILL CONTINUE TO MONITOR.
[2019-11-09] MEDS: INSULIN LANTUS 100 UNITS/ML 10 ML VIAL SUBQ SCH (21:46)
--- NOTE | 2019-11-09 23:00 | NUR ---
CHECKED ON PT. ASLEEP. O2 SAT 93%. NO SOB NOTE D. WILL CONTINUE TO MONITOR.
[2019-11-10] VITALS: BP 109/71
--- NOTE | 2019-11-10 01:30 | NUR ---
MADE ROUNDS. PT ASLEEP WITHOUT O2. SAT LOW 765 ONLY. PUT BACK THE O2NRM . INSTRUCTED PT TO KEEP IT ON, O2 SAT BACK TO 92%. WILL CONTINUE TO MONITOR.
[2019-11-10] MEDS: ENOXAPARIN 80 MG/0.8 ML SYR SUBQ SCH ×2 (02:36→15:00)
[2019-11-10] MEDS: ACETAMINOPHEN 325 MG TAB PO PRN (03:15)
[2019-11-10 03:30] VITALS: BP 109/80
--- NOTE | 2019-11-10 03:30 | NUR ---
MADE ROUNDS. AWAKE. O2 SAT 94%. NO DISTRESS NOTED.
[2019-11-10] MEDS: BLOOD GLUCOSE MONITORING 1 DEV DEV FS SCH ×4 (06:14→21:00)
--- NOTE | 2019-11-10 06:14 | NUR ---
BLOOD SUGAR THIS AM WAS CHECKED RESULT 141. PT ASKED FOR SOME MILK.
[2019-11-10] MEDS: METOCLOPRAMIDE 10 MG TAB PO SCH ×3 (06:45→17:20)
--- NOTE | 2019-11-10 07:20 | NUR ---
RECEIVED REPORT FROM TRANSITIONAL LIVING SPECIALIST NURSE. PT IN BED. AOX3, NO C/O PAIN, NO SOB, RESPIRATIONS ARE EVEN AND UNLABORED. ON O2 15L VIA NONREBREATHER. SKIN IS INTACT. WITH ИРИНА PICC LINE RUNNING NS AT TKO. SAFETY PRECAUTIONS IN PLACE. ISOLATION PRECAUTION OBSERVED. CALL LIGHT WITHIN REACH. WILL CONTINUE TO MONITOR
--- NOTE | 2019-11-10 07:28 | NUR ---
ENDORSED PT IN STABLE CONDITION TO AM NURSE.
[2019-11-10 08:00] VITALS: BP 112/83
[2019-11-10] MEDS: metFORMIN 500 MG TAB PO SCH ×2 (08:00→17:20)
--- NOTE | 2019-11-10 08:45 | NUR ---
DUE MORNING MEDS GIVEN. TOLERATED PO MEDS WELL
[2019-11-10 08:46] LABS: ALBUMIN 2.3 g/dL (3.4-5.0); CARBON DIOXIDE 26.3 mmol/L (21-32); CREATININE 0.8 mg/dL (0.6-1.3); MAGNESIUM 1.9 mg/dL (1.8-2.4); PHOSPHORUS 4.1 mg/dL (2.5-4.9); POTASSIUM 4.3 mmol/L (3.5-5.1); TOTAL BILIRUBIN 0.9 mg/dL (0.0-1.0)
[2019-11-10] MEDS: ZINC SULF 220 MG CAP PO SCH (09:28)
[2019-11-10] MEDS: guaiFENesin 600 MG TABER PO SCH ×2 (09:28→22:16)
[2019-11-10] MEDS: PANTOPRAZOLE 40 MG INJ VIAL IVP SCH (09:28)
[2019-11-10] MEDS: GENVOYA PO SCH (09:28)
[2019-11-10] MEDS: ASCORBIC ACID 500 MG TAB PO SCH (09:28)
[2019-11-10] MEDS: DOCUSATE 100 MG/10 ML UDC NG SCH ×2 (09:28→22:15)
[2019-11-10] MEDS: VITAMIN D 400 IU TAB PO SCH (09:28)
[2019-11-10] MEDS: POTASSIUM CHLORIDE 20% 40 MEQ/15 ML UDC PO SCH (09:28)
[2019-11-10] MEDS: ATORVASTATIN 20 MG TAB PO SCH (09:28)
--- NOTE | 2019-11-10 11:45 | NUR ---
PT IN BED, AWAKE AND ORIENTED, NO C/O PAIN, NO SOB, ON 15L NRM, O2SAT 91%. BLOOD SUGAR 151. COVERAGE GIVEN.
[2019-11-10 12:00] VITALS: BP 108/76
--- NOTE | 2019-11-10 13:32 | NUR ---
AWAKE IN BED. NO C/O PAIN, NO S/S OF DISTRESS. WITH BM, PERICARE DONE BY SENIOR C WEB DEVELOPER
[2019-11-10 16:00] VITALS: BP 127/75
--- NOTE | 2019-11-10 17:00 | NUR ---
BLOOD SUGAR 146. NO COVERAGE. NO APPARENT DISTRESS AND COMPLAINTS AT THIS TIME
[2019-11-10] MEDS: LORazepam 2 MG/ML VIAL IVP PRN (19:00)
--- NOTE | 2019-11-10 19:00 | NUR ---
WITH EPISODE OF ANXIETY AND CRYING. PT SAID HE IS NOT GETTING ENOUGH O2 BUT O2SAT IS AT 93% ON 15L NRM. ATIVAN GIVEN ORDERED
--- NOTE | 2019-11-10 19:15 | NUR ---
NO C/O OF PAIN OR CRYING. IN STABLE CONDITION. WILL ENDORSE TO NEXT SHIFT
--- NOTE | 2019-11-10 19:16 | NUR ---
RECD. SITTING ON BED, AWAKE, A/OX4. RESPIRATION EVEN AND UNLABORED. ON NON REBREATHER MASK 15 LITERS, SATURATING AT 93%. WITH RIGHT UPPER ARM PICC LINE, PATENT AND INTACT. SAFETY MEASURES ENFORCED. BED IN THE LOWEST POSITION, CALL LIGHT IN REACH. PLAN OF CARE FOR THE SHIFT DISCUSSED. VERBALIZED UNDERSTANDING. DENIES PAIN 0/10.
[2019-11-10 20:00] VITALS: BP 105/70
--- NOTE | 2019-11-10 20:45 | NUR ---
RECEIVED REPORT FROM AM SHIFT. PT SEEN AND ASSESSED. PT ON NRB MASK @ 15L WITH SPO2 OF 93%. RALES BREATH SOUNDS ON AUSCULTATION. PT IN NO APPARENT RESPIRATORY DISTRESS AT THIS TIME. PRN TX NOT INDICATED AT THIS MOMENT. INFORMED PT TO CALL FOR PRN TX IF EXPERIENCING SOB. WILL CONTINUE TO MONITOR PT.
--- NOTE | 2019-11-10 22:00 | NUR ---
COMPLAINT OF PAIN IN THE THROAT WHEN SWALLOWING, CRUSHED MEDICATIONS AND GIVEN WITH APPLE SAUCE, TOLERATED WELL.
[2019-11-10] MEDS: LORATADINE 10 MG TAB PO SCH (22:17)
[2019-11-10] MEDS: INSULIN LANTUS 100 UNITS/ML 10 ML VIAL SUBQ SCH (22:34)
[2019-11-11] VITALS: BP 110/80
--- NOTE | 2019-11-11 | NUR ---
ASSISTED WITH BED MCMILLAN TO HAVE BM.
--- NOTE | 2019-11-11 00:30 | NUR ---
HAD VOIDED DARK CLOUDY URINE 100 ML. NO BM.
[2019-11-11] MEDS: ENOXAPARIN 80 MG/0.8 ML SYR SUBQ SCH ×2 (02:22→15:00)
[2019-11-11] MEDS: ZOLPIDEM 5 MG TAB PO PRN ×2 (02:29→21:17)
--- NOTE | 2019-11-11 02:29 | NUR ---
UNABLE TO SLEEP, MEDICATE WITH AMBIEN 5 MG. PO.
--- NOTE | 2019-11-11 03:30 | NUR ---
SLEEPING COMFORTABLY IN BED.
[2019-11-11 04:00] VITALS: BP 112/70
--- NOTE | 2019-11-11 06:30 | NUR ---
BLOOD SUGAR CHECKED -130, NO COVERAGE.
--- NOTE | 2019-11-11 07:00 | NUR ---
NOTED SOME RED BLOOD COMING OUT OF LEFT NARES, CLEANSED AND MADE COMFORTABLE IN BED, COMPLAINING OF PAIN IN THE THROAT AND UNABLE TO SPEAK NORMALLY. WILL INFORM DR. BAILEY. WILL ENDORSED TO AM SHIFT NURSE FOR FOLLOW UP AND CONTINUITY OF CARE.
[2019-11-11] MEDS: BLOOD GLUCOSE MONITORING 1 DEV DEV FS SCH ×4 (07:12→21:01)
[2019-11-11 07:38] LABS: ALBUMIN 2.3 g/dL (3.4-5.0); ANION GAP 11.9 (8-16); CARBON DIOXIDE 28.4 mmol/L (21-32); CREATININE 0.7 mg/dL (0.6-1.3); MAGNESIUM 1.8 mg/dL (1.8-2.4); PHOSPHORUS 3.8 mg/dL (2.5-4.9); POTASSIUM 4.3 mmol/L (3.5-5.1); TOTAL BILIRUBIN 0.8 mg/dL (0.0-1.0)
--- NOTE | 2019-11-11 07:40 | NUR ---
RECEIVED P[T FROM STAFF MINE WARFARE OFFICER NURSERUBA, PT IS AWAKE AND SEATED ON THE BED , ON NON-REBREATHER MASK AT 15% SATURATING AT 91%, RT UPPER ARM PICC LINE DOUBLE LUMEN INTACT, IVF ON TKO, NO SIGN OF DISTRESS NOTED AND WILL MONITOR PT.
[2019-11-11 08:00] VITALS: BP 115/73
[2019-11-11] MEDS: METOCLOPRAMIDE 10 MG TAB PO SCH ×3 (08:36→16:53)
[2019-11-11] MEDS: PANTOPRAZOLE 40 MG INJ VIAL IVP SCH (08:36)
[2019-11-11] MEDS: guaiFENesin 600 MG TABER PO SCH ×2 (08:36→20:51)
[2019-11-11] MEDS: metFORMIN 500 MG TAB PO SCH ×2 (08:36→16:53)
--- NOTE | 2019-11-11 08:36 | NUR ---
PT WAS GIVEN THE SCHEDULED AM MEDICATIONS NOW, TOLERATED, CRUSHED, ASPIRATION PRECAUTION INITIATED, NOMSIGN OF DISTRESS NOTED AND WILL MONITOR PT. WILL MONITOR PT.
[2019-11-11] MEDS: VITAMIN D 400 IU TAB PO SCH (08:37)
[2019-11-11] MEDS: ZINC SULF 220 MG CAP PO SCH (08:37)
[2019-11-11] MEDS: ATORVASTATIN 20 MG TAB PO SCH (08:37)
[2019-11-11] MEDS: ASCORBIC ACID 500 MG TAB PO SCH (08:37)
[2019-11-11] MEDS: DOCUSATE 100 MG/10 ML UDC NG SCH ×2 (08:37→20:52)
[2019-11-11] MEDS: POTASSIUM CHLORIDE 20% 40 MEQ/15 ML UDC PO SCH (08:38)
[2019-11-11] MEDS: GENVOYA PO SCH (09:00)
--- NOTE | 2019-11-11 11:15 | NUR ---
talked to dr. albert made aware family wants to talk to md, per dr Albert, he will call back later,
--- NOTE | 2019-11-11 11:45 | NUR ---
PT WAS GIVEN REGLAN SHCEDULED, BLOOD GLUCOSE IS 144, NO INSULIN COVERAGE NEEDED. WILL MONITOR PT
[2019-11-11 12:00] VITALS: BP 116/78
--- NOTE | 2019-11-11 15:21 | NUR ---
LOVENOX WAS HELD DUE TO MD INSTRUCTION.
[2019-11-11 16:00] VITALS: BP 112/78
[2019-11-11] MEDS: BENZOCAINE/MENTHOL 1 LOZ MM PRN (16:53)
--- NOTE | 2019-11-11 16:53 | NUR ---
PT WAS GIVEN SCHEDULED MEDICATIONS, PT WAS GIVEN LOZENGES FOR THE SORE THROAT.
--- NOTE | 2019-11-11 19:30 | NUR ---
ENDORSED PT TO CIRCULATING NURSE NURSEJESUS ALBERTO FOR CONTINUITY OF CARE.
--- NOTE | 2019-11-11 19:30 | NUR ---
RECEIVED BEDSIDE REPORT FROM DAY SHIFT NURSE. PATIENT IS AWAKE RESPIRATION EVEN UNLABORED ON 15L NON-REBREATHER MASK. NO DISTRESS NOTED. SKIN IS WARM AND DRY. IV PATENT AND INTACT. PLAN OF CARE WAS DISCUSSED. ALL SAFETY MEASURES IN PLACE. BED IS AT LOW POSITION. CALL LIGHT WITHIN REACH. WILL CONTINUE TO MONITOR.
[2019-11-11 20:00] VITALS: BP 111/80
--- NOTE | 2019-11-11 20:15 | NUR ---
INITIAL ASSESSMENT DONE. RIGHT UPPER ARM PICC LINE NOTED. PATIENT SATING 93% ON NON-REBREATHER MASK 15L O2. WILL CONTINUE TO MONITOR.
[2019-11-11] MEDS: LORATADINE 10 MG TAB PO SCH (20:51)
[2019-11-11] MEDS: INSULIN LANTUS 100 UNITS/ML 10 ML VIAL SUBQ SCH (21:00)
--- NOTE | 2019-11-11 21:00 | NUR ---
ALL SCHEDULED MEDS WERE GIVEN PER ORDER. PATIENT IS ASKING FOR SLEEPING AID. WILL ADMINISTER
[2019-11-11] MEDS: INSULIN LISPRO SLIDING SCALE 100 UNITS/ML VIAL SUBQ PRN (21:01)
--- NOTE | 2019-11-11 21:20 | NUR ---
PRN SLEEPING MEDS ADMINISTER PER ORDER. WILL CONTINUE TO MONITOR.
--- NOTE | 2019-11-11 22:00 | NUR ---
CHECKED PATIENT. PATIENT SLEEPING RESPIRATION EVEN UNLABORED ON 15L NON-REBREATHER MASK. WILL CONTINUE TO MONITOR.
[2019-11-12] VITALS: BP 102/70
--- NOTE | 2019-11-12 00:07 | NUR ---
VITALS WERE TAKEN. PATIENT IN STABLE CONDITION. NO DISTRESS NOTED. WILL CONTINUE TO MONITOR.
[2019-11-12] MEDS: BENZOCAINE/MENTHOL 1 LOZ MM PRN ×2 (02:51→12:45)
[2019-11-12] MEDS: ENOXAPARIN 80 MG/0.8 ML SYR SUBQ SCH ×2 (02:52→16:00)
--- NOTE | 2019-11-12 02:52 | NUR ---
PATIENT COMPALINED OF DRY COUGH AND THROAT. PRN CEPACOL GIVEN PER ORDER. HELD LOVENOX PER MD ORDER DUE TO PATIENT HAD NOSEBLEED THIS MORNING. NO BLEEDING NOTED. AT THIS TIME
[2019-11-12 04:00] VITALS: BP 110/68
--- NOTE | 2019-11-12 04:10 | NUR ---
VITALS WERE TAKEN. PATIENT IN STABLE CONDITION. SATING 93% ON 15L NON-REBREATHER MASK. WILL CONTINUE TO MONITOR.
[2019-11-12] MEDS: BLOOD GLUCOSE MONITORING 1 DEV DEV FS SCH ×4 (06:44→20:34)
[2019-11-12] MEDS: METOCLOPRAMIDE 10 MG TAB PO SCH ×3 (06:56→15:53)
[2019-11-12 06:57] LABS: BASOPHILS % (AUTO) 0.2 % (0.0-2.0); EOSINOPHILS # (AUTO) 0.1 K/uL (0-0.4); EOSINOPHILS % (AUTO) 1.4 % (0.0-4.0); HEMOGLOBIN 13.6 g/dL (12.0-18.0); LYMPHOCYTES # (AUTO) 0.3 K/uL (2.0-11.5); LYMPHOCYTES % (AUTO) 6.5 % (20.5-51.1); MEAN CORPUSCULAR HEMOGLOBIN 29 pg (27-31); MEAN CORPUSCULAR HGB CONC 33 g/dL (33-37); MEAN CORPUSCULAR VOLUME 87.1 fL (80-94); MONOCYTES # (AUTO) 0.2 K/uL (0.8-1.0); MONOCYTES % (AUTO) 3.9 % (1.7-9.3); NEUTROPHILS # (AUTO) 4.1 K/uL (1.8-7.7); PLATELET COUNT (AUTO) 125 K/uL (140-450); RED BLOOD CELL COUNT(AUTO) 4.71 MIL/uL (4.20-6.10); RED CELL DISTRIBUTION WIDTH 14.5 % (11.6-13.7); WHITE BLOOD COUNT (AUTO) 4.6 K/uL (4.8-10.8)
--- NOTE | 2019-11-12 07:10 | NUR ---
ENDORSED PATIENT TO DAY SHIFT NURSE FOR CONTINUITY OF CARE. PATIENT IN STABLE CONDITION.
[2019-11-12 07:13] LABS: ANION GAP 12.4 (8-16); CARBON DIOXIDE 27.6 mmol/L (21-32); CREATININE 0.8 mg/dL (0.6-1.3)
--- NOTE | 2019-11-12 07:15 | NUR ---
RECEIVED REPORT FROM LETTUCE TRIMMER NURSE. PATIENT IS CURRENTLY ASLEEP WITH NO SIGNS OF DISTRESS AT THIS TIME. RESPIRATIONS ARE EVEN AND UNLABORED ON 15L NON REBREATHER WITH NO DIFFICULTIES BREATHING. SKIN IS INTACT WITH IV PATENT ASYMPTOMATIC AND INFUSING PER ORDERS. BED IS IN LOW SEMI-FOWLERS POSITION SAFETY MEASURES IN PLACE AND WILL CONTINUE TO MONITOR.
[2019-11-12 08:00] VITALS: BP 108/76
[2019-11-12] MEDS: metFORMIN 500 MG TAB PO SCH ×2 (09:06→16:09)
[2019-11-12] MEDS: ZINC SULF 220 MG CAP PO SCH (09:07)
[2019-11-12] MEDS: VITAMIN D 400 IU TAB PO SCH (09:07)
[2019-11-12] MEDS: guaiFENesin 600 MG TABER PO SCH ×2 (09:07→20:25)
[2019-11-12] MEDS: ASCORBIC ACID 500 MG TAB PO SCH (09:07)
[2019-11-12] MEDS: ATORVASTATIN 20 MG TAB PO SCH (09:08)
[2019-11-12] MEDS: PANTOPRAZOLE 40 MG INJ VIAL IVP SCH (09:08)
[2019-11-12] MEDS: POTASSIUM CHLORIDE 20% 40 MEQ/15 ML UDC PO SCH (09:08)
[2019-11-12] MEDS: DOCUSATE 100 MG/10 ML UDC NG SCH ×2 (09:08→21:00)
[2019-11-12] MEDS: GENVOYA PO SCH (09:19)
--- NOTE | 2019-11-12 09:20 | NUR ---
ADMINISTERED MEDICATIONS PER ORDER AND TOLERATED WELL. PATIENT IS CURRENTLY AWAKE IN BED ABOUT TO EAT BREAKFAST AT THIS TIME. PATIENT STATES THAT HE WANTS TO GET BETTER. SAFETY MEASURES IN PLACE AND WILL CONTINUE TO MONITOR.
--- NOTE | 2019-11-12 11:55 | NUR ---
ADMINISTERED MEDICATIONS PER ODER AND TOLERATED WELL. PATIENT IS CURRENTLY LAYING DOWN IN BED WITH NO SIGNS OF DISTRESS. SAFETY MEASURES IN PLACE AND WILL CONTINUE TO MONITOR.
--- NOTE | 2019-11-12 11:57 | NUR ---
BLOOD GLUCOSE IS CURRENTLY 150 THEREFORE NO INSULIN COVERAGE IS NEEDED AT THIS TIME
[2019-11-12 12:00] VITALS: BP 118/74
--- NOTE | 2019-11-12 12:46 | NUR ---
PATIENT STATED THAT HE WOULD LIKE THE COUGH DROPS HE HAS BEEN GETTING. CEPACOL HAS BEEN GIVEN, SAFETY MEASURES IN PLACE AND WILL CONTINUE TO MONITOR PLAN OF CARE.
--- NOTE | 2019-11-12 13:51 | NUR ---
PATIENT USED THE CALL LIGHT TO INFORM THAT HE WENT TO THE RESTROOM AND NEEDS TO BE CHANGED. NO OTHER COMPLAINTS AT THIS TIME, SAFETY MEASURES IN PLACE AND WILL CONTINUE TO MONITOR THE PLAN OF CARE.
--- NOTE | 2019-11-12 14:46 | NUR ---
PATIENT IS CURRENTLY LAYING IN BED WITH NO SIGNS OF DISTRESS AT THIS TIME SAFETY MEASURES IN PLACE AND WILL CONTINUE TO MONITOR.
[2019-11-12 16:00] VITALS: BP 113/80
--- NOTE | 2019-11-12 16:00 | NUR ---
ADMINISTERED MEDICATIONS PER ORDER ADN TOLERATED WELL. BLOOD GLUCOSE IS 142 THEREFORE NO INSULIN COVERAGE IS NEEDED AT THIS TIME. SAFETY MEASURES IN PLACE AND WILL CONTINUE TO MONITOR.
--- NOTE | 2019-11-12 18:20 | NUR ---
PATIENT IS CURRENTLY LAYING DOWN WITH NO SIGNS OF DISTRESS AT THIS TIME. DINNER HAS JUST ARRIVED. SAFETY MEASURES IN PLACE AND WILL CONTINUE TO MONITOR.
--- NOTE | 2019-11-12 19:19 | NUR ---
GAVE REPORT TO PRECISION MACHINE OPERATOR NURSE FOR CONTINUITY OF CARE. PATIENT IS LAYING DOWN IN STABLE CONDITION
--- NOTE | 2019-11-12 19:28 | NUR ---
RECEIVED BEDSIDE REPORT FROM DAY SHIFT NURSE. PATIENT IS AWAKE AND COOPERATIVE. RESPIRATION EVEN UNLABORED ON 15L NON-REBREATHER MASK. SKIN IS WARM AND DRY. IV PATENT AND INTACT. PLAN OF CARE WAS DISCUSSED. ALL SAFETY MEASURES IN PLACE. BED IS AT LOW POSITION. CALL LIGHT WITHIN REACH AND VERBALIZES ITS USE. WILL CONTINUE TO MONITOR.
[2019-11-12 20:00] VITALS: BP 115/77
--- NOTE | 2019-11-12 20:10 | NUR ---
INITIAL ASSESSMENT DONE. RIGHT UPPER ARM PICC LINE NOTED. PATIENT IS SINUS TACHY. DENIES ANY SHORTNESS OF BREATH OR PAIN. WILL CONTINUE TO MONITOR.
[2019-11-12] MEDS: LORATADINE 10 MG TAB PO SCH (20:25)
[2019-11-12] MEDS: INSULIN LANTUS 100 UNITS/ML 10 ML VIAL SUBQ SCH (20:34)
--- NOTE | 2019-11-12 20:35 | NUR ---
ALL SCHEDULED MEDS WERE GIVEN PER ORDER. NO ASE NOTED. WILL CONTINUE TO MONITOR.
[2019-11-12] MEDS: ZOLPIDEM 5 MG TAB PO PRN (21:27)
--- NOTE | 2019-11-12 21:27 | NUR ---
PATIENT COMPLAINED OF CANT FALL ASLEEP. ASKED FOR SLEEPING AID. PROVIDED SLEEPING AID MEDICATIONS PER ORDER. WILL CONTINUE TO MONITOR.
[2019-11-12] MEDS: ALBUTEROL HFA MDI 90 MCG/ACTUATION 8 GM INH PRN (22:00)
--- NOTE | 2019-11-12 23:00 | NUR ---
CHECKED PATIENT. PATIENT NOSE IS BLEEDING. ASSESS PATIENT NARES AND CLEANED. MINIMAL BLEEDING AND FEW CLOTS OF BLOOD NOTED. WILL NOTIFY .
--- NOTE | 2019-11-12 23:37 | NUR ---
NOTIFY MD REGARDING PATIENT NOSEBLEED. MD INSTRUCT TO HOLD LOVENOX TILL TOMORROW. WILL CONTINUE TO MONITOR.
[2019-11-13] VITALS: BP 111/80
--- NOTE | 2019-11-13 00:10 | NUR ---
VITALS WERE TAKEN. NO NOSEBLEED NOTED AT THIS TIME. WILL CONTINUE TO MONITOR.
--- NOTE | 2019-11-13 02:00 | NUR ---
CHECKED PATIENT. PATIENT IS AWAKE NO DISTRESS NOTED. WILL CONTINUE TO MONITOR.
[2019-11-13] MEDS: ENOXAPARIN 80 MG/0.8 ML SYR SUBQ SCH ×2 (02:28→14:29)
[2019-11-13 04:00] VITALS: BP 107/75
--- NOTE | 2019-11-13 04:00 | NUR ---
VITALS WERE TAKEN. PATIENT IN STABLE CONDITION. WILL CONTINUE TO MONITOR.
[2019-11-13] MEDS: BLOOD GLUCOSE MONITORING 1 DEV DEV FS SCH ×4 (06:36→21:15)
[2019-11-13] MEDS: METOCLOPRAMIDE 10 MG TAB PO SCH ×3 (06:37→16:34)
[2019-11-13] MEDS: INSULIN LISPRO SLIDING SCALE 100 UNITS/ML VIAL SUBQ PRN ×2 (06:39→16:35)
--- NOTE | 2019-11-13 07:08 | NUR ---
ENDORSED PATIENT TO DAY SHIFT NURSE FOR CONTINUITY OF CARE. PATIENT IN STABLE CONDITION.
--- NOTE | 2019-11-13 07:10 | NUR ---
RECEIVED PATIENT FROM CLEANER ASSISTANT NURSE. PATIENT IS CURRENTLY LAYING IN BED ASLEEP AT THIS TIME WITH NO SIGNS OF DISTRESS. RESPIRATIONS ARE EVEN AND UNLABORED ON 15L NONREBREATHER WITH NO DIFFICULTIES BREATHING AT THIS TIME. SKIN IS INTACT WITH IV PATENT ASYMPTOMATIC AND INFUSING PER ORDERS. BED IS IN LOW SEMI-FOWLERS POSITION, SAFETY MEASURES IN PLACE AND WILL CONTINUE TO MONITOR.
[2019-11-13 07:25] LABS: ANION GAP 17.5 (8-16); CARBON DIOXIDE 27.1 mmol/L (21-32); CREATININE 0.9 mg/dL (0.6-1.3); POTASSIUM 4.6 mmol/L (3.5-5.1)
[2019-11-13 08:00] VITALS: BP 117/82
[2019-11-13] MEDS: metFORMIN 500 MG TAB PO SCH ×2 (08:51→16:34)
[2019-11-13] MEDS: PANTOPRAZOLE 40 MG INJ VIAL IVP SCH (08:52)
[2019-11-13] MEDS: VITAMIN D 400 IU TAB PO SCH (08:52)
[2019-11-13] MEDS: ATORVASTATIN 20 MG TAB PO SCH (08:53)
[2019-11-13] MEDS: ZINC SULF 220 MG CAP PO SCH (08:53)
[2019-11-13] MEDS: ASCORBIC ACID 500 MG TAB PO SCH (08:53)
[2019-11-13] MEDS: DOCUSATE 100 MG/10 ML UDC NG SCH ×2 (08:54→21:00)
[2019-11-13] MEDS: GENVOYA PO SCH (08:56)
[2019-11-13] MEDS: POTASSIUM CHLORIDE 20% 40 MEQ/15 ML UDC PO SCH (09:00)
--- NOTE | 2019-11-13 09:07 | NUR ---
ADMINISTERED MEDICATIONS PER ORDER AND TOLERATED WELL. PATIENT STATES THAT HE IS NOT ABLE TO SPEAK AT THIS TIME BECAUSE HIS THROAT IS SORE. SAFETY MEASURES IN PLACE AND WILL CONTINUE TO MONITOR.
[2019-11-13] MEDS: guaiFENesin 600 MG TABER PO SCH ×2 (09:40→21:16)
--- NOTE | 2019-11-13 09:43 | NUR ---
COLACE HAS BEEN HELD DUE TO PATIENT HAVING DIARRHEA. POTASSIUM CHLORIDE WAS NOT ADMINISTERED DUE TO MEDICATIONS BEING DISCONTINUED.
[2019-11-13 10:56] LABS: BASOPHILS % (AUTO) 0.3 % (0.0-2.0); EOSINOPHILS # (AUTO) 0.1 K/uL (0-0.4); EOSINOPHILS % (AUTO) 2.1 % (0.0-4.0); HEMATOCRIT 41.8 % (36-52); HEMOGLOBIN 13.8 g/dL (12.0-18.0); LYMPHOCYTES # (AUTO) 0.3 K/uL (2.0-11.5); LYMPHOCYTES % (AUTO) 7.3 % (20.5-51.1); MEAN CORPUSCULAR HEMOGLOBIN 29 pg (27-31); MEAN CORPUSCULAR HGB CONC 33 g/dL (33-37); MEAN CORPUSCULAR VOLUME 87.8 fL (80-94); MONOCYTES # (AUTO) 0.2 K/uL (0.8-1.0); MONOCYTES % (AUTO) 3.8 % (1.7-9.3); NEUTROPHILS # (AUTO) 3.9 K/uL (1.8-7.7); NEUTROPHILS % (AUTO) 86.5 % (42.2-75.2); PLATELET COUNT (AUTO) 125 K/uL (140-450); RED BLOOD CELL COUNT(AUTO) 4.76 MIL/uL (4.20-6.10); WHITE BLOOD COUNT (AUTO) 4.5 K/uL (4.8-10.8)
[2019-11-13] MEDS: BENZOCAINE/MENTHOL 1 LOZ MM PRN (11:31)
--- NOTE | 2019-11-13 11:39 | NUR ---
ADMINISTERED MEDICATIONS PER ORDER AND PATIENT TOLERATED WELL. PATIENT ASKED FOR CEPACOL LOZENGE AND HAS BEEN ADMINISTERED. NO OTHER COMPLAINTS AT THIS TIME. SAFETY MEASURES IN PLACE AND WILL CONTINUE TO MONITOR.
[2019-11-13 12:00] VITALS: BP 106/77
--- NOTE | 2019-11-13 13:45 | NUR ---
PATIENT IS CURRENTLY LAYING IN BED ASLEEP WITH NO SIGNS OF DISTRESS AT THIS TIME. SAFETY MEASURES IN PLACE AND WILL CONTINUE TO MONITOR PLAN OF CARE.
--- NOTE | 2019-11-13 14:30 | NUR ---
DR. BAILEY HELD LOVENOX DUE TO PATIENT NOSE BLEED LAST NIGHT. PATIENT IS CURRENTLY LAYING IN BED AWAKE WITH NO SIGNS OF DISTRESS AT THIS TIME. SAFETY MEASURES IN PLACE AND WILL CONTINUE TO MONITOR.
--- NOTE | 2019-11-13 15:06 | NUR ---
MOVED PATIENT TO ROOM 111A TO ROOM 120A PER ORDERS. PATIENT TOLERATED WELL. SAFETY MEASURES IN PLACE AND WILL CONTINUE TO MONITOR PLAN OF CARE.
[2019-11-13 16:00] VITALS: BP 100/68
--- NOTE | 2019-11-13 16:43 | NUR ---
ADMINISTERED MEDICATIONS PER ORDER AND TOLERATED WELL. BLOOD GLUCOSE IS CURRENTLY 162 THEREFORE 2 UNITS OF INSULIN HAVE BEEN ADMINISTERED. PATIENT IS CURRENTLY LAYING IN BED WITH NO SIGNS OF DISTRESS AT THIS TIME. SAFETY MEASURES IN PLACE AND WILL CONTINUE TO MONITOR PLAN OF CARE.
--- NOTE | 2019-11-13 17:27 | NUR ---
DR. YOUNG CAME TO SEE PATIENT. TOLD PATIENT THAT HE NEEDS TO CONTINUE OXYGEN THERAPY. PT VERBALIZED UNDERSTANDING, SAFETY MEASURES IN PLACE AND WILL CONTINUE TO MONITOR.
--- NOTE | 2019-11-13 19:23 | NUR ---
ENDORSED TO LACE WINDER NURSE FOR CONTINUITY OF CARE. SAFETY MEASURES IN PLACE, PATIENT IS STABLE CONDITION
[2019-11-13 20:00] VITALS: BP 106/74
[2019-11-13] MEDS: INSULIN LANTUS 100 UNITS/ML 10 ML VIAL SUBQ SCH (21:14)
[2019-11-13] MEDS: ZOLPIDEM 5 MG TAB PO PRN (21:16)
[2019-11-13] MEDS: LORATADINE 10 MG TAB PO SCH (21:16)
--- NOTE | 2019-11-13 21:21 | NUR ---
SCHEDULED MEDICATIONS DUE GIVEN. WILL CONTINUE TO MONITOR.
--- NOTE | 2019-11-13 23:05 | NUR ---
RECEIVED PT IN STABLE CONDITION FROM JEY SARAH FOR CONTINUITY OF CARE. PT IS ASLEEP. WITH NO SOB NOTED. O2 SAT 98%ON O215L NRM. ON TELE MONITOR. RT UPPER ARM PICC LINE ,HL. WILL CONTINUE TO MONITOR.
[2019-11-14 00:55] VITALS: BP 111/81
--- NOTE | 2019-11-14 01:00 | NUR ---
CHECKED ON PT . ASLEEP. WITH O2 OUT. PUT IT BACK. O2 SAT AT THIS TIME 02 %. ROCK CRUSHER OPERATOR JUST CLEANED PT.
[2019-11-14] MEDS: ENOXAPARIN 80 MG/0.8 ML SYR SUBQ SCH ×2 (03:00→14:42)
--- NOTE | 2019-11-14 03:00 | NUR ---
PT AWAKE. O2 SAT 94%. NO C/O ANY DISCOMFORT AND RESPIRATORY DISTRESS NOTED.
[2019-11-14 04:10] VITALS: BP 101/72
[2019-11-14 06:11] LABS: BASOPHILS % (AUTO) 0.4 % (0.0-2.0); EOSINOPHILS # (AUTO) 0.1 K/uL (0-0.4); EOSINOPHILS % (AUTO) 1.4 % (0.0-4.0); HEMATOCRIT 40.5 % (36-52); HEMOGLOBIN 13.3 g/dL (12.0-18.0); LYMPHOCYTES # (AUTO) 0.3 K/uL (2.0-11.5); MEAN CORPUSCULAR HEMOGLOBIN 29 pg (27-31); MEAN CORPUSCULAR HGB CONC 33 g/dL (33-37); MEAN CORPUSCULAR VOLUME 87.7 fL (80-94); MONOCYTES # (AUTO) 0.3 K/uL (0.8-1.0); MONOCYTES % (AUTO) 6.5 % (1.7-9.3); PLATELET COUNT (AUTO) 144 K/uL (140-450); RED BLOOD CELL COUNT(AUTO) 4.62 MIL/uL (4.20-6.10); RED CELL DISTRIBUTION WIDTH 14.8 % (11.6-13.7); WHITE BLOOD COUNT (AUTO) 4.6 K/uL (4.8-10.8)
[2019-11-14] MEDS: BLOOD GLUCOSE MONITORING 1 DEV DEV FS SCH ×4 (06:12→20:39)
--- NOTE | 2019-11-14 06:14 | NUR ---
BLOOD SUGAR CHECKED RESULT 118. NO INSULIN COVERAGE NEEDED.
[2019-11-14 06:24] LABS: ANION GAP 12.2 (8-16); CARBON DIOXIDE 29.4 mmol/L (21-32); CREATININE 0.9 mg/dL (0.6-1.3); POTASSIUM 4.6 mmol/L (3.5-5.1)
--- NOTE | 2019-11-14 07:15 | NUR ---
ENDORSED PT IN STABLE CONDITION TO AM NURSE.
--- NOTE | 2019-11-14 07:20 | NUR ---
RECEIVED REPORT FROM DIESEL STATIONARY ENGINEER NURSE. PATIENT IS CURRENTLY AWAKE IN BED WITH NO SIGNS OF DISTRESS AT THIS TIME. RESPIRATIONS ARE EVEN AND UNLABORED ON 15L NON REBREATHER WITH NO DIFFICULTIES BREATHING AND 02 SATURATIONS AT 98%. SKIN IS INTACT WITH IV PATENT ASYMPTOMATIC AND INFUSING PER ORDERS. SAFETY MEASURES IN PLACE AND WILL CONTINUE TO MONITOR
[2019-11-14 08:00] VITALS: BP 111/81
[2019-11-14 08:05] LABS: LYMPHOCYTES % (AUTO) 5.6 % (20.5-51.1); NEUTROPHILS % (AUTO) 86.1 % (42.2-75.2)
[2019-11-14] MEDS: ZINC SULF 220 MG CAP PO SCH (08:19)
[2019-11-14] MEDS: ASCORBIC ACID 500 MG TAB PO SCH (08:19)
[2019-11-14] MEDS: ATORVASTATIN 20 MG TAB PO SCH (08:19)
[2019-11-14] MEDS: guaiFENesin 600 MG TABER PO SCH ×2 (08:19→20:40)
[2019-11-14] MEDS: METOCLOPRAMIDE 10 MG TAB PO SCH ×3 (08:20→17:16)
[2019-11-14] MEDS: PANTOPRAZOLE 40 MG INJ VIAL IVP SCH (08:20)
[2019-11-14] MEDS: VITAMIN D 400 IU TAB PO SCH (08:20)
[2019-11-14] MEDS: DOCUSATE 100 MG/10 ML UDC NG SCH ×2 (08:20→20:39)
[2019-11-14] MEDS: metFORMIN 500 MG TAB PO SCH ×2 (08:20→17:16)
[2019-11-14] MEDS: GENVOYA PO SCH (08:22)
--- NOTE | 2019-11-14 08:37 | NUR ---
ADMINISTERED MEDICATIONS PER ORDER AND TOLERATED WELL. PATIENT IS CURRENTLY AWAKE IN BED AND HAD A BOWEL MOVEMENT. THERE IS BLOOD IN THE STOOL. WILL NOTIFY MD. MARCOS IS AWARE AND WILL CHANGE PATIENT. SAFETY MEASURES IN PLACE AND WILL CONTINUE TO MONITOR.
--- NOTE | 2019-11-14 09:23 | NUR ---
CHANGED PATIENT AND TOLERATED WELL. PATIENT IS CURRENTLY SITTING AT THE EDGE OF THE BED WITH NO SIGNS OF DISTRESS. SAFETY MEASURES IN PLACE AND WILL CONTINUE TO MONITOR.
--- NOTE | 2019-11-14 10:45 | NUR ---
11/14/19 RD FOLLOW UP COMPLETED PLEASE REFER TO NUTRITION PROGRESS NOTE UNDER CARE ACTIVITY FOR ESTIMATED NUTRITION NEEDS. RD RECOMMENDATIONS: 1. CONTINUE MECHANICAL SOFT DIET 2. CONTINUE ON GLUCERNA 1 CARTON TID 3. ENCOURAGE PO MEAL AND ONS INTAKES. 4. RD TO FOLLOW-UP IN 3-5 DAYS, MODERATE RISK SANDEE EATON MS, RDN
--- NOTE | 2019-11-14 11:28 | NUR ---
PATIENT FAMILY CALLED AND NOTIFIED THAT THEY WILL BE STOPPING BY TO SEE PATIENT THROUGH WINDOW AND DROP OFF SOME BELONGINGS. PATIENT IS CURRENTLY LAYING BED WITH NO SIGN OF DISTRESS. SAFETY MEASURES IN PLACE AND WILL CONTINUE TO MONITOR.
--- NOTE | 2019-11-14 11:43 | NUR ---
HELPED PATIENT TO SIT AT THE EDGE OF THE BED RO FACE WINDOW WHERE FAMILY WILL BE VISITING. SAFETY MEASURES IN PLACE AND WILL CONTINUE TO MONITOR.
[2019-11-14 12:00] VITALS: BP 111/59
[2019-11-14] MEDS: INSULIN LISPRO SLIDING SCALE 100 UNITS/ML VIAL SUBQ PRN ×2 (12:30→21:11)
--- NOTE | 2019-11-14 12:39 | NUR ---
BLOOD GLUCOSE IS 170 THEREFORE 2 UNITS OF INSULIN HAVE BEEN ADMINISTERED. OTHER MEDICATIONS ADMINISTERED AND TOLERATED WELL. SAFETY MEASURES IN PLACE AND WILL CONTINUE TO MONITOR.
--- NOTE | 2019-11-14 14:39 | NUR ---
DR. AYERS CAME TO SEE PATIENT AND DECIDED THAT PATIENT IS NOT IN STABLE CONDITION FOR COLONOSCOPY AND EGD. PATIENT IS CURRENTLY LAYING IN BED WITH NO SIGNS OF DISTRESS AT THIS TIME. SAFETY MEASURES IN PLACE AND WILL CONTINUE TO MONITOR
[2019-11-14] MEDS: ACETAMINOPHEN 325 MG TAB PO PRN (14:51)
--- NOTE | 2019-11-14 14:57 | NUR ---
PATIENT STATES THAT HE HAS A HEADACHE AND WOULD LIKE SOME TYLENOL, WHICH HAS BEEN ADMINISTERED. SAFETY MEASURES IN PLACE AND WILL CONTINUE TO MONITOR.
[2019-11-14 16:00] VITALS: BP 108/84
--- NOTE | 2019-11-14 16:11 | NUR ---
PATIENT STATES THAT HIS HEADACHE HAS GONE AWAY AND WOULD LIKE A LOZENGE. SAFETY MEASURES IN PLACE AND WILL CONTINUE TO MONITOR.
--- NOTE | 2019-11-14 17:18 | NUR ---
ADMINISTERED MEDICATIONS PER ORDER AND TOLERATED WELL. BLOOD GLUCOSE IS 118 THEREFORE NO INSULIN COVERAGE IS NEEDED AT THIS TIME. PATIENT IS CURRENTLY LAYING IN BED AND ASKED FOR VANILLA PUDDING WELL JELLO. SAFETY MEASURES IN PLACE AND WILL CONTINUE TO MONITOR.
--- NOTE | 2019-11-14 19:10 | NUR ---
ENDORSED PATIENT TO LUMBER SORTER NURSE. PATIENT IS CURRENTLY AWAKE IN BED WITH NO SIGNS OF DISTRESS. PATIENT IN STABLE CONDITION.
--- NOTE | 2019-11-14 19:11 | NUR ---
RECEIVED PATIENT IN STABLE CONDITION FROM AM SHIFT NURSE FOR CONTINUITY OF CARE. TELE PATIENT. RESPIRATIONS EVEN, SLIGHTLY LABORED UPON EXERTION. CONTINUES ON O2 15L VIA NRB. O2SAT 96%. SKIN WARM, DRY. PICC NOTED TO RIGHT UPPER ARM PATENT/INTACT. NO C/O PAIN. NO S/S ACUTE DISTRESS. CALL LIGHT WITHIN REACH. SAFETY PRECAUTIONS IN PLACE. ISOLATION PRECAUTIONS OBSERVED BY ALL STAFF.
[2019-11-14 20:00] VITALS: BP 108/76
[2019-11-14] MEDS: ZOLPIDEM 5 MG TAB PO PRN (20:39)
[2019-11-14] MEDS: LORATADINE 10 MG TAB PO SCH (20:40)
--- NOTE | 2019-11-14 20:40 | NUR ---
HELD COLACE PER MD DUE TO BLOOD IN STOOL.
--- NOTE | 2019-11-14 21:00 | NUR ---
INCONTINENT CARE RENDERED WITH BRICK WASHER AT BEDSIDE. BLOOD NOTED IN STOOL, MD IS AWARE. SMALL ABRASION NOTED TO RIGHT BUTTOCK. COVERED WITH DRESSING FOR PROTECTION. PATIENT VERBALIZED NO PAIN. NO S/S ACUTE DISTRESS. CALL LIGHT WITHIN REACH. SAFETY PRECAUTIONS IN PLACE. ISOLATION PRECAUTIONS OBSERVED BY ALL STAFF.
[2019-11-14] MEDS: INSULIN LANTUS 100 UNITS/ML 10 ML VIAL SUBQ SCH (21:11)
--- NOTE | 2019-11-14 23:19 | NUR ---
PATIENT SLEEPING WELL. NO S/S ACUTE DISTRESS. CALL LIGHT WITHIN REACH. SAFETY PRECAUTIONS IN PLACE. ISOLATION PRECAUTIONS OBSERVED BY ALL STAFF.
[2019-11-15] VITALS: BP 102/75
--- NOTE | 2019-11-15 01:00 | NUR ---
PT SLEEPING, WITH O2 SAT AT 100% AT 15 LPM RE-BREATHER MASK TOLERATING WELL Addendum: 11/16/19 at 0745 by Verónica More RN DELETE PT
--- NOTE | 2019-11-15 01:00 | NUR ---
PATIENT ASLEEP. NO S/S ACUTE DISTRESS. CALL LIGHT WITHIN REACH. SAFETY PRECAUTIONS IN PLACE. ISOLATION PRECAUTIONS OBSERVED BY ALL STAFF.
[2019-11-15] MEDS: ENOXAPARIN 80 MG/0.8 ML SYR SUBQ SCH ×2 (03:00→15:00)
--- NOTE | 2019-11-15 03:14 | NUR ---
PATIENT RESTING COMFORTABLY IN BED. NO C/O PAIN. NO S/S ACUTE DISTRESS. CALL LIGHT WITHIN REACH. SAFETY PRECAUTIONS IN PLACE. ISOLATION PRECAUTIONS OBSERVED BY ALL STAFF.
[2019-11-15 04:00] VITALS: BP 100/75
[2019-11-15] MEDS: ACETAMINOPHEN 325 MG TAB PO PRN ×3 (05:27→20:40)
--- NOTE | 2019-11-15 05:27 | NUR ---
PATIENT C/O ACHING LEFT SIDED CHEST PAIN 06/21. MEDICATED ORDERED. CALL LIGHT WITHIN REACH. SAFETY PRECAUTIONS IN PLACE. ISOLATION PRECAUTIONS OBSERVED BY ALL STAFF.
[2019-11-15 06:30] LABS: BASOPHILS % (AUTO) 0.2 % (0.0-2.0); EOSINOPHILS # (AUTO) 0.1 K/uL (0-0.4); EOSINOPHILS % (AUTO) 1.1 % (0.0-4.0); HEMATOCRIT 35.5 % (36-52); HEMOGLOBIN 11.7 g/dL (12.0-18.0); LYMPHOCYTES # (AUTO) 0.6 K/uL (2.0-11.5); LYMPHOCYTES % (AUTO) 13.4 % (20.5-51.1); MEAN CORPUSCULAR HEMOGLOBIN 29 pg (27-31); MEAN CORPUSCULAR HGB CONC 33 g/dL (33-37); MEAN CORPUSCULAR VOLUME 87.2 fL (80-94); MONOCYTES # (AUTO) 0.3 K/uL (0.8-1.0); NEUTROPHILS # (AUTO) 3.7 K/uL (1.8-7.7); NEUTROPHILS % (AUTO) 78.3 % (42.2-75.2); PLATELET COUNT (AUTO) 186 K/uL (140-450); RED BLOOD CELL COUNT(AUTO) 4.07 MIL/uL (4.20-6.10); WHITE BLOOD COUNT (AUTO) 4.8 K/uL (4.8-10.8)
[2019-11-15] MEDS: BLOOD GLUCOSE MONITORING 1 DEV DEV FS SCH ×4 (06:31→20:37)
[2019-11-15 06:58] LABS: ANION GAP 13.9 (8-16); CREATININE 1.3 mg/dL (0.6-1.3); POTASSIUM 4.9 mmol/L (3.5-5.1)
--- NOTE | 2019-11-15 07:30 | NUR ---
RECEIVED BEDSIDE REPORT FROM COATER NURSE FOR CONTINUITY OF CARE. PATIENT AWAKE AND RESTING ON BED AT THIS TIME. PATIENT SPEAKS WELSH AND UNDERSTAND SOME INDONESIAN, ABLE TO MAKE NEEDS KNOWN AND FOLLOW SIMPLE COMMAND. RESPIRATION EVEN AND UNLABORED ON 15 LPM VIA NON-REBREATHER, SPO2 AT 98%. DENIED PAIN, SOB AND ANY DIZZINESS. NO SIGNS OF ACUTE DISTRESS NOTED. ИРИНА DOUBLE LUMEN PICC IN PLACE, CLEAN AND DRY, SALINE LOCK. SACRAL WOUND NOTED, AND COVERED WITH DRESSING, DRY AND INTACT. PATIENT IS INCONTINENT AND BEDREST FOR GENERALIZED WEAKNESS. TELE MONITOR IN PLACE. SAFETY MEASURES IN PLACE, BED IN LOW POSITION, CALL LIGHT WITH REACH, BED LOCKED. INSTRUCTED PATIENT TO USE THE CALL LIGHT FOR ANY ASSISTANCE AND PATIENT SAID OK.
[2019-11-15 08:00] VITALS: BP 106/64
[2019-11-15] MEDS: ZINC SULF 220 MG CAP PO SCH (08:19)
[2019-11-15] MEDS: guaiFENesin 600 MG TABER PO SCH ×2 (08:19→20:41)
[2019-11-15] MEDS: ATORVASTATIN 20 MG TAB PO SCH (08:20)
[2019-11-15] MEDS: metFORMIN 500 MG TAB PO SCH ×2 (08:20→17:48)
[2019-11-15] MEDS: VITAMIN D 400 IU TAB PO SCH (08:20)
[2019-11-15] MEDS: METOCLOPRAMIDE 10 MG TAB PO SCH ×3 (08:20→17:48)
[2019-11-15] MEDS: DOCUSATE 100 MG/10 ML UDC NG SCH ×3 (08:21→21:00)
[2019-11-15] MEDS: ASCORBIC ACID 500 MG TAB PO SCH (08:22)
[2019-11-15] MEDS: PANTOPRAZOLE 40 MG INJ VIAL IVP SCH (08:22)
[2019-11-15] MEDS: GENVOYA PO SCH (08:25)
--- NOTE | 2019-11-15 08:37 | NUR ---
ADMINISTERED AM SCHEDULED MEDS, MEDS EDUCATION PROVIDED AND PATIENT VERBALIZED OK, PATIENT TOLERATED MEDS WELL. NO SIGNS OF DISTRESS NOTED. TELE MONITOR ATTACHED. SAFETY MEASURES IN PLACE.
--- NOTE | 2019-11-15 11:09 | NUR ---
PER PRIMARY RN REQUEST TO ASSESS SACRAL COCCYX. PT IS AAX4 ON REBREATHER BAG, NO S/S OF DISTRESS. SACRALCOCCYX BLANCHABLE REDNESS ,SKIN INTACT OPTIC FORM APPLY FOR PREVENTION. TEACHING PROVIDE TO PT. ABOUT PU PREVENTIONS, PT. VERBALIZES UNDERSTANDING. CONTINUE TO FOLLOW PRESSURE ULCER PREVENTION INTERVENTIONS. -TURN AND REPOSITION PATIENT Q 2H -ASSESS AND MONITOR SKIN CONDITION DURING POSITION CHANGE -OFFLOAD BILATERAL HEELS BY PLACING PILLOWS UNDER CALVES AT ALL TIMES, UNLESS OTHERWISE CONTRAINDICATED -PRESSURE REDISTRIBUTION BY PLACING PILLOWS AND OFFLOADING SACRALCOCCYX -KEEP SKIN CLEAN AND DRY AT ALL TIMES.
--- NOTE | 2019-11-15 11:54 | NUR ---
CHECKED BLOOD GLUCOSE AND RECEIVED 146, NO COVERAGE NEEDED. ADMINISTERED SCHEDULED REGLAN, MED EDUCATION PROVIDED, PATIENT VERBALIZED OK, PATIENT TOLERATED PO MED WELL. PATIENT IS RESTING ON BED, NO SIGNS OF DISTRESS NOTED. TELE MONITOR IN PLACE. SAFETY MEASURES IN PLACE.
[2019-11-15 12:00] VITALS: BP 110/65
--- NOTE | 2019-11-15 13:37 | NUR ---
PT IS RESTING ON BED AND AROUSABLE TO VOICE. DENIED PAIN, SOB AND ANY DIZZINESS. NO SIGNS OF DISTRESS NOTED. TELE MONITOR ATTACHED. SAFETY MEASURES IN PLACE.
--- NOTE | 2019-11-15 15:02 | NUR ---
PATIENT HAS ONE MODERATE SOFT BM AND SPOTTED RED BLOOD IN STOOL, STEEL CHECKER PROVIDED HYGIENE CARE AND CHANGED ALL DIRTY. HOLD LOVENOX AT THIS TIME. PATIENT IS RESTING ON BED. NO SIGNS OF DISTRESS NOTED. TELE MONITOR ATTACHED. SAFETY MEASURES IN PLACE.
--- NOTE | 2019-11-15 15:06 | NUR ---
ATTENDED TO PATIENT'S CALL LIGHT AND COMPLAINED HE HAS MILD HEADACHE 2/10, MEDICATED WITH PRN TYLENOL, PATIENT TOLERATE WELL, PATIENT IS RESTING ON BED AT THIS TIME. TELE MONITOR ATTACHED. SAFETY MEASURES IN PLACE.
[2019-11-15 16:00] VITALS: BP 115/69
--- NOTE | 2019-11-15 16:29 | NUR ---
CHECKED BLOOD GLUCOSE AND RECEIVED 148, NO COVERAGE NEEDED. PATIENT REQUESTED FOR FRESH WATER, PROVIDED.
--- NOTE | 2019-11-15 17:48 | NUR ---
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 ADMINISTERED MEDS PER MD ORDER, MEDS EDUCATION PROVIDED, PATIENT TOLERATED MEDS WELL. PATIENT IS RESTING ON BED AT THIS TIME. NO SIGNS OF DISTRESS NOTED. TELE MONITOR ATTACHED. SAFETY MEASURES IN PLACE.
--- NOTE | 2019-11-15 19:16 | NUR ---
RECEIVED BEDSIDE REPORT FROM AM SHIFT FOR CONTINUITY OF CARE. PATIENT AWAKE AND RESTING ON BED AT THIS TIME. PATIENT SPEAKS [place] AND UNDERSTAND SOME MONEGASQUE, ABLE TO MAKE NEEDS KNOWN AND FOLLOW SIMPLE COMMAND. RESPIRATION EVEN AND UNLABORED ON 15 LPM VIA NON-REBREATHER, SPO2 AT 100%. ИРИНА DOUBLE LUMEN PICC IN PLACE, CLEAN AND DRY, SALINE LOCK. SAFETY MEASURES IN PLACE, BED IN LOW POSITION, CALL LIGHT WITHIN REACH. PT INFORMED TO CALL IF HE NEEDS HELP.PT VERBALIZED UNDERSTANDING Addendum: 11/16/19 at 0739 by Verónica More RN DELETE NOTE- WRONG TIME
--- NOTE | 2019-11-15 19:31 | NUR ---
ENDORSED PATIENT TO OXYGEN THERAPIST NURSE AT BEDSIDE FOR CONTINUITY OF CARE. PATIENT IS IN STABLE CONDITION. TELE MONITOR ATTACHED.
--- NOTE | 2019-11-15 19:31 | NUR ---
RECEIVED BEDSIDE REPORT FROM AM SHIFT FOR CONTINUITY OF CARE. PATIENT AWAKE AND RESTING ON BED AT THIS TIME. PATIENT SPEAKS YAKUT AND UNDERSTAND SOME FIJIAN, ABLE TO MAKE NEEDS KNOWN AND FOLLOW SIMPLE COMMAND. RESPIRATION EVEN AND UNLABORED ON 15 LPM VIA NON-REBREATHER, SPO2 AT 100%. ИРИНА DOUBLE LUMEN PICC IN PLACE, CLEAN AND DRY, SALINE LOCK. SAFETY MEASURES IN PLACE, BED IN LOW POSITION, CALL LIGHT WITHIN REACH. PT INFORMED TO CALL IF HE NEEDS HELP.PT VERBALIZED UNDERSTANDING
[2019-11-15 20:00] VITALS: BP 95/70
[2019-11-15] MEDS: INSULIN LISPRO SLIDING SCALE 100 UNITS/ML VIAL SUBQ PRN (20:39)
[2019-11-15] MEDS: LORATADINE 10 MG TAB PO SCH (20:40)
--- NOTE | 2019-11-15 20:40 | NUR ---
PT C/O OF HEADACHE GIVEN TYLENOL, PT TOLERATED MEDS.
--- NOTE | 2019-11-15 20:46 | NUR ---
PT REFUSED DULCOLAX, PT HAD A BM THIS AM HE SAID. EXPLAINED THE RISKS AND BENEFITS
--- NOTE | 2019-11-15 21:00 | NUR ---
PT TOLERATED MEDS, NO RESPIRATORY DISTRESS, NO COMPLAINTS OF PAIN WILL CONTINUE TO MONITOR
[2019-11-15] MEDS: INSULIN LANTUS 100 UNITS/ML 10 ML VIAL SUBQ SCH (21:29)
[2019-11-16] VITALS: BP 97/63
--- NOTE | 2019-11-16 01:00 | NUR ---
PT SLEEPING, WITH O2 SAT AT 100% AT 15 LPM RE-BREATHER MASK TOLERATING WELL
--- NOTE | 2019-11-16 02:12 | NUR ---
PATIENT WHEN TALKING AND TAKES OF THE 15 LPM NON REBREATHER MASK DESAT AT 88%. PLACED THE MASK BACK TO PATIENT.
[2019-11-16] MEDS: ENOXAPARIN 80 MG/0.8 ML SYR SUBQ SCH ×2 (03:25→14:24)
[2019-11-16 04:00] VITALS: BP 94/65
--- NOTE | 2019-11-16 04:00 | NUR ---
PT COMFORTABLY SLEEPING, NO RESPIRATORY DISTRESS, WILL CONTINUE TO MONITOR
[2019-11-16] MEDS: ACETAMINOPHEN 325 MG TAB PO PRN ×2 (06:28→21:14)
--- NOTE | 2019-11-16 07:00 | NUR ---
PT AWAKE, ALERT ORIENTED X 4 SOUTH AFRICAN SPEAKING, PT NOT IN RESPIRATORY DISTRESS ON A 15 LPM NON REBREATHER MASK, WILL ENDORSE TO NEXT SHIFT
--- NOTE | 2019-11-16 07:15 | NUR ---
RECEIVED REPORT FROM HELICOPTER ENGINEER NURSE. PATIENT IS CURRENTLY AWAKE IN BED WITH NO SIGN SOF DISTRESS AT THIS TIME. RESPIRATIONS ARE EVEN AND UNLABORED ON 15L NRB WITH NO DIFFICULTIES BREATHING AND 02 SATURATIONS AT 100%. SKIN IS INTACT WITH IV PATENT ASYMPTOMATIC AND INFUSING PER ORDERS. PATIENT DOES NOT HAVE ANY COMPLAINTS AT THIS TIME. SAFETY MEASURES IN PLACE AND WILL CONTINUE TO MONITOR.
[2019-11-16] MEDS: BLOOD GLUCOSE MONITORING 1 DEV DEV FS SCH ×4 (07:23→21:23)
[2019-11-16 08:00] VITALS: BP 92/68
[2019-11-16 08:01] LABS: BASOPHILS % (AUTO) 0.4 % (0.0-2.0); EOSINOPHILS # (AUTO) 0.1 K/uL (0-0.4); EOSINOPHILS % (AUTO) 2.4 % (0.0-4.0); HEMATOCRIT 31.1 % (36-52); HEMOGLOBIN 10.7 g/dL (12.0-18.0); LYMPHOCYTES # (AUTO) 0.6 K/uL (2.0-11.5); LYMPHOCYTES % (AUTO) 16.5 % (20.5-51.1); MEAN CORPUSCULAR HEMOGLOBIN 30 pg (27-31); MEAN CORPUSCULAR HGB CONC 34 g/dL (33-37); MEAN CORPUSCULAR VOLUME 87.1 fL (80-94); MONOCYTES # (AUTO) 0.3 K/uL (0.8-1.0); MONOCYTES % (AUTO) 8.1 % (1.7-9.3); NEUTROPHILS # (AUTO) 2.6 K/uL (1.8-7.7); NEUTROPHILS % (AUTO) 72.6 % (42.2-75.2); PLATELET COUNT (AUTO) 188 K/uL (140-450); RED BLOOD CELL COUNT(AUTO) 3.57 MIL/uL (4.20-6.10); RED CELL DISTRIBUTION WIDTH 15.3 % (11.6-13.7); WHITE BLOOD COUNT (AUTO) 3.6 K/uL (4.8-10.8)
[2019-11-16 08:09] LABS: ANION GAP 10.3 (8-16); CARBON DIOXIDE 29.4 mmol/L (21-32); CREATININE 1.2 mg/dL (0.6-1.3); POTASSIUM 4.7 mmol/L (3.5-5.1)
[2019-11-16] MEDS: metFORMIN 500 MG TAB PO SCH (08:18)
[2019-11-16] MEDS: VITAMIN D 400 IU TAB PO SCH (08:18)
[2019-11-16] MEDS: ZINC SULF 220 MG CAP PO SCH (08:18)
[2019-11-16] MEDS: guaiFENesin 600 MG TABER PO SCH ×2 (08:18→21:13)
[2019-11-16] MEDS: ASCORBIC ACID 500 MG TAB PO SCH (08:18)
[2019-11-16] MEDS: METOCLOPRAMIDE 10 MG TAB PO SCH ×3 (08:19→16:21)
[2019-11-16] MEDS: DOCUSATE 100 MG/10 ML UDC NG SCH ×2 (08:19→21:00)
[2019-11-16] MEDS: PANTOPRAZOLE 40 MG INJ VIAL IVP SCH (08:19)
[2019-11-16] MEDS: ATORVASTATIN 20 MG TAB PO SCH (08:19)
[2019-11-16] MEDS: GENVOYA PO SCH (08:23)
--- NOTE | 2019-11-16 08:32 | NUR ---
ADMINISTER MEDICATIONS PER ORDER AND TOLERATED WELL. PATIENT IS CURRENTLY LAYING IN BED AWAKE WITH NO SIGNS OF DISTRESS. SAFETY MEASURES IN PLACER AND WILL CONTINUE TO MONITOR.
--- NOTE | 2019-11-16 10:41 | NUR ---
PATIENT STATED THAT HE WOULD LIKE SOME FOOD FROM HOME. PATIENTS FAMILY CALLED AND STATED THAT THEY WILL DROP OFF FOOD FOR PATIENT TODAY OR TOMORROW. PUT PATIENT ON 14L NON REBREATHER AND O2 SATURATIONS ARE AT 100%. SAFETY MEASURES IN PLACE AND WILL CONTINUE TO MONITOR
--- NOTE | 2019-11-16 11:40 | NUR ---
ADMINISTERED MEDICATIONS PER ORDER AND TOLERATED WELL. BLOOD GLUCOSE IS CURRENTLY 116 THEREFORE NO INSULIN COVERAGE IS NEEDED AT THIS TIME. SAFETY MEASURES IN PLACE AND WILL CONTINUE TO MONITOR.
--- NOTE | 2019-11-16 11:43 | NUR ---
PLACED PT ON VENTI MASK AT 50% 15L PT O2 SAT 88% PT IS VERY AGITATED THAT NRB WAS TAKEN OFF TOLD PT THAT HIS O2 WAS THE OK AND HE JUST NEEDED TO RELAX
[2019-11-16 12:00] VITALS: BP 97/58
--- NOTE | 2019-11-16 13:15 | NUR ---
DR. YOUNG CAME TO SEE PATIENT. PATIENT STATED THAT HE DID NOT LIKE THE VENTURI MASK AND WANTED HIS NON REBREATHER PLACED. SAFETY MEASURES IN PLACE AND WILL CONTINUE TO MONITOR PLAN OF CARE.
--- NOTE | 2019-11-16 15:19 | NUR ---
PATIENT IS CURRENTLY ASLEEP WITH NO SIGNS OF DISTRESS. SAFETY MEASURES IN PLACE AND WILL CONTINUE TO MONITOR.
[2019-11-16 16:00] VITALS: BP 107/63
[2019-11-16] MEDS: ONDANSETRON 4 MG/2 ML VIAL IVP PRN (16:21)
--- NOTE | 2019-11-16 16:27 | NUR ---
BLOOD GLUCOSE IS CURRENTLY 116 THEREFORE NO INSULIN COVERAGE IS NEEDED AT THIS TIME, OTHER MEDICATIONS ADMINISTERED PER ORDER. SAFETY MEASURES IN PLACE AND WILL CONTINUE TO MONITOR PLAN OF CARE.
--- NOTE | 2019-11-16 18:05 | NUR ---
PATIENT ASKED FOR A BEDSIDE URINAL. PATIENT ALSO SAID THAT HE THINKS HE CAN USE THE BEDSIDE COMMODE. WILL DISCUSS WITH TYPIST NURSE. SAFETY MEASURES IN PLACE AND WILL CONTINUE TO MONITOR.
--- NOTE | 2019-11-16 18:30 | NUR ---
PATIENTS FAMILY BROUGHT FOOD TO PATIENT. PATIENT IS CURRENTLY SITTING AT BEDSIDE EATING. SAFETY MEASURES IN PLACE AND WILL CONTINUE TO MONITOR.
--- NOTE | 2019-11-16 19:10 | NUR ---
ENDORSED TO ELECTRONICS WARFARE TECHNICIAN NURSE. PATIENT IS IN STABLE CONDITION.
--- NOTE | 2019-11-16 19:12 | NUR ---
RECEIVED REPORT FROM AM RN. PT IS IN BED SEMI-FOWLERS TALKING ON THE PHONE IN NO DISTRESS. REMAINS ON 15 L NON-REBREATHER NO SOB AT THIS TIME RESPIRATION EVEN AND UNLABORED WILL CONTINUE WITH POC.
[2019-11-16 20:00] VITALS: BP 100/68
[2019-11-16] MEDS: LORATADINE 10 MG TAB PO SCH (21:12)
--- NOTE | 2019-11-16 21:14 | NUR ---
PT IS RESTING IN BED SEMI-FOWLERS POSITION. PT TOLERATED PO MEDICATION WELL. AND REPORTED HEADACHE 4/ PT RECEIVED TYLENOL 650 MG FOR PAIN PER MD ORDER. NO COUGH DURING ASSESSMENT HOWEVER STATES TO STILL HAVE A PRODUCTIVE COUGH REPORT CLEAR SPUTUM. DENIES ANY CHEST PAIN OR SOB AT THIS TIME. PT DENIES ANY FURTHER DIARRHEA STATING TODAY WAS THE FIRST DAY WITH NO DIARRHEA. DENIES ANY GI DISCOMFORT ABDOMEN SOFT NONTENDER BS ACTIVE . REMAINS ON 15 L NRB WITH SPO2 98%. WILL CONTINUE TO MONITOR
--- NOTE | 2019-11-16 21:20 | NUR ---
PT SEEN AND ASSESSED. PT ON NRB MASK @ 15L WITH SPO2 OF 94%. PT IN NO APPARENT RESPIRATORY DISTRESS AT THIS TIME. MDI TX GIVEN AND PT TOLERATED WELL WITH NO ADVERSE REACTION. WILL CONTINUE TO MONITOR PT.
[2019-11-16] MEDS: INSULIN LANTUS 100 UNITS/ML 10 ML VIAL SUBQ SCH (21:21)
[2019-11-16] MEDS: INSULIN LISPRO SLIDING SCALE 100 UNITS/ML VIAL SUBQ PRN (21:22)
--- NOTE | 2019-11-16 23:18 | NUR ---
PT RESTING IN BED HIGH SEMI-FOWLERS POSITION REMAINS ON 15 L NRB WITH SP O2 99%. HR 106. RESPIRATION EVEN AND UNLABORED. RESTING NO COMPLAINTS AT THIS TIME. WILL CONTINUE TO CLOSELY MONITOR.
[2019-11-17] VITALS: BP 97/70
--- NOTE | 2019-11-17 00:30 | NUR ---
PT IS RESTING IN BED WITH EYES CLOSED ON HIGH FOWLERS POSITION. RESPIRATION ARE EVEN AND UNLABORED. PT 15 L NRB LOWERED TO 10 L ON NRB AND SPO2 MAINTAINED AT 100 %. V/S AT THIS TIME: 97.9, 107, 20, 97/70, 100% 10 L NRB, 0/10. MUSCLES RELAXED IN NO DISTRESS. WILL CONTINUE TO MONITOR.
--- NOTE | 2019-11-17 02:05 | NUR ---
PT RESTING IN BED WITH EYES CLOSED RESPIRATION EVEN AND UNLABORED REMAINS ON 10 L NRB WITH SPO2 100% WILL CONTINUE TO MONITOR. ALL NEEDS ARE MET AT THIS TIME
[2019-11-17] MEDS: ENOXAPARIN 80 MG/0.8 ML SYR SUBQ SCH ×2 (03:00→15:00)
--- NOTE | 2019-11-17 03:10 | NUR ---
LOVENOX WILL BE HELD DUE TO RECENT BLOOD IN THE STOOL. GI CONSULT DONE
[2019-11-17 04:00] VITALS: BP 97/68
--- NOTE | 2019-11-17 04:15 | NUR ---
PT RESTING IN BED WITH EYES CLOSED RESPIRATION EVEN AND UNLABORED. REMAINS ON 10L NRB. WITH SPO2 100%
--- NOTE | 2019-11-17 06:30 | NUR ---
RESPIRATION EVEN AND UNLABORED. TOLERATED AM MEDICATION WITH NO PROBLEMS. BS WAS 99 NO COVERAGE NEEDED. PT REMAINS ON 10L NRB WITH SPO2 100%. SLEPT WELL ALL NIGHT DENIES ANY DISCOMFORT AT THIS TIME. WILL CONTINUE TO MONITOR.
[2019-11-17] MEDS: BLOOD GLUCOSE MONITORING 1 DEV DEV FS SCH ×4 (06:38→21:05)
[2019-11-17] MEDS: METOCLOPRAMIDE 10 MG TAB PO SCH ×3 (06:39→16:06)
--- NOTE | 2019-11-17 07:11 | NUR ---
REPORT GIVEN TO AM RN FOR CONTINUITY OF CARE PT. IS STABLE WITH SPO2 AT 100% AT THIS TIME.
--- NOTE | 2019-11-17 07:12 | NUR ---
RECEIVED ENDORSEMENT FROM HEARING STENOGRAPHER NURSE, PATIENT ON FOWLERS POSITION ASLEEP, WITH O2 AT 10L/MIN VIA NON REBREATHER MASK, NOT IN DISTRESS
[2019-11-17 08:00] VITALS: BP 107/78
[2019-11-17] MEDS: PANTOPRAZOLE 40 MG INJ VIAL IVP SCH (08:18)
[2019-11-17] MEDS: guaiFENesin 600 MG TABER PO SCH ×2 (08:19→21:08)
[2019-11-17] MEDS: ATORVASTATIN 20 MG TAB PO SCH (08:19)
[2019-11-17] MEDS: VITAMIN D 400 IU TAB PO SCH (08:19)
[2019-11-17] MEDS: GENVOYA PO SCH (08:20)
[2019-11-17] MEDS: ASCORBIC ACID 500 MG TAB PO SCH (08:20)
[2019-11-17] MEDS: ZINC SULF 220 MG CAP PO SCH (08:21)
--- NOTE | 2019-11-17 08:32 | NUR ---
FULLY AWAKE, DUE MEDICATIONS GIVEN AND TOLERATED ORALLY. BREAKFAST SERVED, ABLE TO FEED HIMSELF.
[2019-11-17] MEDS: DOCUSATE 100 MG/10 ML UDC NG SCH ×2 (09:00→21:00)
--- NOTE | 2019-11-17 09:27 | NUR ---
CT DEPARTMENT CONTACTED AND SPOKE WITH RADIOLOGIST, SCHEDULE OF CT CHEST WITH CONTRAST BETWEEN 1015-1030H.
--- NOTE | 2019-11-17 10:18 | NUR ---
BROUGHT TO CT SCAN DEPARTMENT PER BE, ATTACHED TO PORTABLE O2 AT 10L/MIN VIA NRM, NOT IN DISTRESS.
--- NOTE | 2019-11-17 10:48 | NUR ---
BACK TO ROOM, CT CHEST WITH CONTRAST DONE WITH OUT ADVERSE REACTION. KEEP COMFORTABLE TO BED, SAFETY MEASURES IN PLACE
--- NOTE | 2019-11-17 10:54 | NUR ---
REPEAT INFLUENZA A SWAB PER NARES DONE AND SENT TO LAB
--- NOTE | 2019-11-17 11:50 | NUR ---
BLOOD SUGAR-100, NO INSULIN COVERAGE PER SLIDING SCALE. VITAL SIGNS TAKEN AND RECORDED.
--- NOTE | 2019-11-17 11:56 | NUR ---
PLACED PATIENT ON 8L OXIMIZER AND O2 SATURATIONS ARE CURRENTLY AT 98%. SAFETY MEASURES IN PLACE AND WILL CONTINUE TO MONITOR O2 SATURATIONS. PATIENT IS NOW ALSO NEGATIVE FOR INFLUENZA A & B.
[2019-11-17 12:00] VITALS: BP 101/67
--- NOTE | 2019-11-17 12:55 | NUR ---
PATIENT IS CURRENTLY EATING LUNCH AT BEDSIDE. FAMILY IS CURRENTLY OUTSIDE THE WINDOW VISITING WHILE PATIENT EATS. SAFETY MEASURES IN PLACE AND WILL CONTINUE TO MONITOR.
--- NOTE | 2019-11-17 14:35 | NUR ---
RT TITRATED O2 TO 7L/MIN VIA OXYMIZER, SATURATING WELL AT 97%, NOT IN DISTRESS, CONTINUE MONITOR.
--- NOTE | 2019-11-17 14:48 | NUR ---
OCCASIONAL PRODUCTIVE COUGH NOTED WITH WHITISH SPUTUM.
[2019-11-17] MEDS: ACETAMINOPHEN 325 MG TAB PO PRN ×2 (15:19→21:14)
--- NOTE | 2019-11-17 15:19 | NUR ---
COMPLAINED OF MODERATE HEADACHE, FACIAL GRIMACED NOTED. TYLENOL 650MG PO ORDERED PRN GIVEN.
[2019-11-17 16:00] VITALS: BP 100/68
--- NOTE | 2019-11-17 16:02 | NUR ---
BLOOD GLUCOSE IS CURRENTLY 200 THEREFORE INSULIN COVERAGE HAS BEEN ADMINISTERED. OTHER MEDICATIONS ADMINISTERED PER ORDER AND TOLERATED WELL. SAFETY MEASURES IN PLACE AND WILL CONTINUE TO MONITOR.
[2019-11-17] MEDS: ONDANSETRON 4 MG/2 ML VIAL IVP PRN (16:11)
[2019-11-17] MEDS: INSULIN LISPRO SLIDING SCALE 100 UNITS/ML VIAL SUBQ PRN (16:13)
--- NOTE | 2019-11-17 18:13 | NUR ---
PATIENT COMPLAINS OF TESTICULAR PAIN. LOOKED AT THE SITE AND PATIENT HAD TESTICLE SMASHED BY SENDY. PATIENT STATED THAT HE IS IN A LOT OF PAIN. SAFETY MEASURES IN PLACE AND WILL MONITOR.
--- NOTE | 2019-11-17 19:14 | NUR ---
GAVE REPORT TO PLANNED GIVING OFFICER NURSE. PATIENT IS CURRENTLY SITTING UP IN BED WITH NO SIGNS OF DISTRESS AT THIS TIME
--- NOTE | 2019-11-17 19:37 | NUR ---
RECEIVED BEDSIDE REPORT FROM AM SHIFT FOR CONTINUITY OF CARE. PATIENT AWAKE AND RESTING ON BED AT THIS TIME. NO SIGN AND SYMPTOMS OF DISTRESS NOTED. PATIENT SPEAKS LATVIAN AND UNDERSTAND SOME ITALIAN, ABLE TO MAKE NEEDS KNOWN AND FOLLOW SIMPLE COMMAND. RESPIRATION EVEN AND UNLABORED ON 7L OXIMIZER, SPO2 AT 100%. ST ON MANAGER EQUIPMENT, HR- 103. ИРИНА DOUBLE LUMEN PICC IN PLACE, CLEAN AND DRY, SALINE LOCK. SAFETY MEASURES IN PLACE, BED IN LOW POSITION, CALL LIGHT WITHIN REACH. PT INFORMED TO CALL IF HE NEEDS HELP.PT VERBALIZED UNDERSTANDING WITH THE POC. WILL CONTINUE MONITORING AND POC.
[2019-11-17 20:00] VITALS: BP 91/61
--- NOTE | 2019-11-17 20:21 | NUR ---
PT SEEN AND ASSESSED. PT IS ON OXYMIZER 7L WITH SPO2 OF 91%. PT IN NO APPARENT RESPIRATORY DISTRESS AT THIS TIME. PRN TX NOT INDICATED AT THIS TIME. WILL CONTINUE TO MONITOR PT.
[2019-11-17] MEDS: INSULIN LANTUS 100 UNITS/ML 10 ML VIAL SUBQ SCH (21:07)
[2019-11-17] MEDS: LORATADINE 10 MG TAB PO SCH (21:08)
--- NOTE | 2019-11-17 22:00 | NUR ---
ADMINISTERED ALL SCHEDULED MEDS ORDERED. HELD COLACE DUE TO PT HAVING DIARRHEA AND HELD LOVENOX PER MD ORDER DUE TO PT HAVING BLOODY BM 2 DAYS AGO WITH CLOTS PER AM RN REPORT. BLOOD SUGAR IS 111. NO COVERAGE NEEDED AND GIVEN.
[2019-11-18] VITALS: BP 89/67
--- NOTE | 2019-11-18 01:23 | NUR ---
PT BLOOD PRESSURE IS LOW 89/67. PT ASYMPTOMATIC. PT A/A/OX3, DENIES ANY DIZZINESS OR ANY OTHER DISCOMFORT.SR ON HAND SIZER, HR-98. WILL CONTINUE POC AND MONITORING.
--- NOTE | 2019-11-18 02:36 | NUR ---
PATIENT ASLEEP AT THIS TIME. VISIBLE CHEST RISE AND FALL NOTED. NO SIGN AND SYMPTOMS OF DISTRESS NOTED. CALLL LIGHT WITHIN REACH.
[2019-11-18] MEDS: ENOXAPARIN 80 MG/0.8 ML SYR SUBQ SCH (03:00)
[2019-11-18 04:00] VITALS: BP 97/63
--- NOTE | 2019-11-18 04:00 | NUR ---
PT BP IS BETTER 97/63, HR-103,AFEBRILE, SATING 98% ON 5L OXIMIZER. NO COMPLAIN OF PAIN AT THIS TIME. NO SIGN AND SYMPTOMS OF DISTRESS NOTED. SR ON TELE MONITOR, HR-95.CALL LIGHT WITHIN REACH.
--- NOTE | 2019-11-18 06:23 | NUR ---
PT STABLE. NO ACUTE EVENTS THROUGHOUT THE NIGHT. NO SIGN AND SYMPTOMS OF DISTRESS NOTED. NO COMPLAIN AT THIS TIME. ALL NEEDS ATTENDED. CALL LIGHT WITHIN REACH. WILL ENDORSE THE PT TO THE ONCOMING RN FOR CONTINUITY OF CARE.
[2019-11-18] MEDS: METOCLOPRAMIDE 10 MG TAB PO SCH ×3 (06:31→16:53)
[2019-11-18] MEDS: BLOOD GLUCOSE MONITORING 1 DEV DEV FS SCH ×4 (06:31→22:00)
[2019-11-18 07:54] LABS: BASOPHILS % (AUTO) 0.4 % (0.0-2.0); EOSINOPHILS % (AUTO) 1.8 % (0.0-4.0); HEMATOCRIT 27.7 % (36-52); HEMOGLOBIN 9.3 g/dL (12.0-18.0); LYMPHOCYTES # (AUTO) 0.6 K/uL (2.0-11.5); LYMPHOCYTES % (AUTO) 22.7 % (20.5-51.1); MEAN CORPUSCULAR HEMOGLOBIN 30 pg (27-31); MEAN CORPUSCULAR HGB CONC 34 g/dL (33-37); MONOCYTES # (AUTO) 0.3 K/uL (0.8-1.0); MONOCYTES % (AUTO) 10.6 % (1.7-9.3); NEUTROPHILS # (AUTO) 1.7 K/uL (1.8-7.7); NEUTROPHILS % (AUTO) 64.5 % (42.2-75.2); PLATELET COUNT (AUTO) 179 K/uL (140-450); RED BLOOD CELL COUNT(AUTO) 3.15 MIL/uL (4.20-6.10); RED CELL DISTRIBUTION WIDTH 15.5 % (11.6-13.7); WHITE BLOOD COUNT (AUTO) 2.7 K/uL (4.8-10.8)
[2019-11-18 08:00] VITALS: BP 114/59
--- NOTE | 2019-11-18 08:04 | NUR ---
BED IN LOW POSITION. BED ALARM ON. CALL LIGHT WITHIN REACH. WILL CONTINUE TO MONITOR.
--- NOTE | 2019-11-18 08:05 | NUR ---
ENDORSED THE PT TO DAY RN FOR CONTINUITY OF CARE. PT STABLE. ALL NEEDS MET. SIGNING OFF.
--- NOTE | 2019-11-18 08:06 | NUR ---
RECEIVED PATIENT FROM NIGHT NURSE. PATIENT IS AWAKE, ALERT, ORIENTED X4. RESP EVEN AND UNLABORED ON 9L OXIMIZER. DENIES OF PAIN AT THIS TIME. SKIN IS WARM TO TOUCH. PICC TO ИРИНА PATENT AND INTACT. SAFETY MEASURES IN PLACE. CALL LIGHT WITHIN REACH. PLAN OF CARE DISCUSSED WITH PATIENT. PATIENT VERBALIZED UNDERSTANDING. WILL CONTINUE TO MONITOR.
[2019-11-18 08:14] LABS: ANION GAP 5.8 (8-16); CARBON DIOXIDE 33.3 mmol/L (21-32); CREATININE 0.8 mg/dL (0.6-1.3); POTASSIUM 4.1 mmol/L (3.5-5.1)
[2019-11-18 08:35] LABS: PHOSPHORUS 2.4 mg/dL (2.5-4.9)
[2019-11-18] MEDS: DOCUSATE 100 MG/10 ML UDC NG SCH ×2 (09:00→22:45)
[2019-11-18] MEDS: PANTOPRAZOLE 40 MG INJ VIAL IVP SCH (09:19)
[2019-11-18] MEDS: VITAMIN D 400 IU TAB PO SCH (09:24)
[2019-11-18] MEDS: ATORVASTATIN 20 MG TAB PO SCH (09:25)
[2019-11-18] MEDS: ASCORBIC ACID 500 MG TAB PO SCH (09:25)
[2019-11-18] MEDS: guaiFENesin 600 MG TABER PO SCH ×2 (09:25→22:55)
--- NOTE | 2019-11-18 09:25 | NUR ---
MORNING ROUTINE MEDICATIONS GIVEN. PATIENT TOLERATED WELL. ACE HELD D/T REPORTS OF HAVING DIARRHEA. PATIENT WAS INSTRUCTED TO NOTIFY STAFF IF DIARRHEA PERSISTS. PATIENT VERBALIZED UNDERSTANDING. RESP EVEN AND UNLABORED ON 9L OXIMIZER, O2SAT 94%. DENIES OF ANY PAIN AT THIS TIME. PATIENT IS SITTING UP IN BED COMFORTABLY. SAFETY MEASURES IN PLACE. CALL LIGHT WITHIN REACH. WILL CONTINUE TO MONITOR.
[2019-11-18] MEDS: ZINC SULF 220 MG CAP PO SCH (09:26)
[2019-11-18] MEDS: GENVOYA PO SCH (09:27)
[2019-11-18 12:00] VITALS: BP 101/66
--- NOTE | 2019-11-18 12:05 | NUR ---
BLOOD SUGAR CHECKED. 139. NO COVERAGE NEEDED. 9L OXIMIZER O2SAT 90%. RESP EVEN AND UNLABORED. FAMILY HAD BROUGHT PATIENT FOOD FOR LUNCH AND EATING AT BEDSIDE. NO NOTED DISTRESS. WILL CONTINUE TO MONITOR.
--- NOTE | 2019-11-18 13:15 | NUR ---
PATIENT O2SAT ON 9L OXIMIZER IS 87-88%. OXYGEN INCREASED TO 10 L AND PATIENT TOLERATING BETTER AT 93-93%. RT NOTIFIED. MD MADE AWARE.
--- NOTE | 2019-11-18 14:22 | NUR ---
PER RT ROSEANN. PATIENT IS NOW ON 7L OXIMIZER O2SAT 95%. WILL CONTINUE TO MONITOR.
--- NOTE | 2019-11-18 15:16 | NUR ---
SPOKE TO DR. CUNNINGHAM ABOUT PATIENT LOVENOX. PATIENT HASN'T RECEIVED LOVENOX D/T LOW PLATELET AND ALSO A BOWEL MOVEMENT OF BLOODY DIARRHEA 2 DAYS AGO. PLATELET IS NOW TRENDING UP, TODAY AT 1790. NO REPORTS OF DIARRHEA OR BLOODY STOOL. OK TODAY TO GIVE LOVENOX PER DR. CUNNINGHAM.
--- NOTE | 2019-11-18 15:25 | NUR ---
SPOKE TO DR AYERS ABOUT PATIENT LOVENOX DOSE BEING HELD. IS MADE AWARE OF NO REPORTED BLOODY STOOL OR ACTIVE BLEEDING, ALSO PLATELET IS TRENDING UP TO 179. RECEIVED TELEPHONE ORDER TO GIVE LOVENOX 40MG SQ DAILY. TELEPHONE ORDER READ BACK AND CONFIRMED. ORDER CARRIED OUT.
[2019-11-18 16:00] VITALS: BP 93/66
[2019-11-18] MEDS: INSULIN LISPRO SLIDING SCALE 100 UNITS/ML VIAL SUBQ PRN ×2 (16:52→23:03)
--- NOTE | 2019-11-18 16:59 | NUR ---
BLOOD GLUCOSE 245. INSULIN COVERAGE GIVEN PER SLIDING SCALE. O2 SAT DROPS TO 84% AND UNABLE TO COME UP. OXYGEN INCREASED TO 11L OXIMIZER. PATIENT ENCOURAGED DEEP BREATHING. O2 SAT 92%. DENIES OF PAIN. WILL CONTINUE TO MONITOR.
--- NOTE | 2019-11-18 18:38 | NUR ---
PATIENT O2 SAT IS AT 84% WITH 9L OXIMIZER. OXYGEN IS INCREASED TO 11L AND PATIENT STILL SAT AT 88-89%. RT WAS CALLED, OXYGEN INCREASED TO 15L. SAT AT 90-91%. PATIENT IS ENCOURAGED TO FOCUS ON HIS BREATHING. PATIENT VERBALIZED UNDERSTANDING.
--- NOTE | 2019-11-18 19:20 | NUR ---
PATIENT IS AT 14L OXIMIZER AT THIS TIME O2SAT 91%. JOINERY MACHINIST AT BEDSIDE FOR REPORT. ENCOURAGED PATIENT TO FOCUS ON BREATHING. PATIENT VERBALIZED UNDERSTANDING. ENDORSED PATIENT TO NIGHT NURSE. PATIENT IN STABLE CONDITION.
[2019-11-18] MEDS: ACETAMINOPHEN 325 MG TAB PO PRN (19:24)
--- NOTE | 2019-11-18 19:40 | NUR ---
RECEIVED PT FROM [facility] NURSE PT IS ROHIT WITHOMNETB TO; LILTTLE EXERTION, ON OXIMIZER 14 LITER AND O2 SAT 90 RESP THERAPY IS HERE TO GIVE A BREATHING TX, P ON TELE ST
[2019-11-18 20:00] VITALS: BP 101/70
[2019-11-18] MEDS: ENOXAPARIN 40 MG/0.4 ML SYR SUBQ SCH (21:00)
--- NOTE | 2019-11-18 22:00 | NUR ---
BLOOD SUGAR TEST 199 COVERAGE WITH 2 UNITS HUMALOG SUBQ FOLLOW PROTOCOL PT O REMAIN STABLE AT THIS TIME DENIES ANY PAIN ON TELE SR PICC LINE ON RT UA PATENT
[2019-11-18] MEDS: INSULIN LANTUS 100 UNITS/ML 10 ML VIAL SUBQ SCH (22:30)
[2019-11-18] MEDS: SODIUM PHOS / POTASSIUM PHOS 1 PKT PDR PO SCH (22:45)
[2019-11-18] MEDS: LORATADINE 10 MG TAB PO SCH (22:47)
[2019-11-19] VITALS: BP 114/69
[2019-11-19 04:00] VITALS: BP 96/71
--- NOTE | 2019-11-19 04:00 | NUR ---
SPONGE BATH GIVEN LINENNCHANGED ON 0XIMIZER 14 02 NOT DISTRESS NOTED, O;N TELE SR
[2019-11-19] MEDS: METOCLOPRAMIDE 10 MG TAB PO SCH ×3 (06:18→17:04)
[2019-11-19] MEDS: BLOOD GLUCOSE MONITORING 1 DEV DEV FS SCH ×4 (06:24→20:09)
--- NOTE | 2019-11-19 06:27 | NUR ---
BLOOD SUGAR TEST 145 , NOT COVETAAGE, PT ON OXIMIZER 14 LTS 02 SAT 98% PT STIL DRY COOUGH ON TELE SR
--- NOTE | 2019-11-19 06:29 | NUR ---
PT WILL BE ENDORSED TODAYSHIFT NURSE FOR CONTINUE OF CARE
--- NOTE | 2019-11-19 07:10 | NUR ---
RECEIVED REPORT FROM USER EXPERIENCE TEAM LEAD NURSE REGARDING PATIENT CONDITION AND PLAN OF CARE. PATIENT IS RESTING COMFORTABLY IN BED IN NO S/S RESPIRATORY DISTRESS, NO C/O OF PAIN, ALL NEEDS MET, CALL LIGHT WITHIN REACH, WILL CONTINUE TO MONITOR.
[2019-11-19 07:30] LABS: BASOPHILS % (AUTO) 0.2 % (0.0-2.0); HEMATOCRIT 28.3 % (36-52); HEMOGLOBIN 9.5 g/dL (12.0-18.0); LYMPHOCYTES # (AUTO) 0.8 K/uL (2.0-11.5); LYMPHOCYTES % (AUTO) 25.3 % (20.5-51.1); MEAN CORPUSCULAR HEMOGLOBIN 30 pg (27-31); MEAN CORPUSCULAR HGB CONC 34 g/dL (33-37); MEAN CORPUSCULAR VOLUME 87.8 fL (80-94); MONOCYTES # (AUTO) 0.2 K/uL (0.8-1.0); MONOCYTES % (AUTO) 5.7 % (1.7-9.3); NEUTROPHILS # (AUTO) 2.2 K/uL (1.8-7.7); NEUTROPHILS % (AUTO) 68.8 % (42.2-75.2); PLATELET COUNT (AUTO) 229 K/uL (140-450); RED BLOOD CELL COUNT(AUTO) 3.22 MIL/uL (4.20-6.10); RED CELL DISTRIBUTION WIDTH 15.9 % (11.6-13.7); WHITE BLOOD COUNT (AUTO) 3.2 K/uL (4.8-10.8)
[2019-11-19 07:38] LABS: ANION GAP 7.1 (8-16); CARBON DIOXIDE 33.3 mmol/L (21-32); CREATININE 0.7 mg/dL (0.6-1.3); POTASSIUM 4.4 mmol/L (3.5-5.1)
[2019-11-19 08:00] VITALS: BP 100/66
[2019-11-19 08:03] LABS: PHOSPHORUS 2.5 mg/dL (2.5-4.9)
[2019-11-19] MEDS: guaiFENesin 600 MG TABER PO SCH ×2 (08:52→20:07)
[2019-11-19] MEDS: VITAMIN D 400 IU TAB PO SCH (08:52)
[2019-11-19] MEDS: PANTOPRAZOLE 40 MG INJ VIAL IVP SCH (08:52)
--- NOTE | 2019-11-19 08:52 | NUR ---
MEDICATIONS EXPLAINED AND GIVEN TO PATIENT. PATIENT A&O X 4 LITHUANIAN SPEAKING, SITTING UP IN BED , BREATHING APPEARS LABORED. PT SATURATION 84% ON OXIMIZER 15L, RT CALLED AND SAW PATIENT. AFTER STAYING WITH PATIENT FOR A COUPLE MOMENTS AND ENCOURAGING DEEP BREATHS, PATIENT SATURATION WENT UP TO 92%. PT SKIN IS NOT CYANOTIC, NO PALLOR, OR EDEMA NOTED ON EXTREMITIES, SKIN INTACT. CAP REFILL < 3 SECONDS. NO C/O OF PAIN, ALL NEEDS MET, CALL LIGHT WITHIN REACH, WILL CONTINUE TO MONITOR.
[2019-11-19] MEDS: ASCORBIC ACID 500 MG TAB PO SCH (08:53)
[2019-11-19] MEDS: SODIUM PHOS / POTASSIUM PHOS 1 PKT PDR PO SCH (08:53)
[2019-11-19] MEDS: ATORVASTATIN 20 MG TAB PO SCH (08:53)
[2019-11-19] MEDS: DOCUSATE 100 MG/10 ML UDC NG SCH ×2 (08:53→20:09)
[2019-11-19] MEDS: ZINC SULF 220 MG CAP PO SCH (08:53)
[2019-11-19] MEDS: POTASSIUM CHLORIDE 10 MEQ TABER PO PRN (08:54)
[2019-11-19] MEDS: GENVOYA PO SCH (09:09)
--- NOTE | 2019-11-19 11:30 | NUR ---
BLOOD SUGAR CHECKED TO BE 166, 2 UNITS OF HUMALOG INSULIN GIVEN. PT STATES FAMILY WILL BRING FOOD TODAY, NOTED AND WILL BRING FOOD TO PATIENT. INSTRUCTED PATIENT THAT IT MUST BE LOW IN SUGAR PT DIABETIC. PT VERBALIZED UNDERSTANDING.
[2019-11-19 12:00] VITALS: BP 103/59
[2019-11-19] MEDS: INSULIN LISPRO SLIDING SCALE 100 UNITS/ML VIAL SUBQ PRN ×3 (12:36→20:11)
--- NOTE | 2019-11-19 14:03 | NUR ---
PER RT, PT WAS HAVING NOSEBLEED. PT IS NOW ON 15L VIA VENTI FACE MASK AT 50% O2 , SATURATION STABLE AT 91%. ALL NEEDS MET, WILL CONTINUE TO MONITOR.
--- NOTE | 2019-11-19 14:30 | NUR ---
PT BLOOD SUGAR CHECKED TO BE 304, 8 UNITS HUMALOG INSULIN GIVEN. PT BELIEVES IT MAY BE DUE TO THE 'WATER' THAT PT FAMILY BROUGHT HIM WHICH IS ACTUALLY LEMONADE. PT LEMONADE WAS THROWN AWAY WITH PT PERMISSION. PT STABILIZED AT THE MOMENT, IN NO S/S RESPIRATORY DISTRESS, NO C/O OF PAIN. CURRENTLY SATURATION IS 91% ON VENTI MASK 15L. WILL CONTINUE TO MONITOR.
--- NOTE | 2019-11-19 15:19 | NUR ---
11/19/19 RD FOLLOW UP COMPLETED PLEASE REFER TO NUTRITION ASSESSMENT UNDER CARE ACTIVITY FOR ESTIMATED NUTRITIONAL NEEDS. 1. CONTINUE MECHANICAL SOFT DIET 2. FOLLOW PATIENT FOOD PREFERENCES 3. ENCOURAGE INCREASE PO INTAKE OF MEALS 4. RD TO FOLLOW-UP IN 2-3 DAYS, HIGH RISK LUCI MINAYA, RD
[2019-11-19 16:00] VITALS: BP 103/66
--- NOTE | 2019-11-19 16:30 | NUR ---
PATIENT CLEANED CHANGED AND REPOSITIONED. PT HAD ONE INSTANCE OF INCONTINENCE IN BED. PT FAMILY IS TALKING WITH PATIENT ON THE PHONE AND IS STANDING OUTSIDE WINDOW. ALL NEEDS MET, CALL LIGHT WITHIN REACH, WILL CONTINUE TO MONITOR.
--- NOTE | 2019-11-19 18:04 | NUR ---
SPOKE WITH DR CUNNINGHAM REGARDING PT COMPLAINING OF CONSTIPATION AND DOES NOT WANT COLACE PRN TABLET, GAVE ORDERS FOR DULCOLAX SUPPOSITORY ONCE. ORDERS NOTED AND CARRIED OUT.
[2019-11-19] MEDS ORDERED: bisacodyL 10 MG SUPP RC SCH (18:30)
--- NOTE | 2019-11-19 18:50 | NUR ---
DULCOLAX SUPPOSITORY GIVEN TO PATIENT, LUBRICATED, PT TOLERATED WELL. CURRENTLY SITTING ON BED MCM[place]AN. HIS FISHING VESSEL CAPTAIN IS AWARE AND STATES WILL CHANGE HIM IN 15 MINUTES. NOTED.
--- NOTE | 2019-11-19 19:15 | NUR ---
RECEIVED REPORT FROM JAIR RN. PT IS STABLE IN NO DISTRESS. WILL CONTINUE WITH TREATMENT PLAN.
--- NOTE | 2019-11-19 19:15 | NUR ---
BEDSIDE REPORT GIVEN TO HEALTHCARE FINANCIAL ANALYST NURSE REGARDING PATIENT CONDITION AND PLAN OF CARE. ENDORSED THAT PT AND PT FAMILY REALLY WANTS FINNISH SPEAKING STAFF AND THAT ALL MAJOR CONVERSATIONS MUST BE IN FINNISH. ALSO ENDORSED THAT LAXATIVE WAS JUST GIVEN TO PT AND THAT PT IS CURRENTLY SITTING ON BED MCM[place]AN. PT HAS NOT YET HAD BOWEL MOVEMENT. PT IS STABILIZED AT THIS TIME.
[2019-11-19 20:00] VITALS: BP 101/71
[2019-11-19] MEDS: LORATADINE 10 MG TAB PO SCH (20:07)
[2019-11-19] MEDS: ACETAMINOPHEN 325 MG TAB PO PRN (20:08)
[2019-11-19] MEDS: INSULIN LANTUS 100 UNITS/ML 10 ML VIAL SUBQ SCH (20:12)
[2019-11-19] MEDS: ENOXAPARIN 40 MG/0.4 ML SYR SUBQ SCH (20:13)
--- NOTE | 2019-11-19 21:15 | NUR ---
PT RESTING IN BED AWAKE. PT HAD POSITIVE RESULTS FROM SUPPOSITORY. HAD BM AND WAS ASSISTED WITH LINEN CHANGE. PT. RESPIRATION EVEN AND SLIGHTLY LABORED. HOWEVER SP02 95% ON 15 L VENTI MASK. V/S: 97.7, 112, 24, 101/71, 93-95% ON 15 L VENTIMASK TOLERATED PO MEDICATION BS 250 AND RECEIVED 4 UNIT PER SLIDING SCALE. PT C/O HEADACHE 06/21 AND WAS GIVE TYLENOL AT 2007. PRN HAS BEEN EFFECTIVE. CURRENTLY LAYING IN BED DENIES ANY PAIN. IN NO DISTRESS. WILL CONTINUE TO MONITOR.
--- NOTE | 2019-11-19 23:20 | NUR ---
PT RESTING IN BED WITH EYES CLOSED RESP EVEN AND UNLABORED IN NO DISTRESS. REMAINS ON 15L VENTI-MASK WITH SP O2 95%. ALL NEEDS ARE MET AT THIS TIME.
[2019-11-20] VITALS: BP 93/64
--- NOTE | 2019-11-20 00:45 | NUR ---
ASLEEP IN NO DISTRESS. V/S: 97.7, 95, 24, 93/64, 95 % ON 15L VENTIMASK DENIES ANY PAIN. WILL CONTINUE TO MONITOR
--- NOTE | 2019-11-20 02:14 | NUR ---
RESTING WITH EYES CLOSED IN NO DISTRESS. RESPIRATION EVEN AND UNLABORED. REMAINS ON 15 L VENTI. 92-95 %. ALL NEEDS MET AT THIS TIME.
[2019-11-20 04:00] VITALS: BP 106/67
--- NOTE | 2019-11-20 04:20 | NUR ---
PT SLEEPING IN SEMI-FOWLERS POSITIONS. PT REMAINS ON 15L VENTI-MASK WITH SP02 93-95%. V/S: 97.6, 92, 22, 106/67, 93% 15L VENTI-MASK. ALL NEEDS MEET AT THIS TIME WILL CONTINUE TO MONITOR.
--- NOTE | 2019-11-20 06:10 | NUR ---
DURING ROUNDS PT OBSERVED TO HAVE DECREASED O2 LEVELS IN THE LOW 80'S. PT REPORTED FEELING OF ANXIOUSNESS AND RESTLESSNESS. TUBING WAS CHECKED, HOB WAS SLIGHTLY ELEVATED AND RT WAS CALLED FOR PRN INHALER TREATMENT. PT WAS SWITCHED FROM 50% VENTI 15 L TO 100% 15 L NRB, SPO2 IMPROVED TO HIGH 88-90%. PT REPORTS DECREASE ANXIETY RESPIRATION 24 EVEN AND UNLABORED. DENIES ANY FURTHER DISTRESS AT THIS TIME. WILL CONTINUE TO MONITOR.
--- NOTE | 2019-11-20 06:14 | NUR ---
PATIENT SWITCHED TO NON-REBREATHER BECAUSE SATURATION WAS DECREASING ON VENTI-MASK. PATIENT SPO2 IMPROVED ON NRB MASK. SPO2 88 HEART RATE 89. PRN MDI TX GIVEN. PATIENT STABLE NO RESP DISTRESS AT THIS TIME
[2019-11-20] MEDS: BLOOD GLUCOSE MONITORING 1 DEV DEV FS SCH ×4 (06:17→20:11)
[2019-11-20] MEDS: INSULIN LISPRO SLIDING SCALE 100 UNITS/ML VIAL SUBQ PRN ×4 (06:17→20:19)
[2019-11-20] MEDS: METOCLOPRAMIDE 10 MG TAB PO SCH ×3 (06:22→15:55)
[2019-11-20 06:32] LABS: BASOPHILS % (AUTO) 0.5 % (0.0-2.0); LYMPHOCYTES # (AUTO) 1.1 K/uL (2.0-11.5); LYMPHOCYTES % (AUTO) 23.3 % (20.5-51.1); MEAN CORPUSCULAR HEMOGLOBIN 30 pg (27-31); MEAN CORPUSCULAR HGB CONC 34 g/dL (33-37); MEAN CORPUSCULAR VOLUME 88.7 fL (80-94); MONOCYTES # (AUTO) 0.3 K/uL (0.8-1.0); NEUTROPHILS # (AUTO) 3.2 K/uL (1.8-7.7); NEUTROPHILS % (AUTO) 69.2 % (42.2-75.2); PLATELET COUNT (AUTO) 271 K/uL (140-450); RED BLOOD CELL COUNT(AUTO) 3.38 MIL/uL (4.20-6.10); WHITE BLOOD COUNT (AUTO) 4.6 K/uL (4.8-10.8)
--- NOTE | 2019-11-20 06:44 | NUR ---
BS 169 GIVEN 2 UNITS OF HUMALOG PER SLIDING SCALE. PT CALM AND SP02 96% ON 100% 5L NRB.
[2019-11-20 07:07] LABS: ANION GAP 7.4 (8-16); CREATININE 0.8 mg/dL (0.6-1.3); POTASSIUM 4.4 mmol/L (3.5-5.1)
--- NOTE | 2019-11-20 07:10 | NUR ---
RECEIVED REPORT FROM NIGHT NURSE FOR CONTINUITY OF CARE, PT IS STABLE, PT AAOX4, LAO SPEAKING, PT ON 15L NON-BREATHER MASK, PT HAS RIGHT UA PICC LINE SALINE LOCK, PT IS A FALL RISK, EXPLAINED TO PT TO CALL NURSE FOR ASSISTANCE, PT VERBALIZED UNDERSTANDING, UPDATED WHITEBOARD, WILL CONTINUE TO MONITOR, CALL LIGHT WITHIN REACH.
--- NOTE | 2019-11-20 07:20 | NUR ---
BEDSIDE REPORT GIVEN TO AM RN FOR CONTINUITY OF CARE. PT IS STABLE
[2019-11-20 08:00] VITALS: BP 106/74
[2019-11-20 08:39] LABS: MAGNESIUM 1.7 mg/dL (1.8-2.4)
[2019-11-20] MEDS: PANTOPRAZOLE 40 MG INJ VIAL IVP SCH (09:20)
[2019-11-20] MEDS: ASCORBIC ACID 500 MG TAB PO SCH (09:21)
[2019-11-20] MEDS: guaiFENesin 600 MG TABER PO SCH ×2 (09:21→20:12)
[2019-11-20] MEDS: ZINC SULF 220 MG CAP PO SCH (09:21)
[2019-11-20] MEDS: ATORVASTATIN 20 MG TAB PO SCH (09:22)
[2019-11-20] MEDS: VITAMIN D 400 IU TAB PO SCH (09:22)
[2019-11-20] MEDS: DOCUSATE 100 MG/10 ML UDC NG SCH ×2 (09:22→20:12)
[2019-11-20] MEDS: GENVOYA PO SCH (09:23)
[2019-11-20 09:31] LABS: PHOSPHORUS 3.9 mg/dL (2.5-4.9)
--- NOTE | 2019-11-20 09:37 | NUR ---
ADMINISTERED SCHEDULED MEDICATION, MEDICATION EDUCATION PROVIDED, PT VERBALIZED UNDERSTANDING, PT TOLERATED WELL, PT IS STABLE, PT O2 SAT 91%, CALL LIGHT WITHIN REACH.
[2019-11-20] MEDS: MAG SULF 2000 MG/WATER PREMIX 50 ML IV PRN (11:37)
--- NOTE | 2019-11-20 11:38 | NUR ---
ADMINISTERED SCHEDULED MEDICATION, MAGNESIUM PRN FOR MAGNESIUM OF 1.7, MEDICATION EDUCATION GIVEN, PT VERBALIZED UNDERSTANDING, PT TOLERATED WELL, PT IS STABLE, CALL LIGHT WITHIN REACH.
--- NOTE | 2019-11-20 11:40 | NUR ---
CHANGING PT FROM .50 VENTI MASK TO 100 5 NRM PT IRRITABLE WORKING WITH PT AND SPO2 WHILE TRYING TO TITRARE FI02 AND MAINTAIN SPO2 >= TO .90 TO .92%
[2019-11-20 12:00] VITALS: BP 103/67
[2019-11-20] MEDS: LORazepam 2 MG/ML VIAL IVP PRN (13:01)
--- NOTE | 2019-11-20 13:07 | NUR ---
ADMINISTERED 6 UNITS OF HUMALOG FOR BLOOD GLUCOSE OF 258, ATIVAN PRN FOR ANXIETY, MEDICATION EDUCATION GIVEN, PT VERBALIZED UNDERSTANDING, PT TOLERATED WELL, PT IS STABLE, CALL LIGHT WITHIN REACH.
--- NOTE | 2019-11-20 14:53 | NUR ---
RECEIVED PT A LITTLE BIT SLEEPY, O2 SAT 89, WITH NON REBREATHER, REPOSITIONED PT TO RIGHT SIDE AND ENCOURAGED DEEP BREATHING, FLUIDS GIVEN , PER OTHER NURSE, SEEN PT STANDING AT BEDSIDE, WITH LOW O2 SAT, THEY PUT PT TO NON REBREATHER, REPORTED TO DR. HECTOR MD SAID D/C ATIVAN
--- NOTE | 2019-11-20 16:09 | NUR ---
PATIENT SLEEPING AT THIS TIME O2 SAT 99 WITH NON REBREATHER MASK, PICCLINE ON RIGHT ARM 2 PORT FLUSHED WITH NS , WITH GOOD BLOOD RETURN , DRESSING CHANGED DONE , NO SIGNS OF INFECTION.
[2019-11-20 16:16] VITALS: BP 100/69
--- NOTE | 2019-11-20 17:18 | NUR ---
TALKED TO MOTHER IN HIS CELL PHONE, O2 SAT 97 NON REBREATHER MASK
--- NOTE | 2019-11-20 18:29 | NUR ---
PT FINISHED EATING, WITH GOOD APPETITE, ON NON REBREATHER MASK O2 SAT 95, PATIENT POSITION FACING THE DOOR, VERBALLY RESPONSIVE,
--- NOTE | 2019-11-20 19:30 | NUR ---
RECEIVED BEDSIDE REPORT FROM DAY SHIFT NURSE. PT IN BED WITH HOB ELEVATED. AAOX4, AMBULATORY, AND ABLE TO MAKE NEEDS KNOWN. PT CURRENTLY ON NRB/15LPM, O2 SAT 97%, NOT IN DISTRESS. ABDOMEN IS SOFT AND NON-TENDER. SKIN IS WARM, DRY, AND INTACT. PT HAS PICC LINE ON RIGHT UPPER ARM PATENT AND INTACT, IVF INFUSING WELL. PT DENIES ANY PAIN OR DISCOMFORT AT THIS TIME. NO REQUESTS MADE. PLAN OF CARE DISCUSSED, PT VERBALIZED UNDERSTANDING. SAFETY MEASURES IN PLACE. CALL LIGHT WITHIN REACH. WILL CONTINUE TO MONITOR.
[2019-11-20 20:00] VITALS: BP 102/77
[2019-11-20] MEDS: LORATADINE 10 MG TAB PO SCH (20:12)
[2019-11-20] MEDS: INSULIN LANTUS 100 UNITS/ML 10 ML VIAL SUBQ SCH (20:17)
[2019-11-20] MEDS: ENOXAPARIN 40 MG/0.4 ML SYR SUBQ SCH (20:18)
--- NOTE | 2019-11-20 20:20 | NUR ---
VITAL SIGNS STABLE. PT IN BED WITH HOB ELEVATED. O2 IN PLACE. PT NOT IN DISTRESS. O2 SAT 97%. SCHEDULED MEDS GIVEN ORDERED. BLOOD SUGAR 246. INSULIN COVERAGE GIVEN ORDERED. PT DENIES ANY PAIN OR DISCOMFORT AT THIS TIME. NO REQUESTS MADE. SAFETY MEASURES IN PLACE. CALL LIGHT WITHIN REACH. WILL CONTINUE TO MONITOR.
--- NOTE | 2019-11-20 22:18 | NUR ---
PT IN BED RESTING. O2 IN PLACE. O2 SAT 97%. PT NOT IN DISTRESS. NO REQUESTS MADE. KEPT COMFORTABLE. SAFETY MEASURES IN PLACE. WILL CONTINUE TO MONITOR.
[2019-11-21] VITALS: BP 99/73
--- NOTE | 2019-11-21 00:18 | NUR ---
VITAL SIGNS STABLE. PT IN BED RESTING. RESPIRATIONS EVEN AND UNLABORED. PT NOT IN DISTRESS. O2 IN PLACE. DENIES ANY PAIN OR DISCOMFORT. PT KEPT COMFORTABLE. SAFETY MEASURES IN PLACE. CALL LIGHT WITHIN REACH. WILL CONTINUE TO MONITOR.
--- NOTE | 2019-11-21 02:09 | NUR ---
PT ASLEEP. O2 IN PLACE. NO S/SX OF DISTRESS. O2 SAT 99%. VISIBLE CHEST RISE AND FALL NOTED. SAFETY MEASURES IN PLACE. WILL CONTINUE TO MONITOR.
--- NOTE | 2019-11-21 03:58 | NUR ---
VITAL SIGNS STABLE. NRB MASK IN PLACE. CURRENT O2 SAT 99%. PT NOT IN DISTRESS. PT DENIES ANY PAIN OR DISTRESS AT THIS TIME. PT KEPT COMFORTABLE. SAFETY MEASURES IN PLACE. CALL LIGHT WITHIN REACH. WILL CONTINUE TO MONITOR.
[2019-11-21 04:00] VITALS: BP 101/68
[2019-11-21 06:14] LABS: BASOPHILS % (AUTO) 0.2 % (0.0-2.0); HEMATOCRIT 30.1 % (36-52); LYMPHOCYTES % (AUTO) 20.3 % (20.5-51.1); MEAN CORPUSCULAR HEMOGLOBIN 30 pg (27-31); MEAN CORPUSCULAR HGB CONC 33 g/dL (33-37); MONOCYTES # (AUTO) 0.4 K/uL (0.8-1.0); MONOCYTES % (AUTO) 8.4 % (1.7-9.3); NEUTROPHILS # (AUTO) 3.6 K/uL (1.8-7.7); NEUTROPHILS % (AUTO) 71.1 % (42.2-75.2); PLATELET COUNT (AUTO) 267 K/uL (140-450); RED BLOOD CELL COUNT(AUTO) 3.35 MIL/uL (4.20-6.10); RED CELL DISTRIBUTION WIDTH 17.1 % (11.6-13.7); WHITE BLOOD COUNT (AUTO) 5.1 K/uL (4.8-10.8)
[2019-11-21] MEDS: BLOOD GLUCOSE MONITORING 1 DEV DEV FS SCH ×4 (06:31→21:29)
[2019-11-21] MEDS: METOCLOPRAMIDE 10 MG TAB PO SCH ×3 (06:31→17:09)
--- NOTE | 2019-11-21 06:32 | NUR ---
SCHEDULED MEDS GIVEN ORDERED. BLOOD SUGAR 133, NO INSULIN COVERAGE NEEDED. WILL CONTINUE TO MONITOR.
[2019-11-21 06:34] LABS: MAGNESIUM 2.2 mg/dL (1.8-2.4); PHOSPHORUS 3.9 mg/dL (2.5-4.9)
--- NOTE | 2019-11-21 07:02 | NUR ---
ENDORSED TO DAY SHIFT NURSE FOR CONTINUITY OF CARE. PT IS IN STABLE CONDITION.
--- NOTE | 2019-11-21 07:03 | NUR ---
RECEIVED REPORT FROM NIGHT NURSE. PT AWAKE IN BED. AOX4, NO COMPLAINTS OF PAIN, NO SOB, RESPIRATIONS ARE EVEN AND UNLABORED. ON 15L NRM. SKIN IS INTACT. WITH ИРИНА PICC LINE ON TKO. ON STANDARD ISOLATION. SAFETY PRECAUTIONS IN PLACE. CALL LIGHT WITHIN REACH. WILL CONTINUE TO MONITOR
[2019-11-21 07:12] LABS: ANION GAP 11.4 (8-16); CARBON DIOXIDE 30.3 mmol/L (21-32); CREATININE 0.9 mg/dL (0.6-1.3); POTASSIUM 4.7 mmol/L (3.5-5.1)
[2019-11-21 08:00] VITALS: BP 100/69
[2019-11-21] MEDS: ZINC SULF 220 MG CAP PO SCH (09:00)
[2019-11-21] MEDS ORDERED: [UNRECOGNIZED DRUG - OTHER] PO SCH (09:00)
--- NOTE | 2019-11-21 09:20 | NUR ---
DUE MORNING MEDS GIVEN. TOLERATED PO MEDS WELL
[2019-11-21] MEDS: PANTOPRAZOLE 40 MG INJ VIAL IVP SCH (09:56)
[2019-11-21] MEDS: ATORVASTATIN 20 MG TAB PO SCH (09:57)
[2019-11-21] MEDS: DOCUSATE 100 MG/10 ML UDC NG SCH ×2 (09:57→21:14)
[2019-11-21] MEDS: guaiFENesin 600 MG TABER PO SCH ×2 (09:57→21:14)
[2019-11-21] MEDS: VITAMIN D 400 IU TAB PO SCH (09:57)
[2019-11-21] MEDS: GENVOYA PO SCH (09:57)
[2019-11-21] MEDS: ASCORBIC ACID 500 MG TAB PO SCH (09:57)
--- NOTE | 2019-11-21 11:30 | NUR ---
BLOOD SUGAR 266. COVERAGE GIVEN
[2019-11-21 12:00] VITALS: BP 113/64
--- NOTE | 2019-11-21 12:03 | NUR ---
OXYGEN DEVICE PARTIAL NON REBREATHER AT 15 LPM
[2019-11-21] MEDS: INSULIN LISPRO SLIDING SCALE 100 UNITS/ML VIAL SUBQ PRN ×3 (12:19→21:43)
--- NOTE | 2019-11-21 15:10 | NUR ---
PT AWAKE IN BED. NO C/O PAIN, NO SOB, ON 15L NRM, O2SAT 98%
[2019-11-21 16:00] VITALS: BP 96/63
--- NOTE | 2019-11-21 16:40 | NUR ---
BLOOD SUGAR 204. COVERAGE GIVEN
--- NOTE | 2019-11-21 18:29 | NUR ---
PT AWAKE IN BED. NO APPARENT DISTRESS, NO C/O PAIN
--- NOTE | 2019-11-21 19:05 | NUR ---
ENDORSED TO ACCESS CONTROL OFFICER FOR CONTINUITY OF CARE
--- NOTE | 2019-11-21 19:25 | NUR ---
RECEIVED BEDSIDE REPORT FROM DAY SHIFT NURSE. PT IS A& O X 4, [place] SPEAKING. SKIN IS WARM, DRY, AND INTACT. ON 15 L NONREBREATHER WITH O2 SAT AT 95%. BREATHING IS EVEN AND UNLABORED. PT IS SR ON TELE MONITORING. BOWEL SOUNDS ARE PRESENT IN ALL QUADRANTS. PT HAS A URINAL AND BEDPAN AT THE BEDSIDE THAT CAN BE USED WITH ASSISTANCE. RIGHT PICC DOUBLE LUMEN RUNNING NS TKO. BED IS IN LOWEST POSITION AND CALL LIGHT IS WITHIN REACH. PLAN OF CARE DISCUSSED.
[2019-11-21 20:00] VITALS: BP 97/75
--- NOTE | 2019-11-21 21:00 | NUR ---
PT IS AWAKE AND ALERT. O2 SAT IS 94% ON 15 L NONREBREATHER. BREATHING IS REGULAR AND UNLABORED. PICC LINE IS PATENT AND INFUSING NS TKO. PT IS CURRENTLY USING THE URINAL AT THE BEDSIDE. NO DISTRESS NOTED.
[2019-11-21] MEDS: LORATADINE 10 MG TAB PO SCH (21:14)
[2019-11-21] MEDS: ENOXAPARIN 40 MG/0.4 ML SYR SUBQ SCH (21:16)
[2019-11-21] MEDS: INSULIN LANTUS 100 UNITS/ML 10 ML VIAL SUBQ SCH (21:32)
--- NOTE | 2019-11-21 21:45 | NUR ---
PT'S BS WAS 232. LANTUS WAS GIVEN SCHEDULED AND HUMALOG WAS GIVEN PER SLIDING SCALE 4 UNITS.
--- NOTE | 2019-11-21 23:00 | NUR ---
PT REQUESTED A SNACK AND WAS GIVEN CRACKERS. PT IS ANXIOUS ABOUT SLEEPING BECAUSE HE IS AFRAID HE WONT BE ABLE TO BREATHE WHILE SLEEPING. COMFORT AND SUPPORT WAS PROVIDED AND PT SEEMED MUCH MORE AT EASE. PT SAID HE WILL TRY TO SLEEP SOON. NO DISTRESS NOTED.
[2019-11-22] VITALS: BP 103/66
--- NOTE | 2019-11-22 01:00 | NUR ---
PT IS ASLEEP IN SEMI FOWLERS POSITION. O2 SAT IS 100% ON 15 L NONREBREATHER. HE IS SR ON TELE MONITORING. BREATHING IS UNLABORED. CHEST RISE AND FALL IS SYMMETRICAL. BED IS IN LOWEST POSITION AND CALL LIGHT IS WITHIN REACH.
--- NOTE | 2019-11-22 03:00 | NUR ---
REPOSITIONED HIMSELF IN BED IN SEMI FOWLERS POSITION. PT REQUESTED A SNACK AND WAS GIVEN A PUDDING. PT STATED HE HAS GOTTEN A LOT OF REST TONIGHT. O2 SAT IS 99% ON 15 L NONREBREATHER. BREATHING IS UNLABORED AND PT IS CALM AT THIS TIME.
[2019-11-22 04:00] VITALS: BP 102/70
--- NOTE | 2019-11-22 05:00 | NUR ---
PT IS ASLEEP. O2 SAT AT 100% ON 15 L NONREBREATHER. TITRATED O2 TO 13 LITERS ON NONREBREATHER. WILL CONTINUE TO MONITOR O2 SATURATION. BREATHING IS REGULAR AND UNLABORED. PT IS STABLE.
[2019-11-22] MEDS: BLOOD GLUCOSE MONITORING 1 DEV DEV FS SCH ×4 (06:04→20:11)
[2019-11-22] MEDS: INSULIN LISPRO SLIDING SCALE 100 UNITS/ML VIAL SUBQ PRN ×4 (06:05→21:08)
--- NOTE | 2019-11-22 06:34 | NUR ---
ALL NEEDS ARE MET. BLANKETS WERE PROVIDED FOR COMFORT. PT IS STABLE.
[2019-11-22 06:43] LABS: BASOPHILS % (AUTO) 0.1 % (0.0-2.0); HEMATOCRIT 30.2 % (36-52); HEMOGLOBIN 10.2 g/dL (12.0-18.0); LYMPHOCYTES # (AUTO) 1.1 K/uL (2.0-11.5); LYMPHOCYTES % (AUTO) 20.6 % (20.5-51.1); MEAN CORPUSCULAR HEMOGLOBIN 30 pg (27-31); MEAN CORPUSCULAR HGB CONC 34 g/dL (33-37); MEAN CORPUSCULAR VOLUME 89.8 fL (80-94); MONOCYTES # (AUTO) 0.4 K/uL (0.8-1.0); NEUTROPHILS # (AUTO) 3.8 K/uL (1.8-7.7); NEUTROPHILS % (AUTO) 71.3 % (42.2-75.2); PLATELET COUNT (AUTO) 248 K/uL (140-450); RED BLOOD CELL COUNT(AUTO) 3.37 MIL/uL (4.20-6.10); RED CELL DISTRIBUTION WIDTH 17.2 % (11.6-13.7); WHITE BLOOD COUNT (AUTO) 5.3 K/uL (4.8-10.8)
[2019-11-22] MEDS: METOCLOPRAMIDE 10 MG TAB PO SCH ×3 (06:45→17:24)
[2019-11-22 07:05] LABS: ANION GAP 7.6 (8-16); CARBON DIOXIDE 32.1 mmol/L (21-32); CREATININE 0.7 mg/dL (0.6-1.3); POTASSIUM 4.7 mmol/L (3.5-5.1)
--- NOTE | 2019-11-22 07:10 | NUR ---
ENDORSED PT TO DAY SHIFT NURSE FOR CONTINUITY OF CARE. PT IS STABLE AT THIS TIME. PLAN OF CARE DISCUSSED.
[2019-11-22 07:14] LABS: MAGNESIUM 1.9 mg/dL (1.8-2.4); PHOSPHORUS 3.5 mg/dL (2.5-4.9)
--- NOTE | 2019-11-22 07:30 | NUR ---
received report from [facility] nurse, assumed care. pt resting comfortably with no s/s of pain and/or distress at this time. personal belongings, bedside table, call light within reach. will continue to monitor.
[2019-11-22 08:52] VITALS: BP 103/70
[2019-11-22] MEDS: PANTOPRAZOLE 40 MG INJ VIAL IVP SCH (09:48)
[2019-11-22] MEDS: DOCUSATE 100 MG/10 ML UDC NG SCH ×2 (09:49→20:12)
[2019-11-22] MEDS: GENVOYA PO SCH (09:49)
[2019-11-22] MEDS: ACETAMINOPHEN 325 MG TAB PO PRN (09:51)
[2019-11-22] MEDS: POTASSIUM CHLORIDE 10 MEQ TABER PO PRN (09:53)
[2019-11-22] MEDS: ASCORBIC ACID 500 MG TAB PO SCH (09:53)
[2019-11-22] MEDS: ATORVASTATIN 20 MG TAB PO SCH (09:54)
[2019-11-22] MEDS: VITAMIN D 400 IU TAB PO SCH (09:54)
[2019-11-22] MEDS: guaiFENesin 600 MG TABER PO SCH ×2 (09:54→20:13)
[2019-11-22] MEDS: ZINC SULF 220 MG CAP PO SCH (12:02)
[2019-11-22 13:12] VITALS: BP 100/63
[2019-11-22 16:00] VITALS: BP 108/67
--- NOTE | 2019-11-22 16:37 | NUR ---
11/22/19 RD FOLLOW UP COMPLETED PLEASE REFER TO NUTRITION ASSESSMENT UNDER CARE ACTIVITY FOR ESTIMATED NUTRITIONAL NEEDS. 1. CONTINUE MECHANICAL SOFT DIET 2. FOLLOW PATIENT FOOD PREFERENCES 3. [facility] WILL PROVIDE DOUBLE PORTIONS 4. RD TO FOLLOW-UP IN 3-5 DAYS, MODERATE RISK LUCI MINAYA, RD
--- NOTE | 2019-11-22 18:01 | NUR ---
care plan reviewed, interventions implemented: pain mgmt, fall risk prevention, labs and i/o monitored, repositioned throughout shift. VSS, afebrile, o2 sat >92% on 12-15 lpm non-rebreather. c/o pain x1 with relief from tylenol prn, 09/21 to 06/21. all needs met this shift. personal belongings, bedside table, call light within reach. will continue to monitor.
[2019-11-22] MEDS: ALBUTEROL HFA MDI 90 MCG/ACTUATION 8 GM INH PRN (18:18)
--- NOTE | 2019-11-22 19:13 | NUR ---
RECEIVED PT IN STABLE CONDITION FROM AM NURSE. AWAKE,ALERT AND ORIENTED X4.ON TELE MONITOR. STILL ON CONTINUOS O2 15 BY NRM. O2 SAT96%. NO RESPIRATORY DISTRESS NOTED. WITH NO /CO ANY DISCOMFORT NOR PAIN NOTED. IVF INFUSING WELL ON THE RIGHT UPPER ARM PICC LINE. PLAN OF CARE DISCUSSED AND VERBALIZED UNDERSTANDING. BED ON LOW POSITION. SIDE RAILS UP X2. JAZZMINE LIGHT PLACED WITHIN EASY REACH. WILL CONTINUE TO MONITOR.
[2019-11-22 20:00] VITALS: BP 103/70
[2019-11-22] MEDS: LORATADINE 10 MG TAB PO SCH (20:12)
[2019-11-22] MEDS: ENOXAPARIN 40 MG/0.4 ML SYR SUBQ SCH (20:15)
[2019-11-22] MEDS: INSULIN LANTUS 100 UNITS/ML 10 ML VIAL SUBQ SCH (20:23)
--- NOTE | 2019-11-22 21:02 | NUR ---
NEED RENEWAL FRO ALBUTEROL . PAGED DR. FERRO. LEFT MESSAGE .WILL WAIT FOR CALL BACK.
--- NOTE | 2019-11-22 21:08 | NUR ---
BLOOD SUGAR WAS CHECKED RESULT 266. INSULIN COVERAGE GIVEN. SNACK PROVIDED.
--- NOTE | 2019-11-22 21:54 | NUR ---
PAGED AGAIN DR. FERRO, DR. Jagdish BAILEY AREA FIELD WORKER.MADE AWARE ABOUT THE RENEWAL OF ALBUTEROL, HE SAID OK AND ALSO ORDERED AMBIEN PRN FOR INSOMNIA.
[2019-11-22] MEDS ORDERED: ZOLPIDEM 5 MG TAB PO PRN (21:55)
[2019-11-22] MEDS ORDERED: ALBUTEROL HFA MDI 90 MCG/ACTUATION 8 GM INH PRN (21:55)
--- NOTE | 2019-11-22 23:00 | NUR ---
MADE ROUNDS. PT SLEEPING. NO S/S OF ANY DISCOMFORT NOR ANY RESPIRATORY DISTRESS NOTED.
[2019-11-23 00:01] VITALS: BP 102/72
--- NOTE | 2019-11-23 02:00 | NUR ---
MADE ROUNDS. PT SLEEPING WELL. NO RESPIRATORY DISTRESS NOTED. O2 SAT 100% ON 15L/NRM. DECREASE O2 12LPM STILL NRM AND WILL SEE IF PT STILL SAT OK. WILL CONTINUE TO MONITOR.
--- NOTE | 2019-11-23 02:30 | NUR ---
CHECKED ON PT. STILL ASLEEP. O2 SAT REMAINS AT 100% ON O2 12LPM/NRM. WILL STILL CONTINUE TO MONITOR.
--- NOTE | 2019-11-23 03:45 | NUR ---
O2 LOWERED DOWN TO 10LPM NRM. O2 SAT STILL 100%. WILL CONTINUE TO MONITOR.
[2019-11-23 03:47] VITALS: BP 111/76
--- NOTE | 2019-11-23 05:00 | NUR ---
CHECKED ON PT. ASLEEP. O2 SAT 100 %. NO RESPIRATORY DISTRESS NOTED.
[2019-11-23] MEDS: BLOOD GLUCOSE MONITORING 1 DEV DEV FS SCH ×3 (06:02→21:37)
[2019-11-23] MEDS: INSULIN LISPRO SLIDING SCALE 100 UNITS/ML VIAL SUBQ PRN ×3 (06:05→21:32)
--- NOTE | 2019-11-23 06:05 | NUR ---
BLOOD SUGAR WAS CHECKED THIS AM RESULT 152. INSULIN COVERAGE GIVEN.
[2019-11-23 06:28] LABS: BASOPHILS % (AUTO) 0.3 % (0.0-2.0); EOSINOPHILS % (AUTO) 0.2 % (0.0-4.0); HEMATOCRIT 30.6 % (36-52); HEMOGLOBIN 10.3 g/dL (12.0-18.0); LYMPHOCYTES # (AUTO) 0.9 K/uL (2.0-11.5); LYMPHOCYTES % (AUTO) 17.7 % (20.5-51.1); MEAN CORPUSCULAR HEMOGLOBIN 30 pg (27-31); MEAN CORPUSCULAR HGB CONC 34 g/dL (33-37); MONOCYTES # (AUTO) 0.5 K/uL (0.8-1.0); MONOCYTES % (AUTO) 8.9 % (1.7-9.3); NEUTROPHILS # (AUTO) 3.8 K/uL (1.8-7.7); NEUTROPHILS % (AUTO) 72.9 % (42.2-75.2); PLATELET COUNT (AUTO) 233 K/uL (140-450); RED CELL DISTRIBUTION WIDTH 17.4 % (11.6-13.7); WHITE BLOOD COUNT (AUTO) 5.2 K/uL (4.8-10.8)
[2019-11-23 06:30] LABS: ANION GAP 7.3 (8-16); CARBON DIOXIDE 33.3 mmol/L (21-32); CREATININE 0.7 mg/dL (0.6-1.3); POTASSIUM 4.6 mmol/L (3.5-5.1)
[2019-11-23] MEDS: METOCLOPRAMIDE 10 MG TAB PO SCH ×3 (06:37→16:55)
--- NOTE | 2019-11-23 07:18 | NUR ---
RECEIVED REPORT FROM ELECTRIC SCREW DRIVER OPERATOR RN FOR CONTINUITY OF CARE. PT IS AAOX4, COOPERATIVE AND ABLE TO MAKE NEEDS KNOWN. PT ON 10L O2 VIA NON-REBREATHER SATING 93%. PT SKIN IS INTACT. PT HAS RIGHT UPPER ARM PICC INFUSING WELL. DISCUSSED POC WITH PT AND PT VERBALIZED UNDERSTANDING. ALL SAFETY MEASURES IN PLACE. WILL ROUND FREQUENTLY ON PT THROUGHOUT THE SHIFT.
--- NOTE | 2019-11-23 07:32 | NUR ---
ENDORSED PT IN STABLE CONDITION TO AM NURSE FOR CONTINUITY OF CARE.
[2019-11-23 08:00] VITALS: BP 111/69
[2019-11-23] MEDS: ZINC SULF 220 MG CAP PO SCH (09:17)
[2019-11-23] MEDS: PANTOPRAZOLE 40 MG INJ VIAL IVP SCH (09:17)
[2019-11-23] MEDS: ATORVASTATIN 20 MG TAB PO SCH (09:17)
[2019-11-23] MEDS: ASCORBIC ACID 500 MG TAB PO SCH (09:17)
[2019-11-23] MEDS: guaiFENesin 600 MG TABER PO SCH ×2 (09:18→21:22)
[2019-11-23] MEDS: VITAMIN D 400 IU TAB PO SCH (09:18)
[2019-11-23] MEDS: DOCUSATE 100 MG/10 ML UDC NG SCH ×2 (09:19→21:22)
[2019-11-23] MEDS: GENVOYA PO SCH (09:20)
--- NOTE | 2019-11-23 09:23 | NUR ---
ADMINISTERED MORNING MEDS TO PT. PT TOLERATED WELL. WILL CONTINUE TO ROUND FREQUENTLY.
--- NOTE | 2019-11-23 11:24 | NUR ---
PT RESTING IN BED. ALL NEEDS MET.
[2019-11-23 12:00] VITALS: BP 102/59
[2019-11-23] MEDS ORDERED: DEXTROSE 50% 50 ML SYR IVP PRN (12:10)
--- NOTE | 2019-11-23 13:13 | NUR ---
PT RESTING N BED. ALL NEEDS MET.
[2019-11-23 16:00] VITALS: BP 104/72
--- NOTE | 2019-11-23 17:41 | NUR ---
PT TALKING ON PHONE. ALL NEEDS MET.
--- NOTE | 2019-11-23 19:03 | NUR ---
WILL ENDORSE TO BOX PRESS OPERATOR FOR CONTINUITY OF CARE. PT IN STABLE CONDITION AT THIS TIME.
--- NOTE | 2019-11-23 19:10 | NUR ---
RECEIVED PT IN STABLE CONDITION FROM AM NURSE. AWAKE,ALERT AND ORIENTEDX4. ON TELE MONITOR WITH O2 10LPM/NRM O2 SAT 96%. NO C/O ANY DISCOMFORT NOTED. HAS RT UPPER ARM PICC LINE. IVF TKO . PLAN OF CARE DISCUSSED AND VERBALIZED UNDERSTANDING. BED ON LOW POSITION. FREQ ROUNDS NEEDED. CALL LIGHT AND URINAL PLACED WITHIN REACH . WILL CONTINUE TO MONITOR.
[2019-11-23 20:00] VITALS: BP 102/69
[2019-11-23] MEDS: LORATADINE 10 MG TAB PO SCH (21:22)
[2019-11-23] MEDS: ACETAMINOPHEN 325 MG TAB PO PRN (21:23)
[2019-11-23] MEDS: ENOXAPARIN 40 MG/0.4 ML SYR SUBQ SCH (21:29)
[2019-11-23] MEDS: INSULIN LANTUS 100 UNITS/ML 10 ML VIAL SUBQ SCH (21:31)
--- NOTE | 2019-11-23 21:32 | NUR ---
BLOOD SUGAR WAS CHECKED AT THIS TIME RESULT 251. INSULIN COVERAGE GIVEN SUBQ. PROVIDED WITH SOME JELLO. WILL CONTINUE TO MONITOR.
--- NOTE | 2019-11-23 23:00 | NUR ---
CHECKED ON PT. AWAKE. O2 SAT 97%. NO DISTRESS NOTED.
[2019-11-24] VITALS: BP 114/72
--- NOTE | 2019-11-24 01:00 | NUR ---
ROXY DEAN . SLEEPING . NO DISTRESS NOTED. O2 SAT 98%.
--- NOTE | 2019-11-24 02:30 | NUR ---
MADE ROUNDS. PT ASLEEP. O2 SAT 99% . NO DISTRESS NOTED.
[2019-11-24 03:53] VITALS: BP 106/59
--- NOTE | 2019-11-24 03:55 | NUR ---
CHECKED ON PT,SLEEPING. ON O2 @8LPM NRM O2 SAT 100%.
[2019-11-24 06:00] LABS: HEMATOCRIT 33.1 % (36-52); HEMOGLOBIN 11.1 g/dL (12.0-18.0); MEAN CORPUSCULAR HEMOGLOBIN 30 pg (27-31); MEAN CORPUSCULAR HGB CONC 33 g/dL (33-37); MEAN CORPUSCULAR VOLUME 89.5 fL (80-94); PLATELET COUNT (AUTO) 229 K/uL (140-450); RED CELL DISTRIBUTION WIDTH 16.9 % (11.6-13.7); WHITE BLOOD COUNT (AUTO) 5.9 K/uL (4.8-10.8)
[2019-11-24] MEDS: BLOOD GLUCOSE MONITORING 1 DEV DEV FS SCH ×4 (06:08→20:36)
[2019-11-24] MEDS: INSULIN LISPRO SLIDING SCALE 100 UNITS/ML VIAL SUBQ PRN ×4 (06:11→20:41)
--- NOTE | 2019-11-24 06:11 | NUR ---
BLOOD SUGAR THIS AM 151/ INSULIN COVERAGE GIVEN SUBQ.
[2019-11-24] MEDS: METOCLOPRAMIDE 10 MG TAB PO SCH ×4 (06:21→16:28)
--- NOTE | 2019-11-24 07:25 | NUR ---
ENDORSED PT IN STABLE CONDITION TO AM NURSE.
--- NOTE | 2019-11-24 07:30 | NUR ---
RECEIVED PT FROM SEQUINS STRINGER NURSEZOILA, PT IS AWAKE AND SEATED ON THE BED WITH A RT UA PICC LINE DOUBLE LUMEN NOTED ON SALINE LOCK, PT IS A FALL RISK ON BEDREST, NO ISOLATION, ON NON-REBREATHER MASK AT 8L O2, OS SATURATION IS AT 98%, PT DENIES PAIN AND WILL CONTINUE TO MONITOR PT.
[2019-11-24 08:00] VITALS: BP 107/72
[2019-11-24 08:05] LABS: LYMPHOCYTES % (MANUAL) 17 % (20-46); MONOCYTES % (MANUAL) 10 % (5-12)
[2019-11-24] MEDS: DOCUSATE 100 MG/10 ML UDC NG SCH ×2 (08:27→20:36)
[2019-11-24] MEDS: PANTOPRAZOLE 40 MG INJ VIAL IVP SCH (08:27)
--- NOTE | 2019-11-24 08:27 | NUR ---
PT WAS GIVEN THE SCHEDULED AM MEDICATIONS, TOLERATED, TAKEN ONE TABLET AT A TIME, NO DIFFICULTY SWALLOWING, WILL MONITOR PT.
[2019-11-24] MEDS: ATORVASTATIN 20 MG TAB PO SCH (08:28)
[2019-11-24] MEDS: guaiFENesin 600 MG TABER PO SCH ×2 (08:28→20:36)
[2019-11-24] MEDS: GENVOYA PO SCH (08:30)
[2019-11-24 08:46] LABS: ANION GAP 8.6 (8-16); CREATININE 0.7 mg/dL (0.6-1.3); POTASSIUM 4.6 mmol/L (3.5-5.1)
[2019-11-24] MEDS: ACETAMINOPHEN 325 MG TAB PO PRN (10:44)
--- NOTE | 2019-11-24 10:44 | NUR ---
PT C/O HEADACHE AND TYLENOL WAS GIVEN, WILL RE-ASSESS PAIN AND MONITOR PT.
[2019-11-24 12:00] VITALS: BP 107/75
--- NOTE | 2019-11-24 12:17 | NUR ---
PT WAS GIVEN INSULIN 6 UNITS ON THE LEFT UA FOR BLOOD GLUCOSE OF 298, ORAL MEDICATION WAS GIVEN WELL, TOLERATED, WILL MONITOR PT.
[2019-11-24 16:00] VITALS: BP 105/58
--- NOTE | 2019-11-24 16:23 | NUR ---
PT WAS GIVEN INSULIN 2 UNITS ON THE LEFT UA FOR BLOOD GLUCOSE OF 185, WILL MONITOR PT.
--- NOTE | 2019-11-24 19:15 | NUR ---
ENDORSED PT TO BUSINESS [employer]LY[employer] FACULT[employer] MEMBER NURSE, KIRSTIE PICHARDO FOR CONTINUITY OF CARE.
[2019-11-24 20:00] VITALS: BP 99/67
--- NOTE | 2019-11-24 20:00 | NUR ---
RECEIVED REPORT FROM THE DAY RN REGARDING THE PATIENT FOR CONTINUITY OF CARE. PATIENT SITTING UP IN BED AND WATCHING TV. PT A/AOX3. DENIES ANY PAIN, CHEST PAIN,SOB AND PALPITATIONS. VSS, AFEBRILE, SATING 96% ON 15L NRB. SR ON THERMAL CUTTING MACHINE OPERATOR, HR-81.NO COMPLAIN AT THIS TIME. NOT IN ANY DISTRESS. FALL PRECAUTION IMPLEMENTED. INSTRUCTED NOT TO GET OOB WITHOUT ASSISTANCE. PATIENT VERBALIZED UNDERSTANDING WITH THE POC. CALL LIGHT WITHIN REACH. WILL CONTINUE POC AND MONITORING.
[2019-11-24] MEDS: ENOXAPARIN 40 MG/0.4 ML SYR SUBQ SCH (20:39)
[2019-11-24] MEDS: INSULIN LANTUS 100 UNITS/ML 10 ML VIAL SUBQ SCH (20:40)
--- NOTE | 2019-11-24 22:00 | NUR ---
ADMINISTERED ALL THE SCHEDULED MEDICATIONS ORDERED. PATIENT BLOOD SUGAR IS 253, GAVE 6 UNITS HUMALOG PER SSI AND LANTUS 15 UNITS ORDERED. SAFETY MEASURES IN PLACED
[2019-11-24] MEDS ORDERED: HYDRAGUARD CREAM TP ONE (22:31)
[2019-11-25] VITALS: BP 98/72
--- NOTE | 2019-11-25 | NUR ---
PATIENT VITAL SIGNS STABLE, AFEBRILE SATING 99% ON 15L/NRB. SINUS RHYTHM ON CONSUMER LENDING MANAGER, HR-[id number]. CALL LIGHT WITHIN REACH.
--- NOTE | 2019-11-25 00:15 | NUR ---
ADMINISTERED ALL THE SCHEDULED MEDICATIONS ORDERED. PATIENT BLOOD SUGAR IS 253, AGVE 6 UNITS HUMALOG PERSSI AND LANTUS 15 UNITS ORDERED. SAFETY MEASURES IN PLACED. Addendum: 11/25/19 at 0233 by Herlinda Trujillo RN RN WRONG TIME ENTRY
--- NOTE | 2019-11-25 02:15 | NUR ---
PATIENT ASLEEP AT THIS TIME. VISIBLE CHEST RISE AND FALL NOTED. NO SIGN AND SYMPTOMS OF DISTRESS NOTED. WILL CONTINUE TO MONITOR THE PATIENT. CALL LIGHT WITHIN REACH.
[2019-11-25 04:00] VITALS: BP_SYST 101; BP_SYST 115; BP_DIAS 67; BP_DIAS 84
--- NOTE | 2019-11-25 04:00 | NUR ---
MADE ROUNDS AND CHECKED THE PT VITAL SIGNS. PT VSS, AFEBRILE, SATING 100% ON 15L/NRB. SINUS ARRHYTHMIA ON CLEANER FURNITURE, HR-93.DENIES PAIN AT THIS TIME.NOT IN ANY DISTRESS. CALL LIGHT WITHIN REACH.
[2019-11-25 05:55] LABS: BASOPHILS % (AUTO) 0.3 % (0.0-2.0); HEMATOCRIT 33.3 % (36-52); HEMOGLOBIN 10.9 g/dL (12.0-18.0); LYMPHOCYTES # (AUTO) 0.9 K/uL (2.0-11.5); LYMPHOCYTES % (AUTO) 14.9 % (20.5-51.1); MEAN CORPUSCULAR HEMOGLOBIN 30 pg (27-31); MEAN CORPUSCULAR HGB CONC 33 g/dL (33-37); MEAN CORPUSCULAR VOLUME 90.2 fL (80-94); MONOCYTES # (AUTO) 0.3 K/uL (0.8-1.0); MONOCYTES % (AUTO) 5.2 % (1.7-9.3); NEUTROPHILS # (AUTO) 4.8 K/uL (1.8-7.7); NEUTROPHILS % (AUTO) 79.6 % (42.2-75.2); PLATELET COUNT (AUTO) 208 K/uL (140-450); RED BLOOD CELL COUNT(AUTO) 3.69 MIL/uL (4.20-6.10); RED CELL DISTRIBUTION WIDTH 17.6 % (11.6-13.7)
[2019-11-25 06:23] LABS: ANION GAP 7.3 (8-16); CARBON DIOXIDE 35.2 mmol/L (21-32); CREATININE 0.6 mg/dL (0.6-1.3); POTASSIUM 4.5 mmol/L (3.5-5.1)
[2019-11-25] MEDS: BLOOD GLUCOSE MONITORING 1 DEV DEV FS SCH ×4 (06:28→20:29)
[2019-11-25] MEDS: METOCLOPRAMIDE 10 MG TAB PO SCH ×3 (06:28→16:01)
--- NOTE | 2019-11-25 06:34 | NUR ---
PATIENT STABLE. NO ACUTE EVENTS THROUGHOUT THE NIGHT. NO SIGN AND SYMPTOMS OF DISTRESS NOTED. NO COMPLAIN AT THIS TIME. ALL NEEDS ATTENDED. CALL LIGHT WITHIN REACH. WILL ENDORSE THE PATIENT TO THE ONCOMING RN FOR CONTINUITY OF CARE.
--- NOTE | 2019-11-25 07:30 | NUR ---
Received report from pm nurse. Pt resting in bed, awake, respirations tachypneic but even & nonlabored, on O2 @ 15Lpm via NRB. Right upper arm PICC 2-lumen intact & asymptomatic. HOB elevated @ 30. Call light within reach.
[2019-11-25 08:00] VITALS: BP 110/73
--- NOTE | 2019-11-25 08:30 | NUR ---
Pt resting in bed with HOB elevated @ 35. SaO2 = 97% on 15Lpm via NRB. Titrated O2 down to 10Lpm but SaO2 slowly decreased to 85% @ rest. O2 increased back to 15Lpm via NRB with SaO2 stable @ 94-96%, respirations even & nonlabored. Instructed patient on deep breathing exercises, able to demonstrate back.
[2019-11-25] MEDS: PANTOPRAZOLE 40 MG INJ VIAL IVP SCH (08:51)
[2019-11-25] MEDS: DOCUSATE 100 MG/10 ML UDC NG SCH ×2 (08:51→20:40)
[2019-11-25] MEDS: guaiFENesin 600 MG TABER PO SCH ×2 (08:52→20:40)
[2019-11-25] MEDS: GENVOYA PO SCH (08:53)
[2019-11-25] MEDS: INSULIN LISPRO SLIDING SCALE 100 UNITS/ML VIAL SUBQ PRN ×3 (11:56→20:39)
[2019-11-25 12:00] VITALS: BP 102/72
--- NOTE | 2019-11-25 12:00 | NUR ---
Pt resting in bed, SaO2 = 97% on 15Lpm via NRB. O2 titrated down to 12Lpm via NRB with SaO2 stable @ 94-95%. Instructed patient to cont deep breathing exercises. Pt verbalized understanding and able to demonstrate teachings back.
--- NOTE | 2019-11-25 13:09 | NUR ---
PT PLACED ON 10L OXY AND TOLERATING SEMI-WELL SPO2 94 HR 103 PREV SPO2 98 HR 100 (NRB)
--- NOTE | 2019-11-25 13:55 | NUR ---
Pt asleep in bed at this time, respirations even & nonlabored with O2 @ 10Lpm via oxymizer, FLACC 0, HOB @ 30. Call light within reach.
--- NOTE | 2019-11-25 14:39 | NUR ---
pt titrated to 6loxy and tolerating well but pt tends to become anxious and needs reassurance and will calm down pt current spo2 95% hr 87
--- NOTE | 2019-11-25 14:40 | NUR ---
Mariama from [facility] called inquiring on pt's current O2 supp. Informed Mariama that pt has been titrated down to 6Lpm via oxymizer with SaO2 @ 94-96%. RT still working on titrating O2 down as tolerated. Per Mariama, she is working on getting O2 supp for home.
--- NOTE | 2019-11-25 15:10 | NUR ---
Pt sat up at edge of bed, SaO2 decreased to 78% on 6Lpm via oxymizer, pt tachypneic and anxious. Pt laid back down to bed with HOB elevated @ 35, vocal cues provided to avoid hyperventilating. SaO2 slowly increased to 88-90% on O2 @ 6Lpm via oxymizer. Instructed patient on proper use of incentive spirometer and encouraged to use at least 10times every hour while awake. Also instructed on energy conservation techniques, changing positions slowly, and taking frequent rest periods. Patient verbalized understanding and able to return demonstrate teachings provided. Call light placed within reach.
--- NOTE | 2019-11-25 15:40 | NUR ---
Pt resting in bed, HOB @ 35, SaO2 = 91% with O2 @ 6Lpm via oxymizer. Pt is awake, watching TV. Pt using incentive spirometer as indicated.
[2019-11-25 16:00] VITALS: BP 95/67
--- NOTE | 2019-11-25 17:45 | NUR ---
Luis Fernando Henderson from [facility] came in to assess patient. Pt currently resting in bed, awake, no signs of distress, SaO2 @ 91% on O2 @ 5Lpm via oxymizer. Informed Luis Fernando pt has episodes of desaturation to 78% with min exertion and when anxious. Per Luis Fernando, he will inform case technician and will plan for discharge tomorrow if stable. Pt verbalized understanding and agree with plan of care.
--- NOTE | 2019-11-25 19:20 | NUR ---
RECEIVED BEDSIDE REPORT FROM DAY SHIFT NURSE FOR CONTINUITY OF CARE. PT IS AWAKE AND ALERT, BANGLADESHI SPEAKING BUT UNDERSTANDS MOHAWK. A&O X 4, LAYING IN SEMI FOWLERS POSITION WITH NO SIGNS OF DISTRESS. ON 5L OXIMIZER WITH AN O2 SAT OF 92%. BREATHING IS UNLABORED. PT IS ST ON TELE MONITORING. URINAL AT THE BEDSIDE FOR VOIDING. BOWEL SOUNDS ARE PRESENT IN ALL QUADRANTS. FALL PRECAUTIONS IN PLACE. WOUND ON THE RIGHT BUTTOCKS OPEN WITH HYDRAGUARD IN PLACE. RIGHT UPPER ARM PICC LINE SALINE LOCKED AND PATENT. POSSIBLE DC TOMORROW IF STABLE PER DAY SHIFT NURSE. BED IS IN LOWEST POSITION AND CALL LIGHT IS WITHIN REACH. PLAN OF CARE DISCUSSED.
[2019-11-25 20:00] VITALS: BP 99/71
[2019-11-25] MEDS: INSULIN LANTUS 100 UNITS/ML 10 ML VIAL SUBQ SCH (20:33)
[2019-11-25] MEDS: ENOXAPARIN 40 MG/0.4 ML SYR SUBQ SCH (20:40)
--- NOTE | 2019-11-25 21:00 | NUR ---
BS IS 290 AND 6 UNITS OF HUMALOG WAS GIVEN PER SLIDING SCALE. PT IS AWAKE AND TALKING TO FAMILY ON THE PHONE AT THIS TIME. SOME ANXIETY AND EXCITEMENT REGARDING POSSIBLE DISCHARGE SOON.
--- NOTE | 2019-11-25 22:05 | NUR ---
PT'S SOILED LINENS ARE CHANGED AND PT REPOSITIONS HIMSELF IN BED. REQUESTS HOB TO BE IN HIGH FOWLERS POSITION WHILE HE SLEEPS. PT IS STABLE AT THIS TIME.
[2019-11-26] VITALS: BP 105/78
--- NOTE | 2019-11-26 00:30 | NUR ---
PT IS ASLEEP IN SEMI FOWLERS POSITION AND HAS NO SIGNS OF DISTRESS. PT IS ON 5L O2 OXIMIZER WITH AN O2 SAT OF 91%. PT IS SR ON TELE MONITORING. RIGHT UPPER ARM PICC LINE IS SALINE LOCKED. WILL CONTINUE TO MONITOR.
--- NOTE | 2019-11-26 01:26 | NUR ---
PT IS AWAKE AND REQUESTED A VANILLA PUDDING. PT IS EATING THE SNACK NOW AND STATED HE WILL TRY TO SLEEP IN A LITTLE WHILE. PT IS STABLE AT THIS TIME.
--- NOTE | 2019-11-26 03:30 | NUR ---
PT IS CALM AND LAYING IN SEMI FOWLERS POSITION. PT IS ASLEEP. O2 SAT IS 100% ON 5L OXIMIZER. RIGHT UPPER ARM PICC LINE IS INTACT AND SALINE LOCKED. NO DISTRESS NOTED.
[2019-11-26 04:00] VITALS: BP 113/74
[2019-11-26 05:52] LABS: BASOPHILS % (AUTO) 0.2 % (0.0-2.0); HEMOGLOBIN 10.9 g/dL (12.0-18.0); LYMPHOCYTES % (AUTO) 15.6 % (20.5-51.1); MEAN CORPUSCULAR HEMOGLOBIN 30 pg (27-31); MEAN CORPUSCULAR HGB CONC 33 g/dL (33-37); MEAN CORPUSCULAR VOLUME 89.7 fL (80-94); MONOCYTES # (AUTO) 0.3 K/uL (0.8-1.0); MONOCYTES % (AUTO) 5.3 % (1.7-9.3); NEUTROPHILS # (AUTO) 4.9 K/uL (1.8-7.7); NEUTROPHILS % (AUTO) 78.9 % (42.2-75.2); PLATELET COUNT (AUTO) 192 K/uL (140-450); RED BLOOD CELL COUNT(AUTO) 3.67 MIL/uL (4.20-6.10); WHITE BLOOD COUNT (AUTO) 6.3 K/uL (4.8-10.8)
[2019-11-26] MEDS: BLOOD GLUCOSE MONITORING 1 DEV DEV FS SCH ×3 (06:09→16:19)
--- NOTE | 2019-11-26 06:37 | NUR ---
BS READING IS 145. NO HUMALOG INSULIN COVERAGE NECESSARY PER SLIDING SCALE. PT IS AWAKE AND ALERT. A&O X4. BREATHING IS UNLABORED. PT IS STABLE.
--- NOTE | 2019-11-26 07:00 | NUR ---
PT IS STABLE AT THIS TIME. WILL ENDORSE TO DAY SHIFT NURSE FOR CONTINUITY OF CARE AND DISCUSS PLAN OF CARE.
--- NOTE | 2019-11-26 07:30 | NUR ---
received report from [facility] nurse, assumed care. pt resting comfortably in bed with no s/s of pain and/or distress at this time. personal belongings, bedside table, call light within reach. will continue to monitor.
[2019-11-26 07:36] LABS: ANION GAP 11.3 (8-16); CREATININE 0.6 mg/dL (0.6-1.3); POTASSIUM 4.3 mmol/L (3.5-5.1)
[2019-11-26] MEDS: PANTOPRAZOLE 40 MG INJ VIAL IVP SCH (07:57)
[2019-11-26] MEDS: guaiFENesin 600 MG TABER PO SCH (07:57)
[2019-11-26] MEDS: METOCLOPRAMIDE 10 MG TAB PO SCH ×3 (07:57→16:14)
[2019-11-26 08:00] VITALS: BP 127/73
[2019-11-26] MEDS: ACETAMINOPHEN 325 MG TAB PO PRN ×2 (09:51→16:14)
[2019-11-26 12:00] VITALS: BP 107/72
[2019-11-26] MEDS ORDERED: ATEN50TA8 PO (12:00)
[2019-11-26] MEDS ORDERED: METF850T PO (12:00)
[2019-11-26] MEDS: INSULIN LISPRO SLIDING SCALE 100 UNITS/ML VIAL SUBQ PRN ×2 (12:01→16:37)
[2019-11-26 16:00] VITALS: BP 110/84
--- NOTE | 2019-11-26 17:38 | NUR ---
pt discharged via stretcher with EMT and RTT. all belongings with pt. iv line left to right wrist per facility request. Addendum: 11/26/19 at 1740 by Brett Go RN ignore previous note, wrong pt
== END 2019-11-26 19:00 | disposition home health service (06) | DRG 974 ==
LOC: MED 16:28 → EEVIPCON 16:28 → MMU 18:14 → EEVIPCON 18:14 → MTU 10-24 01:47 → MIC 10-25 08:16 → MTU 10-31 05:05
PROVIDERS: ADMIT General Practice; ATTEND General Practice
PROC: 5A1945Z Respiratory Ventilation, 24-96 Consecutive Hours (ICD-10-PCS; principal; 2019-10-25)
PROC: 5A09357 Assistance with Respiratory Ventilation, Less than 24 Consecutive Hours, Continuous Positive Airway Pressure (ICD-10-PCS; 2019-10-25)
PROC: 0BH17EZ Insertion of Endotracheal Airway into Trachea, Via Natural or Artificial Opening (ICD-10-PCS; 2019-10-25)
PROC: 02HV33Z Insertion of Infusion Device into Superior Vena Cava, Percutaneous Approach (ICD-10-PCS; 2019-10-25)
PROC: XW033E5 Introduction of Remdesivir Anti-infective into Peripheral Vein, Percutaneous Approach, New Technology Group 5 (ICD-10-PCS; 2019-10-26)
PROC: XW13325 Transfusion of Convalescent Plasma (Nonautologous) into Peripheral Vein, Percutaneous Approach, New Technology Group 5 (ICD-10-PCS; 2019-10-29)
DX: U07.1 COVID-19 (principal); N17.0 Acute kidney failure with tubular necrosis; B20 Human immunodeficiency virus [HIV] disease; E43 Unspecified severe protein-calorie malnutrition; J10.08 Influenza due to other identified influenza virus with other specified pneumonia; J12.89 Other viral pneumonia; J96.21 Acute and chronic respiratory failure with hypoxia; E87.1 Hypo-osmolality and hyponatremia; E87.2 Acidosis; K92.2 Gastrointestinal hemorrhage, unspecified; Z68.29 Body mass index [BMI] 29.0-29.9, adult; D69.6 Thrombocytopenia, unspecified; E11.65 Type 2 diabetes mellitus with hyperglycemia; E66.3 Overweight; E78.5 Hyperlipidemia, unspecified; E83.42 Hypomagnesemia; E87.5 Hyperkalemia; E87.6 Hypokalemia; F41.9 Anxiety disorder, unspecified; I11.9 Hypertensive heart disease without heart failure; I48.91 Unspecified atrial fibrillation; K21.9 Gastro-esophageal reflux disease without esophagitis; Z68.32 Body mass index [BMI] 32.0-32.9, adult; Z79.01 Long term (current) use of anticoagulants; Z90.49 Acquired absence of other specified parts of digestive tract; Z93.3 Colostomy status; Z79.84 Long term (current) use of oral hypoglycemic drugs; Z79.899 Other long term (current) drug therapy
CPT/HCPCS: 36415; 36600; 71045; 71260; 74018; 80048; 80053; 80076; 80305; 81001; 82150; 82550; 82728; 82803; 82948; 83036; 83605; 83615; 83625; 83690; 83735; 83880; 84100; 84439; 84443; 84484; 85025; 85379; 85384; 85610; 85651; 85730; 86140; 86360; 86702; 86886; 86900; 86901; 87040; 87070; 87081; 87086; 87205; 87420; 87804; 92526; 92610; 93005; 94002; 94003; 94664; 94761; 96365; 96367; 96372; 97110; 97112; 97116; 97161-GP; 97530; 99291; C9113; J0456; J0696; J1160; J1200; J1650; J1815; J2060; J2250; J2270; J2405; J2704; J3010; J3475; J3490; J3535; J7030; J7042; J7060; J8597; P9017; Q0092; Q9967; U0003-CS

== ENCOUNTER 2020-06-25 09:10 | Emergency (ER) | payer OTHER, SELFPAY ==
[~2020-06-25] VITALS: Ht 162.6 cm; Wt 63.5 kg
[~2020-06-25 09:10] MED LIST changes: -ATEN50TA2 PO; +ATEN50TA8 PO; -CLIN300C2 PO; -COLL30OI TP; -HYDR-5122 PO; -METF500T PO; +METF850T PO; -SULF-58 PO; -[UNRECOGNIZED DRUG - CODE] PO
[2020-06-25 09:15] VITALS: BP 114/68
--- NOTE | 2020-06-25 09:23 | NUR ---
PT PLACED ON ENGLISH AS A SECOND LANGUAGE INSTRUCTOR/PULSE OX
--- NOTE | 2020-06-25 09:23 | NUR ---
60 Y/O MALE C/O BLOOD IN STOOL THAT BEGAN YESTERDAY, PATIENT STATES IT IS A LARGE AMOUNT OF DARK RED BLOOD, AND HE IS ALSO HAVING MILD ABD PAIN. BOWEL SOUNDS ARE NORMOACTIVE IN ALL QUADRANTS. ALSO C/O DIZZINESS AND LETHARGY X2 DAYS. PT HAD COVID LAST YEAR AND IS ALSO C/O CHRONIC SOB, WORSENS UPON EXERTION, PATIENT HAS BEEN SEEN BY PCP FOR SOB. PMH: DM, HTN, HIV NKDA
--- NOTE | 2020-06-25 09:41 | NUR ---
ERMD AT BEDSIDE
--- NOTE | 2020-06-25 09:52 | NUR ---
LAB AT BEDSIDE
[2020-06-25 10:03] LABS: BASOPHILS % (AUTO) 0.1 % (0.0-2.0); EOSINOPHILS % (AUTO) 0.6 % (0.0-4.0); HEMATOCRIT 31.6 % (36-52); HEMOGLOBIN 10.4 g/dL (12.0-18.0); LYMPHOCYTES # (AUTO) 1.5 K/uL (2.0-11.5); LYMPHOCYTES % (AUTO) 26.5 % (20.5-51.1); MEAN CORPUSCULAR HEMOGLOBIN 25 pg (27-31); MEAN CORPUSCULAR HGB CONC 33 g/dL (33-37); MEAN CORPUSCULAR VOLUME 76.7 fL (80-94); MONOCYTES # (AUTO) 0.4 K/uL (0.8-1.0); MONOCYTES % (AUTO) 6.3 % (1.7-9.3); NEUTROPHILS # (AUTO) 3.7 K/uL (1.8-7.7); NEUTROPHILS % (AUTO) 66.5 % (42.2-75.2); PLATELET COUNT (AUTO) 114 K/uL (140-450); RED BLOOD CELL COUNT(AUTO) 4.12 MIL/uL (4.20-6.10); WHITE BLOOD COUNT (AUTO) 5.6 K/uL (4.8-10.8)
[2020-06-25 10:19] LABS: ALBUMIN 3.2 g/dL (3.4-5.0); ANION GAP 10.9 (8-16); CARBON DIOXIDE 26.1 mmol/L (21-32); CREATININE 1.1 mg/dL (0.6-1.3); TOTAL BILIRUBIN 0.5 mg/dL (0.0-1.0)
[2020-06-25] MEDS ORDERED: LACTATED RINGERS 1,000 ML IV ONE (10:30)
--- NOTE | 2020-06-25 10:50 | NUR ---
SANDWICH PROVIDED TO PT PER DOCTOR REQUEST
[2020-06-25] MEDS ORDERED: ACETAMINOPHEN 325 MG TAB PO ONE (12:40)
[2020-06-25] MEDS ORDERED: DOCU-299 PO (12:42)
[2020-06-25] MEDS ORDERED: ACET-9800 PO (12:42)
[2020-06-25 12:50] VITALS: BP 105/68
--- NOTE | 2020-06-25 12:50 | NUR ---
Patient discharged with v/s stable. Written and verbal after care instructions given and explained. Patient alert, oriented and verbalized understanding of instructions. Ambulatory with steady gait. All questions addressed prior to discharge. ID band removed. Patient advised to follow up with PMD. Rx of TYLENOL, COLACE given. Patient educated on indication of medication including possible reaction and side effects. Opportunity to ask questions provided and answered.
== END 2020-06-25 12:50 | disposition home or self-care (01) ==
LOC: MED 09:10
DX: K92.1 Melena (principal); D50.8 Other iron deficiency anemias; D69.6 Thrombocytopenia, unspecified; R73.9 Hyperglycemia, unspecified; N17.9 Acute kidney failure, unspecified; E11.9 Type 2 diabetes mellitus without complications; I10 Essential (primary) hypertension; K21.9 Gastro-esophageal reflux disease without esophagitis; Z79.899 Other long term (current) drug therapy
CPT/HCPCS: 36415; 80053; 85025; 85610; 86886; 86900; 86901; 96360; 99283; J7120

== ENCOUNTER 2020-10-06 16:30 | Inpatient (IN) | payer OTHER, SELFPAY ==
[~2020-10-06] VITALS: Ht 160 cm; Wt 68.9 kg
[~2020-10-06 16:30] MED LIST changes: +ACET-9800 PO; +DOCU-299 PO
[2020-10-06 16:36] VITALS: BP_SYST 117; BP_SYST 17; BP_DIAS 85
--- NOTE | 2020-10-06 16:44 | NUR ---
Note gerald in EDM - 10/06/20 at 1650 by IDENT TechnologyJ 60 YEAR OLD MALE COMPLAINS OF FACIAL SWELLING X 2 WEEKS. PT SPO2 99% RA, RR 20. LUNGS CLEAR BL. PT AOX4, BREATHING EVEN AND UNLABORED, SKIN WARM AND DRY. BED IN LOWEST POSITION, LOCKED, BED RAIL UPX1. PMH - HTN, DM2, HLD, HIV ALLERGIES - NKA
--- NOTE | 2020-10-06 16:44 | NUR ---
60 YEAR OLD MALE COMPLAINS OF FACIAL SWELLING X 2 WEEKS. PT STATES SOB. PT PLACED ON MONITOR - PT SPO2 89% RA, RR 40. LUNGS CLEAR BL. HR 120, BP 119/79. PT AOX4, BREATHING EVEN AND UNLABORED, SKIN WARM AND DRY. BED IN LOWEST POSITION, LOCKED, BED RAIL UPX1. DR DINERO MADE AWARE OF PT STATUS. PMH - HTN, DM2, HLD, HIV ALLERGIES - NKA
[2020-10-06] MEDS ORDERED: NACL 0.9% 2,000 ML IV ONE (17:10)
[2020-10-06] MEDS ORDERED: VANCOMYCIN 1,000 MG in DEXTROSE 5% 250 ML IV ONE (17:10)
[2020-10-06] MEDS ORDERED: CEFEPIME 1,000 MG in DEXTROSE 5% 50 ML IV ONE (17:10)
[2020-10-06] MEDS ORDERED: CEFEPIME 1,000 MG VIAL ONE (17:26)
[2020-10-06 17:38] LABS: BASOPHILS % (AUTO) 0.3 % (0.0-2.0); EOSINOPHILS % (AUTO) 0.1 % (0.0-4.0); HEMOGLOBIN 12.2 g/dL (12.0-18.0); LYMPHOCYTES # (AUTO) 0.5 K/uL (2.0-11.5); LYMPHOCYTES % (AUTO) 13.7 % (20.5-51.1); MEAN CORPUSCULAR HEMOGLOBIN 20 pg (27-31); MEAN CORPUSCULAR HGB CONC 31 g/dL (33-37); MEAN CORPUSCULAR VOLUME 65.2 fL (80-94); MONOCYTES # (AUTO) 0.2 K/uL (0.8-1.0); MONOCYTES % (AUTO) 5.8 % (1.7-9.3); NEUTROPHILS # (AUTO) 3.1 K/uL (1.8-7.7); NEUTROPHILS % (AUTO) 80.1 % (42.2-75.2); PLATELET COUNT (AUTO) 133 K/uL (140-450); RED BLOOD CELL COUNT(AUTO) 5.98 MIL/uL (4.20-6.10); RED CELL DISTRIBUTION WIDTH 25.8 % (11.6-13.7); WHITE BLOOD COUNT (AUTO) 3.9 K/uL (4.8-10.8)
[2020-10-06 17:45] LABS: ANION GAP 17.3 (8-16); CARBON DIOXIDE 24.7 mmol/L (21-32); CREATININE 0.8 mg/dL (0.6-1.3)
[2020-10-06 17:51] LABS: ALBUMIN 3.2 g/dL (3.4-5.0); TOTAL BILIRUBIN 0.5 mg/dL (0.0-1.0)
[2020-10-06] MEDS ORDERED: VANCOMYCIN 1,000 MG VIAL ONE (18:13)
--- NOTE | 2020-10-06 18:19 | NUR ---
Patient taken to CT scan via wheelchair by tech.
--- NOTE | 2020-10-06 18:22 | NUR ---
MADHAVI, FLU, RSV SWAB SENT TO LAB
--- NOTE | 2020-10-06 18:37 | NUR ---
Pt taken to ER bed 10 via W/C.
[2020-10-06 18:51] LABS: RSV NEGATIVE (NEGATIVE)
[2020-10-06 19:24] LABS: APPEARANCE,URINE CLEAR (CLEAR); BILIRUBIN,URINE NEGATIVE (NEGATIVE); BLOOD, URINE NEGATIVE (NEGATIVE); COLOR,URINE YELLOW (YELLOW); LEUKOCYTE ESTERASE ,URINE NEGATIVE (NEGATIVE); NITRITE, URINE NEGATIVE (NEGATIVE); PH,URINE 6.5 (5.0-9.0); UGLUCOSE 2+ (NEGATIVE)
[2020-10-06] MEDS ORDERED: AZITHROMYCIN 500 MG in DEXTROSE 5% 250 ML IV ONE (19:25)
[2020-10-06] MEDS ORDERED: predniSONE 20 MG TAB PO ONE (19:25)
[2020-10-06] MEDS ORDERED: SULFAMETH/TRIMETH DS 800/160MG 1 TAB PO ONE (19:25)
[2020-10-06] MEDS ORDERED: AZITHROMYCIN 500 MG INJ VIAL IV ONE (19:36)
--- NOTE | 2020-10-06 20:30 | NUR ---
provided pt with bedside commode for bowel elimination
[2020-10-06] MEDS ORDERED: NACL 0.9% 1,000 ML IV ONE (20:50)
--- NOTE | 2020-10-06 21:19 | NUR ---
report given to Amy KHANNA from [facility] unit. pt currently a/o x 4, gcs 15. ambulatory. on 3lpm n/c.
--- NOTE | 2020-10-06 21:19 | NUR ---
will be admitted under the care of Dr. Cao. guzman to room 121a. belongings list completed.
[2020-10-06 21:45] VITALS: BP 107/65
--- NOTE | 2020-10-06 21:45 | NUR ---
PT ARRIVED TO UNIT VIA GURNEY. PT IS AWAKE AND ALERT. A&OX4. ON 3L O2 NC WITH NO RESPIRATORY DISTRESS NOTED. ON TELE MONITOR, ST. AMBULATORY INDEPENDENTLY TO THE RESTROOM. GAIT IS STEADY. SKIN IS WARM, DRY, AND INTACT. PT HAD A FEVER OF 99.2 F ON ADMISSION, COOLING MEASURES APPLIED. WILL CONTINUE TO MONITOR. STANDARD AND UNIVERSAL PRECAUTIONS IN PLACE. PT IS STABLE.
--- NOTE | 2020-10-06 22:38 | NUR ---
SISTER MERLIN AND BROTHER IN LAW CALLED AND ASKED FOR INFORMATION ON PT. RECEIVED VERBAL PERMISSION TO GIVE INFORMATION TO MERLIN AND BROTHER IN LAW FROM PT. WILL CALL BACK. [phone].
--- NOTE | 2020-10-06 22:51 | NUR ---
CALLED [facility] BACK REQUESTED BY PT. PHONE NUMBER [phone]. INFORMED HIM OF THE CONDITION OF THE PT AND THE PLAN OF CARE. ALL QUESTIONS ANSWERED.
--- NOTE | 2020-10-06 23:00 | NUR ---
RECHECKED PT'S TEMP AND IT WAS 98.5 F. PT NO LONGER HAS A FEVER. PT ASKED TO CHANGE INTO A NEW GOWN THEREFORE NEW GOWN WAS PROVIDED. PT AMBULATED TO THE RESTROOM INDEPENDENTLY. PT DENIES ANY PAIN OR DISTRESS. FLUIDS ARE INFUSING ORDERED. WILL MONITOR.
[2020-10-06] MEDS ORDERED: DOCUSATE SODIUM 100 MG GELCAP PO PRN (23:15)
[2020-10-06] MEDS ORDERED: ONDANSETRON 4 MG/2 ML VIAL IM/IVP PRN (23:15)
[2020-10-06] MEDS: NACL 0.9% 500 ML IV SCH (23:59)
[2020-10-07] VITALS: BP 111/66
[2020-10-07] MEDS: ACETAMINOPHEN 325 MG TAB PO PRN (01:00)
--- NOTE | 2020-10-07 01:00 | NUR ---
PT STATES HE HAS A HEADACHE. HE WAS GIVEN TYLENOL FOR MILD PAIN. WILL MONITOR HEADACHE.
[2020-10-07] MEDS ORDERED: DEXTROSE 50% 50 ML SYR IVP PRN (01:25)
[2020-10-07] MEDS ORDERED: POTASSIUM CHLORIDE 10 MEQ TABER PO PRN (01:25)
[2020-10-07] MEDS ORDERED: ALBUTEROL HFA MDI 90 MCG/ACTUATION 8 GM INH PRN (01:25)
[2020-10-07 02:01] LABS: PROTHROMBIN TIME 9.4 secs (10.8-13.4)
[2020-10-07 02:17] LABS: CHOL/HDL RATIO 4.7 (1-4.5); FREE T4 (FREE THYROXINE) 1.03 ng/dL (0.76-1.46); MAGNESIUM 1.6 mg/dL (1.8-2.4); THYROID STIMULATING HORMONE 1.64 uIU/mL (0.34-3.74)
[2020-10-07] MEDS ORDERED: cefTRIAXone 1,000 MG VIAL ONE (02:38)
--- NOTE | 2020-10-07 03:00 | NUR ---
ROUNDED ON PT. HE IS ASLEEP IN SEMI FOWLERS POSITION. NO SOB OR DIFFICULTY BREATHING NOTED. ON 3L O2 NC CURRENTLY. O2 SAT IS 98%. FLUIDS ARE INFUSING ORDERED. SR ON TELE MONITOR, HR 81. WILL CONTINUE TO MONITOR.
--- NOTE | 2020-10-07 03:33 | NUR ---
TEXTED DR. BARCENAS TO INFORM HIM THAT THE FRESH FROZEN PLASMA ORDER CAN NOT BE ADMINISTERED UNTIL HE SPEAKS WITH PT AND SIGNS THE INFORMED CONSENT. WILL WAIT FOR RESPONSE BACK.
[2020-10-07 04:00] VITALS: BP 107/70
--- NOTE | 2020-10-07 05:30 | NUR ---
PT IS ASLEEP. NO RESPIRATORY DISTRESS NOTED ON 3L O2 NC. BREATHING IS UNLABORED. IV IS PATENT AND INTACT. CALL LIGHT WITHIN REACH.
[2020-10-07] MEDS: BLOOD GLUCOSE MONITORING 1 DEV DEV FS SCH ×4 (06:08→21:28)
[2020-10-07] MEDS: INSULIN LISPRO SLIDING SCALE 100 UNITS/ML VIAL SUBQ PRN ×4 (06:10→21:30)
--- NOTE | 2020-10-07 06:10 | NUR ---
PT'S BS READING WAS 299. HUMALOG INSULIN WAS GIVEN PER SLIDING SCALE, 6 UNITS. MEDICATION EDUCATION WAS PROVIDED AND PT VERBALIZED UNDERSTANDING.
[2020-10-07] MEDS: NACL 0.9% 500 ML IV SCH ×2 (06:58→16:09)
--- NOTE | 2020-10-07 07:30 | NUR ---
ENDORSED PT TO DAY SHIFT NURSE FOR CONTINUITY OF CARE. PT IS STABLE AT THIS TIME. PLAN OF CARE DISCUSSED. STILL HAVE NOT RECEIVED MESSAGE BACK FROM DR. BARCENAS. ENDORSED INFORMATION ON FFP TO DAY SHIFT NURSE.
--- NOTE | 2020-10-07 07:32 | NUR ---
RECEIVED BEDSIDE REPORT FROM PIT LABORER NURSE. PT IS AWAKE AND ALERT. A&OX4. RESPIRATIONS EVEN AND UNLABORED. ON 3L O2 NC WITH NO RESPIRATORY DISTRESS NOTED. ON TELE MONITOR. AMBULATORY INDEPENDENTLY TO THE RESTROOM. GAIT IS STEADY. SKIN IS WARM, DRY, AND INTACT. IV SITE ON RAC 20G INFUSING FLUIDS WELL. INTACT AND PATENT. PLAN OF CARE DISCUSSED. STANDARD AND UNIVERSAL PRECAUTIONS IN PLACE. SAFETY PRECAUTIONS IN PLACE. CALL LIGHT WITHIN REACH. WILL CONTINUE TO MONITOR.
[2020-10-07 08:00] VITALS: BP 105/80
[2020-10-07] MEDS ORDERED: AZITHROMYCIN 250 MG TAB PO SCH (09:00)
[2020-10-07] MEDS: atenoloL 50 MG TAB PO SCH (09:00)
[2020-10-07] MEDS ORDERED: [UNRECOGNIZED DRUG - OTHER] PO SCH (09:00)
--- NOTE | 2020-10-07 10:00 | NUR ---
ALL SCHEDULED MEDS GIVEN. PT IS STABLE. NO DISTRESS NOTED. WILL CONTINUE TO MONITOR.
[2020-10-07 12:00] VITALS: BP 109/69
[2020-10-07] MEDS ORDERED: PATIENTS OWN TABLET PO SCH (12:00)
--- NOTE | 2020-10-07 12:12 | NUR ---
BLOOD GLUCOSE CHECK IS 273. INSULIN COVERAGE NEEDED. ADMINISTERED 6 UNITS OF INSULIN SQ PER MD ORDERED.
[2020-10-07] MEDS: HYDROcodone/APAP 7.5/325 MG 1 TAB PO PRN (13:34)
--- NOTE | 2020-10-07 13:34 | NUR ---
PATIENT COMPLAINED OF PAIN IN BLE 6/10 PAIN. ADMINISTERED NORCO PO PER MD ORDERED.
--- NOTE | 2020-10-07 15:40 | NUR ---
CHECKED ON PATIENT. PATIENT IS WATCHING TV. NO DISTRESS NOTED AND DENIES PAIN. WILL CONTINUE TO MONITOR.
[2020-10-07 16:00] VITALS: BP 108/79
--- NOTE | 2020-10-07 17:15 | NUR ---
VISITORS AT PATIENT'S BEDSIDE.
[2020-10-07] MEDS ORDERED: VANCOMYCIN PER PHARMACY MC PRN (17:40)
[2020-10-07] MEDS ORDERED: VANCOMYCIN 1,000 MG VIAL ONE ×2 (18:29→21:09)
--- NOTE | 2020-10-07 18:48 | NUR ---
ALL SCHEDULED MEDS GIVEN. PT IS STABLE. NO DISTRESS NOTED. WILL CONTINUE TO MONITOR.
[2020-10-07] MEDS ORDERED: VANCOMYCIN 1GM/DEXT 5% PREMIX 200 ML IV SCH (19:00)
--- NOTE | 2020-10-07 19:20 | NUR ---
ENDORSED TO HOG BUYER NURSE FOR CONTINUITY OF CARE. PT IS STABLE.
--- NOTE | 2020-10-07 19:27 | NUR ---
PT RESTING IN SEMI-FOWLERS SPEAKING W/ FAMILY AT BEDSIDE. PT DENIES SOB W/ NO DISTRESS NOTED AT THIS TIME AND IS CURRENTLY ON 1LNC WILL CONTINUE TO MONITOR.
[2020-10-07 20:00] VITALS: BP 128/90
--- NOTE | 2020-10-07 20:00 | NUR ---
RECEIVED BEDSIDE REPORT FROM DAY RN EARLIER FOR CONTINUITY OF CARE. PATIENT A/A/OX4, LAYING IN BED , FAMILY AT THE BEDSIDE. PATIENT NOT IN ANY DISTRESS AND NO COMPLAIN AT THIS TIME. DENIES ANY PAIN, CHEST PAIN AND SHORTNESS OF BREATH. IVF INFUSING ORDERED. VSS, AFEBRILE, SATING 93% ON 1L/NC. DISCUSSED PLAN OF CARE WITH THE PATIENT AND VERBALIZED UNDERSTANDING. CALL LIGHT WITHIN REACH. WILL CONTINUE PLAN OF CARE.
[2020-10-07] MEDS: LORATADINE 10 MG TAB PO SCH (21:06)
--- NOTE | 2020-10-07 22:00 | NUR ---
ADMINISTERED THE SCHEDULED MEDICATIONS ORDERED. PATIENT TOLERATED IT WELL. NO ADVERSE DRUG REACTION NOTED. NO COMPLAIN FROM THE PATIENT.
--- NOTE | 2020-10-08 | NUR ---
PATIENT WALKED TO THE BATHROOM AND TOLERATED IT WELL. OFF O2 AT THIS TIME. APTIENT STATED HE IS NOT SHORT OF BREATH AND WANTE TO BE ON RA FOR NOW. WILL CONTINUE TO OBSERVE.
[2020-10-08] MEDS: NACL 0.9% 500 ML IV SCH ×3 (00:13→16:55)
--- NOTE | 2020-10-08 02:00 | NUR ---
PATIENT ASLEEP AT THIS TIME. VISIBLE CHEST RISE AND FALL NOTED. NOT IN ANY DISTRESS. SAFETY MEASURES IN PLACED. WILL CONTINUE TO OBSERVE.
[2020-10-08 04:00] VITALS: BP 119/77
--- NOTE | 2020-10-08 04:00 | NUR ---
VITAL SIGNS STABLE, AFEBRILE, PATIENT REFUSED TO USE OXYGEN EARLIER, ONLY SATING 80% ON RA. EXPLAINED TO THE PATIENT WHY HE NEEDED HIS OXYGEN AND AGREED . PLACED HIM ON 2L/NC AND WILL CONTINUE TO MONITOR HIS O2 SAT. NO COMPLAIN OF PAIN AT THIS TIME. CALL LIGHT WITHIN REACH..
[2020-10-08] MEDS: BLOOD GLUCOSE MONITORING 1 DEV DEV FS SCH ×4 (05:52→20:44)
[2020-10-08] MEDS: INSULIN LISPRO SLIDING SCALE 100 UNITS/ML VIAL SUBQ PRN ×4 (05:52→20:44)
[2020-10-08 06:06] LABS: T4 (THYROXINE) 6.5 ug/dL (4.5-12.0)
[2020-10-08] MEDS: VANCOMYCIN 1,000 MG VIAL ONE ×2 (06:26→06:35)
[2020-10-08 06:27] LABS: BASOPHILS % (AUTO) 0.3 % (0.0-2.0); CARBON DIOXIDE 27.1 mmol/L (21-32); CREATININE 0.8 mg/dL (0.6-1.3); EOSINOPHILS % (AUTO) 0.1 % (0.0-4.0); HEMATOCRIT 39.5 % (36-52); LYMPHOCYTES # (AUTO) 1.1 K/uL (2.0-11.5); LYMPHOCYTES % (AUTO) 21.7 % (20.5-51.1); MEAN CORPUSCULAR HEMOGLOBIN 20 pg (27-31); MEAN CORPUSCULAR HGB CONC 30 g/dL (33-37); MONOCYTES # (AUTO) 0.2 K/uL (0.8-1.0); MONOCYTES % (AUTO) 3.9 % (1.7-9.3); NEUTROPHILS # (AUTO) 3.6 K/uL (1.8-7.7); PLATELET COUNT (AUTO) 142 K/uL (140-450); POTASSIUM 4.1 mmol/L (3.5-5.1); RED BLOOD CELL COUNT(AUTO) 5.98 MIL/uL (4.20-6.10); RED CELL DISTRIBUTION WIDTH 25.7 % (11.6-13.7); WHITE BLOOD COUNT (AUTO) 4.9 K/uL (4.8-10.8)
--- NOTE | 2020-10-08 06:44 | NUR ---
PATIENT STABLE. NO ACUTE EVENT THROUGHOUT THE NIGHT. PATIENT NOT IN ANY DISTRESS. NO COMPLAIN AT THIS TIME. ALL NEEDS ATTENDED. CALL LIGHT WITHIN REACH. WILL ENDORSE THE PATIENT TO THE ONCOMING RN FOR CONTINUITY OF CARE.
--- NOTE | 2020-10-08 06:54 | NUR ---
PATIENT HAS BEEN SCREENED AND CATEGORIZED MODERATE NUTRITION RISK. PATIENT WILL BE SEEN WITHIN 3-5 DAYS OF ADMISSION. 10/09/20-10/11/20 SANDEE EATON MS, RDN
[2020-10-08] MEDS ORDERED: VANCOMYCIN 1GM/DEXT 5% PREMIX 200 ML IV SCH (07:00)
--- NOTE | 2020-10-08 07:25 | NUR ---
RECEIVED BEDSIDE REPORT FROM ACADEMIC ASSOCIATE NURSE. PT IS AWAKE AND ALERT. A&OX4. RESPIRATIONS EVEN AND UNLABORED. ON 1L O2 NC WITH NO RESPIRATORY DISTRESS NOTED. AMBULATORY INDEPENDENTLY TO THE RESTROOM. GAIT IS STEADY. SKIN IS WARM, DRY, AND INTACT. IV SITE ON RAC 20G INFUSING FLUIDS WELL. INTACT AND PATENT. DENIES PAIN AT THIS MOMENT. PLAN OF CARE DISCUSSED. STANDARD AND UNIVERSAL PRECAUTIONS IN PLACE. SAFETY PRECAUTIONS IN PLACE. CALL LIGHT WITHIN REACH. WILL CONTINUE TO MONITOR.
[2020-10-08 08:00] VITALS: BP 108/73
[2020-10-08] MEDS: atenoloL 50 MG TAB PO SCH (08:36)
[2020-10-08] MEDS: PATIENTS OWN TABLET PO SCH (08:42)
--- NOTE | 2020-10-08 09:00 | NUR ---
ALL SCHEDULED MEDS GIVEN. PT IS STABLE. NO DISTRESS NOTED. WILL CONTINUE TO MONITOR.
[2020-10-08] MEDS ORDERED: POTASSIUM CHLORIDE 10 MEQ TABER PO PRN (10:30)
[2020-10-08] MEDS: MAG SULF 2000 MG/WATER PREMIX 50 ML IV PRN (10:44)
[2020-10-08] MEDS: ACETAMINOPHEN 325 MG TAB PO PRN ×2 (10:51→17:50)
--- NOTE | 2020-10-08 10:51 | NUR ---
PATIENT COMPLAINED OF HEADACHE 3/10 PAIN. ADMINISTERED TYLENOL PO PER MD ORDERED.
[2020-10-08] MEDS ORDERED: SODIUM PHOSPHATE 15 MMOLE in NACL 0.9% 250 ML IV ONE (11:00)
--- NOTE | 2020-10-08 11:50 | NUR ---
BLOOD SUGAR CHECK WAS 278. INSULIN COVERAGE NEEDED. ADMINISTERED 6 UNITS OF INSULIN SQ PER MD ORDERED.
[2020-10-08 12:01] LABS: MAGNESIUM 1.7 mg/dL (1.8-2.4); PHOSPHORUS 3.2 mg/dL (2.5-4.9)
--- NOTE | 2020-10-08 13:30 | NUR ---
PATIENT WALKING DOWN THE HALLWAY. PATIENT DENIES PAIN. WILL CONTINUE TO MONITOR.
--- NOTE | 2020-10-08 15:15 | NUR ---
CHECKED ON PATIENT. PATIENT ASLEEP. NOTED CHEST RISE AND FALL. NO DISTRESS NOTED. WILL CONTINUE TO MONITOR.
[2020-10-08 16:00] VITALS: BP 108/73
--- NOTE | 2020-10-08 17:36 | NUR ---
BLOOD GLUCOSE CHECK IS 234. INSULIN COVERAGE NEEDED. ADMINISTERED 4 UNITS OF INSULIN SQ PER MD ORDERED.
--- NOTE | 2020-10-08 17:47 | NUR ---
PATIENT COMPLAINED OF CONSTIPATION. ADMINISTERED COLACE PRN PER MD ORDERED
--- NOTE | 2020-10-08 17:50 | NUR ---
PATIENT COMPLAINED OF FEELING HOT. ASSESS TEMPERATURE AND IT WAS 100.7. ADMINISTERED TYLENOL PRN FOR FEVER PER MD ORDERED.
[2020-10-08] MEDS ORDERED: VANCOMYCIN 1,000 MG in DEXTROSE 5% 250 ML IV SCH (19:00)
--- NOTE | 2020-10-08 19:26 | NUR ---
ENDORSED TO AIRCRAFT STRUCTURAL REPAIRER NURSE FOR CONTINUITY OF CARE. PT IS STABLE.
[2020-10-08 20:00] VITALS: BP 105/71
--- NOTE | 2020-10-08 20:00 | NUR ---
PATIENT WAS RECEIVED AMBULATING TO THE BATHROOM, ALERT AND ORIENTED X 4 ABLE TO TALK HIS CONCERNS.
[2020-10-08] MEDS: LORATADINE 10 MG TAB PO SCH (20:45)
--- NOTE | 2020-10-08 21:00 | NUR ---
ACUCHECK WAS DONE NQ=915, INSULIN HUMOLOG COVERAGE OF 8 UNITS WAS GIVEN IN PATIENTS ABD LLQ.
--- NOTE | 2020-10-08 22:00 | NUR ---
ALL OTHER DUE MEDS WAS GIVEN PO AND SQ. TOLERATED INFUSION VERY WELL.
--- NOTE | 2020-10-09 01:00 | NUR ---
RN MADE ROUND, PATIENT WAS CALMLY ASLEEP, WITH REGULAR, EQUAL RISE AND FALL OF CHEST. NO S/S OF DISTRESS AT THIS TIME.
--- NOTE | 2020-10-09 01:28 | NUR ---
PATIENT WAS AWAKE ASKED FOR WATER, SERVED WATER.
[2020-10-09] MEDS: NACL 0.9% 500 ML IV SCH ×3 (02:00→17:55)
[2020-10-09] MEDS: ACETAMINOPHEN 325 MG TAB PO PRN ×4 (03:59→22:55)
[2020-10-09 04:00] VITALS: BP 111/77
[2020-10-09 05:30] LABS: ANION GAP 9.6 (8-16); CARBON DIOXIDE 27.9 mmol/L (21-32); CREATININE 0.7 mg/dL (0.6-1.3); POTASSIUM 3.5 mmol/L (3.5-5.1)
[2020-10-09 05:31] LABS: BASOPHILS % (AUTO) 0.3 % (0.0-2.0); EOSINOPHILS % (AUTO) 0.2 % (0.0-4.0); HEMATOCRIT 35.1 % (36-52); HEMOGLOBIN 10.8 g/dL (12.0-18.0); LYMPHOCYTES # (AUTO) 0.5 K/uL (2.0-11.5); LYMPHOCYTES % (AUTO) 12.4 % (20.5-51.1); MEAN CORPUSCULAR HEMOGLOBIN 20 pg (27-31); MEAN CORPUSCULAR HGB CONC 31 g/dL (33-37); MEAN CORPUSCULAR VOLUME 65.5 fL (80-94); MONOCYTES # (AUTO) 0.2 K/uL (0.8-1.0); MONOCYTES % (AUTO) 5.8 % (1.7-9.3); NEUTROPHILS % (AUTO) 81.3 % (42.2-75.2); PLATELET COUNT (AUTO) 123 K/uL (140-450); RED BLOOD CELL COUNT(AUTO) 5.36 MIL/uL (4.20-6.10); RED CELL DISTRIBUTION WIDTH 26.1 % (11.6-13.7); WHITE BLOOD COUNT (AUTO) 3.7 K/uL (4.8-10.8)
[2020-10-09 05:43] LABS: MAGNESIUM 1.8 mg/dL (1.8-2.4); PHOSPHORUS 2.3 mg/dL (2.5-4.9)
[2020-10-09] MEDS: BLOOD GLUCOSE MONITORING 1 DEV DEV FS SCH ×4 (06:02→20:41)
--- NOTE | 2020-10-09 06:31 | NUR ---
ALL REPORTS GIVEN, TRANSFER OF CARE ENDORSED
[2020-10-09] MEDS: INSULIN LISPRO SLIDING SCALE 100 UNITS/ML VIAL SUBQ PRN ×4 (07:02→20:43)
--- NOTE | 2020-10-09 07:37 | NUR ---
ASLEEP EASILY AWAKENS RESTING WELL NO EVIDENCE OF RESPIRATORY DISTRESS NOTED GOOD CHEST AN AERATION THROUGHOUT BILATERAL LUNG MORRIS AIRWAY PATENT SATURATION 85% ON ROOM AIR PLACED PATIENT ON SUPPLEMENTAL OXYGEN AT 2 LPM VIA NC TYREL/JEY NOTIFIED
--- NOTE | 2020-10-09 07:38 | NUR ---
RECEIVED REPORT FROM MACHINE PACKAGING TECHNICIAN NURSE. PATIENT SITTING IN BED WATCHING TV. NO DISTRESS NOTED. ABLE TO AMBULATE WITH STEADY GAIT. ON O2 2L/MIN VIA NC. IV SITE INTACT, PATENT, AND INFUSING IVF PER MD ORDERS. REVIEWED PLAN OF CARE WITH PATIENT. PATIENT VERBALIZED UNDERSTANDING. SAFETY MEASURES IN PLACE, CALL LIGHT WITHIN REACH. WILL CONTINUE TO MONITOR.
[2020-10-09 08:00] VITALS: BP 118/85
[2020-10-09] MEDS: atenoloL 50 MG TAB PO SCH (08:54)
[2020-10-09] MEDS: PATIENTS OWN TABLET PO SCH (08:55)
--- NOTE | 2020-10-09 08:56 | NUR ---
SCHEDULED MEDICATIONS DUE GIVEN. WILL CONTINUE TO MONITOR.
--- NOTE | 2020-10-09 09:15 | NUR ---
Late entry Vancomycin administered and started 10/06/20 @1845, completed 10/06/20@ 2015. NS administered and started 10/06/20 1730, completed 10/06/20 @1830.
[2020-10-09] MEDS ORDERED: SODIUM PHOSPHATE 15 MMOLE in NACL 0.9% 250 ML IV ONE (10:00)
[2020-10-09] MEDS: HYDROcodone/APAP 7.5/325 MG 1 TAB PO PRN (10:14)
--- NOTE | 2020-10-09 10:17 | NUR ---
SCHEDULED MEDICATIONS DUE GIVEN. NEW NS 0.9% BAG NOT HUNG AT THIS TIME DUE TO OTHER IV STILL INFUSING. WILL CONTINUE TO MONITOR.
--- NOTE | 2020-10-09 12:08 | NUR ---
SCHEDULED MEDICATIONS DUE GIVEN. WILL CONTINUE TO MONITOR.
--- NOTE | 2020-10-09 12:27 | NUR ---
PATIENT HAS A FEVER OF 100.4, TYLENOL GIVEN AT THIS TIME AND COOLING MEASURES STARTED. WILL CONTINUE TO MONITOR.
--- NOTE | 2020-10-09 14:38 | NUR ---
DC PLANNIN YRS OLD MALE PATIENT WAS ADMITTED FROM HOME WITH A DX OF SEPSIS 2/2 PNEUMONIA WITH RESP FAILURE. PT HAS A HX OF DM, HTN, HLK, GERD AND HIV. CXR SHOWED PULMONARY EDEMA RAPID COVID TEST NEGATIVE. .CT CHEST SHOWED NO PE . ECHO ORDERED .ADMINISTERED IVF, AV ABX ROCEPHIN AND CONTINUE HOME MEDS. CONSULTED WITH PULMO AND ID. DC PLAN TO GO HOME WHEN STABLE CM TO FOLLOW Addendum: 10/09/20 at 1451 by Lucretia Flores RN DC PLANNING; CALLED [phone] [phone] SPOKE WITH JOHN CAGLE STATED THEY ARE AWARE OF INPT ADMISSION AND UPDATED CLINICALS. CM TO FOLLOW Addendum: 10/10/20 at 1405 by Lucretia Flores RN DC PLANNING: FAXED THE REQUEST FOR SNF TO , SPOKE WITH JOHN WORKING ON THE AUTH# [facility] [place]. CAN GO TO ROOM 51B UNDER THE CARE OF DR BAILEY. REGARDING THE HIV MEDS PT HAS HIS OWN MEDS AND WILL SENT MEDS WITH PATIENT. NOTIFIED PT'S NURSE CLEMENT. AWAITING FOR THE AUTH FROM [employer]ANCE TO FOLLOW. Addendum: 10/10/20 at 1652 by Lucretia Flores RN DC PLANING: JUST RECEIVED A CALL FROM [facility] [place]CEIVED THE AUTH # FROM [employer], PT CAN GO TO ROOM 51 B #TO GIVE REPORT [phone]. ARRANGED TRANSPORT WITH [facility] SPECIALIST ICU TIME 7PM NOTIFIED CLEMENT KHANNA
--- NOTE | 2020-10-09 15:00 | NUR ---
PATIENT SITTING IN BED TALKING WITH FAMILY MEMBERS AT BEDSIDE. NO DISTRESS NOTED. CONDITION UNCHANGED. WILL CONTINUE TO MONITOR.
[2020-10-09 16:00] VITALS: BP 150/95
--- NOTE | 2020-10-09 17:21 | NUR ---
SCHEDULED MEDICATIONS DUE GIVEN. WILL CONTINUE TO MONITOR.
--- NOTE | 2020-10-09 18:25 | NUR ---
TEMPERATURE 101.4 AND PATIENT HAVING CHILLS WITH TREMORS. TYLENOL GIVEN AT THIS TIME AND WARM BLANKETS. WILL CONTINUE TO MONITOR.
--- NOTE | 2020-10-09 19:13 | NUR ---
GAVE REPORT TO VEGETABLE SPECKER NURSE FOR CONTINUITY OF CARE. PATIENT REPORTS FEELING BETTER AFTER THE TYLENOL.
--- NOTE | 2020-10-09 19:14 | NUR ---
RECEIVED REPORT FROM AM NURSE FOR CONTINUITY OF CARE. PATIENT IS A/A/O X4, RESTING IN BED. RESPIRATORY EVEN AND UNLABORED, ON 2L NC, NO SIGN OF DISTRESS NOTED. SKIN WARM, DRY, NON DIAPHORETIC, IV ON RIGHT FA 22G, INTACT AND PATENT, IS INFUSING FLUID @60ML/HR. PATIENT DENIES ANY PAIN OR DISCOMFORT. ABLE TO MAKE NEEDS KNOWN. PLAN OF CARE DISCUSSED. PATIENT VERBALIZED UNDERSTANDING. CALL LIGHT WITHIN REACH. WILL CONTINUE TO MONITOR.
[2020-10-09 20:00] VITALS: BP 95/62
[2020-10-09] MEDS: LORATADINE 10 MG TAB PO SCH (20:40)
--- NOTE | 2020-10-09 20:40 | NUR ---
BLOOD SUGAR CHECK 259. 6UNITS OF INSULIN GIVEN, SCHEDULE MEDICATIONS GIVEN WITH EDUCATION. PATIENT VERBALIZED UNDERSTANDING. NO SIGN OF DISTRESS NOTED. PRECAUTION IN PLACE. CALL LIGHT WITHIN REACH. WILL CONTINUE TO MONITOR.
--- NOTE | 2020-10-09 22:00 | NUR ---
ROUND CHECK. PATIENT IS SLEEPING, CHEST RISE AND FALL NOTED, NO SIGN OF RESPIRATORY DISTRESS. PRECAUTION IN PLACE. CALL LIGHT WITHIN REACH. WILL CONTINUE TO MONITOR.
--- NOTE | 2020-10-09 22:56 | NUR ---
PATIENT REPORTS HAVING HEADACHE 06/21, BP 114/78, HR 119. TYLENOL PRN GIVEN WITH EDUCATION, PATIENT VERBALIZED UNDERSTANDING. PATIENT TOLERATED WELL. PRECAUTION IN PLACE. CALL LIGHT WITHIN REACH. WILL CONTINUE TO MONITOR.
--- NOTE | 2020-10-09 23:56 | NUR ---
PATIENT IS SLEEPING, CHEST RISE AND FALL NOTED. NO SIGN OF DISTRESS. PRECAUTION IN PLACE. CALL LIGHT WITHIN REACH. WILL CONTINUE TO MONITOR.
--- NOTE | 2020-10-10 01:30 | NUR ---
PATIENT AMBULATES TO BATHROOM WITH STEADY GAIT INDEPENDENTLY. NO SIGN OF DISTRESS NOTED. PRECAUTION IN PLACE. CALL LIGHT WITHIN REACH. WILL CONTINUE TO MONITOR.
--- NOTE | 2020-10-10 02:15 | NUR ---
PATIENT IS SLEEPING. CHEST RISE AND FALL NOTED, NO SIGN OF DISTRESS. PRECAUTION IN PLACE. CALL LIGHT WITHIN REACH. WILL CONTINUE TO MONITOR.
[2020-10-10] MEDS: NACL 0.9% 500 ML IV SCH ×4 (02:16→20:21)
[2020-10-10 04:00] VITALS: BP 157/96
--- NOTE | 2020-10-10 04:00 | NUR ---
PATIENT COMPLAINS OF GENERALIZED PAIN 09/21, PATIENT IS DE-SAT TO 85-87 WITH 2L O2 NC. CONTACT RT, INSTRUCT TO INCREASE TO 5L OXYGEN NC, O2 SAT INCREASE TO 96%. NO SIGN OF DISTRESS NOTED. PRECAUTION IN PLACE, CALL LIGHT WITHIN REACH. WILL CONTINUE TO MONITOR.
[2020-10-10] MEDS: HYDROcodone/APAP 7.5/325 MG 1 TAB PO PRN ×3 (04:27→17:09)
--- NOTE | 2020-10-10 04:27 | NUR ---
PAIN MEDICATION PRN GIVEN WITH EDUCATION, PATIENT VERBALIZED UNDERSTANDING. PATIENT TOLERATED WELL. CALL LIGHT WITHIN REACH. WILL CONTINUE TO MONITOR.
[2020-10-10 05:01] LABS: BASOPHILS % (AUTO) 0.4 % (0.0-2.0); EOSINOPHILS % (AUTO) 0.2 % (0.0-4.0); HEMATOCRIT 39.5 % (36-52); HEMOGLOBIN 11.9 g/dL (12.0-18.0); LYMPHOCYTES # (AUTO) 2.2 K/uL (2.0-11.5); LYMPHOCYTES % (AUTO) 35.2 % (20.5-51.1); MEAN CORPUSCULAR HEMOGLOBIN 20 pg (27-31); MEAN CORPUSCULAR HGB CONC 30 g/dL (33-37); MEAN CORPUSCULAR VOLUME 66.6 fL (80-94); MONOCYTES # (AUTO) 0.3 K/uL (0.8-1.0); MONOCYTES % (AUTO) 4.1 % (1.7-9.3); NEUTROPHILS # (AUTO) 3.7 K/uL (1.8-7.7); NEUTROPHILS % (AUTO) 60.1 % (42.2-75.2); PLATELET COUNT (AUTO) 176 K/uL (140-450); RED BLOOD CELL COUNT(AUTO) 5.93 MIL/uL (4.20-6.10); RED CELL DISTRIBUTION WIDTH 26.8 % (11.6-13.7); WHITE BLOOD COUNT (AUTO) 6.2 K/uL (4.8-10.8)
[2020-10-10 05:11] LABS: MAGNESIUM 1.9 mg/dL (1.8-2.4)
[2020-10-10 06:14] LABS: CARBON DIOXIDE 23.2 mmol/L (21-32); CREATININE 0.8 mg/dL (0.6-1.3); POTASSIUM 4.2 mmol/L (3.5-5.1)
[2020-10-10] MEDS: BLOOD GLUCOSE MONITORING 1 DEV DEV FS SCH ×4 (06:39→20:22)
--- NOTE | 2020-10-10 06:39 | NUR ---
BLOOD SUGAR CHECK 205, 4UNITS OF INSULIN GIVEN WITH EDUCATION. PATIENT VERBALIZED UNDERSTANDING. PRECAUTION IN PLACE. CALL LIGHT WITHIN REACH. WILL CONTINUE TO MONITOR.
[2020-10-10] MEDS: INSULIN LISPRO SLIDING SCALE 100 UNITS/ML VIAL SUBQ PRN ×4 (06:40→20:17)
--- NOTE | 2020-10-10 07:10 | NUR ---
ENDORSED PATIENT TO AM NURSE FOR CONTINUITY OF CARE. PATIENT IS STABLE.
--- NOTE | 2020-10-10 07:12 | NUR ---
RECEIVED REPORT FROM GEOLOGY TECHNICIAN NURSE. ACCORDING TO RN PT HAS A PMH OF HTN, DM, HIV+, HLD. PT IS A&OX4. ACCORDING TO RN PT WAS AON 2L O2 LAST NIGHT AND ONCE PT AMBULATED TO RESTROOM, PT HAD SOB WHICH REQUIRED RN TO INCREASE O2 TO 5L. RN CALLED RT AND RT PUT PT ON 4L NC. PTY HAS BEEN SATTING IN THE 989-99%. PT IS ON CCHO.PT HAS A RFA 22G IV RUNNING AT 60ML/HR NS. SKIN IS INTACT. CT SCAN ON NECK CAME BACK NEGATIVE. AWAITING HIV CD4, CD8. LBM WAS OCTOBER 09, 2020. NORCO FOR PAIN WAS LAST GIVEN AT 0430 10/10/20. PT IS AWAITING PLACEMENT AT SNF. WILL CONTINUE PLAN OF CARE.
--- NOTE | 2020-10-10 08:09 | NUR ---
PT IS COMPLAINING OF PAIN RATED A T 8/10. WILL CONTINUE WITH PAIN INTERVENTION BY ADMINISTERING ORDERED PAIN MEDICATION PER MD ORDER.
[2020-10-10] MEDS: PATIENTS OWN TABLET PO SCH (08:25)
[2020-10-10] MEDS: atenoloL 50 MG TAB PO SCH (08:27)
[2020-10-10] MEDS: MUPIROCIN CA NASAL 2% 1GM TUBE NS SCH (08:28)
[2020-10-10] MEDS: CHLORHEXADINE GLUC 2% CLOTH TP SCH (08:29)
--- NOTE | 2020-10-10 08:38 | NUR ---
ADMINISTERED SCHEDULED MEDICATIONS PER MD ORDER. CALL LIGHT WITH REACH WILL CONTINUE TO MONITOR.
[2020-10-10] MEDS ORDERED: ROC2I IV (09:56)
--- NOTE | 2020-10-10 11:37 | NUR ---
ADMINISTERED 6 UNITS OF INSULIN FOR 256MG/DL BG LEVEL. CALL LIGHT WITHIN REACH. WILL CONTINUE TO MONITOR.
--- NOTE | 2020-10-10 15:01 | NUR ---
DAIRY FEED MIXING OPERATOR FRANKLYN CALLED TO INFORM THAT PT WAS GOING TO BE TRANSFERRED TO [facility]. THERE IS NO ESTIMATED TIME FOR TRANSFER. WILL PROCEED WITH DISCHARGE INSTRUCTIONAL PACKET.
[2020-10-10 16:00] VITALS: BP 120/77
--- NOTE | 2020-10-10 17:00 | NUR ---
BLOOD SUGAR 199 MG/DL INSULIN COVERAGE GIVEN 2 UNITS.
--- NOTE | 2020-10-10 17:03 | NUR ---
CALLED TO PTS ROOM FOR INCREASED WOB AND LOW SPO2 CHECKED PTS SPO2 85%, HR 100, PT STATED HE WAS HAVING TROUBLE BREATHING AND A HEADACHE. PLACED PT ON HIGH FLOW SPO2 INCREASED TO 97% AND WOB IMPROVED.
--- NOTE | 2020-10-10 17:09 | NUR ---
PATIENTY COMPLAINS OF HEADACHE 6/10 PAIN MEDICATION GIVEN PT TOLERATED WELL
--- NOTE | 2020-10-10 18:10 | NUR ---
SPOKE TO DR CUNNINGHAM, PT IS ON HIGHFLOW AT 50% AND SATURATING AT 97%. AND CANCELLED PT DISCHARGED TO [facility] [place] AND ORDERED REPEAT CHEST XRAY.
--- NOTE | 2020-10-10 18:10 | NUR ---
SPOKE TO ZAIDA IN [facility], AWARE TRANSPORT CANCEL DUE TO CHANGE OF CONDITION.
--- NOTE | 2020-10-10 18:15 | NUR ---
SPOKE WITH MARCIAL OF [facility] AND CANCELLED THE TRANSFER DUE TO CHANGE OF CONDITION.
--- NOTE | 2020-10-10 19:25 | NUR ---
ENDORSED TO NIGHT NURSE FOR CONTINUITY OF CARE. PT IS STABLE.
[2020-10-10 20:00] VITALS: BP 87/56
--- NOTE | 2020-10-10 20:00 | NUR ---
RECEIVED BEDSIDE REPORT EARLIER FROM DAY RN REGARDING THE PATIENT FOR CONTINUITY OF CARE. PATIENT A/A/OX3, SITTING UP ON THE CHAIR EATING DINNER AND WATCHING TV. FAMILY AT THE BEDSIDE.PATIENT NOT IN ANY DISTRESS AND NO COMPLAIN AT THIS TIME. BP-87/56, PT ASYMPTOMATIC, DENIES ANY DIZZINESS OT LIGHTHEADEDNESS. AFEBRILE, SATING 94% ON 50% HIGH FLOW O2. SINUS RHYTHM ON SEED CLEANING MACHINE OPERATOR, HR- 81. PT DENIES ANY PAIN AT THIS TIME. FALL PRECAUTION IMPLEMENTED. INSTRUCTED TO CALL IF HE NEEDS ASSISTANCE. PT VERBALIZED UNDERSTANDING. CALL LIGHT WITHIN REACH. WILL CONTINUE POC AND MONITORING.
[2020-10-10] MEDS: LORATADINE 10 MG TAB PO SCH (20:15)
--- NOTE | 2020-10-10 22:00 | NUR ---
ADMINISTERED ALL THE SCHEDULED MEDICATIONS EARLIER ORDERED. PATIENT TOLERATED IT WELL. NO ADVERSE DRUG REACTIONS NOTED AND NO COMPLAIN FROM THE PATIENT. WILL CONTINUE OBSERVATION.
[2020-10-11] VITALS: BP 132/89
--- NOTE | 2020-10-11 | NUR ---
VITAL SIGNS STABLE, AFEBRILE, SATING 98% ON 4L/NC. SINUS RHYTHM ON GOVERNMENT DOCUMENTS LIBRARIAN, HR-83. NOT IN ANY DISTRESS AND NO COMPLAIN AT THIS TIME. CALL LIGHT WITHIN REACH.
--- NOTE | 2020-10-11 02:00 | NUR ---
PATIENT ASLEEP AT THIS TIME. VISIBLE CHEST RISE AND FALL NOTED. NOT IN ANY DISTRESS. SAFETY MEASURES IN PLACED.
[2020-10-11 04:00] VITALS: BP 129/82
--- NOTE | 2020-10-11 04:00 | NUR ---
PT IS RUNNING A TEMPERATURE 101.0, WILL GIVE THE PRN TYLENOL ORDERED. NOTED THAT THE PATIENT TAKES OF HIS OXYGEN AND ONLY SATING 60% ON RA. INSTRUCTED THE PATIENT TO KEEP HIS NASAL CANNULA ALL THE TIME. PLACED PATIENT PATIENT BACK ON 4L/NC. OTHERWISE PATIENT HAS NO COMPLAIN. SINUS TACHYCARDIA ON TELE MONITOR, HR-127. CALL LIGHT WITHIN REACH. WILL CONTINUE TO OBSERVE THE PATIENT.
[2020-10-11] MEDS: ACETAMINOPHEN 325 MG TAB PO PRN (04:16)
[2020-10-11] MEDS: BLOOD GLUCOSE MONITORING 1 DEV DEV FS SCH ×3 (06:03→16:37)
[2020-10-11] MEDS: INSULIN LISPRO SLIDING SCALE 100 UNITS/ML VIAL SUBQ PRN ×3 (06:05→17:01)
[2020-10-11 06:09] LABS: MAGNESIUM 1.6 mg/dL (1.8-2.4); PHOSPHORUS 1.9 mg/dL (2.5-4.9)
--- NOTE | 2020-10-11 06:22 | NUR ---
PATIENT STABLE. NOT IN ANY DISTRESS AND NO COMPLAIN AT THIS TIME. ALL NEEDS ATTENDED. CALL LIGHT WITHIN REACH. WILL ENDORSE THE PATIENT TO THE ONCOMING RN FOR CONTINUITY OF CARE.
--- NOTE | 2020-10-11 07:22 | NUR ---
ENDORSED THE PATIENT TO DAY RN FOR CONTINUITY OF CARE. PATIENT STABLE. SIGNING OFF.
[2020-10-11] MEDS: PATIENTS OWN TABLET PO SCH (08:00)
[2020-10-11] MEDS: atenoloL 50 MG TAB PO SCH (09:00)
[2020-10-11] MEDS: MUPIROCIN CA NASAL 2% 1GM TUBE NS SCH (09:00)
[2020-10-11] MEDS: CHLORHEXADINE GLUC 2% CLOTH TP SCH (09:01)
--- NOTE | 2020-10-11 09:03 | NUR ---
BP CHECKED PRIOR TO MED ADMINISTER, BP 120/73, PULSE 97. ADMINISTERED SCHEDULED MEDS PER MD ORDER, MEDS EDUCATION PROVIDED, PATIENT SAID OK. PATIENT IS SITTING UP ON BED AND TALKING ON HIS CELLPHONE. DENIED OF ANY DISTRESS. SAFETY MEASURES IN PLACE.
--- NOTE | 2020-10-11 09:07 | NUR ---
DR CUNNINGHAM IS ROUNDING ON PATIENT.
--- NOTE | 2020-10-11 09:18 | NUR ---
RECEIVED CALL FROM SISTER MERLIN, UPDATED HER WITH PATIENT'S CURRENT CONDITION AND PLAN. MERLIN WAS AWARE THAT PATIENT WILL BE TRANSFER TO FACILITY FOR ANTIBIOTIC TREATMENT.
[2020-10-11 10:52] LABS: LYMPHOCYTES # (AUTO) 0.5 K/uL (2.0-11.5); MONOCYTES # (AUTO) 0.2 K/uL (0.8-1.0); RED CELL DISTRIBUTION WIDTH 26.8 % (11.6-13.7); WHITE BLOOD COUNT (AUTO) 3.5 K/uL (4.8-10.8)
[2020-10-11 10:57] LABS: ANION GAP 6.1 (8-16); BASOPHILS % (AUTO) 0.1 % (0.0-2.0); CREATININE 0.8 mg/dL (0.6-1.3); EOSINOPHILS % (AUTO) 0.3 % (0.0-4.0); HEMOGLOBIN 10.4 g/dL (12.0-18.0); LYMPHOCYTES % (AUTO) 15.4 % (20.5-51.1); MEAN CORPUSCULAR HEMOGLOBIN 20 pg (27-31); MEAN CORPUSCULAR HGB CONC 31 g/dL (33-37); MEAN CORPUSCULAR VOLUME 66.4 fL (80-94); MONOCYTES % (AUTO) 5.9 % (1.7-9.3); NEUTROPHILS # (AUTO) 2.8 K/uL (1.8-7.7); NEUTROPHILS % (AUTO) 78.3 % (42.2-75.2); PLATELET COUNT (AUTO) 138 K/uL (140-450); POTASSIUM 4.1 mmol/L (3.5-5.1); RED BLOOD CELL COUNT(AUTO) 5.13 MIL/uL (4.20-6.10)
[2020-10-11] MEDS: NACL 0.9% 500 ML IV SCH (11:30)
--- NOTE | 2020-10-11 11:30 | NUR ---
BLOOD GLUCOSE 199, WILL ADMINISTER HUMALOG ONCE PATIENT RECEIVES HIS LUNCH. PATIENT IS SLEEPING ON BED AND AROUSABLE TO VOICE. NO SIGNS OF ACUTE DISTRESS NOTED. ON 4 LPM VIA NASAL CANNULA. SAFETY MEASURES IN PLACE.
[2020-10-11 12:00] VITALS: BP 115/79
--- NOTE | 2020-10-11 13:09 | NUR ---
PATIENT IS TALKING TO FAMILY MEMBER AT BEDSIDE.
--- NOTE | 2020-10-11 16:38 | NUR ---
BLOOD GLUCOSE 191, WILL ADMINISTER COVERAGE ONCE DINNER ARRIVES. PATIENT IS AWAKE AND WATCHING TV ON THE CHAIR. NO SIGNS OF ACUTE DISTRESS NOTED. SAFETY MEASURES IN PLACE.
--- NOTE | 2020-10-11 16:45 | NUR ---
ATTEMPTED TO CALL SISTER MERLIN 3X AND NO ANSWER, LEFT MESSAGE TO RETURN CALL.
--- NOTE | 2020-10-11 17:05 | NUR ---
2 UNIT HUMALOG GIVEN FOR BLOOD GLUCOSE 191. PATIENT IS SITTING ON THE CHAIR AND AWAITING FOR TRANSPORTATION TO ARRIVE. SAFETY MEASURES IN PLACE.
--- NOTE | 2020-10-11 17:11 | NUR ---
SPOKE TO ZAIDA FROM [facility], STATED THAT THEY HAVE TO ASSISTANT LABORATORY DIRECTOR ANOTHER PATIENT AND WILL BE PICKING PATIENT AT 1830. 1830 IS THE EARLIEST THEY CAN COME BY. WILL NOTIFY GENERAL CONTRACTOR.
[2020-10-11] MEDS: MAG SULF 2000 MG/WATER PREMIX 50 ML IV PRN (17:52)
--- NOTE | 2020-10-11 17:53 | NUR ---
MAG 1.6 FROM AM, REPLENISHED WITH PRN MAG SULFATE 2G. MED EDUCATION PROVIDED, PATIENT VERBALIZED UNDERSTANDING. PATIENT IS RESTING ON BED. AWAITING FOR [facility]RIVE FOR TRANSFER. DISCHARGE EDUCATION PROVIDED, ANSWERED ALL PATIENTS QUESTIONS, PATIENT VERBALIZED UNDERSTANDING. PATIENT SIGNED DC DOCUMENTS. SAFETY MEASURES IN PLACE.
--- NOTE | 2020-10-11 19:48 | NUR ---
PATIENT TRANSFERRED ACCOMPANIED BY [facility]. ALL BELONGING AND HOME MEDS TRANSFER WITH PATIENT. COPY OF DISCHARGE DOCUMENTS PROVIDED. PATIENT IS IN STABLE CONDITION.
== END 2020-10-11 19:47 | DRG 871 ==
LOC: MED 16:30 → MTU 20:55
PROVIDERS: ADMIT Emergency Medicine; ATTEND Emergency Medicine
DX: A40.8 Other streptococcal sepsis (principal); J18.9 Pneumonia, unspecified organism; J96.01 Acute respiratory failure with hypoxia; E44.1 Mild protein-calorie malnutrition; Z20.822 Contact with and (suspected) exposure to COVID-19; E78.5 Hyperlipidemia, unspecified; K11.1 Hypertrophy of salivary gland; K80.20 Calculus of gallbladder without cholecystitis without obstruction; K21.9 Gastro-esophageal reflux disease without esophagitis; D69.6 Thrombocytopenia, unspecified; E11.65 Type 2 diabetes mellitus with hyperglycemia; I27.21 Secondary pulmonary arterial hypertension; I11.9 Hypertensive heart disease without heart failure; M47.812 Spondylosis without myelopathy or radiculopathy, cervical region; J34.1 Cyst and mucocele of nose and nasal sinus; Z85.038 Personal history of other malignant neoplasm of large intestine; Z90.49 Acquired absence of other specified parts of digestive tract; Z79.899 Other long term (current) drug therapy; Z83.3 Family history of diabetes mellitus; Z68.26 Body mass index [BMI] 26.0-26.9, adult
CPT/HCPCS: 36415; 36600; 70491; 71045; 71275; 76536; 80048; 80053; 81003; 82803; 82948; 83036; 83605; 83690; 83735; 83880; 84100; 84436; 84439; 84443; 84479; 84484; 85025; 85379; 85610; 85730; 86360; 86886; 86900; 86901; 87040; 87070; 87081; 87086; 87205; 87420; 87804; 93005; 96361; 96365; 96366; 96367; 97110; 97163-GP; 97530; 99285; J0456; J0692; J0696; J1644; J1815; J3370; J3475; J7030; J7060; J7512; Q9967

== ENCOUNTER 2021-07-19 16:50 | Emergency (ER) | payer OTHER ==
[~2021-07-19] VITALS: Ht 160 cm; Wt 75.3 kg
[~2021-07-19 16:50] MED LIST changes: -DOCU-299 PO; +ROC2I IV
[2021-07-19 17:03] VITALS: BP 103/70
--- NOTE | 2021-07-19 17:55 | NUR ---
PT AMBULATED TO ER BED 12
--- NOTE | 2021-07-19 18:00 | NUR ---
61 y/o M BIB self from home c/o dizziness, abdominal pain, left sided chest pain, 8/10 headache x 4 days, and bilateral leg shaking. Pt states 2 weeks of abdominal pain and productive cough, chest pain x 2 days. Pt states left sided chest pain 8/10, pinching/intermittent, non-radiating that worsens with movement. Pt states LLQ abdominal pain 8/10, sharp/intermittent, radiatin to low back. Patient also states nausea, vomiting x 2 episodes today. Denies fever, chills, diarrhea, constipation. Pt placed onto cardiac surgeon. No edema noted. Cap refill <2 seconds. Bed locked in lowest position, side rails x 2. PMH: HTN, HIV, HLD Meds: catapril, metformin NKDA
--- NOTE | 2021-07-19 18:40 | NUR ---
Lab at bedside
[2021-07-19 18:57] LABS: BASOPHILS % (AUTO) 0.2 % (0.0-2.0); EOSINOPHILS % (AUTO) 0.6 % (0.0-4.0); HEMATOCRIT 48.1 % (36-52); HEMOGLOBIN 16.4 g/dL (12.0-18.0); LYMPHOCYTES # (AUTO) 1.3 K/uL (2.0-11.5); LYMPHOCYTES % (AUTO) 23.5 % (20.5-51.1); MEAN CORPUSCULAR HEMOGLOBIN 29 pg (27-31); MEAN CORPUSCULAR HGB CONC 34 g/dL (33-37); MEAN CORPUSCULAR VOLUME 85.4 fL (80-94); MONOCYTES # (AUTO) 0.5 K/uL (0.8-1.0); MONOCYTES % (AUTO) 9.1 % (1.7-9.3); NEUTROPHILS # (AUTO) 3.5 K/uL (1.8-7.7); NEUTROPHILS % (AUTO) 66.6 % (42.2-75.2); PLATELET COUNT (AUTO) 124 K/uL (140-450); RED BLOOD CELL COUNT(AUTO) 5.63 MIL/uL (4.20-6.10); WHITE BLOOD COUNT (AUTO) 5.3 K/uL (4.8-10.8)
--- NOTE | 2021-07-19 18:57 | NUR ---
chiara Clements, UA collected, walked to lab and handed to CPT. Rossy
--- NOTE | 2021-07-19 19:14 | NUR ---
PT RETURN FROM XRAY
--- NOTE | 2021-07-19 19:16 | NUR ---
Report and transfer of care endorsed to JEY Mandujano.
[2021-07-19 19:21] LABS: ALBUMIN 3.4 g/dL (3.4-5.0); ANION GAP 11.3 (8-16); CARBON DIOXIDE 27.6 mmol/L (21-32); CREATININE 1.6 mg/dL (0.6-1.3); POTASSIUM 3.9 mmol/L (3.5-5.1); TOTAL BILIRUBIN 0.8 mg/dL (0.0-1.0)
[2021-07-19 19:33] LABS: APPEARANCE,URINE CLEAR (CLEAR); BILIRUBIN,URINE NEGATIVE (NEGATIVE); BLOOD, URINE NEGATIVE (NEGATIVE); COLOR,URINE AMBER (YELLOW); LEUKOCYTE ESTERASE ,URINE NEGATIVE (NEGATIVE); NITRITE, URINE NEGATIVE (NEGATIVE); UGLUCOSE NEGATIVE (NEGATIVE)
[2021-07-19] MEDS ORDERED: ACET-10509 PO (20:13)
[2021-07-19] MEDS ORDERED: LEVO750T51 PO (20:13)
[2021-07-19 20:20] VITALS: BP 103/70
--- NOTE | 2021-07-19 20:20 | NUR ---
Patient discharged with v/s stable. Written and verbal after care instructions given and explained. Patient alert, oriented and verbalized understanding of instructions. Ambulatory with steady gait. All questions addressed prior to discharge. ID band removed. Patient advised to follow up with PMD. Rx of levofloxacin, tylenol given. Patient educated on indication of medication including possible reaction and side effects. Opportunity to ask questions provided and answered.
== END 2021-07-19 20:20 | disposition home or self-care (01) ==
LOC: MED 16:50
DX: J18.9 Pneumonia, unspecified organism (principal); Z20.822 Contact with and (suspected) exposure to COVID-19; R05.9 Cough, unspecified; R10.9 Unspecified abdominal pain; E11.9 Type 2 diabetes mellitus without complications; I10 Essential (primary) hypertension; K21.9 Gastro-esophageal reflux disease without esophagitis; Z79.899 Other long term (current) drug therapy; Z79.84 Long term (current) use of oral hypoglycemic drugs
CPT/HCPCS: 36415; 71045; 80053; 81003; 83690; 85025; 93005; 99285